=== PATIENT | female | born 1955 | race Caucasian/White ===

== ENCOUNTER 2020-12-17 14:28 | Outpatient (CLI) | payer OTHER, SELFPAY ==
--- NOTE | ~2020-12-17 | XR_ITS ---
XR lumbar spine 2-3V DATE: 12/17/2020 15:03 INDICATION: Chronic low back pain; injury 1 year ago. TECHNIQUE: AP, lateral, coned lateral lumbosacral views COMPARISON: 01/14/2016 lumbar spine FINDINGS: There is normal alignment of the lumbar spine. There is mild to moderate degenerative disc disease throughout the lumbar spine. No fracture or bone destruction or spondylolisthesis. The lum bar pedicles are intact. The sacroiliac joints are normal. IMPRESSION: Mild to moderate degenerative disc disease of lumbar spine Reviewed, dictated and finalized at location A.
--- NOTE | ~2020-12-17 | XR_ITS ---
EXAMINATION: XR ankle RT min 3V DATE: 12/17/2020 15:03 INDICATION: Right ankle pain. TECHNIQUE: 4 views of right ankle were obtained. COMPARISON: None. FINDINGS: Bone alignment is normal. No fracture. There is mild ankle joint osteoarthritis characteriz ed by a tiny marginal osteophyte. There is mild osteoarthritis of talonavicular joint. There is an en thesophyte at plantar aspect of calcaneal tuberosity. IMPRESSION: 1. Mild polyarticular osteoarthritis. Reviewed, dictated and finalized at location A.
--- NOTE | ~2020-12-17 | XR_ITS ---
XR foot RT min 3V DATE: 12/17/2020 15:04 INDICATION: Generalized pain from the tibia and fibula to the foot. No injury. TECHNIQUE: 4 views of right foot COMPARISON: None FINDINGS: Diffuse osteopenia. Moderate plantar calcaneal enthesopathy without erosive change or perio stitis. No fracture, dislocation, periosteal reaction or bone destruction is detected. IMPRESSION: Plantar calcaneal enthesopathy Osteopenia Reviewed, dictated and finalized at location A.
--- NOTE | ~2020-12-17 | XR_ITS ---
EXAMINATION: XR knee RT 3V DATE: 12/17/2020 15:03 INDICATION: Right knee pain. TECHNIQUE: 3 views of right knee were obtained. COMPARISON: Right knee radiographs 02/16/2020 FINDINGS: There is a total right knee arthroplasty without patellar resurfacing in near-anatomic alig nment. No periprosthetic lucency to suggest ischemia or infection. No fracture. There is a small knee joint effusion. IMPRESSION: 1. Total right knee arthroplasty in near-anatomic alignment. 2. Small right knee joint effusion. Reviewed, dictated and finalized at location A.
== END 2020-12-17 14:29 | disposition home or self-care (01) ==
LOC: ANHIMG 14:38
PROVIDERS: PCP Internal Medicine; Visit Provider Internal Medicine
DX: M47.816 Spondylosis without myelopathy or radiculopathy, lumbar region (principal); M85.88 Other specified disorders of bone density and structure, other site; M19.071 Primary osteoarthritis, right ankle and foot; Z96.651 Presence of right artificial knee joint; M25.461 Effusion, right knee
CPT/HCPCS: 72100; 73562; 73610; 73630

== ENCOUNTER 2023-09-11 14:59 | Outpatient (CLI) | payer MEDICARE, SELFPAY ==
--- NOTE | 2023-09-11 15:13 | ECG_ITS ---
Measurements Intervals [place] Rate: 99 P: 60 IN: 135 QRS: -12 QRSD: 93 T: 11 QT: 347 QTc: 445 Interpretive Statements SINUS RHYTHM LOW QRS VOLTAGE IN PRECORDIAL LEADS [QRS DEFLECTION < 1.0 mV IN CHEST LEADS] EVIDENCE OF PREVIOUS ANTERIOR INFARCTION ABNORMAL ECG COMPARED TO ECG 09/18/2018 09:10:47 SMALL PRECORDIAL R-WAVES ARE ABSENT Electronically Signed On 09-11-2023 15:43:43 TUNNEL KILN OPERATOR by Ovidio Saab M.D.
== END 2023-09-11 15:00 | disposition home or self-care (01) ==
LOC: ANHSURGERY 15:12
PROVIDERS: PCP Internal Medicine; Visit Provider Orthopaedic Surgery
DX: Z01.818 Encounter for other preprocedural examination (principal); R93.1 Abnormal findings on diagnostic imaging of heart and coronary circulation; R94.31 Abnormal electrocardiogram [ECG] [EKG]; I10 Essential (primary) hypertension
CPT/HCPCS: 93005

== ENCOUNTER 2023-09-12 15:03 | Inpatient (IN) | payer MEDICARE, SELFPAY ==
--- NOTE | 2023-09-07 12:25 | PC.NURSE ---
Report to the Outpatient Waiting Room, entrance under the green pavilion located off [facility], at time ___1230____ on date _09/12/23 . Planned Procedure Time: __1430 . Time changes happen often and if your time is changed the preop area will call you the afternoon before. - You and your visitor will be asked to self-screen and do not enter if you have any COVID symptoms. - A mask is optional within the hospital at this time. Patients may have clear liquids (water, carbonated beverages, clear teas, apple juice) until 3 hours prior to surgery( 1130 AM) with a maximum of 20 ounces. - No food from midnight until time of surgery - Infants may have breast milk until 4 hours before surgery, formula 6 hours prior to surgery. - Children will be allowed to drink immediately following surgery. If applicable, please bring a bottle or sippy cup to assist with drinking. Juice, water, soda, and popsicles are readily available. For infants on formula, please bring formula the day of surgery. Pacifiers are allowed. Take the following medications with a SIP of water the morning of surgery: _ESCITALOPRAM,LEVOTHYROXINE ,LORAZEPAM, PREGABALIN DO NOT STOP ANY OF YOUR OTHER PRESCRIPTION MEDICATIONS PRIOR TO SURGERY ?EXCEPT THE FOLLOWING Medications to discontinue per physician NONE Please no make-up, nail ethiopian, hairspray, perfume, deodorant, or body powder the day of surgery. No jewelry (including any body piercings) or valuables the day of surgery, leave them at home. Please take a shower or bath the night before, or the morning of, surgery with an antibacterial soap. Wear comfortable, loose fitting clothing. Children are encouraged to wear pajamas. - Jewelry must be removed prior to entering the operating room. Rings and piercings that are not removed may be cut off. - The hospital will not accept responsibility for valuables. - Please leave all valuables, including medications, at home the day of surgery. If you are going home after surgery, a licensed limo driver must drive you home. - NO public transportation without another adult if you receive anesthesia. - We recommend that an adult stay with you for 24 hours following discharge. - We also recommend that you do not drive, make important decision, drink alcoholic beverages, or take any drugs that were not prescribed by your health care provider for at least 24 hours after your discharge time. Follow any additional instructions given to you from your surgeon. If you or anyone in your household have experienced Covid symptoms in the past week, please notify your surgeon or the nurse liaison at the phone number below for possible testing. Telephone instructions given to PATIENT and asked if any additional questions and then verbalized understanding. Patient advised to call surgeon office or pre surgery nurse liaison [phone] if any additional questions.
[2023-09-07 12:33] VITALS: BMI 41.0
[2023-09-12] VITALS (11 sets, daily range): BP systolic 110–150; BP diastolic 55–101; PULSE 92–103; RESP 12–18; TEMP 35.7–36.9; O2SAT 94–100
--- NOTE | ~2023-09-12 | XR_ITS ---
EXAMINATION: [id number]_[id number]_CR DATE: 09/12/2023 14:52 INDICATION: Right knee wound. TECHNIQUE: 2 views of right knee were obtained. COMPARISON: Right knee radiographs 04/12/2023 FINDINGS: There is a total right knee arthroplasty in near-anatomic alignment. There are lucencies ar ound the tibial component. No fracture. There is a surgical drain in the knee joint. Anterior skin st aples are noted. IMPRESSION: 1. Total right knee arthroplasty with lucencies around the tibial component, consistent with osteomye litis. Reviewed, dictated and finalized at location A. ING INSTRUCTOR IMPRESSION: 1. Total right knee arthroplasty with lucencies around the tibial component, co nsistent with osteomyelitis.
--- NOTE | ~2023-09-12 | XR_ITS ---
EXAMINATION: XR chest PICC line DATE: 09/14/2023 14:29 INDICATION: PICC line placement TECHNIQUE: frontal view of the chest was obtained. COMPARISON: Chest radiograph dated 10/05/2018 FINDINGS: Right upper extremity peripherally inserted central venous catheter (PICC) tip at the caudal superio r vena cava. No focal airspace opacities, pulmonary edema, pleural effusion or pneumothorax. The card iomediastinal silhouette is normal. IMPRESSION: 1. Right upper extremity PICC line tip at the caudal superior vena cava. No acute cardiopulmonary dis ease. Reviewed, dictated and finalized at location B. [place] IMPRESSION: 1. Right upper extremity PICC line tip at the caudal superior vena cava. No acu te cardiopulmonary disease.
--- NOTE | 2023-09-12 07:18 | WPDHPUPDATE1 ---
History and Physical Update Update Date/Time: 09/12/23 07:18 History and Physical has been reviewed, including an updated exam of the patient. There are NO changes in the patient's condition. Risks, benefits, and alternatives have been discussed and questions answered. Patient agrees to proceed with procedure.
[2023-09-12] MEDS: LACTATED RINGERS 1,000 ML 30 ML IV CONT ×2 (10:20→14:23)
[2023-09-12] MEDS: CELECOXIB 200 MG CAPSULE PO (10:26)
[2023-09-12] MEDS: ACETAMINOPHEN 500 MG TABLET 1000 MG PO (10:26)
[2023-09-12 10:44] LABS: Hematocrit 34.8 % (37.0-47.0); Hemoglobin 10.1 g/dL (12.0-15.0); Mean Corpuscular Hemoglobin 22.8 pg (26-34); Mean Corpuscular Volume 78.6 fl (80-100); Mean Platelet Volume 9.3 fl (7.4-10.4); Platelet Count Result 408 k/mm3 (150-375); Red Blood Count 4.43 M/mm3 (4.2-5.4); Red Cell Distribution Width 16.7 % (11.5-14.5)
[2023-09-12 11:00] LABS: CRP 3.8 mg/dL (<1.0)
[2023-09-12 11:32] LABS: Erythrocyte Sedimentation Rate 79 mm/hr (0-20)
[2023-09-12] MEDS: ceFAZolin 2 GM/D5W 50 ML 2 GM/50 ML BAG IVPB ×2 (12:00→20:19)
--- NOTE | 2023-09-12 12:59 | SUR.OPER ---
Gram stain report verbally given to Dr. Leon from lab intraop
[2023-09-12] MEDS: HYDROGEN PEROXIDE 3% SOLN(*SP) 473 ML BOTTLE 100 ML IRRIGATION (13:15)
[2023-09-12] MEDS: TRANEXAMIC ACID 1,000 MG/10 ML AMPUL 1000 MG IV PUSH (13:27)
[2023-09-12] MEDS: VANCOMYCIN 1,500 MG/NS 500 ML 1,500 MG/500 ML BAG 250 MG IVPB (13:37)
--- NOTE | 2023-09-12 14:38 | P.OP_ITS ---
Procedure Note - Detailed Date of Procedure 09/12/23 Pre-op Diagnosis right knee wound Post-op Diagnosis Other (osteomyelitis right tibia with septic knee joint, microbiology pending ) Procedure Performed INCISION AND DRAINAGE WITH DEBRIDEMENT OF RIGHT TIBIA AND IND OF THE RIGHT KNEE JOINT WITH POLY COMPONENT REVISION. Surgeon Cristopher Cortez MD Anesthesia General Findings OSTEOMYELITIS RIGHT PROXIMAL TIBIA, MICROBIOLOGY PENDING Description of Procedure THE PATIENT WAS TAKEN TO THE OR IN STABLE CONDITION. THE RIGHT KNEE WAS PREPPED AND DRAPED IN THE STANDARD FASHION. THE RIGHT KNEE WOUND WAS IDENTIFIED IN THE MOST DISTAL REGION OF THE OLD SCAR. AN INCISION WAS MADE OVER THE WOUND AND THE SKIN EDGES WERE DEBRIDED TO GOOD BLEEDING SKIN. THE INCISION CONTINUED DOWN TO THE SUBCUTANEOUS TISSUE UNTIL THE FASCIA WAS IDENTIFIED. THERE WAS A FISTULA AND TUNNELING OF THE WOUND WHICH LED TO THE PROXIMAL MEDIAL TIBIA. FURTHER EXPLORATION SHOWED THERE WAS A DEFECT IN THE PROXIMAL MEDIAL TIBIAL PLATEAU. THERE WAS OBVIOUS DEVITALIZED BONE AND THIS APPEARED TO BE OSTEOMYELITIS. CULTURES WERE TAKEN AT THIS TIME INCLUDING TISSUE FOR CULTURE. IV ANTIBIOTICS WERE STARTED. DEBRIDEMENT OF BONE CONTINUED. THE UNDERSURFACE OF THE TIBIAL IMPLANT WAS EXPOSED. THE COMPONENT WAS WELL FIXED. THE WOUND WAS IRRIGATED THOROUGHLY AT THIS POINT. THERE WAS OBVIOUS CONTAMINATION TO THE RIGHT KNEE JOINT. AT THIS POINT THE SKIN INCISION WAS EXTENDED PROXIMALLY AND AN ARTHROTOMY WAS PREFORMED. THE JOINT WAS INSPECTED. THERE WAS PURULENCE IN THE KNEE JOINT. THE TISSUES WERE WELL PRESERVED AND THERE WAS NO SIGNIFICANT TISSUE NECROSIS. THE POLYETHYLENE COMPONENT WAS REMOVED. THE COMPONENTS WERE INSPECTED AND WERE WELL FIXED. THE KNEE JOINT WAS IRRIGATED AND A EXTENSIVE SYNOVECTOMY WAS PREFORMED AND THE JOINT WAS DEBRIDED THOROUGHLY. ONCE THE JOINT WAS IRRI GATED WITH STERILE BETADINE SOLUTION AND H2O2 SOLUTION, THE POLY ETHYLENE COMPONENT WAS REPLACED USING AN 11 CR POLY COMPONENT. THE KNEE WAS TAKEN THROUGH A RANGE OF MOTION AND THE KNEE JOINT WAS STABLE. MORE STERILE BETADINE WAS USED TO IRRIGATE THE KNEE ONCE AGAIN. A LARGE DRAIN WAS PLACED. THE ARTHROTOMY WAS CLOSED WITH 0 VICRYL, THE SUB CUTANEOUS LAYER WAS CLOSED WITH 2-0 VICRYL AND THE SKIN WAS CLOSED WITH A COMBINATION OF AAMIR AND 3-0 PROLINE SUTURE. A PREVENA DRESSING WAS PLACED. THE PATIENT WAS EXTUBATED AND SENT TO THE RECOVERY ROOM. Estimated Blood Loss 300 Drains Yes Packing No Pathology Yes (MICRO FOR CULTURES AND TISSUE CULTURES) Complications No immediate complications Disposition PACU
[2023-09-12] MEDS: fentaNYL CITRATE INJ (*CRX) 100 MCG/2 ML VIAL 25 MCG IV PUSH ×8 (14:47→15:27)
--- NOTE | 2023-09-12 15:45 | ADMGEN ---
This patient, Gayle De La Cruz, was admitted to 3 Med Surg Room 301-01. Patient/family oriented to hospital policies and general routines including ID bracelet, bed and alarms, visiting hours, pain management, procedures, bathroom and other care routines, personal items, smoking policy, room service/diet, and visiting hours. Information on how to activate the Rapid Response Team has been discussed. Patient/Family are encouraged to report perceived risks to care and to ask questions if they do not understand what they are told or what they should do.
[2023-09-12 16:06] LABS: Estimated CRCL calculation 97 ml/min; Estimated Glomerular Filt Rate > 60
[2023-09-12] MEDS: HYDROcodone/acetaminophen (*CRX) 7.5-325 MG TABLET 1 TAB PO (16:10)
[2023-09-12] MEDS: diazePAM (*CRX) 5 MG TABLET PO (16:11)
[2023-09-12] MEDS: SENNA/DOCUSATE SODIUM TABLET 2 TAB PO (17:13)
[2023-09-12] MEDS: FAMOTIDINE 20 MG TABLET PO (20:18)
[2023-09-12] MEDS: ASPIRIN 325 MG ENTERIC TABLET PO (20:18)
[2023-09-12] MEDS: HYDROcodone/acetaminophen (*CRX) 7.5-325 MG TABLET 2 TAB PO (22:01)
[2023-09-13] VITALS: BP 129/58; PULSE 101; RESP 18; TEMP 36.8; O2SAT 97
[2023-09-13] MEDS: VANCOMYCIN 1,500 MG/NS 500 ML 1,500 MG/500 ML BAG 250 MG IVPB ×2 (00:01→15:17)
[2023-09-13 04:00] VITALS: BP 114/58; PULSE 91; RESP 18; TEMP 36.7; O2SAT 99
[2023-09-13] MEDS: HYDROcodone/acetaminophen (*CRX) 7.5-325 MG TABLET 2 TAB PO ×4 (04:05→21:12)
[2023-09-13] MEDS: ceFAZolin 2 GM/D5W 50 ML 2 GM/50 ML BAG IVPB ×3 (04:05→21:17)
[2023-09-13 06:42] LABS: Basophils Percent Auto 0.2 % (0.2-1.2); Hematocrit 28.1 % (37.0-47.0); Hemoglobin 8.2 g/dL (12.0-15.0); Immature Granulocyte Absolute 0.05 K/mm3 (0.00-0.031); Immature Granulocyte Percent A 0.4 % (0-0.5); Lymphocytes Absolute Auto 1.82 K/mm3 (0.9-3.2); Mean Corpuscular HGB Conc 29.2 g/dl (32-36); Mean Corpuscular Hemoglobin 23.2 pg (26-34); Mean Corpuscular Volume 79.4 fl (80-100); Mean Platelet Volume 9.3 fl (7.4-10.4); Neutrophils Absolute Auto 10.1 K/mm3 (1.3-6.7); Neutrophils Percent Auto 77.4 % (45.5-73.1); Platelet Count Result 377 k/mm3 (150-375); Red Blood Count 3.54 M/mm3 (4.2-5.4); Red Cell Distribution Width 16.4 % (11.5-14.5)
[2023-09-13 07:39] LABS: Platelet Estimate Increased (Adequate)
[2023-09-13 07:40] LABS: Anisocytosis 2+ (NORMAL); Hypochromasia 1+ (NORMAL); Microcytosis 1+ (NORMAL); Schistocytes None Seen (NORMAL)
[2023-09-13 08:00] VITALS: BP 112/62; PULSE 91; RESP 16; TEMP 36.8; O2SAT 96
[2023-09-13] MEDS: ASPIRIN 325 MG ENTERIC TABLET PO ×2 (09:05→21:13)
[2023-09-13] MEDS: FAMOTIDINE 20 MG TABLET PO ×2 (09:05→21:13)
[2023-09-13] MEDS: SENNA/DOCUSATE SODIUM TABLET 2 TAB PO ×2 (09:05→16:41)
[2023-09-13] MEDS: polyethylene glycoL 3350 17 GM POWD.PACK PO (09:05)
--- NOTE | 2023-09-13 09:22 | PM.PNORT ---
Progress Note: A&P Assessment and Plan (1) Open wnd knee/leg/ankle: Qualifiers: Encounter type: initial encounter Laterality: right Qualified Code(s): S81.001A - Unspecified open wound, right knee, initial encounter; S81.801A - Unspecified open wound, right lower leg, initial encounter; S91.001A - Unspecified open wound, right ankle, initial encounter Code(s): S81.009A - Unspecified open wound, unspecified knee, initial encounter; S81.809A - Unspecified open wound, unspecified lower leg, initial encounter; S91.009A - Unspecified open wound, unspecified ankle, initial encounter Status: Acute Assessment and Plan: POD #1: ?I&D with debridement of right tibia and I&D of the right knee joint with poly component revision. Gram stain from surgery reveals many WBCs but no organisms. Dr. Cortez indicated based on surgical intervention and OM noted intraoperatively of the tibia, patient will require tank terminal gauger antibiotics. Blood Cultures ordered for need for PICC placement. Awaiting results at this time. Final wound culture results pending. Pharm ID consulted for future recommendations upon request from Dr. Cortez. Continue drain right knee. Plan to pull when slowed drainage. Continue Prevena with inpatient wound VAC. To be transitioned to outpatient wound VAC cassette upon d/c. Care Coordination to begin involvement for need for Home infusion and wound care upon discharge. PT/OT with WBAT. Walker. Fall Precautions. Pain control. Ice. Elevate as need. DVT prophylaxis with Aspirin. IV antibiotics with Vancomycin and Ancef. Dispo: Home with Home Health IV infusion/wound care. (2) Septic joint: Qualifiers: Laterality: right Septic arthritis location: knee Septic arthritis organism: due to unspecified organism Qualified Code(s): M00.9 - Pyogenic arthritis, unspecified Code(s): M00.9 - Pyogenic arthritis, unspecified Status: Acute Plan Reviewed history, exam, radiographs and current labs with attending MD and covering surgeon, Dr. Cortez, who agrees with current plan as indicated above. No further recommendations from Dr. Cortez at this time. Subjective Subjective Date/Time Seen: 09/13/23 09:22 Post Op day: 1 Interval history: POD #1: I&D with debridement of right tibia and I&D of the right knee joint with poly component revision. Patient up in chair at time of exam. Pain well controlled. Discussed postoperative findings of OM of the right tibia with septic knee joint per Dr. Cortez. Patient verbalized understanding. Discussed poly component exchange. Review of Systems Review of Systems: All systems reviewed & are unremarkable except as noted in HPI and below Exam Const: General: comfortable and no acute distress Resp: Effort & Inspection: normal respiratory effort Cardio: Rate: regular rate Rhythm: regular rhythm GI: GI Palp: Yes Soft to palpation Skin: Wounds: wounds noted (see extremity exam ) Neuro: Speech: normal speech Sensory Exam: normal sensation Extrem: Right lower extremity: knee (Drain in place, 5mL sanguineous output. Prevena dressing in place. ) Details: tenderness (diffuse, mild ), swelling, abnormal ROM Details: pain with active ROM during Details: in extension and in flexion and pain with passive ROM during Details: in extension and in flexion and ecchymosis Other: Incision right knee with Prevena dressing c/d/i. Wound VAC chamber empty. Drain with 5mL sanguinous output. Surrounding tissue with mild swelling. No significant redness/warmth. Patient moves toes, sensation intact. +ankle dorsiflexion/plantarflexion. Negative Arielle's sign. Psych: Mental Status: mental status grossly normal Objective Data Vital Signs Vital Signs: Vital Signs - 24 hr 09/12/23 10:51 09/12/23 14:23 09/12/23 14:35 Temperature 36.8 C 36.6 C Pulse Rate 98 96 98 Respiratory Rate 16 14 14 Blood Pressure 150/75 H 144/101 H 140/90 Pulse Oximetry 97 100
--- NOTE | 2023-09-13 11:25 | P.PNINF_ITS ---
Pharmacy ID Consult - Stewardship Interventions Type of Interventions: Escalation Pharmacy ID Note: Subjective Pharmacy was consulted by Namita Armstrong regarding infectious diseases for Gayle De La Cruz. Gayle De La Cruz is a 68 year old F with concerns regarding Osteomyelitis/PJI. Background The patient is currently receiving Cefazolin and Vancomycin in the post- operative period. The patient's PMH includes recent debridement and drain placement of the prosthesis and during procedure provider identified concern for osteomyelitis. Patient has been on sulfamethoxazole/Trimethoprim recently for management of the wound and it had worsened overtime. Wound tunnelled into the tibia. Patient has blood cultures and right knee cultures pending but gram stain shows wbc's and no organisms. 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 Likely 6-8 weeks of therapy, however, durations can be longer for PJI Knee infections from S. aureus (12 weeks) and given patient history and complication provider is thinking long-term PO suppression therapy thereafter. Will follow culture results. In the current phase therapy with cefazolin and vancomycin to continue beyond this immediate post-operative period. Thank you for the interesting consult. Christian Angulo, PharmD Infectious Disease/Antimicrobial Stewardship Pharmacist 09/13/23; 1125 WBC 13.0 K/mm3 (4.5-10.0) H 09/13/23 05:56 Creatinine 0.50 mg/dL (0.7-1.0) L 09/12/23 09:57 Estim Creat Clear Calc 97 ml/min 09/12/23 09:57
[2023-09-13 12:00] VITALS: BP 114/60; PULSE 92; RESP 18; TEMP 36.1; O2SAT 98
[2023-09-13] MEDS: LEVOTHYROXINE SODIUM 125 MCG TABLET PO (12:08)
[2023-09-13] MEDS: PREGABALIN (*CRX) 75 MG CAPSULE 150 MG PO ×2 (12:09→16:41)
[2023-09-13] MEDS: hydroCHLOROthiazide 25 MG TABLET PO (12:09)
[2023-09-13] MEDS: ESCITALOPRAM OXALATE 10 MG TABLET PO (12:09)
[2023-09-13] MEDS: ATORVASTATIN 20 MG TABLET PO (12:09)
[2023-09-13 16:00] VITALS: BP 118/52; PULSE 84; RESP 16; TEMP 36.3; O2SAT 97
[2023-09-13 20:05] VITALS: BP 103/63; PULSE 92; RESP 20; TEMP 36.3; O2SAT 97
[2023-09-13] MEDS: diazePAM (*CRX) 5 MG TABLET PO ×2 (21:13)
[2023-09-14] VITALS (7 sets, daily range): BP systolic 103–125; BP diastolic 47–84; PULSE 89–95; RESP 18–20; TEMP 36–36.7; O2SAT 94–100
[2023-09-14 00:38] LABS: Estimated CRCL calculation 83 ml/min; Estimated Glomerular Filt Rate > 60
[2023-09-14 00:45] LABS: Vancomycin Trough 14.2 ug/mL (10.0-20.0)
[2023-09-14] MEDS: VANCOMYCIN 1,750 MG/NS 500 ML 1,750 MG/500 ML BAG 250 MG IVPB ×2 (01:35→12:27)
[2023-09-14] MEDS: HYDROcodone/acetaminophen (*CRX) 7.5-325 MG TABLET 2 TAB PO ×3 (03:03→17:33)
[2023-09-14] MEDS: LEVOTHYROXINE SODIUM 125 MCG TABLET PO (05:39)
[2023-09-14] MEDS: ceFAZolin 2 GM/D5W 50 ML 2 GM/50 ML BAG IVPB ×3 (05:39→20:58)
--- NOTE | 2023-09-14 09:53 | PM.PNORT ---
Progress Note: A&P Assessment and Plan (1) Open wnd knee/leg/ankle: Qualifiers: Encounter type: initial encounter Laterality: right Qualified Code(s): S81.001A - Unspecified open wound, right knee, initial encounter; S81.801A - Unspecified open wound, right lower leg, initial encounter; S91.001A - Unspecified open wound, right ankle, initial encounter Code(s): S81.009A - Unspecified open wound, unspecified knee, initial encounter; S81.809A - Unspecified open wound, unspecified lower leg, initial encounter; S91.009A - Unspecified open wound, unspecified ankle, initial encounter Status: Acute Assessment and Plan: POD #2: ?I&D with debridement of right tibia and I&D of the right knee joint with poly component revision. Gram stain from surgery reveals many WBCs but no organisms. Dr. Cortez indicated based on surgical intervention and OM noted intraoperatively of the tibia, patient will require ocean transportation intermediary antibiotics. Blood Cultures ordered for need for PICC placement. Currently negative. Awaiting results at this time. Final wound culture results pending. Pharm ID consulted for future recommendations upon request from Dr. Cortez. Continue drain right knee. Plan to pull when slowed drainage. Continue Prevena with inpatient wound VAC. To be transitioned to outpatient wound VAC cassette upon d/c. Care Coordination to begin involvement for need for Home infusion and wound care upon discharge. PT/OT with WBAT. Walker. Fall Precautions. Pain control. Ice. Elevate as need. DVT prophylaxis with Aspirin. IV antibiotics with Vancomycin and Ancef. Dispo: Home with Home Health IV infusion/wound care. (2) Septic joint: Qualifiers: Septic arthritis location: knee Septic arthritis organism: due to unspecified organism Laterality: right Qualified Code(s): M00.9 - Pyogenic arthritis, unspecified Code(s): M00.9 - Pyogenic arthritis, unspecified Status: Acute Plan Reviewed history, exam, radiographs and current labs with attending MD and covering surgeon, Dr. Cortez, who agrees with current plan as indicated above. No further recommendations from Dr. Cortez at this time. Subjective Subjective Date/Time Seen: 09/14/23 09:53 Post Op day: 2 Interval history: POD #2: I&D with debridement of right tibia and I&D of the right knee joint with poly component revision. Patient laying in bed working with PT/OT. Pain well controlled. No new concerns other than plans moving forward regarding plan of care and antibiotic coverage. Review of Systems Review of Systems: All systems reviewed & are unremarkable except as noted in HPI and below Exam Const: General: comfortable and no acute distress Resp: Effort & Inspection: normal respiratory effort Cardio: Rate: regular rate Rhythm: regular rhythm GI: GI Palp: Yes Soft to palpation Skin: Wounds: wounds noted (see extremity exam ) Neuro: Speech: normal speech Sensory Exam: normal sensation Extrem: Right lower extremity: knee (Drain in place, 5mL sanguineous output. Prevena dressing in place. ) Details: tenderness (diffuse, mild ), swelling, abnormal ROM Details: pain with active ROM during Details: in extension and in flexion and pain with passive ROM during Details: in extension and in flexion and ecchymosis Other: Incision right knee with Prevena dressing c/d/i. Wound VAC chamber empty. Drain with 5mL sanguinous output. Surrounding tissue with mild swelling. No significant redness/warmth. Patient moves toes, sensation intact. +ankle dorsiflexion/plantarflexion. Negative Arielle's sign. Psych: Mental Status: mental status grossly normal Objective Data Vital Signs Vital Signs: Vital Signs - 24 hr 09/13/23 12:00 09/13/23 16:00 09/13/23 20:05 Temperature 36.1 C L 36.3 C L 36.3 C L Pulse Rate 92 84 92 Respiratory Rate 18 16 20 Blood Pressure 114/60 118/52 L 103/63 Pulse Oximetry 98 97 97 Oxygen Delivery 09/13/23
[2023-09-14] MEDS: PREGABALIN (*CRX) 75 MG CAPSULE 150 MG PO ×2 (10:21→17:33)
[2023-09-14] MEDS: PANTOPRAZOLE 40 MG TABLET PO (10:21)
[2023-09-14] MEDS: FAMOTIDINE 20 MG TABLET PO ×2 (10:21→20:57)
[2023-09-14] MEDS: hydroCHLOROthiazide 25 MG TABLET PO (10:21)
[2023-09-14] MEDS: ASPIRIN 325 MG ENTERIC TABLET PO ×2 (10:21→20:57)
[2023-09-14] MEDS: ESCITALOPRAM OXALATE 10 MG TABLET PO (10:22)
[2023-09-14] MEDS: ATORVASTATIN 20 MG TABLET PO (10:22)
[2023-09-14] MEDS: LIDOCAINE HCL 1% PF INJ 5 ML VIAL INFILTRATE (14:00)
[2023-09-14] MEDS: CENTRAL LINE FLUSH 10 ML IV PUSH ×2 (14:54→20:58)
[2023-09-14] MEDS: LORazepam (*CRX) 1 MG TABLET PO (20:57)
[2023-09-15] VITALS (7 sets, daily range): BP systolic 93–118; BP diastolic 38–80; PULSE 84–98; RESP 12–20; TEMP 36.2–37; O2SAT 92–100
[2023-09-15] MEDS: HYDROcodone/acetaminophen (*CRX) 7.5-325 MG TABLET 2 TAB PO ×3 (01:53→21:49)
[2023-09-15] MEDS: VANCOMYCIN 1,750 MG/NS 500 ML 1,750 MG/500 ML BAG 250 MG IVPB (01:54)
[2023-09-15] MEDS: CENTRAL LINE FLUSH 10 ML IV PUSH ×3 (05:57→20:20)
[2023-09-15] MEDS: LEVOTHYROXINE SODIUM 125 MCG TABLET PO (05:57)
[2023-09-15] MEDS: ceFAZolin 2 GM/D5W 50 ML 2 GM/50 ML BAG IVPB ×3 (05:57→20:20)
--- NOTE | 2023-09-15 08:31 | PM.PNORT ---
Progress Note: A&P Assessment and Plan (1) Open wnd knee/leg/ankle: Qualifiers: Encounter type: initial encounter Laterality: right Qualified Code(s): S81.001A - Unspecified open wound, right knee, initial encounter; S81.801A - Unspecified open wound, right lower leg, initial encounter; S91.001A - Unspecified open wound, right ankle, initial encounter Code(s): S81.009A - Unspecified open wound, unspecified knee, initial encounter; S81.809A - Unspecified open wound, unspecified lower leg, initial encounter; S91.009A - Unspecified open wound, unspecified ankle, initial encounter Status: Acute Assessment and Plan: POD #3: ?I&D with debridement of right tibia and I&D of the right knee joint with poly component revision. Gram stain from surgery reveals many WBCs but no organisms. Pharm ID consulted for future recommendations upon request from Dr. Cortez. Continue drain right knee. 70 mL per shift. Follow output. Continue Prevena with inpatient wound VAC. To be transitioned to outpatient wound VAC cassette upon d/c. Care Coordination to begin involvement for need for Home infusion and wound care upon discharge. PT/OT with WBAT. Walker. Fall Precautions. Pain control. Ice. Elevate as need. DVT prophylaxis with Aspirin. IV antibiotics with Vancomycin and Ancef. (2) Septic joint: Qualifiers: Septic arthritis location: knee Septic arthritis organism: due to unspecified organism Laterality: right Qualified Code(s): M00.9 - Pyogenic arthritis, unspecified Code(s): M00.9 - Pyogenic arthritis, unspecified Status: Acute Plan Subjective Subjective Date/Time Seen: 09/15/23 08:31 Post Op day: 3 Principal diagnosis: rt knee infection Interval history: POD #3: I&D with debridement of right tibia and I&D of the right knee joint with poly component revision. Patient in bed. Pain well controlled. No new concerns other than plans moving forward regarding plan of care and antibiotic coverage. Exam Const: General: comfortable and no acute distress Resp: Effort & Inspection: normal respiratory effort Cardio: Rate: regular rate Rhythm: regular rhythm GI: GI Palp: Yes Soft to palpation Skin: Wounds: wounds noted (see extremity exam ) Neuro: Speech: normal speech Sensory Exam: normal sensation Extrem: Right lower extremity: knee (Drain in place, 5mL sanguineous output. Prevena dressing in place. ) Details: tenderness (diffuse, mild ), swelling, abnormal ROM Details: pain with active ROM during Details: in extension and in flexion and pain with passive ROM during Details: in extension and in flexion and ecchymosis Other: Incision right knee with Prevena dressing c/d/i. Wound VAC chamber empty. Drain with 70mL sanguinous output/ 8hr. Surrounding tissue with mild swelling. No significant redness/warmth. Patient moves toes, sensation intact. +ankle dorsiflexion/plantarflexion. Negative Arielle's sign. Psych: Mental Status: mental status grossly normal Objective Data Vital Signs Vital Signs: Vital Signs - 24 hr 09/14/23 10:21 09/14/23 10:15 09/14/23 12:00 Temperature 97.9 F Pulse Rate 95 Respiratory Rate 18 Blood Pressure 121/84 125/68 Pulse Oximetry 100 Oxygen Delivery Room Air 09/14/23 16:00 09/14/23 20:45 09/14/23 20:00 Temperature 98.0 F 97.3 F L Pulse Rate 92 89 Respiratory Rate 18 20 Blood Pressure 112/53 L 106/69 Pulse Oximetry 94 97 Oxygen Delivery Room Air 09/15/23 00:25 09/15/23 04:45 Temperature 97.1 F L 97.6 F Pulse Rate 98 96 Respiratory Rate 18 18 Blood Pressure 110/65 96/56 L Pulse Oximetry 98 92 Oxygen Delivery Intake/Output Intake/Output: Intake & Output 09/12/23 09/13/23 09/14/23 09/15/23 23:59 23:59 23:59 23:59 Intake Total 540 2800 1660 550 Output Total 1540 2875 890 Balance 540 540 -845 -340 Meds/Results Medications: Active Medications Generic Name Dose Route Start Last
[2023-09-15] MEDS: PANTOPRAZOLE 40 MG TABLET PO (09:59)
[2023-09-15] MEDS: hydroCHLOROthiazide 25 MG TABLET PO (09:59)
[2023-09-15] MEDS: ESCITALOPRAM OXALATE 10 MG TABLET PO (09:59)
[2023-09-15] MEDS: ASPIRIN 325 MG ENTERIC TABLET PO ×2 (09:59→20:19)
[2023-09-15] MEDS: ATORVASTATIN 20 MG TABLET PO (09:59)
[2023-09-15] MEDS: PREGABALIN (*CRX) 75 MG CAPSULE 150 MG PO ×2 (09:59→17:40)
[2023-09-15] MEDS: FAMOTIDINE 20 MG TABLET PO ×2 (09:59→20:19)
[2023-09-15] MEDS: SENNA/DOCUSATE SODIUM TABLET 2 TAB PO ×2 (10:13→17:40)
--- NOTE | 2023-09-15 12:30 | PC.NURSE ---
Called director clinical operations to have vanc trough drawn
[2023-09-15 13:22] LABS: Vancomycin Trough 14.1 ug/mL (10.0-20.0)
[2023-09-15] MEDS: LORazepam (*CRX) 1 MG TABLET PO ×2 (13:46→20:20)
[2023-09-15] MEDS: VANCOMYCIN 2,000 MG/NS 500 ML 2,000 MG/500 ML BAG 250 MG IVPB (14:26)
[2023-09-15] MEDS: ACETAMINOPHEN 325 MG TABLET 650 MG PO (17:41)
[2023-09-16] MEDS: VANCOMYCIN 2,000 MG/NS 500 ML 2,000 MG/500 ML BAG 250 MG IVPB ×2 (01:09→13:29)
[2023-09-16 01:10] VITALS: BP 102/75; PULSE 85; RESP 18; TEMP 36.2; O2SAT 93
[2023-09-16 04:29] VITALS: BP 113/50; PULSE 94; RESP 20; TEMP 36.7; O2SAT 92
[2023-09-16] MEDS: LEVOTHYROXINE SODIUM 125 MCG TABLET PO (05:50)
[2023-09-16] MEDS: ceFAZolin 2 GM/D5W 50 ML 2 GM/50 ML BAG IVPB ×3 (05:51→20:26)
[2023-09-16] MEDS: CENTRAL LINE FLUSH 10 ML IV PUSH ×3 (05:51→20:26)
[2023-09-16] MEDS: CENTRAL LINE FLUSH 20 ML IV PUSH (05:52)
[2023-09-16] MEDS: HYDROcodone/acetaminophen (*CRX) 7.5-325 MG TABLET 2 TAB PO ×3 (06:10→20:36)
[2023-09-16 06:28] LABS: Estimated CRCL calculation 97 ml/min; Estimated Glomerular Filt Rate > 60
[2023-09-16 08:00] VITALS: BP 94/44; PULSE 90; RESP 20; TEMP 36.3; O2SAT 100
[2023-09-16] MEDS: ASPIRIN 325 MG ENTERIC TABLET PO ×2 (08:53→20:26)
[2023-09-16] MEDS: FAMOTIDINE 20 MG TABLET PO ×2 (08:53→20:26)
[2023-09-16] MEDS: ESCITALOPRAM OXALATE 10 MG TABLET PO (08:53)
[2023-09-16] MEDS: PREGABALIN (*CRX) 75 MG CAPSULE 150 MG PO ×2 (08:53→18:34)
[2023-09-16] MEDS: SENNA/DOCUSATE SODIUM TABLET 2 TAB PO ×2 (08:54→18:34)
[2023-09-16] MEDS: ATORVASTATIN 20 MG TABLET PO (08:54)
[2023-09-16] MEDS: PANTOPRAZOLE 40 MG TABLET PO (08:54)
--- NOTE | 2023-09-16 09:23 | PM.PNORT ---
Progress Note: A&P Assessment and Plan (1) Open wnd knee/leg/ankle: Qualifiers: Encounter type: initial encounter Laterality: right Qualified Code(s): S81.001A - Unspecified open wound, right knee, initial encounter; S81.801A - Unspecified open wound, right lower leg, initial encounter; S91.001A - Unspecified open wound, right ankle, initial encounter Code(s): S81.009A - Unspecified open wound, unspecified knee, initial encounter; S81.809A - Unspecified open wound, unspecified lower leg, initial encounter; S91.009A - Unspecified open wound, unspecified ankle, initial encounter Status: Acute Assessment and Plan: POD #4: ?I&D with debridement of right tibia and I&D of the right knee joint with poly component revision. Gram stain from surgery reveals many WBCs but no organisms. Pharm ID consulted for future recommendations. Continue drain right knee. 50 mL per shift Overnight. still with too high of the output to remove today. Follow output. Possible DC tomorrow Continue Prevena with inpatient wound VAC.. PT/OT with WBAT. Walker. Fall Precautions. Pain control. Ice. Elevate as need. DVT prophylaxis with Aspirin. IV antibiotics with Vancomycin and Ancef. mild hypotension this morning. Will hold hydrochlorothiazide and watch blood pressure. Labs ordered for a.m. (2) Septic joint: Qualifiers: Septic arthritis location: knee Septic arthritis organism: due to unspecified organism Laterality: right Qualified Code(s): M00.9 - Pyogenic arthritis, unspecified Code(s): M00.9 - Pyogenic arthritis, unspecified Status: Acute Plan Subjective Subjective Date/Time Seen: 09/16/23 09:23 Post Op day: 4 Principal diagnosis: rt knee infection Interval history: POD #4: I&D with debridement of right tibia and I&D of the right knee joint with poly component revision. Patient up to chair. Pain well controlled. No new concerns other than plans moving forward regarding plan of care and antibiotic coverage. Exam Const: General: comfortable and no acute distress Resp: Effort & Inspection: normal respiratory effort Cardio: Rate: regular rate Rhythm: regular rhythm GI: GI Palp: Yes Soft to palpation Skin: Wounds: wounds noted (see extremity exam ) Neuro: Speech: normal speech Sensory Exam: normal sensation Extrem: Right lower extremity: knee (Drain in place, 5mL sanguineous output. Prevena dressing in place. ) Details: tenderness (diffuse, mild ), swelling, abnormal ROM Details: pain with active ROM during Details: in extension and in flexion and pain with passive ROM during Details: in extension and in flexion and ecchymosis Other: Incision right knee with Prevena dressing c/d/i. Wound VAC chamber empty. Drain with 70mL sanguinous output/ 8hr. Surrounding tissue with mild swelling. No significant redness/warmth. Patient moves toes, sensation intact. +ankle dorsiflexion/plantarflexion. Negative Arielle's sign. Psych: Mental Status: mental status grossly normal Objective Data Vital Signs Vital Signs: Vital Signs - 24 hr 09/15/23 10:10 09/15/23 11:40 09/15/23 16:30 Temperature 98.6 F 97.1 F L Pulse Rate 90 84 Respiratory Rate 12 16 Blood Pressure 118/38 L 93/61 L Pulse Oximetry 95 100 Oxygen Delivery Room Air 09/15/23 17:44 09/15/23 20:50 09/15/23 20:00 Temperature 97.5 F L Pulse Rate 87 Respiratory Rate 20 Blood Pressure 104/68 105/80 Pulse Oximetry 98 Oxygen Delivery Room Air 09/16/23 01:10 09/16/23 04:29 09/16/23 08:00 Temperature 97.2 F L 98.1 F 97.3 F L Pulse Rate 85 94 90 Respiratory Rate 18 20 20 Blood Pressure 102/75 113/50 L 94/44 L Pulse Oximetry 93 92 100 Oxygen Delivery Intake/Output Intake/Output: Intake & Output 09/13/23 09/14/23 09/15/23 09/16/23 23:59 23:59 23:59 23:59 Intake Total 2800 1660 1660 450 Output Total 2260 2505 1145 650 Balance 540 -845 515 -200 Meds/Results Medica
[2023-09-16 13:00] VITALS: BP 128/71; PULSE 94; RESP 16; TEMP 36.4; O2SAT 100
[2023-09-16 15:58] VITALS: BP 101/72; PULSE 88; RESP 20; TEMP 36.3; O2SAT 97
[2023-09-16 20:25] VITALS: BP 117/41; PULSE 88; RESP 20; TEMP 36.4; O2SAT 100
[2023-09-16] MEDS: LORazepam (*CRX) 1 MG TABLET PO (20:36)
[2023-09-17] VITALS (11 sets, daily range): BP systolic 98–142; BP diastolic 51–91; PULSE 54–95; RESP 16–20; TEMP 36.1–36.5; O2SAT 92–100
[2023-09-17 02:08] LABS: Vancomycin Trough 14.6 ug/mL (10.0-20.0)
[2023-09-17] MEDS: VANCOMYCIN 2,000 MG/NS 500 ML 2,000 MG/500 ML BAG 250 MG IVPB ×2 (02:38→14:55)
[2023-09-17] MEDS: CENTRAL LINE FLUSH 10 ML IV PUSH ×3 (04:49→20:33)
[2023-09-17] MEDS: CENTRAL LINE FLUSH 20 ML IV PUSH (04:49)
[2023-09-17] MEDS: LEVOTHYROXINE SODIUM 125 MCG TABLET PO (04:50)
[2023-09-17] MEDS: ceFAZolin 2 GM/D5W 50 ML 2 GM/50 ML BAG IVPB ×3 (04:50→20:35)
[2023-09-17] MEDS: HYDROcodone/acetaminophen (*CRX) 7.5-325 MG TABLET 2 TAB PO ×3 (04:52→20:31)
[2023-09-17 05:06] LABS: Basophils Percent Auto 0.3 % (0.2-1.2); Eosinophils Absolute Auto 0.6 K/mm3 (0-0.3); Eosinophils Percent Auto 7.3 % (0-4.4); Hematocrit 23.8 % (37.0-47.0); Immature Granulocyte Absolute 0.05 K/mm3 (0.00-0.031); Immature Granulocyte Percent A 0.6 % (0-0.5); Lymphocytes Absolute Auto 2.56 K/mm3 (0.9-3.2); Lymphocytes Percent Auto 29.8 % (18.3-44.2); Mean Corpuscular Volume 79.3 fl (80-100); Mean Platelet Volume 8.7 fl (7.4-10.4); Monocytes Absolute Auto 0.9 K/mm3 (0.1-0.6); Monocytes Percent Auto 10.2 % (2.6-8.5); Neutrophils Absolute Auto 4.4 K/mm3 (1.3-6.7); Neutrophils Percent Auto 51.8 % (45.5-73.1); Platelet Count Result 336 k/mm3 (150-375); Red Cell Distribution Width 16.7 % (11.5-14.5); White Blood Count 8.6 K/mm3 (4.5-10.0)
[2023-09-17 05:15] LABS: Hemoglobin 6.9 g/dL (12.0-15.0)
[2023-09-17 05:28] LABS: Platelet Estimate Adequate (Adequate)
[2023-09-17 05:29] LABS: Hypochromasia 2+ (NORMAL); Schistocytes None Seen (NORMAL)
[2023-09-17 05:37] LABS: Anion Gap 3 mmol/L (8-16); Blood Urea Nitrogen 9 mg/dL (7-17); Calcium 7.9 mg/dL (8.4-10.2); Carbon Dioxide 31 mmol/L (22-30); Chloride 101 mmol/L (98-107); Estimated CRCL calculation 97 ml/min; Estimated Glomerular Filt Rate > 60; Glucose 110 mg/dL (65-110); Potassium 3.1 mmol/L (3.4-5.0); Sodium 135 mmol/L (137-145)
[2023-09-17] MEDS: polyethylene glycoL 3350 17 GM POWD.PACK PO (08:05)
[2023-09-17] MEDS: SENNA/DOCUSATE SODIUM TABLET 2 TAB PO ×2 (08:05→16:28)
[2023-09-17] MEDS: PREGABALIN (*CRX) 75 MG CAPSULE 150 MG PO ×2 (08:05→16:28)
[2023-09-17] MEDS: ASPIRIN 325 MG ENTERIC TABLET PO ×2 (08:06→20:31)
[2023-09-17] MEDS: FAMOTIDINE 20 MG TABLET PO ×2 (08:06→20:31)
[2023-09-17] MEDS: PANTOPRAZOLE 40 MG TABLET PO (08:06)
[2023-09-17] MEDS: ESCITALOPRAM OXALATE 10 MG TABLET PO (08:06)
[2023-09-17] MEDS: ATORVASTATIN 20 MG TABLET PO (08:06)
--- NOTE | 2023-09-17 08:11 | PCPTNOTE ---
The patient treatment was not able to be completed this morning on 09/17/2023 due to patient's hemoglobin 6.9 and patient going to get a blood transfusion this AM. Will plan to continue treatment per plan of care.
[2023-09-17] MEDS: SODIUM CHLORIDE 0.9% IV 250 ML 30 ML IV CONT (09:00)
--- NOTE | 2023-09-17 09:29 | PM.PNORT ---
Progress Note: A&P Assessment and Plan (1) Open wnd knee/leg/ankle: Qualifiers: Encounter type: initial encounter Laterality: right Qualified Code(s): S81.001A - Unspecified open wound, right knee, initial encounter; S81.801A - Unspecified open wound, right lower leg, initial encounter; S91.001A - Unspecified open wound, right ankle, initial encounter Code(s): S81.009A - Unspecified open wound, unspecified knee, initial encounter; S81.809A - Unspecified open wound, unspecified lower leg, initial encounter; S91.009A - Unspecified open wound, unspecified ankle, initial encounter Status: Acute Assessment and Plan: POD #5: ?I&D with debridement of right tibia and I&D of the right knee joint with poly component revision. Gram stain from surgery reveals many WBCs but no organisms. Pharm ID consulted for future recommendations. Continue drain right knee. 50 mL per shift. Will continue to monitor drain. Follow output. Possible DC today or tomorrow if drainage slows. Continue Prevena with inpatient wound VAC. Plan to transition to cassette at d/c. PT/OT with WBAT. Walker. Fall Precautions. Pain control. Ice. Elevate as need. DVT prophylaxis with Aspirin. IV antibiotics with Vancomycin and Ancef. (2) Septic joint: Qualifiers: Septic arthritis location: knee Septic arthritis organism: due to unspecified organism Laterality: right Qualified Code(s): M00.9 - Pyogenic arthritis, unspecified Code(s): M00.9 - Pyogenic arthritis, unspecified Status: Acute (3) Anemia: Code(s): D64.9 - Anemia, unspecified Status: Acute Assessment and Plan: Hypotension, HCTZ held. Post operative anemia noted on labs today. HgB 6.9. Currently receiving 1 unit PRBCs. May require 2nd unit. Will monitor. Plan Reviewed history, exam, radiographs and current labs with attending MD and covering surgeon, Dr. Cortez, who agrees with current plan as indicated above. Dr. Cortez recommending medicine consult at this time. Subjective Subjective Date/Time Seen: 09/17/23 09:29 Post Op day: 5 Principal diagnosis: Right Knee Infection Interval history: POD #5: I&D with debridement of right tibia and I&D of the right knee joint with poly component revision. Patient up to chair. Pain well controlled. Receiving PRBCs. Review of Systems Review of Systems: All systems reviewed & are unremarkable except as noted in HPI and below Exam Const: General: comfortable and no acute distress Resp: Effort & Inspection: normal respiratory effort Cardio: Rate: regular rate Rhythm: regular rhythm GI: GI Palp: Yes Soft to palpation Skin: Wounds: wounds noted (see extremity exam ) Neuro: Speech: normal speech Sensory Exam: normal sensation Extrem: Right lower extremity: knee (Drain in place, 50 mL sanguineous output. Prevena dressing in place. ) Details: tenderness (diffuse, mild ), swelling, abnormal ROM Details: pain with active ROM during Details: in extension and in flexion and pain with passive ROM during Details: in extension and in flexion and ecchymosis Other: Incision right knee with Prevena dressing c/d/i. Wound VAC chamber empty. Drain with 50 mL sanguinous output/ 8hr. Surrounding tissue with mild swelling. No significant redness/warmth. Patient moves toes, sensation intact. +ankle dorsiflexion/plantarflexion. Negative Arielle's sign. Psych: Mental Status: mental status grossly normal Objective Data Vital Signs Vital Signs: Vital Signs - 24 hr 09/16/23 13:00 09/16/23 15:58 09/16/23 20:25 Temperature 36.4 C 36.3 C L 36.4 C L Pulse Rate 94 88 88 Respiratory Rate 16 20 20 Blood Pressure 128/71 101/72 117/41 L Pulse Oximetry 100 97 100 Oxygen Delivery 09/16/23 20:00 09/17/23 00:45 09/17/23 04:05 Temperature 36.2 C L 36.4 C Pulse Rate 91 93 Respiratory Rate 18 18 Blood Pressure 115/59 L 121/51 L Pulse Oximetry 98 95 Oxygen Delivery Room Air
[2023-09-17 13:33] LABS: CRP 14.4 mg/dL (<1.0)
--- NOTE | 2023-09-17 16:11 | P.PNINF_ITS ---
Pharmacy ID Consult - Stewardship Interventions Type of Interventions: De-escalation, Discharge Recommendation Pharmacy ID Note: Spoke with Taye Armstrong regarding this patient - patient currently on Vancomycin 2g q12h and Cefazolin 2g q8h (day ~5-6) for therapy and cultures (blood and right knee) are showing no growth to date. For discharge patient approved for vancomycin therapy and can consider a concomitant oral agent for broader spectrum coverage (Consider Amoxicillin 1g q8h or Augmentin 875/125 mg q12h) if so desired and to provide similar broad coverage as would be provided by cefazolin. Duration of treatment for this can be somewhere between 6-12 weeks - infected joints with retained hardware are commonly recommended to be on the longer end of treatment, but both osteomyelitis and PJI can have parts of there therapy done with oral antibiotics if after some time (~6-8 weeks) a switch is desired. Will sign off at this time. Please don't hesitate to reconsult or reach out if new information comes to light. Microbiology 09/12/23 19:28 Blood Blood Culture - Preliminary 09/12/23 19:26 Blood Blood Culture - Preliminary 09/12/23 12:01 Knee Right Anaerobic Culture - Preliminary 09/12/23 12:01 Knee Right Aerobic Culture - Final 09/12/23 11:53 Knee Right Gram Stain - Final Laboratory Tests 09/17/23 04:55 WBC 8.6 Previous Note copied below Subjective Pharmacy was consulted by Namita Armstrong regarding infectious diseases for Gayle De La Cruz. Gayle De La Cruz is a 68 year old F with concerns regarding Osteomyelitis/PJI. Background The patient is currently receiving Cefazolin and Vancomycin in the post- operative period. The patient's PMH includes recent debridement and drain placement of the prosthesis and during procedure provider identified concern for osteomyelitis. Patient has been on sulfamethoxazole/Trimethoprim recently for management of the wound and it had worsened overtime. Wound tunnelled into the tibia. Patient has blood cultures and right knee cultures pending but gram stain shows wbc's and no organisms. 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 Likely 6-8 weeks of therapy, however, durations can be longer for PJI Knee infections from S. aureus (12 weeks) and given patient history and complication provider is thinking long-term PO suppression therapy thereafter. Will follow culture results. In the current phase therapy with cefazolin and vancomycin to continue beyond this immediate post-operative period. Thank you for the interesting consult. Christian Angulo, PharmD Infectious Disease/Antimicrobial Stewardship Pharmacist 09/13/23; 1125 WBC 8.6 K/mm3 (4.5-10.0) 09/17/23 04:55 Creatinine 0.50 mg/dL (0.7-1.0) L 09/17/23 04:55 Estim Creat Clear Calc 97 ml/min 09/17/23 04:55
[2023-09-17 16:42] LABS: Basophils Percent Auto 0.4 % (0.2-1.2); Eosinophils Absolute Auto 0.7 K/mm3 (0-0.3); Eosinophils Percent Auto 6.5 % (0-4.4); Hematocrit 29.9 % (37.0-47.0); Hemoglobin 8.8 g/dL (12.0-15.0); Immature Granulocyte Absolute 0.04 K/mm3 (0.00-0.031); Immature Granulocyte Percent A 0.4 % (0-0.5); Lymphocytes Absolute Auto 3.15 K/mm3 (0.9-3.2); Lymphocytes Percent Auto 28.2 % (18.3-44.2); Mean Corpuscular HGB Conc 29.4 g/dl (32-36); Mean Corpuscular Hemoglobin 23.7 pg (26-34); Mean Corpuscular Volume 80.6 fl (80-100); Mean Platelet Volume 8.9 fl (7.4-10.4); Monocytes Absolute Auto 1.1 K/mm3 (0.1-0.6); Monocytes Percent Auto 9.6 % (2.6-8.5); Neutrophils Absolute Auto 6.1 K/mm3 (1.3-6.7); Neutrophils Percent Auto 54.9 % (45.5-73.1); Platelet Count Result 384 k/mm3 (150-375); Red Blood Count 3.71 M/mm3 (4.2-5.4); Red Cell Distribution Width 16.5 % (11.5-14.5); White Blood Count 11.2 K/mm3 (4.5-10.0)
[2023-09-17 17:26] LABS: Hypochromasia 1+ (NORMAL); Schistocytes None Seen (NORMAL)
[2023-09-17 17:27] LABS: Anisocytosis 2+ (NORMAL)
[2023-09-17] MEDS: LORazepam (*CRX) 1 MG TABLET PO (20:31)
--- NOTE | 2023-09-17 21:13 | PM.IMCN ---
Assessment and Plan Assessment and plan (1) Septic joint: Qualifiers: Septic arthritis location: knee Septic arthritis organism: due to unspecified organism Laterality: right Qualified Code(s): M00.9 - Pyogenic arthritis, unspecified Code(s): M00.9 - Pyogenic arthritis, unspecified Status: Acute (2) Hypokalemia: Code(s): E87.6 - Hypokalemia Status: Acute (3) Hypertension: Qualifiers: Hypertension type: essential hypertension Qualified Code(s): I10 - Essential (primary) hypertension Code(s): I10 - Essential (primary) hypertension Status: Acute (4) Acute blood loss anemia: Code(s): D62 - Acute posthemorrhagic anemia Status: Acute Plan This is a 68-year-old female with past medical history GERD, depression with anxiety, arthritis, hyperlipidemia, hypertension, morbid obesity, septic right knee joint/osteo myelitis status post total arthroplasty. Medicine team consulted presumably for medical management for hypotension and anemia. The patient currently reports she is doing well and she has minimal pain only sometimes with tingling/prickling at the operative site. She has been here since September 12 postop I and D with debridement of right tibia I and D of right knee joint with poly component revision as it had developed an abscess. She reports her feet are swollen she usually takes a water pill for hypertension. She denies fever. Potassium 3.1 this morning. Replace. Check again in the morning with magnesium. Patient developed hypotension with anemia so her hydrochlorothiazide was held. She complains of swelling in her feet and this can be restarted when appropriate. As for the hypotension she has received 1 unit PRBC for hemoglobin is now up to 8.8 from 6.9. Continue to monitor. The patient has had chronic anemia for some time and she does not believe this has been addressed. She does not take iron. Iron panel in 2022 most suggestive of iron deficiency. She denies vaginal bleeding or dark stools. She had a colonoscopy many years ago with Dr. Lowe and she reports there were no significant abnormal findings. Start iron tab b.i.d.. She should follow-up with colonoscopy and GI surveillance. There may be a component of acute blood loss anemia due to her surgery as well as inflammatory state. As for her septic joint status post I and D she is on vancomycin and cefazolin. She has a PICC line now for outpatient antibiotics. Would be hesitant to discharge her just yet as her white count increased 11.2 and CRP increasing. Will trend both of those and also check procalcitonin to help guide antibiotic management. Wound cultures growing many wbc's but no organism so that is not helpful. Wound VAC is in place and she is afebrile otherwise. FEN: Saline lock IV. GI prophylaxis: Continue Pepcid. She is on Protonix at home. DVT prophylaxis: Aspirin for DVT prophylaxis Lines: PICC line Code Status: Full code Dispo: Stable HPI Date of Consult Consult date: 09/17/23 Requesting Physician: Cristopher Cortez MD Primary Care Provider: Fabricio Paige, Consult Narrative Reason for consult: Medical management Narrative: This is a 68-year-old female with past medical history GERD, depression with anxiety, arthritis, hyperlipidemia, hypertension, morbid obesity, septic right knee joint/osteo myelitis status post total arthroplasty. Medicine team consulted presumably for medical management for hypotension and anemia. The patient currently reports she is doing well and she has minimal pain only sometimes with tingling/prickling at the operative site. She has been here since September 12 postop I and D with debridement of right tibia I and D of right knee joint with poly component revision as it had developed an abscess. She reports her feet are swollen she usually takes a water pill for hypertension. She denies fever. Review of Systems Review of S
[2023-09-18] MEDS: HYDROcodone/acetaminophen (*CRX) 7.5-325 MG TABLET 2 TAB PO ×2 (03:10→20:33)
[2023-09-18] MEDS: VANCOMYCIN 2,000 MG/NS 500 ML 2,000 MG/500 ML BAG 250 MG IVPB ×2 (03:10→15:15)
[2023-09-18 04:30] VITALS: BP 120/69; PULSE 93; RESP 18; TEMP 36.2; O2SAT 98
[2023-09-18] MEDS: LEVOTHYROXINE SODIUM 125 MCG TABLET PO (04:45)
[2023-09-18] MEDS: CENTRAL LINE FLUSH 10 ML IV PUSH ×3 (04:45→22:00)
[2023-09-18] MEDS: ceFAZolin 2 GM/D5W 50 ML 2 GM/50 ML BAG IVPB ×3 (05:40→20:34)
[2023-09-18 05:56] LABS: Basophils Percent Auto 0.5 % (0.2-1.2); Eosinophils Absolute Auto 0.6 K/mm3 (0-0.3); Eosinophils Percent Auto 7.8 % (0-4.4); Hematocrit 26.1 % (37.0-47.0); Hemoglobin 7.6 g/dL (12.0-15.0); Immature Granulocyte Absolute 0.04 K/mm3 (0.00-0.031); Immature Granulocyte Percent A 0.5 % (0-0.5); Lymphocytes Absolute Auto 2.35 K/mm3 (0.9-3.2); Lymphocytes Percent Auto 29.6 % (18.3-44.2); Mean Corpuscular HGB Conc 29.1 g/dl (32-36); Mean Corpuscular Hemoglobin 23.5 pg (26-34); Mean Corpuscular Volume 80.6 fl (80-100); Mean Platelet Volume 9.1 fl (7.4-10.4); Monocytes Absolute Auto 0.8 K/mm3 (0.1-0.6); Monocytes Percent Auto 9.8 % (2.6-8.5); Neutrophils Absolute Auto 4.1 K/mm3 (1.3-6.7); Neutrophils Percent Auto 51.8 % (45.5-73.1); Platelet Count Result 336 k/mm3 (150-375); Red Blood Count 3.24 M/mm3 (4.2-5.4); Red Cell Distribution Width 16.6 % (11.5-14.5); White Blood Count 7.9 K/mm3 (4.5-10.0)
[2023-09-18 06:18] LABS: Anion Gap 1 mmol/L (8-16); Blood Urea Nitrogen 12 mg/dL (7-17); CRP 8.4 mg/dL (<1.0); Calcium 7.9 mg/dL (8.4-10.2); Carbon Dioxide 31 mmol/L (22-30); Chloride 103 mmol/L (98-107); Estimated CRCL calculation 97 ml/min; Estimated Glomerular Filt Rate > 60; Glucose 100 mg/dL (65-110); Magnesium 1.9 mg/dL (1.6-2.3); Potassium 3.7 mmol/L (3.4-5.0); Sodium 135 mmol/L (137-145)
[2023-09-18 07:00] LABS: Procalcitonin 0.1 ng/mL
[2023-09-18 08:00] VITALS: PULSE 93; RESP 18; O2SAT 98
--- NOTE | 2023-09-18 08:58 | PM.PNORT ---
Progress Note: A&P Assessment and Plan (1) Septic joint: Qualifiers: Septic arthritis location: knee Septic arthritis organism: due to unspecified organism Laterality: right Qualified Code(s): M00.9 - Pyogenic arthritis, unspecified Code(s): M00.9 - Pyogenic arthritis, unspecified Status: Acute Assessment and Plan: POD #6: ?I&D with debridement of right tibia and I&D of the right knee joint with poly component revision. Gram stain from surgery reveals many WBCs but no organisms. Cultures without growth but patient was on antibiotics at some point prior to surgery.IV antibiotics with Vancomycin and Ancef. Plan to transition to Vanc only x12 weeks at d/c with possible additional oral antibiotic as well. WBC and CRP trending downward. Continue drain right knee. [address] Cortez notified of continued drain output and serous nature. Plans for bedside evaluation today by Dr. Cortez to determine appropriateness of pulling drain. Continue Prevena with inpatient wound VAC. Plan to transition to cassette at d/c. PT/OT with WBAT. Walker. Fall Precautions. Pain control. Ice. Elevate as need. DVT prophylaxis with Aspirin. Dispo: Home with Home Health for IV infusion pending clearance by Dr. Coretz and medicine team as well. (2) Open wnd knee/leg/ankle: Qualifiers: Encounter type: initial encounter Laterality: right Qualified Code(s): S81.001A - Unspecified open wound, right knee, initial encounter; S81.801A - Unspecified open wound, right lower leg, initial encounter; S91.001A - Unspecified open wound, right ankle, initial encounter Code(s): S81.009A - Unspecified open wound, unspecified knee, initial encounter; S81.809A - Unspecified open wound, unspecified lower leg, initial encounter; S91.009A - Unspecified open wound, unspecified ankle, initial encounter Status: Acute (3) Anemia: Code(s): D64.9 - Anemia, unspecified Status: Acute Assessment and Plan: Patient received 1 unit of PRBCs yesterday. HgB today is 7.6. Blood pressures stable today. Medicine team consulted, appreciate recommendations. Follow up with GI recommended as an outpatient. (4) Hypokalemia: Code(s): E87.6 - Hypokalemia Status: Acute Assessment and Plan: Potassium improved today. Magnesium stable. Appreciate medicine team recommendations. 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 Patient has been off of prednisone for quite some time now. Will need to schedule follow up with her naval aircrewman at discharge or establish care with [facility] Endocrinology. Plan Reviewed history, exam, radiographs and current labs with attending MD and covering surgeon, Dr. Cortez, who agrees with current plan as indicated above. Dr. Cortez recommending medicine consult at this time. Subjective Subjective Date/Time Seen: 09/18/23 08:58 Post Op day: 6 Principal diagnosis: Right Knee Infection Interval history: POD #6: I&D with debridement of right tibia and I&D of the right knee joint with poly component revision. Patient sleeping. Wakes to voice. No new concerns. Pain well controlled. Review of Systems Review of Systems: All systems reviewed & are unremarkable except as noted in HPI and below Exam Const: General: comfortable and no acute distress Resp: Effort & Inspection: normal respiratory effort Cardio: Rate: regular rate Rhythm: regular rhythm GI: GI Palp: Yes Soft to palpation Skin: Wounds: wounds noted (see extremity exam ) Neuro: Speech: normal speech Sensory Exam: normal sensation Extrem: Right lower extremity: knee (Drain in place, 50 mL sanguineous output. Prevena dressing in place. ) Details: tenderness (diffuse, mild ), swelling, abnormal ROM Details: pain with active ROM d
[2023-09-18] MEDS: ESCITALOPRAM OXALATE 10 MG TABLET PO (09:12)
[2023-09-18] MEDS: PREGABALIN (*CRX) 75 MG CAPSULE 150 MG PO ×2 (09:12→17:50)
[2023-09-18] MEDS: ASPIRIN 325 MG ENTERIC TABLET PO ×2 (09:12→20:28)
[2023-09-18] MEDS: FERROUS SULFATE 325 MG TABLET DR PO ×2 (09:12→17:50)
[2023-09-18] MEDS: PANTOPRAZOLE 40 MG TABLET PO (09:12)
[2023-09-18] MEDS: ATORVASTATIN 20 MG TABLET PO (09:12)
[2023-09-18] MEDS: FAMOTIDINE 20 MG TABLET PO ×2 (09:12→20:28)
[2023-09-18] MEDS: HYDROcodone/acetaminophen (*CRX) 7.5-325 MG TABLET 1 TAB PO ×2 (11:04→13:49)
--- NOTE | 2023-09-18 13:57 | PM.IMPN ---
Progress Note: A&P Assessment and Plan (1) Septic joint: Qualifiers: Septic arthritis location: knee Septic arthritis organism: due to unspecified organism Laterality: right Qualified Code(s): M00.9 - Pyogenic arthritis, unspecified Code(s): M00.9 - Pyogenic arthritis, unspecified Status: Acute Assessment and Plan: Wound cultures growing many wbc's but no organism continue vancomycin and cefazolin PICC line now for outpatient antibiotics WBC now down to 7.9, CRP now 8.4; continue to monitor procalcitonin 0.1 (2) Hypokalemia: Code(s): E87.6 - Hypokalemia Status: Acute Assessment and Plan: potassium replaced and 3.7 this morning continue to monitor (3) Hypertension: Qualifiers: Hypertension type: essential hypertension Qualified Code(s): I10 - Essential (primary) hypertension Code(s): I10 - Essential (primary) hypertension Status: Chronic Assessment and Plan: may resume hydrochlorothiazide (4) Acute blood loss anemia: Code(s): D62 - Acute posthemorrhagic anemia Status: Acute Assessment and Plan: 1 unit PRBC for hemoglobin 7.6 this am; Continue to monitor. patient has had chronic anemia for some time and she does not believe this has been addressed. may be a component of acute blood loss anemia due to her surgery as well as inflammatory state. Iron panel in 2022 most suggestive of iron deficiency. iron PO BID. She should follow-up with colonoscopy and GI surveillance. Plan FEN: Saline lock IV. GI prophylaxis: Continue Pepcid. She is on Protonix at home. DVT prophylaxis: Aspirin for DVT prophylaxis Lines: PICC line Code Status: Full code Dispo: Stable Subjective Date/time seen: 09/18/23 13:57 Interval history: Patient sitting up on the side of her bed this morning, currently reports she is doing well and she has minimal pain. Post op I&D with debridement of right tibia on 09/12. BP has improved, could likely restart her home hydrochlorothiazide. Her H&H remained stable overnight although dropped from 8.8 to 7.6, will continue to monitor. Review of Systems Review of Systems: All systems reviewed & are unremarkable except as noted in HPI and below (Subjective) Exam Const: General: comfortable and no acute distress Other: Obese. A&O x3. Eyes: Pupils: Equal, round and reactive pupils present Neck: Neck: supple Resp: Effort & Inspection: normal respiratory effort Auscultation: clear to auscultation bilaterally Cardio: Rate: regular rate Rhythm: regular rhythm Neuro: Cranial nerves: Yes Equal, round and reactive pupils present Extrem: General: edema (1+ bilateral) Other: Right leg wound VAC in place with serous output. Clean dry intact otherwise. Neurovascular intact. Objective Data Vital Signs Vital Signs: Vital Signs - 24 hr 09/17/23 14:00 09/17/23 20:00 09/17/23 20:20 Temperature 97.6 F 97.6 F Pulse Rate 84 90 Respiratory Rate 17 18 Blood Pressure 98/74 L 129/56 L Pulse Oximetry 98 98 Oxygen Delivery Room Air 09/18/23 04:30 09/18/23 08:00 Temperature 97.1 F L Pulse Rate 93 93 Respiratory Rate 18 18 Blood Pressure 120/69 Pulse Oximetry 98 98 Oxygen Delivery Room Air Intake/Output Intake/Output: Intake & Output 09/15/23 09/16/23 09/17/23 09/18/23 23:59 23:59 23:59 23:59 Intake Total 1660 3766 5590 1890 Output Total 1145 1595 2180 650 Balance 515 2171 3410 1240 Meds/Results Medications: Active Medications Generic Name Dose Route Start Last Admin Trade Name Freq PRN Reason Stop Dose Admin Acetaminophen 650 mg 09/12/23 15:03 09/15/23 17:41 Acetaminophen 325 Mg Tablet PO 650 mg Q6H PRN Administration Pain Rated 1-3 Hydrocodone Bitart/Acetaminophen 1 tab 09/12/23 15:03 09/18/23 13:49 Hydrocodone/Acetaminophen (*Crx) 7.5-325 Mg Tablet PO 1 tab Q6H PRN Administration Pain Ra
[2023-09-18 14:00] VITALS: BP 124/81; PULSE 91; RESP 20; TEMP 36.5; O2SAT 100
[2023-09-18 20:00] VITALS: BP 92/78; PULSE 89; PULSE 91; RESP 20; TEMP 36.3; O2SAT 100
[2023-09-19] MEDS: VANCOMYCIN 2,000 MG/NS 500 ML 2,000 MG/500 ML BAG 250 MG IVPB ×2 (02:02→13:46)
[2023-09-19 04:15] VITALS: BP 112/59; PULSE 86; RESP 18; TEMP 36.1; O2SAT 98
[2023-09-19] MEDS: ceFAZolin 2 GM/D5W 50 ML 2 GM/50 ML BAG IVPB ×3 (05:12→20:29)
[2023-09-19] MEDS: CENTRAL LINE FLUSH 10 ML IV PUSH ×3 (05:13→20:29)
[2023-09-19] MEDS: LEVOTHYROXINE SODIUM 125 MCG TABLET PO (05:13)
[2023-09-19 06:13] LABS: Basophils Percent Auto 0.5 % (0.2-1.2); Eosinophils Absolute Auto 0.7 K/mm3 (0-0.3); Eosinophils Percent Auto 8.6 % (0-4.4); Hematocrit 26.7 % (37.0-47.0); Hemoglobin 7.8 g/dL (12.0-15.0); Immature Granulocyte Absolute 0.04 K/mm3 (0.00-0.031); Immature Granulocyte Percent A 0.5 % (0-0.5); Lymphocytes Absolute Auto 1.87 K/mm3 (0.9-3.2); Mean Corpuscular HGB Conc 29.2 g/dl (32-36); Mean Corpuscular Hemoglobin 23.5 pg (26-34); Mean Corpuscular Volume 80.4 fl (80-100); Monocytes Absolute Auto 0.7 K/mm3 (0.1-0.6); Monocytes Percent Auto 9.4 % (2.6-8.5); Neutrophils Absolute Auto 4.5 K/mm3 (1.3-6.7); Platelet Count Result 331 k/mm3 (150-375); Red Blood Count 3.32 M/mm3 (4.2-5.4); White Blood Count 7.8 K/mm3 (4.5-10.0)
[2023-09-19 06:35] LABS: Anion Gap 1 mmol/L (8-16); Blood Urea Nitrogen 10 mg/dL (7-17); Calcium 8.2 mg/dL (8.4-10.2); Carbon Dioxide 29 mmol/L (22-30); Chloride 106 mmol/L (98-107); Estimated CRCL calculation 126 ml/min; Estimated Glomerular Filt Rate > 60; Glucose 105 mg/dL (65-110); Potassium 3.9 mmol/L (3.4-5.0); Sodium 136 mmol/L (137-145)
[2023-09-19 07:39] LABS: Hypochromasia 1+ (NORMAL); Microcytosis 1+ (NORMAL); Platelet Estimate Adequate (Adequate); Schistocytes None Seen (NORMAL)
[2023-09-19] MEDS: FAMOTIDINE 20 MG TABLET PO ×2 (08:18→20:28)
[2023-09-19] MEDS: hydroCHLOROthiazide 25 MG TABLET PO (08:18)
[2023-09-19] MEDS: ATORVASTATIN 20 MG TABLET PO (08:18)
[2023-09-19] MEDS: PREGABALIN (*CRX) 75 MG CAPSULE 150 MG PO ×2 (08:18→17:42)
[2023-09-19] MEDS: ASPIRIN 325 MG ENTERIC TABLET PO ×2 (08:18→20:28)
[2023-09-19] MEDS: HYDROcodone/acetaminophen (*CRX) 7.5-325 MG TABLET 2 TAB PO ×2 (08:18→14:43)
[2023-09-19] MEDS: PANTOPRAZOLE 40 MG TABLET PO (08:18)
[2023-09-19] MEDS: FERROUS SULFATE 325 MG TABLET DR PO ×2 (08:20→17:42)
[2023-09-19] MEDS: ESCITALOPRAM OXALATE 10 MG TABLET PO (08:20)
[2023-09-19] MEDS: CENTRAL LINE FLUSH 20 ML IV PUSH (10:05)
[2023-09-19 10:49] LABS: CRP 6.9 mg/dL (<1.0); Magnesium 1.9 mg/dL (1.6-2.3)
--- NOTE | 2023-09-19 10:53 | PCNWS ---
Weekly nutritional screen. Patient is tolerating current diet with adequate intake. No weight loss reported. No nutritional needs at this time.
[2023-09-19 11:21] LABS: Procalcitonin 0.1 ng/mL
--- NOTE | 2023-09-19 13:07 | WPDANESEPPF ---
Anes - Initial Pre Proc Eval Procedure: Operation Date: 09/12/23 11:30 Proposed Procedures p Right Knee Wound Debridement with Wound Vac Placement - Cristopher Cortez MD Date/Time: 09/19/23 13:07 Surgeon: Cristopher Cortez MD Pre Op Diagnosis: right knee wound Patient Data Age: 68 Gender: F Height: 1.52 m Weight: 112.5 kg Last Vital Signs Temp 36.1 C L 09/19/23 04:15 Pulse 86 09/19/23 04:15 Resp 18 09/19/23 04:15 BP 112/59 L 09/19/23 04:15 Pulse Ox 98 09/19/23 04:15 O2 Del Method Room Air 09/19/23 08:15 O2 Flow Rate 10 09/12/23 14:35 Allergies Allergy/AdvReac Type Severity Reaction Status Date / Time Quinolones Allergy Severe SWELLING Verified 09/12/23 09:59 Home Medications Medication Instructions Recorded Confirmed Type acetaminophen 500 mg tablet 500 mg PO Q6H PRN Pain 11/08/22 09/12/23 History (Tylenol Extra Strength) hydrochlorothiazide 25 mg tablet 25 mg PO DAILY 06/26/23 09/12/23 History levothyroxine 125 mcg capsule 125 mcg PO DAILY 06/26/23 09/12/23 History lorazepam 1 mg tablet 1 mg PO TID PRN Anxiety 06/26/23 09/12/23 History pantoprazole 40 mg tablet,delayed 40 mg PO QAM 06/26/23 09/12/23 History release pregabalin 150 mg capsule 150 mg PO BID #60 caps 06/26/23 09/12/23 Rx cyclobenzaprine 10 mg tablet See Rx Instructions .Route 08/28/23 09/12/23 Rx .COMPLEX #90 tabs atorvastatin 20 mg tablet 20 mg PO DAILY 09/07/23 09/12/23 History escitalopram oxalate 10 mg tablet 10 mg PO DAILY 09/07/23 09/12/23 History aspirin 325 mg tablet,delayed 325 mg PO Q12HR 28 days #56 tabs 09/18/23 Rx release hydrocodone 5 mg-acetaminophen 325 1 tablet PO Q6-12H PRN pain #20 09/18/23 Rx mg tablet tabs Laboratory Tests 09/19/23 09/19/23 05:56 10:05 WBC 7.8 K/mm3 (4.5-10.0) RBC 3.32 L M/mm3 (4.2-5.4) Hgb 7.8 L g/dL (12.0-15.0) Hct 26.7 L % (37.0-47.0) MCV 80.4 fl (80-100) MCH 23.5 L pg (26-34) MCHC 29.2 L g/dl (32-36) RDW 17.0 H % (11.5-14.5) Plt Count 331 k/mm3 (150-375) MPV 9.0 fl (7.4-10.4) Immature Gran % (Auto) 0.5 % (0-0.5) Neut % (Auto) 57.0 % (45.5-73.1) Lymph % (Auto) 24.0 % (18.3-44.2) [place] % (Auto) 9.4 H % (2.6-8.5) Eos % (Auto) 8.6 H % (0-4.4) Baso % (Auto) 0.5 % (0.2-1.2) Lymph # (Auto) 1.87 K/mm3 (0.9-3.2) [place] # (Auto) 0.7 H K/mm3 (0.1-0.6) Eos # (Auto) 0.7 H K/mm3 (0-0.3) Baso # (Auto) 0.0 K/mm3 (0.0-0.1) Abs Immat Gran (auto) 0.04 H K/mm3 (0.00-0.031) Absolute Neuts (auto) 4.5 K/mm3 (1.3-6.7) Absolute Nucleated RBC 0.0 K/mm3 (0.0-0.012) Nucleated RBC % 0.0 % (0.0-0.2) Platelet Estimate Adequate (Adequate) Hypochromasia 1+ (NORMAL) Microcytosis 1+ (NORMAL) Schistocytes None seen (NORMAL) Sodium 136 L mmol/L (137-145) Potassium 3.9 mmol/L (3.4-5.0) Chloride 106 mmol/L (98-107) Carbon Dioxide 29 mmol/L (22-30) Anion Gap 1 L mmol/L (8-16) BUN 10 mg/dL (7-17) Creatinine 0.40 L mg/dL (0.7-1.0) Estim Creat Clear Calc 126 ml/min Estimated GFR > 60 (59 - ) Glucose 105 mg/dL (65-110) Calcium 8.2 L mg/dL (8.4-10.2) Magnesium 1.9 mg/dL (1.6-2.3) C-Reactive Protein 6.9 H mg/dL (<1.0) Procalcitonin 0.1 ng/mL Patient hx anesthesia problems: none Family hx anesthesia problems: none Results Review: All pre-operative results and documents have been reviewed as part of the pre-operative evaluation. FORMERLY [facility], 1928–1983 Past Medical History Medical History Anemia Arthritis Chronic back pain Due to degenerative disc disease, spondylosis, and sciatica. Degenerative joint disease of cervical and lumbar spine Depression with anxiety Generali
[2023-09-19 14:00] VITALS: BP 120/85; PULSE 98; RESP 20; TEMP 36.4; O2SAT 99
--- NOTE | 2023-09-19 15:49 | PM.PNORT ---
Progress Note: A&P Assessment and Plan (1) Septic joint: Qualifiers: Septic arthritis location: knee Septic arthritis organism: due to unspecified organism Laterality: right Qualified Code(s): M00.9 - Pyogenic arthritis, unspecified Code(s): M00.9 - Pyogenic arthritis, unspecified Status: Acute Assessment and Plan: POD 7 IMPROVING. HER GRAM STAIN WAS NEGATIVE AND SHE HAS NO GROWTH TO KNEE CULTURES TO DATE. RECOMMEND CONTINUE TO TREAT IF SEPTIC JOINT DUE TO HIGH SUSPICION OF OSTEOMYELITIS. WE WILL PULL THE DRAIN TODAY AND CONTINUE IV ANTIBIOTICS FOR A MINIMUM OF 8 WEEKS THEN FOLLOW CRP. (2) Open wnd knee/leg/ankle: Qualifiers: Encounter type: initial encounter Laterality: right Qualified Code(s): S81.001A - Unspecified open wound, right knee, initial encounter; S81.801A - Unspecified open wound, right lower leg, initial encounter; S91.001A - Unspecified open wound, right ankle, initial encounter Code(s): S81.009A - Unspecified open wound, unspecified knee, initial encounter; S81.809A - Unspecified open wound, unspecified lower leg, initial encounter; S91.009A - Unspecified open wound, unspecified ankle, initial encounter Status: Acute Subjective Subjective Date/Time Seen: 09/19/23 15:49 Interval history: POD 7 DOING WELL. PAIN IMPROVED. NO GROWTH TO DATE OF RIGHT KNEE CULTURES. CRP IS IMPROVING. Exam Extrem: Other: VSS AFEBRILE DRESSING INTACT. NO DRAINAGE. CALF SOFT NON TENDER NV INTACT NEG HOMANS SIGN. Objective Data Vital Signs Vital Signs: Vital Signs - 24 hr 09/18/23 20:00 09/18/23 20:00 09/19/23 04:15 Temperature 36.3 C L 36.1 C L Pulse Rate 91 89 86 Respiratory Rate 20 20 18 Blood Pressure 92/78 L 112/59 L Pulse Oximetry 100 100 98 Oxygen Delivery Room Air 09/19/23 08:15 09/19/23 14:00 Temperature 36.4 C Pulse Rate 98 Respiratory Rate 20 Blood Pressure 120/85 Pulse Oximetry 99 Oxygen Delivery Room Air Intake/Output Intake/Output: Intake & Output 09/16/23 09/17/23 09/18/23 09/19/23 23:59 23:59 23:59 23:59 Intake Total 3766 5590 4380 1110 Output Total 1595 2180 1100 1100 Balance 2171 3410 3280 10 Meds/Results Medications: Active Medications Generic Name Dose Route Start Last Admin Trade Name Gerda PRN Reason Stop Dose Admin Acetaminophen 650 mg 09/12/23 15:03 09/15/23 17:41 Acetaminophen 325 Mg Tablet PO 650 mg Q6H PRN Administration Pain Rated 1-3 Hydrocodone Bitart/Acetaminophen 1 tab 09/12/23 15:03 09/18/23 13:49 Hydrocodone/Acetaminophen (*Crx) 7.5-325 Mg Tablet PO 1 tab Q6H PRN Administration Pain Rated 4-6 Hydrocodone Bitart/Acetaminophen 2 tab 09/12/23 15:03 09/19/23 14:43 Hydrocodone/Acetaminophen (*Crx) 7.5-325 Mg Tablet PO 2 tab Q6H PRN Administration Pain Rated 7-10 Aspirin 325 mg 09/12/23 21:00 09/19/23 08:18 Aspirin 325 Mg Enteric Tablet PO 325 mg Q12HR CAROL Administration Atorvastatin Calcium 20 mg 09/13/23 09:30 09/19/23 08:18 Atorvastatin 20 Mg Tablet PO 20 mg DAILY CAROL Administration Escitalopram Oxalate 10 mg 09/13/23 09:30 09/19/23 08:20 Escitalopram Oxalate 10 Mg Tablet PO 10 mg DAILY CAROL Administration Famotidine 20 mg 09/12/23 21:00 09/19/23 08:18 Famotidine 20 Mg Tablet PO 20 mg Q12HR CAROL Administration Ferrous Sulfate 325 mg 09/18/23 09:00 09/19/23 08:20 Ferrous Sulfate [address] PO 325 mg BID CAROL Administration Hydrochlorothiazide 25 mg 09/13/23 09:30 09/19/23 08:18 Hydrochlorothiazide 25 Mg Tablet PO 25 mg DAILY CAROL Administration Cefazolin Sodium 2 gm in 50 mls @ 100 mls/hr 09/13/23 21:00 09/19/23 13:44 Ancef 2 Gm/D5w 50 Ml IVPB 100 mls/hr Q8HR CAROL Administration Vancomycin HCl 2,000 mg in 500 mls @ 250 mls/hr 09/15/23 14:00 09/19/23 13:46 Vancomycin 2,000 Mg/Ns 500 Ml IVPB 250 mls/hr Q12H CAROL Administration Levothyroxi
--- NOTE | 2023-09-19 16:02 | PM.IMPN ---
Progress Note: A&P Assessment and Plan (1) Septic joint: Qualifiers: Septic arthritis location: knee Septic arthritis organism: due to unspecified organism Laterality: right Qualified Code(s): M00.9 - Pyogenic arthritis, unspecified Code(s): M00.9 - Pyogenic arthritis, unspecified Status: Acute Assessment and Plan: Wound cultures growing many wbc's but no organism continue vancomycin and cefazolin PICC line now for outpatient antibiotics WBC now down to 7.9, CRP now 8.4; continue to monitor procalcitonin 0.1 3/6 wound cultures and blood cultures negative WBC 7.8, CRP 6.9 procalcitonin 0.1 (2) Hypokalemia: Code(s): E87.6 - Hypokalemia Status: Acute Assessment and Plan: potassium replaced and 3.7 this morning continue to monitor 3/6 potassium 3.9 today (3) Hypertension: Qualifiers: Hypertension type: essential hypertension Qualified Code(s): I10 - Essential (primary) hypertension Code(s): I10 - Essential (primary) hypertension Status: Chronic Assessment and Plan: may resume hydrochlorothiazide 3/6 a.m. BP 112/59--- 120/85 at 2:00 p.m. (4) Acute blood loss anemia: Code(s): D62 - Acute posthemorrhagic anemia Status: Acute Assessment and Plan: 1 unit PRBC for hemoglobin 7.6 this am; Continue to monitor. patient has had chronic anemia for some time and she does not believe this has been addressed. may be a component of acute blood loss anemia due to her surgery as well as inflammatory state. Iron panel in 2022 most suggestive of iron deficiency. iron PO BID. She should follow-up with colonoscopy and GI surveillance. 3/6 hemoglobin 7.8 monitor and transfuse as needed Time Spent With Patient Time with patient: 15 - 25 minutes Subjective Date/time seen: 09/19/23 1015 Interval history: patient examined up to chair interval assessment. she expresses that she is doing well and pain is controlled at this time. a.m. blood pressure 112/59. POD# 7 I&D with debridement of the right tibia/ knee joint. hemoglobin today 7.8. patient expressed that she has long standing history of anemia, her PCP monitors this, she expressed that she is aware of anemia symptoms. patient has right arm PICC in place and aware she will go home with IV antibiotics. wound VAC in place Review of Systems Review of Systems: All systems reviewed & are unremarkable except as noted in HPI and below Exam Narrative: GENERAL: Well-appearing, well-nourished, and in no acute distress.? up to chair.? pleasant and conversational. ? on room air,? HEAD: Normocephalic, atraumatic. EYES: PERRLA and EOMI. ENT: Nares clear, no rhinorrhea or epistaxis. Mucous membranes moist. NECK: Supple. FROM CHEST:? clear and diminished bilaterally, nonlabored HEART: Regular rate and rhythm. Normal peripheral pulses. 1+ bilateral extremity edema ABDOMEN: Soft, nontender, nondistended, normal active bowel sounds. EXTREMITIES: Normal range of motion.? 1+ edema to bilateral lower extremities, wound VAC in place to right leg SKIN: Warm, dry, no rash. NEURO: No focal deficits. Alert and oriented x3 PSYCH:? pleasant,? cooperative, Objective Data Vital Signs Vital Signs: Vital Signs - 24 hr 09/18/23 20:00 09/18/23 20:00 09/19/23 04:15 Temperature 97.3 F L 97 F L Pulse Rate 91 89 86 Respiratory Rate 20 20 18 Blood Pressure 92/78 L 112/59 L Pulse Oximetry 100 100 98 Oxygen Delivery Room Air 09/19/23 08:15 09/19/23 14:00 Temperature 97.6 F Pulse Rate 98 Respiratory Rate 20 Blood Pressure 120/85 Pulse Oximetry 99 Oxygen Delivery Room Air Intake/Output Intake/Output: Intake & Output 09/16/23 09/17/23 09/18/23 09/19/23 23:59 23:59 23:59 23:59 Intake Total 3766 5590 4380 1110 Output Total 1595 2180 1100 1100 Balance 2171 3410 3280 10 Meds/Results Medications: Active Medica
[2023-09-19 19:43] VITALS: PULSE 98; RESP 20; O2SAT 99
[2023-09-19 20:20] VITALS: BP 142/82; PULSE 89; RESP 20; TEMP 36.3; O2SAT 96
[2023-09-20 02:41] LABS: Vancomycin Trough 16.3 ug/mL (10.0-20.0)
[2023-09-20] MEDS: VANCOMYCIN 2,000 MG/NS 500 ML 2,000 MG/500 ML BAG 250 MG IVPB ×2 (03:09→14:35)
[2023-09-20] MEDS: HYDROcodone/acetaminophen (*CRX) 7.5-325 MG TABLET 2 TAB PO ×4 (03:53→22:54)
[2023-09-20 04:35] VITALS: BP 141/72; PULSE 93; RESP 18; TEMP 37.4; O2SAT 98
[2023-09-20] MEDS: LEVOTHYROXINE SODIUM 125 MCG TABLET PO (05:18)
[2023-09-20] MEDS: CENTRAL LINE FLUSH 10 ML IV PUSH ×3 (05:18→21:45)
[2023-09-20] MEDS: ceFAZolin 2 GM/D5W 50 ML 2 GM/50 ML BAG IVPB (05:18)
[2023-09-20 05:38] LABS: Basophils Percent Auto 0.4 % (0.2-1.2); Eosinophils Absolute Auto 0.6 K/mm3 (0-0.3); Eosinophils Percent Auto 6.4 % (0-4.4); Hematocrit 25.9 % (37.0-47.0); Hemoglobin 7.8 g/dL (12.0-15.0); Immature Granulocyte Absolute 0.05 K/mm3 (0.00-0.031); Immature Granulocyte Percent A 0.5 % (0-0.5); Lymphocytes Absolute Auto 2.08 K/mm3 (0.9-3.2); Mean Corpuscular HGB Conc 30.1 g/dl (32-36); Mean Corpuscular Hemoglobin 23.9 pg (26-34); Mean Corpuscular Volume 79.2 fl (80-100); Mean Platelet Volume 9.2 fl (7.4-10.4); Monocytes Percent Auto 9.7 % (2.6-8.5); Neutrophils Absolute Auto 6.1 K/mm3 (1.3-6.7); Platelet Count Result 348 k/mm3 (150-375); Red Blood Count 3.27 M/mm3 (4.2-5.4); Red Cell Distribution Width 17.2 % (11.5-14.5); White Blood Count 9.9 K/mm3 (4.5-10.0)
[2023-09-20 05:49] LABS: Anion Gap 1 mmol/L (8-16); Blood Urea Nitrogen 9 mg/dL (7-17); Carbon Dioxide 31 mmol/L (22-30); Chloride 103 mmol/L (98-107); Estimated CRCL calculation 104 ml/min; Estimated Glomerular Filt Rate > 60; Glucose 105 mg/dL (65-110); Potassium 3.5 mmol/L (3.4-5.0); Sodium 135 mmol/L (137-145)
--- NOTE | 2023-09-20 08:05 | P.PNIM_ITS ---
Progress Note: A&P Assessment and Plan (1) Septic joint: Qualifiers: Septic arthritis location: knee Septic arthritis organism: due to unspecified organism Laterality: right Qualified Code(s): M00.9 - Pyogenic arthritis, unspecified Code(s): M00.9 - Pyogenic arthritis, unspecified Status: Acute Assessment and Plan: * Wound cultures growing many wbc's but no organism * continue vancomycin and cefazolin * PICC line now for outpatient antibiotics * WBC now down to 7.9, CRP now 8.4; continue to monitor * procalcitonin 0.1 * 3/6 * wound cultures and blood cultures negative * WBC 7.8, CRP 6.9 * procalcitonin 0.1 * 3/7 * POD #8: I&D with debridement of right tibia and I&D of the right knee joint with poly component revision * cultures reveals many WBCs but no organisms. * continue antibiotics * Plan to transition to Vanc only x8-12 weeks at d/c with oral Augmentin x12 weeks as well. * WBC 9.9, CRP 6.2, procalcitonin 0.1 (2) Hypokalemia: Code(s): E87.6 - Hypokalemia Status: Acute Assessment and Plan: * potassium replaced and 3.7 this morning * continue to monitor * 3 * potassium 3.9 today * 09/19 * potassium 3.5 * continue to monitor (3) Hypertension: Qualifiers: Hypertension type: essential hypertension Qualified Code(s): I10 - Essential (primary) hypertension Code(s): I10 - Essential (primary) hypertension Status: Chronic Assessment and Plan: * may resume hydrochlorothiazide * 3 * a.m. BP 112/59--- 120/85 at 2:00 p.m. * 37 * AM BP 141/72 * home blood pressure medications have been resumed (4) Acute blood loss anemia: Code(s): D62 - Acute posthemorrhagic anemia Status: Acute Assessment and Plan: * 1 unit PRBC for hemoglobin * 7.6 this am; Continue to monitor. * patient has had chronic anemia for some time and she does not believe this has been addressed. may be a component of acute blood loss anemia due to her surgery as well as inflammatory state. * Iron panel in 2022 most suggestive of iron deficiency. * iron PO BID. * She should follow-up with colonoscopy and GI surveillance. * 3 * hemoglobin 7.8 * monitor and transfuse as needed * 09/19 * hemoglobin 7.8- stable * Chronic anemia. continue iron supplements Time Spent With Patient Time with patient: 15 - 25 minutes Subjective Date/time seen: 09/20/23 08:05 Interval history: Pod# 8 I&D with debridement of right tibia and I&D of the right knee joint with poly component revision. patient examined today while sitting at bedside, no acute distress noted at time of assessment. she expressed that she is doing well today, and pain is well controlled. of note Hemovac was removed by surgery yesterday, drain site without concern. labs today note WBC 9.9, hemoglobin 7.9, sodium 135, potassium 3.5. she has ongoing edema to bilateral lower extremities, expressed that this is an ongoing issue for her. nursing attempted to place Prevena today. ortho no patient is weight-bearing as tolerated with walker, will discharge home with home health for IV infusions pending clearance by Dr. Cortez. Review of Systems Review of Systems: All systems reviewed & are unremarkable except as noted in HPI and below Exam Narrative: GENERAL: Well-appearing, well-nourished, and in no acute distress.? up to chair.? pleasant and conversational. ? on room air,? HEAD: Normocepha
--- NOTE | 2023-09-20 08:05 | PM.IMPN ---
Progress Note: A&P Assessment and Plan (1) Septic joint: Qualifiers: Septic arthritis location: knee Septic arthritis organism: due to unspecified organism Laterality: right Qualified Code(s): M00.9 - Pyogenic arthritis, unspecified Code(s): M00.9 - Pyogenic arthritis, unspecified Status: Acute Assessment and Plan: Wound cultures growing many wbc's but no organism continue vancomycin and cefazolin PICC line now for outpatient antibiotics WBC now down to 7.9, CRP now 8.4; continue to monitor procalcitonin 0.1 3/6 wound cultures and blood cultures negative WBC 7.8, CRP 6.9 procalcitonin 0.1 3/ POD #8: I&D with debridement of right tibia and I&D of the right knee joint with poly component revision cultures reveals many WBCs but no organisms. continue antibiotics Plan to transition to Vanc only x8-12 weeks at d/c with oral Augmentin x12 weeks as well. WBC 9.9, CRP 6.2, procalcitonin 0.1 (2) Hypokalemia: Code(s): E87.6 - Hypokalemia Status: Acute Assessment and Plan: potassium replaced and 3.7 this morning continue to monitor 3/ potassium 3.9 today 09/19 potassium 3.5 continue to monitor (3) Hypertension: Qualifiers: Hypertension type: essential hypertension Qualified Code(s): I10 - Essential (primary) hypertension Code(s): I10 - Essential (primary) hypertension Status: Chronic Assessment and Plan: may resume hydrochlorothiazide 3/6 a.m. BP 112/59--- 120/85 at 2:00 p.m. 37 AM BP 141/72 home blood pressure medications have been resumed (4) Acute blood loss anemia: Code(s): D62 - Acute posthemorrhagic anemia Status: Acute Assessment and Plan: 1 unit PRBC for hemoglobin 7.6 this am; Continue to monitor. patient has had chronic anemia for some time and she does not believe this has been addressed. may be a component of acute blood loss anemia due to her surgery as well as inflammatory state. Iron panel in 2022 most suggestive of iron deficiency. iron PO BID. She should follow-up with colonoscopy and GI surveillance. 09/18 hemoglobin 7.8 monitor and transfuse as needed 3/7 hemoglobin 7.8- stable Chronic anemia. continue iron supplements Time Spent With Patient Time with patient: 15 - 25 minutes Subjective Date/time seen: 09/20/23 08:05 Interval history: Pod# 8 I&D with debridement of right tibia and I&D of the right knee joint with poly component revision. patient examined today while sitting at bedside, no acute distress noted at time of assessment. she expressed that she is doing well today, and pain is well controlled. of note Hemovac was removed by surgery yesterday, drain site without concern. labs today note WBC 9.9, hemoglobin 7.9, sodium 135, potassium 3.5. she has ongoing edema to bilateral lower extremities, expressed that this is an ongoing issue for her. nursing attempted to place Prevena today. ortho no patient is weight-bearing as tolerated with walker, will discharge home with home health for IV infusions pending clearance by Dr. Cortez. Review of Systems Review of Systems: All systems reviewed & are unremarkable except as noted in HPI and below Exam Narrative: GENERAL: Well-appearing, well-nourished, and in no acute distress.? up to chair.? pleasant and conversational. ? on room air,? HEAD: Normocephalic, atraumatic. EYES: PERRLA and EOMI. ENT: Nares clear, no rhinorrhea or epistaxis. Mucous membranes moist. NECK: Supple. FROM CHEST:? clear and diminished bilaterally, nonlabored HEART: Regular rate and rhythm. Normal peripheral pulses. 1+ bilateral extremity edema ABDOMEN: Soft, nontender, nondistended, normal active bowel sounds. EXTREMITIES: Normal range of motion.? 1+ edema to bilateral lower extremities, wound VAC in place to right leg SKIN: Warm, dry, no rash. NEURO: No focal deficits. Al
[2023-09-20] MEDS: FAMOTIDINE 20 MG TABLET PO ×2 (08:29→21:13)
[2023-09-20] MEDS: PREGABALIN (*CRX) 75 MG CAPSULE 150 MG PO ×2 (08:29→17:06)
[2023-09-20] MEDS: ATORVASTATIN 20 MG TABLET PO (08:29)
[2023-09-20] MEDS: ESCITALOPRAM OXALATE 10 MG TABLET PO (08:29)
[2023-09-20] MEDS: ASPIRIN 325 MG ENTERIC TABLET PO ×2 (08:29→21:13)
[2023-09-20] MEDS: FERROUS SULFATE 325 MG TABLET DR PO ×2 (08:29→17:06)
[2023-09-20] MEDS: PANTOPRAZOLE 40 MG TABLET PO (08:29)
[2023-09-20] MEDS: hydroCHLOROthiazide 25 MG TABLET PO (08:29)
[2023-09-20 08:40] LABS: CRP 6.2 mg/dL (<1.0); Magnesium 1.8 mg/dL (1.6-2.3)
[2023-09-20 09:06] LABS: Procalcitonin 0.1 ng/mL
--- NOTE | 2023-09-20 09:32 | PM.PNORT ---
Progress Note: A&P Assessment and Plan (1) Septic joint: Qualifiers: Laterality: right Septic arthritis location: knee Septic arthritis organism: due to unspecified organism Qualified Code(s): M00.9 - Pyogenic arthritis, unspecified Code(s): M00.9 - Pyogenic arthritis, unspecified Status: Acute Assessment and Plan: POD #8: ?I&D with debridement of right tibia and I&D of the right knee joint with poly component revision. Gram stain from surgery reveals many WBCs but no organisms. Cultures without growth but patient was on antibiotics at some point prior to surgery. IV antibiotics with Vancomycin and Ancef. Plan to transition to Vanc only x8-12 weeks at d/c with oral Augmentin x12 weeks as well. Will Start Augmentin NOW while inpatient. WBC and CRP trending downward. Continue to monitor. Drain pulled by Dr. Cortez yesterday. Drain site without concerns today. Continue Prevena with inpatient wound VAC. Attempted to transition to Prevena cassette- malfunctioning and reading a leak. Working on traditional VAC. Prevena rep contacted/notified. May need new dressing vs. d/c Prevena at discharge and transition to Mepilex Silver dressing. PT/OT with WBAT. Walker. Fall Precautions. Pain control. Ice. Elevate as need. DVT prophylaxis with Aspirin. Dispo: Home with Home Health for IV infusion pending clearance by Dr. Cortez and medicine team as well. (2) Open wnd knee/leg/ankle: Qualifiers: Encounter type: initial encounter Laterality: right Qualified Code(s): S81.001A - Unspecified open wound, right knee, initial encounter; S81.801A - Unspecified open wound, right lower leg, initial encounter; S91.001A - Unspecified open wound, right ankle, initial encounter Code(s): S81.009A - Unspecified open wound, unspecified knee, initial encounter; S81.809A - Unspecified open wound, unspecified lower leg, initial encounter; S91.009A - Unspecified open wound, unspecified ankle, initial encounter Status: Acute (3) Anemia: Code(s): D64.9 - Anemia, unspecified Status: Acute Assessment and Plan: Patient received 1 unit of PRBCs on POD #5. HgB today is stable at 7.8. today. Chronic anemia. Started on iron supplements by medicine team. Follow up with GI recommended as an outpatient. (4) Hypokalemia: Code(s): E87.6 - Hypokalemia Status: Acute (5) Pituitary insufficiency: Code(s): E23.0 - Hypopituitarism Status: Acute Assessment and Plan: Patient has been lost to follow up with her developer automatic due to insurance constraints. Patient has been off of prednisone for quite some time now. Will need to schedule follow up with her developer automatic at discharge or establish care with [facility] Endocrinology. Plan Reviewed history, exam, radiographs and current labs with attending MD and covering surgeon, Dr. Cortez, who agrees with current plan as indicated above. Dr. Cortez recommending medicine consult at this time. Subjective Subjective Date/Time Seen: 09/20/23 09:32 Post Op day: 8 Principal diagnosis: Right Knee Infection Interval history: POD #8: I&D with debridement of right tibia and I&D of the right knee joint with poly component revision. Patient awake. Sitting at bedside. No new concerns. Review of Systems Review of Systems: All systems reviewed & are unremarkable except as noted in HPI and below Exam Const: General: comfortable and no acute distress Resp: Effort & Inspection: normal respiratory effort Cardio: Rate: regular rate Rhythm: regular rhythm GI: GI Palp: Yes Soft to palpation Skin: Wounds: wounds noted (see extremity exam ) Neuro: Speech: normal speech Sensory Exam: normal sensation Extrem: Right lower extremity: knee (Prevena dressing in place. ) Details: tenderness (diffuse, mild ), swelling (mild to moderate- diffuse ), abnormal ROM Details: pain with active ROM during (Mild ) Details: in extension and
[2023-09-20] MEDS: AMOXICILLIN/CLAVULANATE K 875-125 MG TAB 1 TABLET PO ×2 (12:08→21:14)
[2023-09-20 14:00] VITALS: BP 145/83; PULSE 83; RESP 18; TEMP 36.7; O2SAT 98
[2023-09-20 19:50] VITALS: BP 138/78; PULSE 95; RESP 16; TEMP 36.2; O2SAT 98
[2023-09-20 20:00] VITALS: O2SAT 98
[2023-09-20] MEDS: LORazepam (*CRX) 1 MG TABLET PO (22:54)
[2023-09-21] MEDS: VANCOMYCIN 2,000 MG/NS 500 ML 2,000 MG/500 ML BAG 250 MG IVPB ×2 (02:09→13:00)
[2023-09-21 04:30] VITALS: BP 113/53; PULSE 93; RESP 20; TEMP 36.7; O2SAT 96
[2023-09-21] MEDS: LEVOTHYROXINE SODIUM 125 MCG TABLET PO (06:01)
[2023-09-21] MEDS: HYDROcodone/acetaminophen (*CRX) 7.5-325 MG TABLET 2 TAB PO ×2 (06:02→12:34)
[2023-09-21 06:25] LABS: Basophils Percent Auto 0.5 % (0.2-1.2); Eosinophils Absolute Auto 0.7 K/mm3 (0-0.3); Eosinophils Percent Auto 9.1 % (0-4.4); Hematocrit 26.9 % (37.0-47.0); Hemoglobin 7.7 g/dL (12.0-15.0); Immature Granulocyte Absolute 0.05 K/mm3 (0.00-0.031); Immature Granulocyte Percent A 0.6 % (0-0.5); Lymphocytes Absolute Auto 2.04 K/mm3 (0.9-3.2); Lymphocytes Percent Auto 25.4 % (18.3-44.2); Mean Corpuscular HGB Conc 28.6 g/dl (32-36); Mean Corpuscular Volume 80.3 fl (80-100); Mean Platelet Volume 8.6 fl (7.4-10.4); Monocytes Absolute Auto 0.9 K/mm3 (0.1-0.6); Monocytes Percent Auto 10.6 % (2.6-8.5); Neutrophils Absolute Auto 4.3 K/mm3 (1.3-6.7); Neutrophils Percent Auto 53.8 % (45.5-73.1); Platelet Count Result 330 k/mm3 (150-375); Red Blood Count 3.35 M/mm3 (4.2-5.4); Red Cell Distribution Width 17.3 % (11.5-14.5)
[2023-09-21] MEDS: CENTRAL LINE FLUSH 10 ML IV PUSH ×2 (06:48→13:00)
[2023-09-21 07:06] LABS: Anion Gap 1 mmol/L (8-16); Blood Urea Nitrogen 9 mg/dL (7-17); CRP 5.2 mg/dL (<1.0); Calcium 8.2 mg/dL (8.4-10.2); Carbon Dioxide 33 mmol/L (22-30); Chloride 102 mmol/L (98-107); Estimated CRCL calculation 104 ml/min; Estimated Glomerular Filt Rate > 60; Glucose 109 mg/dL (65-110); Potassium 3.4 mmol/L (3.4-5.0); Sodium 136 mmol/L (137-145)
[2023-09-21 07:10] LABS: Procalcitonin 0.1 ng/mL
[2023-09-21 07:12] LABS: Hypochromasia 2+ (NORMAL); Platelet Estimate Adequate (Adequate); Schistocytes None Seen (NORMAL)
[2023-09-21 07:13] LABS: Anisocytosis 1+ (NORMAL)
[2023-09-21] MEDS: FAMOTIDINE 20 MG TABLET PO (08:13)
[2023-09-21] MEDS: FERROUS SULFATE 325 MG TABLET DR PO (08:13)
[2023-09-21] MEDS: AMOXICILLIN/CLAVULANATE K 875-125 MG TAB 1 TABLET PO (08:13)
[2023-09-21] MEDS: SENNA/DOCUSATE SODIUM TABLET 2 TAB PO (08:13)
[2023-09-21] MEDS: polyethylene glycoL 3350 17 GM POWD.PACK PO (08:13)
[2023-09-21] MEDS: PANTOPRAZOLE 40 MG TABLET PO (08:13)
[2023-09-21] MEDS: ESCITALOPRAM OXALATE 10 MG TABLET PO (08:13)
[2023-09-21] MEDS: PREGABALIN (*CRX) 75 MG CAPSULE 150 MG PO (08:13)
[2023-09-21] MEDS: hydroCHLOROthiazide 25 MG TABLET PO (08:13)
[2023-09-21] MEDS: ASPIRIN 325 MG ENTERIC TABLET PO (08:14)
[2023-09-21] MEDS: ATORVASTATIN 20 MG TABLET PO (08:14)
--- NOTE | 2023-09-21 09:25 | PM.PNORT ---
Progress Note: A&P Assessment and Plan (1) Septic joint: Qualifiers: Septic arthritis location: knee Septic arthritis organism: due to unspecified organism Laterality: right Qualified Code(s): M00.9 - Pyogenic arthritis, unspecified Code(s): M00.9 - Pyogenic arthritis, unspecified Status: Acute Assessment and Plan: POD #9: ?I&D with debridement of right tibia and I&D of the right knee joint with poly component revision. Gram stain from surgery reveals many WBCs but no organisms. Cultures without growth but patient was on antibiotics at some point prior to surgery. IV antibiotics with Vancomycin IV x8-12 weeks and oral Augmentin x12 weeks as well per Dr. Stoner. Augmentin started yesterday. WBC and CRP trending downward. CRP now 5.2. Continue to monitor. Prevena dressing is now at POD #9. Portable canister is also not functioning appropriately. Removed. Incision well approximated with both sutures/zbigniew. No drainage. Mepilex silver dressing applied. Patient sent home with one additional dressing to be changed by HH RN in 7 days. Patient will have sutures/zbigniew removed by Dr. Cortez in the outpatient orthopedic clinic on 3. PT/OT with WBAT. Walker. Fall Precautions. Pain control. Ice. Elevate as need. DVT prophylaxis with Aspirin. Resume home BP medications. Dispo: Home with Home Health for IV infusion today. Dr. Cortez agrees with d/c at this time. (2) Open wnd knee/leg/ankle: Qualifiers: Encounter type: initial encounter Laterality: right Qualified Code(s): S81.001A - Unspecified open wound, right knee, initial encounter; S81.801A - Unspecified open wound, right lower leg, initial encounter; S91.001A - Unspecified open wound, right ankle, initial encounter Code(s): S81.009A - Unspecified open wound, unspecified knee, initial encounter; S81.809A - Unspecified open wound, unspecified lower leg, initial encounter; S91.009A - Unspecified open wound, unspecified ankle, initial encounter Status: Acute (3) Anemia: Code(s): D64.9 - Anemia, unspecified Status: Acute Assessment and Plan: Patient received 1 unit of PRBCs on POD #5. HgB today is now stable at 7.7. Chronic anemia. Started on iron supplements by medicine team. Follow up with GI recommended as an outpatient. Will recheck CBC in 1 week as well as CRP. (4) Hypokalemia: Code(s): E87.6 - Hypokalemia Status: Acute Assessment and Plan: Resolved. (5) Pituitary insufficiency: Code(s): E23.0 - Hypopituitarism Status: Acute Assessment and Plan: Patient has been lost to follow up with her nursing home admissions director due to insurance constraints. Patient has been off of prednisone for quite some time now. Will need to schedule follow up with her nursing home admissions director at discharge or establish care with [facility] [place]. Plan Reviewed history, exam, radiographs and current labs with attending MD and covering surgeon, Dr. Cortez, who agrees with current plan as indicated above. Dr. Cortez in agreement with d/c today.l Subjective Subjective Date/Time Seen: 09/21/23 09:25 Post Op day: 9 Principal diagnosis: Right Knee Infection Interval history: POD #9: I&D with debridement of right tibia and I&D of the right knee joint with poly component revision. Patient awake. Sitting at bedside. No new concerns. Hopeful for d/c home today. Review of Systems Review of Systems: All systems reviewed & are unremarkable except as noted in HPI and below Exam Const: General: comfortable and no acute distress Resp: Effort & Inspection: normal respiratory effort Cardio: Rate: regular rate Rhythm: regular rhythm GI: GI Palp: Yes Soft to palpation Skin: Wounds: wounds noted (see extremity exam ) Neuro: Speech: normal speech Sensory Exam: normal sensation Extrem: Right lower extremity: knee (Prevena dressing removed. ) Details: tenderness (diffuse, mild ),
--- NOTE | 2023-09-21 09:35 | PM.DS ---
DS: Admitting Diagnosis Discharge Date 09/21/2023 Admitting Diagnosis Right TKA Infection DS: Discharge Diagnosis Discharge Diagnosis (1) Septic joint: Qualifiers: Septic arthritis location: knee Septic arthritis organism: due to unspecified organism Laterality: right Qualified Code(s): M00.9 - Pyogenic arthritis, unspecified Code(s): M00.9 - Pyogenic arthritis, unspecified Status: Acute Assessment and Plan: POD #9: ?I&D with debridement of right tibia and I&D of the right knee joint with poly component revision. Gram stain from surgery reveals many WBCs but no organisms. Cultures without growth but patient was on antibiotics at some point prior to surgery. IV antibiotics with Vancomycin IV x8-12 weeks and oral Augmentin x12 weeks as well per Dr. Stoner. Augmentin started yesterday. WBC and CRP trending downward. CRP now 5.2. Continue to monitor. Prevena dressing is now at POD #9. Portable canister is also not functioning appropriately. Removed. Incision well approximated with both sutures/zbigniew. No drainage. Mepilex silver dressing applied. Patient sent home with one additional dressing to be changed by HH RN in 7 days. Patient will have sutures/zbigniew removed by Dr. Cortez in the outpatient orthopedic clinic on 10/03. PT/OT with WBAT. Walker. Fall Precautions. Pain control. Ice. Elevate as need. DVT prophylaxis with Aspirin. Resume home BP medications. Dispo: Home with Home Health for IV infusion today. Dr. Cortez agrees with d/c at this time. (2) Open wnd knee/leg/ankle: Qualifiers: Encounter type: initial encounter Laterality: right Qualified Code(s): S81.001A - Unspecified open wound, right knee, initial encounter; S81.801A - Unspecified open wound, right lower leg, initial encounter; S91.001A - Unspecified open wound, right ankle, initial encounter Code(s): S81.009A - Unspecified open wound, unspecified knee, initial encounter; S81.809A - Unspecified open wound, unspecified lower leg, initial encounter; S91.009A - Unspecified open wound, unspecified ankle, initial encounter Status: Acute (3) Anemia: Code(s): D64.9 - Anemia, unspecified Status: Acute Assessment and Plan: Patient received 1 unit of PRBCs on POD #5. HgB today is now stable at 7.7. Chronic anemia. Started on iron supplements by medicine team. Follow up with GI recommended as an outpatient. Will recheck CBC in 1 week as well as CRP. (4) Hypokalemia: Code(s): E87.6 - Hypokalemia Status: Acute Assessment and Plan: Resolved. (5) Pituitary insufficiency: Code(s): E23.0 - Hypopituitarism Status: Acute Assessment and Plan: Patient has been lost to follow up with her bell spinner [employer]aphones due to insurance constraints. Patient has been off of prednisone for quite some time now. Will need to schedule follow up with her bell spinner sousaphones at discharge or establish care with [facility] Endocrinology. Plan Reviewed history, exam, radiographs and current labs with attending MD and covering surgeon, Dr. Cortez, who agrees with current plan as indicated above. Dr. Cortez in agreement with d/c today.l DS: Summary Hospital Course Reason for hospitalization: I&D with debridement of right tibia and I&D of the right knee joint with poly component revision. Postoperative medical management, IV antibiotics Hospital Course: 68-year-old female admitted status post surgical intervention by Dr. Cortez for a postoperative I&D with debridement of a right tibia and I&D of right knee joint with poly component revision. Patient had been suffering from a right anterior knee since March wound however she was several years postoperative from a right TKA. Despite aggressive home and outpatient wound care, patient continued to suffer from drainage. She was then taken to the OR by Dr. Cortez and noted to have what appeared to be osteomyelitis in the distal tibia
--- NOTE | 2023-09-21 09:54 | PCWOUND ---
WOCN NOTE AC/DC REWINDER for ortho at bedside and removed wound vac dressing from the leg. WOCN removed wound vac from the room and reported for pickup.
[2023-09-21 14:00] VITALS: BP 115/73; PULSE 99; RESP 22; TEMP 36.6; O2SAT 94
== END 2023-09-21 15:25 | disposition home health service (06) | DRG 478 ==
LOC: ANH3MEDSUR 15:43
PROVIDERS: General Practice; Nurse Practitioner; Nurse Practitioner Family; Orthopaedic Surgery; Admitting Provider Orthopaedic Surgery; PCP Internal Medicine; Visit Provider Orthopaedic Surgery
PROC: 0QBG0ZX Excision of Right Tibia, Open Approach, Diagnostic (ICD-10-PCS; principal; 2023-09-12 11:30)
DX: M86.8X6 Other osteomyelitis, lower leg (principal); D62 Acute posthemorrhagic anemia; M00.9 Pyogenic arthritis, unspecified; E23.0 Hypopituitarism; Z68.41 Body mass index [BMI] 40.0-44.9, adult; T84.53XA Infection and inflammatory reaction due to internal right knee prosthesis, initial encounter; S81.801A Unspecified open wound, right lower leg, initial encounter; Z96.653 Presence of artificial knee joint, bilateral; E87.6 Hypokalemia; E78.5 Hyperlipidemia, unspecified; E03.9 Hypothyroidism, unspecified; E66.01 Morbid (severe) obesity due to excess calories; F41.8 Other specified anxiety disorders; G89.29 Other chronic pain; I10 Essential (primary) hypertension; K21.9 Gastro-esophageal reflux disease without esophagitis; M54.9 Dorsalgia, unspecified; Z98.49 Cataract extraction status, unspecified eye; Z28.21 Immunization not carried out because of patient refusal; Z90.710 Acquired absence of both cervix and uterus; Z87.891 Personal history of nicotine dependence
CPT/HCPCS: 36415; 36430; 36569; 73560; 80048; 80202; 82565; 83735; 84145; 85025; 85027; 85652; 86140; 86850; 86900; 86901; 86923; 87040; 87070; 87075; 87205; 93005; 97110; 97116; 97161; 97530; A9270; C1776; J0690; J1100; J2405; J2704; J3010; J3370; J7050; J7120; P9016

== ENCOUNTER 2023-10-22 10:28 | Outpatient (RCR) | payer MEDICARE, SELFPAY ==
[2023-09-24 11:01] LABS: Basophils Percent Auto 0.4 % (0.2-1.2); Eosinophils Absolute Auto 0.2 K/mm3 (0-0.3); Hematocrit 31.1 % (37.0-47.0); Immature Granulocyte Absolute 0.05 K/mm3 (0.00-0.031); Immature Granulocyte Percent A 0.6 % (0-0.5); Lymphocytes Absolute Auto 1.57 K/mm3 (0.9-3.2); Lymphocytes Percent Auto 18.4 % (18.3-44.2); Mean Corpuscular HGB Conc 28.9 g/dl (32-36); Mean Corpuscular Volume 79.5 fl (80-100); Mean Platelet Volume 9.2 fl (7.4-10.4); Monocytes Absolute Auto 0.8 K/mm3 (0.1-0.6); Monocytes Percent Auto 8.8 % (2.6-8.5); Neutrophils Percent Auto 69.8 % (45.5-73.1); Platelet Count Result 425 k/mm3 (150-375); Red Blood Count 3.91 M/mm3 (4.2-5.4); Red Cell Distribution Width 17.5 % (11.5-14.5); White Blood Count 8.5 K/mm3 (4.5-10.0)
[2023-09-24 11:18] LABS: Anion Gap 7 mmol/L (8-16); Blood Urea Nitrogen 6 mg/dL (7-17); CRP 7.7 mg/dL (<1.0); Calcium 8.6 mg/dL (8.4-10.2); Carbon Dioxide 29 mmol/L (22-30); Chloride 103 mmol/L (98-107); Estimated Glomerular Filt Rate > 60; Glucose 114 mg/dL (65-110); Potassium 3.2 mmol/L (3.4-5.0); Sodium 139 mmol/L (137-145)
[2023-09-24 11:50] LABS: Anisocytosis 1+ (NORMAL); Hypochromasia 1+ (NORMAL); Platelet Estimate Adequate (Adequate); Schistocytes None Seen (NORMAL)
[2023-09-24 11:51] LABS: Microcytosis 1+ (NORMAL)
[2023-09-24 12:46] LABS: Vancomycin Trough 12.6 ug/mL (10.0-20.0)
[2023-10-01 10:09] LABS: Basophils Absolute Auto 0.1 K/mm3 (0.0-0.1); Basophils Percent Auto 0.5 % (0.2-1.2); Eosinophils Absolute Auto 0.3 K/mm3 (0-0.3); Eosinophils Percent Auto 2.5 % (0-4.4); Hematocrit 32.1 % (37.0-47.0); Hemoglobin 9.3 g/dL (12.0-15.0); Immature Granulocyte Absolute 0.04 K/mm3 (0.00-0.031); Immature Granulocyte Percent A 0.4 % (0-0.5); Lymphocytes Absolute Auto 2.12 K/mm3 (0.9-3.2); Lymphocytes Percent Auto 19.2 % (18.3-44.2); Mean Corpuscular Hemoglobin 22.7 pg (26-34); Mean Corpuscular Volume 78.5 fl (80-100); Mean Platelet Volume 9.1 fl (7.4-10.4); Monocytes Absolute Auto 0.9 K/mm3 (0.1-0.6); Monocytes Percent Auto 8.4 % (2.6-8.5); Neutrophils Absolute Auto 7.6 K/mm3 (1.3-6.7); Platelet Count Result 536 k/mm3 (150-375); Red Blood Count 4.09 M/mm3 (4.2-5.4); Red Cell Distribution Width 16.9 % (11.5-14.5); White Blood Count 11.1 K/mm3 (4.5-10.0)
[2023-10-01 10:29] LABS: Anion Gap 6 mmol/L (8-16); Blood Urea Nitrogen 14 mg/dL (7-17); Carbon Dioxide 31 mmol/L (22-30); Chloride 99 mmol/L (98-107); Estimated Glomerular Filt Rate > 60; Glucose 118 mg/dL (65-110); Potassium 3.4 mmol/L (3.4-5.0); Sodium 136 mmol/L (137-145)
[2023-10-01 10:41] LABS: CRP 15.8 mg/dL (<1.0)
[2023-10-01 11:00] LABS: Anisocytosis 1+; Hypochromasia 2+; Platelet Estimate Increased (Adequate)
[2023-10-01 11:01] LABS: Poikilocytosis 1+; Schistocytes None Seen; Vancomycin Trough 14.4 ug/mL (10.0-20.0)
[2023-10-08 11:28] LABS: Basophils Percent Auto 0.4 % (0.2-1.2); Eosinophils Absolute Auto 0.6 K/mm3 (0-0.3); Eosinophils Percent Auto 6.4 % (0-4.4); Hematocrit 32.2 % (37.0-47.0); Immature Granulocyte Absolute 0.04 K/mm3 (0.00-0.031); Immature Granulocyte Percent A 0.4 % (0-0.5); Lymphocytes Absolute Auto 2.16 K/mm3 (0.9-3.2); Lymphocytes Percent Auto 23.5 % (18.3-44.2); Mean Corpuscular Hemoglobin 22.3 pg (26-34); Mean Corpuscular Volume 79.9 fl (80-100); Mean Platelet Volume 9.3 fl (7.4-10.4); Monocytes Absolute Auto 0.7 K/mm3 (0.1-0.6); Monocytes Percent Auto 7.1 % (2.6-8.5); Neutrophils Absolute Auto 5.7 K/mm3 (1.3-6.7); Neutrophils Percent Auto 62.2 % (45.5-73.1); Platelet Count Result 457 k/mm3 (150-375); Red Blood Count 4.03 M/mm3 (4.2-5.4); Red Cell Distribution Width 17.1 % (11.5-14.5); White Blood Count 9.2 K/mm3 (4.5-10.0)
[2023-10-08 11:42] LABS: Anion Gap 6 mmol/L (8-16); Blood Urea Nitrogen 18 mg/dL (7-17); CRP 2.7 mg/dL (<1.0); Calcium 8.9 mg/dL (8.4-10.2); Carbon Dioxide 32 mmol/L (22-30); Chloride 100 mmol/L (98-107); Estimated Glomerular Filt Rate > 60; Glucose 98 mg/dL (65-110); Potassium 3.7 mmol/L (3.4-5.0); Sodium 138 mmol/L (137-145)
[2023-10-08 11:54] LABS: Hypochromasia 2+; Platelet Estimate Increased (Adequate); Schistocytes None Seen; Vancomycin Trough 18.9 ug/mL (10.0-20.0)
[2023-10-15 12:18] LABS: Basophils Percent Auto 0.4 % (0.2-1.2); Eosinophils Absolute Auto 0.4 K/mm3 (0-0.3); Eosinophils Percent Auto 4.2 % (0-4.4); Hematocrit 33.3 % (37.0-47.0); Hemoglobin 9.6 g/dL (12.0-15.0); Immature Granulocyte Absolute 0.03 K/mm3 (0.00-0.031); Immature Granulocyte Percent A 0.3 % (0-0.5); Lymphocytes Absolute Auto 1.44 K/mm3 (0.9-3.2); Mean Corpuscular HGB Conc 28.8 g/dl (32-36); Mean Corpuscular Hemoglobin 22.6 pg (26-34); Mean Corpuscular Volume 78.4 fl (80-100); Mean Platelet Volume 9.7 fl (7.4-10.4); Monocytes Absolute Auto 0.5 K/mm3 (0.1-0.6); Monocytes Percent Auto 5.3 % (2.6-8.5); Neutrophils Absolute Auto 6.6 K/mm3 (1.3-6.7); Neutrophils Percent Auto 73.8 % (45.5-73.1); Platelet Count Result 364 k/mm3 (150-375); Red Blood Count 4.25 M/mm3 (4.2-5.4); Red Cell Distribution Width 17.7 % (11.5-14.5)
[2023-10-15 12:31] LABS: Anion Gap 4 mmol/L (4-12); Blood Urea Nitrogen 13 mg/dL (7-17); CRP 4.8 mg/dL (<1.0); Calcium 8.9 mg/dL (8.4-10.2); Carbon Dioxide 31 mmol/L (22-30); Chloride 102 mmol/L (98-107); Estimated Glomerular Filt Rate > 60; Glucose 100 mg/dL (65-110); Potassium 3.6 mmol/L (3.4-5.0); Sodium 137 mmol/L (137-145)
[2023-10-22 11:42] LABS: Basophils Percent Auto 0.3 % (0.2-1.2); Eosinophils Absolute Auto 0.3 K/mm3 (0-0.3); Eosinophils Percent Auto 3.6 % (0-4.4); Hematocrit 33.9 % (37.0-47.0); Hemoglobin 9.8 g/dL (12.0-15.0); Immature Granulocyte Absolute 0.04 K/mm3 (0.00-0.031); Immature Granulocyte Percent A 0.4 % (0-0.5); Lymphocytes Absolute Auto 1.99 K/mm3 (0.9-3.2); Lymphocytes Percent Auto 21.2 % (18.3-44.2); Mean Corpuscular HGB Conc 28.9 g/dl (32-36); Mean Corpuscular Hemoglobin 22.7 pg (26-34); Mean Corpuscular Volume 78.5 fl (80-100); Mean Platelet Volume 9.4 fl (7.4-10.4); Monocytes Absolute Auto 0.6 K/mm3 (0.1-0.6); Monocytes Percent Auto 6.3 % (2.6-8.5); Neutrophils Absolute Auto 6.4 K/mm3 (1.3-6.7); Neutrophils Percent Auto 68.2 % (45.5-73.1); Platelet Count Result 381 k/mm3 (150-375); Red Blood Count 4.32 M/mm3 (4.2-5.4); Red Cell Distribution Width 18.2 % (11.5-14.5); White Blood Count 9.4 K/mm3 (4.5-10.0)
[2023-10-22 11:46] LABS: Anion Gap 6 mmol/L (4-12); Blood Urea Nitrogen 15 mg/dL (7-17); CRP 3.1 mg/dL (<1.0); Calcium 9.3 mg/dL (8.4-10.2); Carbon Dioxide 30 mmol/L (22-30); Chloride 102 mmol/L (98-107); Estimated Glomerular Filt Rate > 60; Glucose 105 mg/dL (65-110); Potassium 3.9 mmol/L (3.4-5.0); Sodium 138 mmol/L (137-145)
[2023-10-22 11:49] LABS: Vancomycin Trough 21.4 ug/mL (10.0-20.0)
[2023-10-22 12:43] LABS: Platelet Estimate Adequate (Adequate); Poikilocytosis 1+
[2023-10-22 12:44] LABS: Macrocytosis 1+ (NORMAL); Ovalocytes 1+; Schistocytes None Seen
== END 2023-12-23 23:59 | disposition home or self-care (01) ==
LOC: HOME HLTH 10:28
PROVIDERS: PCP Internal Medicine; Visit Provider Orthopaedic Surgery
DX: M86.9 Osteomyelitis, unspecified (principal)
CPT/HCPCS: 36415; 80048; 80202; 85025; 86140

== ENCOUNTER 2023-11-15 14:36 | Outpatient (CLI) | payer MEDICARE, SELFPAY ==
[2023-11-15 15:21] LABS: CRP 3.8 mg/dL (<1.0)
== END 2023-11-15 14:37 | disposition home or self-care (01) ==
LOC: ANHLAB 14:40
PROVIDERS: PCP Internal Medicine; Visit Provider Orthopaedic Surgery
DX: M00.9 Pyogenic arthritis, unspecified (principal)
CPT/HCPCS: 36415; 86140

== ENCOUNTER 2024-06-10 06:06 | Day surgery (SDC) | payer MEDICARE, SELFPAY ==
[2024-05-23 11:17] VITALS: BMI 46.9
--- NOTE | ~2024-06-10 | XR_ITS ---
XR fluoroscopy no charge Indication: Bilateral intra-articular sacroiliac joint steroid injection TECHNIQUE: Fluoroscopy used during Bilateral intra-articular sacroiliac joint steroid injection perf ormed by [Caden Chaidez MD] on 06/10/2024. 29 seconds of fluoroscopy with 75 fluoroscopic imag es captured. FINDINGS: Correlate with procedure note. IMPRESSION: Fluoroscopy used during Bilateral intra-articular sacroiliac joint steroid injection. Reviewed, dictated and finalized at location B. MAN
--- NOTE | 2024-06-10 05:18 | WPDHPUPDATE1 ---
History and Physical Update Update Date/Time: 06/10/24 05:18 History and Physical has been reviewed, including an updated exam of the patient. There are NO changes in the patient's condition. Risks, benefits, and alternatives have been discussed and questions answered. Patient agrees to proceed with procedure.
--- NOTE | 2024-06-10 05:19 | P.OP_ITS ---
Procedure Note - Detailed Date of Procedure 06/10/24 Pre-op Diagnosis Sacroiliitis, Lumbosacral Spondylosis Post-op Diagnosis Same Procedure Performed Bilateral Sacroiliac Joint Steroid Injection under Fluoroscopic Guidance and with Contrast Control. Surgeon Caden Chaidez MD Compotype Operator None Anesthesia Local Description of Procedure INFORMED CONSENT: Risks, benefits and alternatives to the procedure were discussed in detail with the patient who expressed explicit understanding and consent to proceed. Patient was informed verbally and in written form regarding the risks associated with the procedure including the low risk of serious infection, bleeding/bruising, allergic reaction, nerve or organ injury, paralysis, procedural site pain or discomfort, worsening pain and/or mobility, failure to treat and/or disfigurement. The patient expressed explicit understanding and consent to proceed. All materials required for the procedure were available prior to procedure start. Site and side were marked prior to procedure and confirmed in the presence of the patient. PROCEDURE IN DETAIL: The patient was brought to the procedural suite and placed in the prone position. Patient was made comfortable with use of pillows under the head/chest, hips and ankles. Skin overlying the injection site on the affected side(s) was prepared broadly with ChloraPrep applicator and draped in a sterile manner. Aseptic technique was used throughout. The right SI joint was identified in the AP view and contralateral oblique angulation with caudal tilt was utilized to optimize visualization of the inferior and medial joint line representing the posterior portion of the joint. Local anesthesia was established by infiltration with approximately 5 mL of 2% lidocaine via a 1-1/2 inch 27-gauge needle. A 22-gauge 3.5 inch Quincke spinal needle was advanced un til the needle entered the inferior third of the joint space approximately 1cm cephalad from its most inferior point. In the AP view, 0.5 mL of Omnipaque 300 contrast medium was injected after negative aspiration for CSF, blood or other bodily fluid, showing appropriate intra-articular spread of contrast without evidence of intravascular, perineural or intrathecal placement. A 1.5 mL solution containing 3 mg of betamethasone in 0.5% PF bupivacaine was injected after repeat negative aspiration. Appropriate spread of the injectate was confirmed with washout of previous injected contrast. No parasthesias were elicited. Needle was removed completely intact without difficulty. The same exact procedure was repeated for all remaining levels on the contralateral side, left SI joint, modified as necessary to accommodate for the new target location with identical findings/results and no evidence of complication. Images were saved and documented in the patient chart. Patient's skin was cleansed and sterile bandage applied. The patient tolerated the procedure well. The patient was transported to the recovery area in stable condition where they were observed for an appropriate amount of time prior to discharge, without evidence of complication. The patient was instructed to avoid excessive activity for the next 48 hours, including climbing and frequent use of stairs. Showers only for 48 hours. They were instructed not to drive or operate heavy machinery for 24 hours. They are to monitor for severe headaches, fevers, chills, night sweats, erythema/swelling at the site or any other signs of infection, bleeding/bruising, bowel or bladder changes as well as new pain, weakness or numbness in the upper or lower extremity. Should they notice these changes, they are instructed to call our office immediately or report directly to the nearest Emergency Department if no answer or if after posted office hours. COMPLICATIONS: None COMMENTS: None CONTRAST WASTED: 29mL Omnipaque 300. Complications No immediate complications Condition Stable Disposition Same day [facility] Billing Surgery - Charge Forward: Surgery Billing
[2024-06-10 07:00] VITALS: BP 106/67; PULSE 107; RESP 18; TEMP 36.7; O2SAT 99
[2024-06-10 07:42] VITALS: BP 147/57; PULSE 110; RESP 22; O2SAT 97
[2024-06-10] MEDS: BETAMETHASONE SODIUM PHOSPHATE PF INJ 6 MG/ML VIAL INFILTRATE (07:47)
[2024-06-10 07:48] VITALS: BP 170/66; PULSE 103; RESP 14; O2SAT 97
[2024-06-10] MEDS: BUPivacaine HCL 0.5% 10 ML AMP INFILTRATE (07:48)
[2024-06-10] MEDS: LIDOCAINE HCL 1% PF INJ 5 ML VIAL XX (07:51)
[2024-06-10 07:53] VITALS: BP 143/90; PULSE 81; RESP 18; O2SAT 97
== END 2024-06-10 08:12 | disposition home or self-care (01) ==
PROVIDERS: PCP Internal Medicine; Visit Provider Anesthesiology Pain Medicine
PROC: (CPT G0260; principal; 2024-06-10 07:30)
DX: M46.1 Sacroiliitis, not elsewhere classified (principal); M47.817 Spondylosis without myelopathy or radiculopathy, lumbosacral region
CPT/HCPCS: G0260 ×2; 27096; 99199

== ENCOUNTER 2024-06-23 15:56 | Outpatient (NON) | payer MEDICARE, SELFPAY | END 2024-06-23 15:57 | disposition home or self-care (01) | LOC: ANHCARD 15:58 → ANHLAB 15:59 | PROVIDERS: PCP Internal Medicine; Visit Provider Nurse Practitioner Family | DX: T81.49XA Infection following a procedure, other surgical site, initial encounter (principal); Y83.8 Other surgical procedures as the cause of abnormal reaction of the patient, or of later complication, without mention of misadventure at the time of the procedure | CPT/HCPCS: 87070; 87075; 87205 ==

== ENCOUNTER 2024-06-27 14:22 | Outpatient (CLI) | payer MEDICARE, SELFPAY ==
[2024-06-27 15:45] LABS: Basophils Percent Auto 0.4 % (0.2-1.2); Eosinophils Absolute Auto 0.2 K/mm3 (0-0.3); Eosinophils Percent Auto 2.6 % (0-4.4); Hematocrit 34.5 % (37.0-47.0); Hemoglobin 10.2 g/dL (12.0-15.0); Immature Granulocyte Absolute 0.03 K/mm3 (0.00-0.031); Immature Granulocyte Percent A 0.3 % (0-0.5); Lymphocytes Absolute Auto 2.07 K/mm3 (0.9-3.2); Lymphocytes Percent Auto 22.7 % (18.3-44.2); Mean Corpuscular HGB Conc 29.6 g/dl (32-36); Mean Corpuscular Hemoglobin 22.7 pg (26-34); Mean Corpuscular Volume 76.8 fl (80-100); Mean Platelet Volume 9.6 fl (7.4-10.4); Monocytes Absolute Auto 0.5 K/mm3 (0.1-0.6); Monocytes Percent Auto 5.8 % (2.6-8.5); Neutrophils Absolute Auto 6.2 K/mm3 (1.3-6.7); Neutrophils Percent Auto 68.2 % (45.5-73.1); Platelet Count Result 412 k/mm3 (150-375); Red Blood Count 4.49 M/mm3 (4.2-5.4); White Blood Count 9.1 K/mm3 (4.5-10.0)
[2024-06-27 15:59] LABS: Alanine Aminotransferase 14 U/L (6-35); Alkaline Phosphatase 155 U/L (38-126); Anion Gap 5 mmol/L (4-12); Aspartate Amino Transferase 24 U/L (14-36); Bilirubin,Total 0.6 mg/dL (0.2-1.3); Blood Urea Nitrogen 15 mg/dL (7-17); CRP 4.4 mg/dL (<1.0); Calcium 9.2 mg/dL (8.4-10.2); Carbon Dioxide 30 mmol/L (22-30); Chloride 101 mmol/L (98-107); Estimated Glomerular Filt Rate > 60; Glucose 97 mg/dL (65-110); Potassium 3.7 mmol/L (3.4-5.0); Sodium 136 mmol/L (137-145); Uric Acid 4.4 mg/dL (2.5-7.5)
[2024-06-27 16:17] LABS: Erythrocyte Sedimentation Rate 64 mm/hr (0-20)
[2024-06-27 16:25] LABS: Anisocytosis 2+; Hypochromasia 1+; Platelet Estimate Increased (Adequate); Schistocytes None Seen
[2024-06-27 16:43] LABS: Rheumatoid Factor < 12.0 IU/ML (<12)
[2024-06-30 14:33] LABS: Anti Cyclic Citrullinated Pept <16 UNITS
--- OUTSIDE RECORDS SUMMARY | 2024-06-30 20:34 | XMS_ITS | Continuity of Care Document ---
Author Organization [facility] Address [address] [place] [address] [place] [address] Phone Care Team Providers Care Qc Scientist Name Role Phone Unavailable Unavailable Unavailable Advance Directives Directive Yes / No Effective Date File Name No Information Encounters Encounter Description Practice Location Reason(s) For Visit Diagnoses Date Provider Providers Copied on Encounter [facility], [address] [place], [place], [id number], [place] tel:[phone] [facility] No Information 6200 0 No Information Family History Family Member Type Diagnosis Age At Onset No Information Payers Payer name Insurance type Covered republican ID Authoriza tion(s) No Information Social History Type Description Quantity Date Captured Comments Sex Female Smoking Status No Information Chief Complaint And Reason For Visit No Information Reason For Referral Reason For Referral No Information History Of Present Illness Encounter Date Complaint History Of Prese nt Illness No Information Functional Status Date Functional Assessmen t No Information Instructions Date Instruction Additional Infor mation No Information Assessments Type Assessment Date No Information Patient Care Teams Name Effective Dates (start - stop) Status Members No Information
--- OUTSIDE RECORDS SUMMARY | 2024-06-30 20:34 | XMS_ITS | CONTINUITY OF CARE DOCUMENT ---
Author Name joyce cook Address Unknown Organization [facility] Address [address] [facility] [address] [place] [address] Phone [phone] Care Team Providers Care Consumer Attorney Name Role Phone Daniel Thomas MD Unavailable RADHA MARIE MD Unavailable [phone] RADHA MARIE MD Unavailable [phone] PROBLEMS Condition Status Date Provider Notes Syncope and collapse active Lizy lisaer CHEST PAIN-01/21 NUC NEG active ? Daniel Thomas MD OBESITY NEG SLEEP STUDY active Daniel Thomas MD EDEMA-01/21 ECHO EF 60 active ? Daniel Castro HYPERCHOLESTEROLEMIA-LABS PER DR. MARIE active ? Daniel Thomas MD ENCOUNTERS Date Type Provider Location Encounter Diagnosis - In-person encounter Office Visit Daniel Thomas MD [facility] CHEST PAIN-01/21 NUC NEGHYPERCHOLESTERO LEMIA-LABS PER DR. MARIEEDEMA-01/21 ECHO EF 60OBESITY NEG SLEEP STUDY - In-person encounter Office Visit Daniel Thomas MD [facility] CHEST PAIN-01/21 NUC NEGHYPERCHOLESTERO LEMIA-LABS PER DR. GALVAN-01/21 ECHO EF 60 VITAL SIGNS Date Observation Value Provider blood pressure, diastolic 75 mm[Hg] Moreno Burch RN blood pressure, systolic 120 mm[Hg] Nate Burch RN pulse rate 73 /min Nate Burhc RN oxygen saturation, oximetry 97 % Nate Burch RN respiratory rate E&M 16 /min Nate bustamante RN weight E&M 252 [lb_av] Nate Burch RN blood pressure, diastolic 80 mm[Hg] Moreno Burch RN blood pressure, systolic 148 mm[Hg] Nate Burch RN pulse rate 81 /min Nate Burch RN oxygen saturation, oximetry 98 % Nate Burch RN respiratory rate E&M 16 /min Nate bustamante RN weight E&M 253 [lb_av] Nate Burch RN HISTORY OF MEDICATION USE Medication Status Instructions Dates Provider Indications Com ments FUROSEMIDE 40 MG ORAL TABLET active daily Nate Burch RN PRAVASTATIN SODIUM 80 MG ORAL TABLET active daily Nate Burch RN POTASSIUM CHLORIDE SNEHAL ER 20 MEQ ORAL TABLET EXTENDED RELEASE active ONE TAB. DAILY Nate Burch RN DIAZEPAM 10 MG ORAL TABLET active 4 times daily Nate Burch RN NORCO 10-325 MG ORAL TABLET active 4 times daily Nate Burch RN METHOCARBAMOL 500 MG ORAL TABLET active 3 tabs daily Nate Burch RN SERTRALINE HCL 50 MG ORAL TABLET active one tab daily Nate Burch RN LEVOXYL 125 MCG ORAL TABLET active one tab. daily Nate Burch RN SOCIAL HISTORY Date Observation Value Provider social history E&M Marital Statu s: L syd with family/friends E thnicity: Nate Burch RN social history reviewed E&M reviewed Nate Burch RN physical exercise, f requency, days per week no [employer] caffeine use, averag e drinks per day yes [employer] alcohol use, average drinks per day none [employer] number of years as a smoker less than 10 years [employer] smoking status Non-smoker [employer] drug use none Daniel Thomas MD caffeine use, averag e drinks per day yes Nate Burch RN alcohol use, average drinks per day no Nate Burch RN smoking status Non-Smoker Nate Burch RN social history reviewed E&M reviewed Nate Burch RN MENTAL STATUS Date Observation Value Provider assessment of judgme nt and insight E&M Alert and oriented to time, place and person. Mood and affect are normal. Nate Burch RN assessment of judgme nt and insight E&M Alert and oriented to time, place and person. Mood and affect are normal. Nate Burch RN INSURANCE PROVIDERS Payer name Policy type / Coverage type [employer]azia [employer] [facility] [phone] [id number] TREATMENT PLAN Date Name Performer test results, : H er updated medication list for this problem includes: Pravastatin Sodium 80 Mg Tabs (Pravastatin sodium) ..... Daily BP today: 120/75 Prior BP: 148/80 (01/18/2009) Daniel Thomas MD test results, Daniel Thomas MD test results, : B P today: 120/75 Prior BP: 148/80 (01/18/2009) N uclear Stress Findings: 1. Adenosine mediated myocardial perfusion study 2 . Normal left ventricular systolic function with a calculated ejection fraction of 58%. 3 . No obvious significant scintigraphic evidence of myocardial ischemia or scar. [facility] (01/26/2009) E chocardiogram: Normal left ventricular systolic function. Normal left ventricular size. Mild concentric left ventricular hypertrophy. Normal E/E` 9.0. Left ventricular ejection fraction is e stimated at 60%. [facility] (01/26/2009) Daniel Thomas MD chest pain: O rders: C omplete Echo (CPT-54443) S tress Test - Adenosine (34634) Daniel Thomas MD chest pain: H er updated medication list for this problem includes: Pravastatin Sodium 80 Mg Tabs (Pravastatin sodium) ..... Daily Orders: C omplete Echo (CPT-95862) S tress Test - Adenosine (47590) Daniel Thomas MD chest pain: B P today: 148/80 Prior BP: / () Orders: E KG (CPT-13551) C omplete Echo (CPT-52565) S tress Test - Adenosine (54764) Daniel Thomas MD Date Name Stress Test - Adenos ine Complete Echo HISTORY OF PROCEDURES Procedure Date Procedure Name Provider Procedure Notes S tatus Regadenoson, 4 units Daniel Thomas MD completed Cardiolite, 2 units Daniel Thomas MD completed SPECT Images Daniel Thomas MD complet ed Stress EKG Michael Joe MD completed Holter, 24 or 48 Peng Russo MD co mpleted EKG Daniel Thomas MD completed
--- OUTSIDE RECORDS SUMMARY | 2024-06-30 20:34 | XMS_ITS | Data Portability ---
Author Organization [place] [employer], Main Office Address [address] [place] [address] Assessment No assessment recorded. Plan of Treatment Reminders Order Date Submit Date Provider Last Modified By Organization Details Last Modified Time Details Appointments Any 10 2023 03:00P M Fabricio Paige MD Not available Not available Not available Lab vitamin B12, serum 2022 023 [facility] - Outpatient Lab, [address] [place], [address], 05/07/2023 18:07:33 magnesiu m, serum or plasma 2022 023 [facility] Outpatient Lab, [address] [place], [address], 05/07/2023 18:07:33 CBC w/ auto diff 2022 023 [facility] Outpatient Lab, [address] [place], [address], 05/07/2023 18:07:32 CMP, serum or plasma 2022 023 [email or web address] [facility] Outpatient Lab, [address] [place], [address], 05/07/2023 18:07:32 lipid panel, serum [id number] [place] [address] Outpatient Lab, [address] [place], [address], 05/07/2023 18:07:32 TSH, serum or plasma 2022 023 [email or web address] [facility] Out[facility] Lab, [address] [place], [address], 05/07/2023 18:07:32 T4, free, serum 2022 023 [email or web address] [facility] Outpatient Lab, [address] [place], [address], 05/07/2023 18:07:33 lipid panel, serum 2023 024 [facility] Outpatient Lab, [address] [place], [address], 06/30/2024 18:02:42 CMP, serum or plasma 2023 024 [facility], [address] [place], [address], 06/30/2024 18:02:48 Referral None recorded . Procedures None recorded . Surgeries None recorded . Imaging None recorded . Medication Orders None recorded . Patient TargetsNo targets recorded. Patient Instructions Encounter Date Encounter Id Patient Instructions Last Modified By Organization Details Last Modified Time 04/05/2023 [id number] risk assessment* [email or web address] Not availabl e 04/05/2023 11:13:27 Personalized [facility] Plan and Screening Recommendations Advance Directives - Do you have one? Advance Directives - Do we have your advance directive on file in your health record? Primary Prevention/Interven tion (prevents or decreases the chance of common diseases from occurring) Smoking Risk: Non Smoker Alcohol Misuse Screening: Negative Weight: Appropriate Overwei ght continue your current weight loss efforts try to lose 5% of your body weight try to lose 10% of your body weight Physical activity: Nutrition: Good Average Fall Risk (screened today): Low Vaccines Pneumococcal: Influenza: Chronic Disease Risks Stroke: Low Risk Intermediate Risk I have no recommendations Act claudia diagnosis, Continue current treatment plan Heart Attack: Low risk Intermediate Risk I have no recommendations Act claudia diagnosis, Continue current treatment plan Clogging of the Arteries: Low risk Intermediate Risk I have no recommendations Act claudia diagnosis, Continue current treatment plan Diabetes: Low Risk Intermediate Risk I have no recommendations Ref er to attached handout ? P re-diabetes: After Your Visit? Drastically limit sugar and products made with any type of flour (bread, pasta, cereal, cookies, crackers, etc.) Secondary Prevention/Interven tion (detects treatable diseases before they may cause symptoms, disability, or ) Breast Cancer Screening with mammogram: Your next mammogram: Ordered Recommended today Recommended today, but you have declined Cervical/Uterine/Ov marti Cancer Screening: Osteoporosis Screening: Your next DEXA in: Ordered Recomme nded today Recommended today, but you have declined Date Screening Last Performed: Colon Cancer Screening: Colonoscopy In: Ordered Recomme nded Date Screening Last Performed: Eye Disease Screening: Dementia Risk: Low I have no recommendations Depression Screening: Negative [email or web address] Not available 04/05/2023 11:02:18 Adult health examination risk assessment stable. Follow-up for hypertension-GERD -hyperlipidemia -anxiety disorder -obesity class three. All clinically stable. Will check blood work consisting of CBC, CMP, lipid, thyroid, hemoglobin A1c, microalbumin, magnesium and B12 level. Refusing mammogram and bone density scan. Continue on current Rx follow-up in six months. Portions of the record may have been created with voice recognition software. Occasional wrong-word or ? s ound-a-like? substitutions may have occurred due to the inherent limitations of voice recognition software. Read the chart carefully and recognize, using context, where substitutions have occurred. Next Appt: 6 Months Approximate Date: 10/02/2023 [email or web address] Not available 04/05/2023 11:13:12 10/29/2023 [id number] Hypertension, hyperlipidemia, hypothyroidism and GERD all clinically stable. No blood is needed at this time. Will continue on current medications follow-up in four months. Continue with the oral antibiotics. Instructed to let us know if she runs any fever or other signs or symptoms of any recurrent infection. Next Appointment: 4 Months Approximate Date: 02/26/2024 Portions of the record may have been created with voice recognition software. Occasional wrong-word or ? s ound-a-like? substitutions may have occurred due to the inherent limitations of voice recognition software. Read the chart carefully and recognize, using context, where substitutions have occurred. [email or web address] Not available 10/29/2023 15:50:27 02/25/2024 [id number] Follow-up essent ial hypertension, hyperlipidemia, GERD, hypothyroidism, depression and obesity class three with a history of pain and discomfort in the left hip area. Will obtain radiographic studies of the hip. Will also need a bone density scan as well as mammogram. Need to check on what her last colonoscopy done. Will check with Dr. Lowe and William's office to see if they have records on when last one was performed. Continue on current Rx follow-up in 4 months. Additional Orders - Directives - Recommendations 1. Mammogram 2. Bone density scan 3. X-ray of the left hip 4. Check with Dr. Lowe's office see if they have evidence of any previous colonoscopy on patient and send us copies of the results. Next Appointment: 4 Months Approximate Date: 06/24/2024 Portions of the record may have been created with voice recognition software. Occasional wrong-word or ? s ound-a-like? substitutions may have occurred due to the inherent limitations of voice recognition software. Read the chart carefully and recognize, using context, where substitutions have occurred. [email or web address] Not available 02/25/2024 15:57:12 06/30/2024 [id number] dementia rating scale-2* Not available 06/30/2024 16:34:06 alcohol misuse* Not available 06/30/2024 16:34:06 depression screening* [email or web address] Not available 06/30/2024 16:34:06 Timed Up and Go test (TUG)* [email or web address] Not available 06/30/2024 16:34:06 multi-dimensiona health assessment questionnaire* [email or web address] Not available 06/30/2024 16:34:06 Personalized a lt Plan and Screening Recommendations Advance Directives - Do you have one? Advance Directives - Do we have your advance directive on file in your health record? Primary Prevention/Interven tion (prevents or decreases the chance of common diseases from occurring) Smoking Risk: Non Smoker Alcohol Misuse Screening: Negative Weight: Appropriate Overwei ght continue your current weight loss efforts try to lose 5% of your body weight try to lose 10% of your body weight Physical activity: Nutrition: Good Average Fall Risk (screened today): Low Vaccines Pneumococcal: Ordered Recommended today Recommended today, but you have declined Influenza: Ordered Recommended today Recommended today, but you have declined Chronic Disease Risks Stroke: Low Risk Intermediate Risk I have no recommendations Act claudia diagnosis, Continue current treatment plan Heart Attack: Low risk Intermediate Risk I have no recommendations Act claudia diagnosis, Continue current treatment plan Clogging of the Arteries: Low risk Intermediate Risk I have no recommendations Act claudia diagnosis, Continue current treatment plan Diabetes: Low Risk Intermediate Risk Secondary Prevention/Interven tion (detects treatable diseases before they may cause symptoms, disability, or ) Breast Cancer Screening with mammogram: Cervical/Uterine/Ov marti Cancer Screening: Osteoporosis Screening: Date Screening Last Performed: Colon Cancer Screening: Colonoscopy Fecal Occult Blood Cologuard (DNA stool test) In: Ordered Recomme nded Recommended today, but you have declined Date Screening Last Performed: Eye Disease Screening: Ordered Recommended today Dementia Risk: Low I have no recommendations Depression Screening: Negative Medicare wellness evaluation risk assessment stable. Follow-up for hypertension, hyperlipidemia, GERD, hypothyroidism as well as prosthetic joint infection along with obesity class three. Will continue on current Rx. Will check blood work including a CMP and lipid panel with the next blood draw from her orthopedist. Clinically stable otherwise. Is due for Cologuard as well. 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 May need to be considered for the possibility of surgical excision removal of the previous knee implant and allowing time to heal and then reinsert a new one. Is clinically stable otherwise. Will follow-up in four months Additional Orders - Directives - Recommendations 1. Cologuard 2. Increase the escitalopram to 210 mg tablets daily or 20 mg daily 3. Needs a CMP and lipid panel done with the next blood draw from Orthopedics.Javono josefa Orders - Follow Up: 4 Months Approximate Date: 10/28/2024 Portions of the record may have been created with voice recognition software. Occasional wrong-word or ? s ound-a-like? substitutions may have occurred due to the inherent limitations of voice recognition software. Read the chart carefully and recognize, using context, where substitutions have occurred. Created: Fabricio Paige M.D. 06.30.2024 03:33 PM [email or web address] Not available 06/30/2024 16:33:48 Reason for Referral None Reported. Results Created Date Observation Date Name Description Value Unit Range Abnormal Flag Note LastModifiedBy Organization Detail LastModifiedTime 11/29/2021 COLOG UARD cologuard result cancel led - order d not applic able Not Available [facility] (Cologuard Orders Only) [address], [place], [address], 11/29/2021 07:23:25 12/31/2020 nonin vasiv e color ectal cance r DNA + occul t blood scree sue, stool cologuard result reportable sample could not BE proces sed negati ve An empty colle ction kit was recei danny in the labor atory . The patie nt will be conta cted to initi ate a new sampl e colle ction . TEST DESCR IPTIO N: [place] site algor ithmi c jeremy sis of stool DNA-b iokrista gunn with hemog lobin immun oassa y. Quant itati ve value s of indiv idual bioma rkers are not repor table and are not assoc iated with indiv idual bioma rker resul t refer ence range s. Colog uard is inten ded for color ectal cance r scree sue of adult s of eithe r sex, 45 years or older , who are at [facility] for color ectal cance r (CRC) . Colog uard has been appro danny for use by the [place]. FDA. The perfo rmanc e of Colog uard was estab lishe d in a cross secti onal study of [facility] adult s aged 50-84 . Colog uard perfo rmanc e in patie nts ages 45 to 49 years was estim ated by baljinder-g kamari jeremy sis of near- age group s. Colon oscop ies perfo rmed for a posit claudia resul t may find as the most clini michele signi ficjeremy t lesio n: color ectal cance r [4.0% ], advan francisco adeno ma (incl uding sessi le bebeto negin polyp s great er than or equal to 1cm diame ter) [20%] or non- advan francisco adeno ma [31%] ; or no color ectal neopl jo [45%] . These estim ates are deriv ed from a prosp ectiv e cross -sect ional scree sue study of 0 indiv idual s at [place] ge risk for color ectal cance r who were scree celia with both Colog uard and colon oscop y. (Colleen Barillas et al, N Engl J Med 2014; 370(1 4):12 86-12 97.) Colog uard may produ ce a false negat claudia or false posit claudia resul t (no color ectal cance r or preca ncero us polyp prese nt at colon oscop y follo w up). A negat claudia Colog uard test resul t does not guara ntee the absen ce of CRC or advan francisco adeno ma (pre- cance r). The curre nt Colog uard scree sue inter vinay is every 3 years . (Amer ican Cance r Socie ty and U.S. Multi -Soci ety Task Force ). Colog uard perfo rmanc e data in a 0 patie nt pivot al study using colon oscop y as the refer ence metho d can be acces sed at the follo wing locat ion: www.e xactl abs.c om/re shimon . Addit ional descr iptio n of the Colog uard test proce ss, warni ngs and preca ution s can be found at www.c ologu mallory.c om. Not Available [facility] (Cologuard Orders Only) [address], [place], [address], 12/31/2020 22:17:00 11/17/19 22 11/17/2021 TSH TSH 2.14 mIU/L 0.40-4 .50 normal Not Available [facility] [address], [place], [address], 11/17/2021 15:28:57 11/17/19 22 11/17/2021 T4, FREE T4, free 1.5 NG/dL 0.8-1. 8 normal Not Available [facility] [address], [address], 11/17/2021 15:28:57 11/17/19 22 11/17/2021 CBC (INCL UDES DIFF/ PLT) white blood cell count 10.7 thous and/u L 3.8-10 .8 normal Not Available [address], [address], 11/17/2021 15:28:56 11/17/19 22 11/17/2021 CBC (INCL UDES DIFF/ PLT) red blood cell count 4.76 aurora on/uL 3.80-5 .10 normal Not Available [facility] [address], [address], 11/17/2021 15:28:56 11/17/19 22 11/17/2021 CBC (INCL UDES DIFF/ PLT) hemoglobin 10.5 g/dL 11.7-1 5.5 low Not Available [facility] [address], [address], 11/17/2021 15:28:56 11/17/19 22 11/17/2021 CBC (INCL UDES DIFF/ PLT) hematocrit 34.4 % 35.0-4 5.0 low Not Available [facility] [address], [address], 11/17/2021 15:28:56 11/17/19 22 11/17/2021 CBC (INCL UDES DIFF/ PLT) MCV 72.3 fL 80.0-1 00.0 low Not Available [facility] [address], [address], 11/17/2021 15:28:56 11/17/19 22 11/17/2021 CBC (INCL UDES DIFF/ PLT) MCH 22.1 pg 27.0-3 3.0 low Not Available [facility] [address], [address], 11/17/2021 15:28:56 11/17/19 22 11/17/2021 CBC (INCL UDES DIFF/ PLT) MCHC 30.5 g/dL 32.0-3 6.0 low Not Available [facility] [address], [address], 11/17/2021 15:28:56 11/17/19 22 11/17/2021 CBC (INCL UDES DIFF/ PLT) RDW 16.0 % 11.0-1 5.0 high Not Available [facility] [address], [address], 11/17/2021 15:28:56 11/17/19 22 11/17/2021 CBC (INCL UDES DIFF/ PLT) platelet count 474 thous and/u L 140-40 0 high Not Available [facility] [address], [address], 11/17/2021 15:28:56 11/17/19 22 11/17/2021 CBC (INCL UDES DIFF/ PLT) MPV 10.0 fL 7.5-12 .5 normal Not Available [facility] [address], [address], 11/17/2021 15:28:56 11/17/19 22 11/17/2021 CBC (INCL UDES DIFF/ PLT) absolute neutrophils 8207 cells /uL 1500-7 800 high Not Available [facility] [address], [address], 11/17/2021 15:28:56 11/17/19 22 11/17/2021 CBC (INCL UDES DIFF/ PLT) absolute lymphocytes 1905 cells /uL 850-39 00 normal Not Available [facility] [address], [address], 11/17/2021 15:28:56 11/17/19 22 11/17/2021 CBC (INCL UDES DIFF/ PLT) absolute monocytes 503 cells /uL 200-95 0 normal Not Available [facility] [address], [address], 11/17/2021 15:28:56 11/17/19 22 11/17/2021 CBC (INCL UDES DIFF/ PLT) absolute eosinophils 54 cells /uL 15-500 normal Not Available [facility] [address], [address], 11/17/2021 15:28:56 11/17/19 22 11/17/2021 CBC (INCL UDES DIFF/ PLT) absolute basophils 32 cells /uL 0-200 normal Not Available [facility] [address], [address], 11/17/2021 15:28:56 11/17/19 22 11/17/2021 CBC (INCL UDES DIFF/ PLT) neutrophils 76.7 % normal Not Available [facility] [address], [address], 11/17/2021 15:28:56 11/17/19 22 11/17/2021 CBC (INCL UDES DIFF/ PLT) lymphocytes 17.8 % normal Not Available [facility] [address], [address], 11/17/2021 15:28:56 11/17/19 22 11/17/2021 CBC (INCL UDES DIFF/ PLT) monocytes 4.7 % normal Not Available [facility] [address], [address], 11/17/2021 15:28:56 11/17/19 22 11/17/2021 CBC (INCL UDES DIFF/ PLT) eosinophils 0.5 % normal Not Available [facility] [address], [address], 11/17/2021 15:28:56 11/17/19 22 11/17/2021 CBC (INCL UDES DIFF/ PLT) basophils 0.3 % normal Not Available [address], [address], 11/17/2021 15:28:56 11/17/19 22 11/17/2021 COMPR EHENS CLAUDIA METAB OLIC PANEL glucose 83 mg/dL 65-99 normal Fasti ng refer ence inter vinay Not Available [address], [address], 11/17/2021 15:28:56 11/17/19 22 11/17/2021 COMPR EHENS CLAUDIA METAB OLIC PANEL urea nitrogen (BUN) 12 mg/dL 7-25 normal Not Available [address], [address], 11/17/2021 15:28:56 11/17/19 22 11/17/2021 COMPR EHENS CLAUDIA METAB OLIC PANEL creatinine 0.59 mg/dL 0.50-0 .99 normal For patie nts >49 years of age, the refer ence limit for Creat inine is appro ximat nuris 13% highe r for peopl e ident ified as Afric an-Am alejandro n. Not Available [address], [address], 11/17/2021 15:28:56 11/17/19 22 11/17/2021 COMPR EHENS CLAUDIA METAB OLIC PANEL eGFR non-afr. jamaican 96 mL/mi n/1.7 3m2 > or = 60 normal Not Available [address], [address], 11/17/2021 15:28:56 11/17/19 22 11/17/2021 COMPR EHENS CLAUDIA METAB OLIC PANEL eGFR 111 mL/mi n/1.7 3m2 > or = 60 normal Not Available [address] [place], [address], 11/17/2021 15:28:56 11/17/19 22 11/17/2021 COMPR EHENS CLAUDIA METAB OLIC PANEL BUN/creatini ne ratio not applic able (calc ) 6-22 Not Available [address], [address], 11/17/2021 15:28:56 11/17/19 22 11/17/2021 COMPR EHENS CLAUDIA METAB OLIC PANEL sodium 139 mmol/ L 135-14 6 normal Not Available [address], [address], 11/17/2021 15:28:56 11/17/19 22 11/17/2021 COMPR EHENS CLAUDIA METAB OLIC PANEL potassium 4.1 mmol/ L 3.5-5. 3 normal Not Available [address], [address], 11/17/2021 15:28:56 11/17/19 22 11/17/2021 COMPR EHENS CLAUDIA METAB OLIC PANEL chloride 99 mmol/ L 98-110 normal Not Available [address], [address], 11/17/2021 15:28:56 11/17/19 22 11/17/2021 COMPR EHENS CLAUDIA METAB OLIC PANEL carbon dioxide 27 mmol/ L 20-32 normal Not Available [address], [address], 11/17/2021 15:28:56 11/17/19 22 11/17/2021 COMPR EHENS CLAUDIA METAB OLIC PANEL calcium 9.3 mg/dL 8.6-10 .4 normal Not Available [address], [address], 11/17/2021 15:28:56 11/17/19 22 11/17/2021 COMPR EHENS CLAUDIA METAB OLIC PANEL protein, total 7.0 g/dL 6.1-8. 1 normal Not Available [address], [address], 11/17/2021 15:28:56 11/17/19 22 11/17/2021 COMPR EHENS CLAUDIA METAB OLIC PANEL albumin 3.7 g/dL 3.6-5. 1 normal Not Available [address], [address], 11/17/2021 15:28:56 11/17/19 22 11/17/2021 COMPR EHENS CLAUDIA METAB OLIC PANEL globulin 3.3 g/dL_ (calc ) 1.9-3. 7 normal Not Available [address], [address], 11/17/2021 15:28:56 11/17/19 22 11/17/2021 COMPR EHENS CLAUDIA METAB OLIC PANEL albumin/glob ulin ratio 1.1 (calc ) 1.0-2. 5 normal Not Available [address], [address], 11/17/2021 15:28:56 11/17/19 22 11/17/2021 COMPR EHENS CLAUDIA METAB OLIC PANEL bilirubin, total 0.4 mg/dL 0.2-1. 2 normal Not Available [address], [address], 11/17/2021 15:28:56 11/17/19 22 11/17/2021 COMPR EHENS CLAUDIA METAB OLIC PANEL alkaline phosphatase 122 U/L 37-153 normal Not Available [facility] [address], [address], 11/17/2021 15:28:56 11/17/19 22 11/17/2021 COMPR EHENS CLAUDIA METAB OLIC PANEL AST 12 U/L 10-35 normal Not Available [address], [place], [address], 11/17/2021 15:28:56 11/17/19 22 11/17/2021 COMPR EHENS CLAUDIA METAB OLIC PANEL ALT 7 U/L 6-29 normal Not Available [facility] [address], [address], 11/17/2021 15:28:56 11/17/19 22 11/17/2021 SPECI MEN INTEG RITY COMPR OMISE D specimen integrity compromised Whole blood , unspu n or parti ally spun gel barri er tube was recei danny more than 6 hours since colle ction . A false eleva tion of K, Phos and LD as well as a false decre ase in gluco se may occur due to prolo nged conta ct with red cells . Not Available [address], [address], 11/17/2021 15:28:55 11/17/19 22 11/17/2021 LIPID PANEL , STAND MALLORY cholesterol, total 214 mg/dL <200 high Not Available [facility] [address], [address], 11/17/2021 15:28:55 11/17/19 22 11/17/2021 LIPID PANEL , STAND MALLORY HDL cholesterol 55 mg/dL > or = 50 normal Not Available [facility] [address], [address], 11/17/2021 15:28:55 11/17/19 22 11/17/2021 LIPID PANEL , STAND MALLORY triglyceride s 102 mg/dL <150 normal Not Available [facility] [address], [address], 11/17/2021 15:28:55 11/17/19 22 11/17/2021 LIPID PANEL , STAND MALLORY LDL-choleste rol 139 mg/dL _(obdulia c) high Refer ence range : <100 Don able range <100 mg/dL for prima ry preve ntion ; <70 mg/dL for patie nts with CHD or diabe tic patie nts with > or = 2 CHD risk facto rs. LDL-C is now calcu lated using the Kath n-Hop kins calcu janett n, which is a valid ated novel metho d provi ding shelley r accur acy than the Fried erika equat ion in the estim ation of LDL-C . Kath stevens SS et al. DANIEL. 2013; 310(1 9): 206- 206 (http ://ed ucati on.Qu estcoJuvo. com/f aq/FA Q164) Not Available [facility] [address] [place], [address], 11/17/2021 15:28:55 11/17/19 22 11/17/2021 LIPID PANEL , STAND MALLORY chol/HDLC ratio 3.9 (calc ) <5.0 normal Not Available [facility] [place] [address] [place], [address], 11/17/2021 15:28:55 11/17/19 22 11/17/2021 LIPID PANEL , STAND MALLORY non HDL cholesterol 159 mg/dL _(obdulia c) <130 high For patie nts with diabe aimee plus 1 major ASCVD risk facto r, treat ing to a non-H DL-C goal of <100 mg/dL (LDL- C of <70 mg/dL ) is consi guru cummings c optio n. Not Available [facility] [address] [place], [address], 11/17/2021 15:28:55 08/23/19 24 08/23/2023 COMPR EHENS CLAUDIA METAB OLIC PANEL sodium 136 mmol/ L 137-14 5 low Not Available [facility] (Lab) [address] [place], [address], 08/23/2023 17:01:00 08/23/19 24 08/23/2023 COMPR EHENS CLAUDIA METAB OLIC PANEL potassium 4.6 mmol/ L 3.5-5. 1 Not Available [facility] (Lab) [address] [facility] [place], [address], 08/23/2023 17:01:00 08/23/19 24 08/23/2023 COMPR EHENS CLAUDIA METAB OLIC PANEL chloride 102 mmol/ L 98-107 Not Available [facility] (Lab) [address] [place], [address], 08/23/2023 17:01:00 08/23/19 24 08/23/2023 COMPR EHENS CLAUDIA METAB OLIC PANEL carbon dioxide 29 mmol/ L 22-30 Not Available [facility] (Lab) [address] [place], [address], 08/23/2023 17:01:00 08/23/19 24 08/23/2023 COMPR EHENS CLAUDIA METAB OLIC PANEL anion gap 9.6 mmol/ L 14-22 low Not Available [facility] (Lab) [address] [place], [address], 08/23/2023 17:01:00 08/23/19 24 08/23/2023 COMPR EHENS CLAUDIA METAB OLIC PANEL glucose 89 mg/dL 70-99 Not Available [facility] (Lab) [address] [place], [address], 08/23/2023 17:01:00 08/23/19 24 08/23/2023 COMPR EHENS CLAUDIA METAB OLIC PANEL BUN 22 mg/dL 8-19 high Not Available [facility] (Lab) [address] [place], [address], 08/23/2023 17:01:00 08/23/19 24 08/23/2023 COMPR EHENS CLAUDIA METAB OLIC PANEL creatinine 0.51 mg/dL 0.66-1 .25 low Not Available [facility] (Lab) [address] [place], [address], 08/23/2023 17:01:00 08/23/19 24 08/23/2023 COMPR EHENS CLAUDIA METAB OLIC PANEL GFR >60 Refer ence Range : [place] ge GFR Healt hy Adult : >60 mL/mi n/1.7 3 m2 Chron ic Kidne y Disea se: 15-60 mL/mi n/1.7 3 m2 Kidne y Failu re: <15/m L/min /1.73 m2 www.n iddk. nih.g ov The MDRD study equat ion has not been valid ated in child fortino <18 years of age; pregn ant women ; the elder ly >85 years of age; or in some racia l or ethni c subgr oups, such as Hispa nics. Outsi de the valid ated henry eters , estim ated GFR is less accur ate, requi ring clini obdulia judgm ent on a case- by-ca se basis . Clini obdulia inter preta tion for other races and ages must be made by the clini yaima. The MDRD study equat ion has not been valid ated for the evalu ation of serum creat inine relat ed to nutri bernabe l statu s or medic ation usage . For perso ns <18 years of age, a pedia tric GFR calcu lator is avail able on the [facility] websi te: [email or web address] :[email or web address] rg/pr ofess ional s/kdo qi/gf r_cal culat or Not Available [facility] (Lab) [address] [place], [address], 08/23/2023 17:01:00 08/23/19 24 08/23/2023 COMPR EHENS CLAUDIA METAB OLIC PANEL alkaline phosphatase 131 U/L 38-126 high Not Available [facility] (Lab) [address] [place], [address], 08/23/2023 17:01:00 08/23/19 24 08/23/2023 COMPR EHENS CLAUDIA METAB OLIC PANEL alanine aminotransfe rase 13 U/L 0-35 Not Available [facility] (Lab) [address] [place], [address], 08/23/2023 17:01:00 08/23/19 24 08/23/2023 COMPR EHENS CLAUDIA METAB OLIC PANEL aspartate aminotransfe rase 22 U/L 15-37 Not Available [facility] (Lab) [address] [place], [address], 08/23/2023 17:01:00 08/23/19 24 08/23/2023 COMPR EHENS CLAUDIA METAB OLIC PANEL bilirubin, total 0.40 mg/dL 0.20-1 .30 Not Available [facility] (Lab) [address] [place], [address], 08/23/2023 17:01:00 08/23/19 24 08/23/2023 COMPR EHENS CLAUDIA METAB OLIC PANEL calcium 9.0 mg/dL 8.4-10 .2 Not Available [facility] (Lab) [address] [place], [address], 08/23/2023 17:01:00 08/23/19 24 08/23/2023 COMPR EHENS CLAUDIA METAB OLIC PANEL total protein 6.9 g/dL 6.3-8. 2 Not Available [facility] (Lab) [address] [place], [address], 08/23/2023 17:01:00 08/23/19 24 08/23/2023 COMPR EHENS CLAUDIA METAB OLIC PANEL albumin 3.6 g/dL 3.0-4. 4 Not Available [facility] (Lab) [address] [place], [address], 08/23/2023 17:01:00 08/23/19 24 08/23/2023 COMPR EHENS CLAUDIA METAB OLIC PANEL globulin 3.3 g/dL 2.6-4. 2 Not Available [facility] (Lab) [address] [place], [address], 08/23/2023 17:01:00 08/23/19 24 08/23/2023 COMPR EHENS CLAUDIA METAB OLIC PANEL A/G ratio 1.1 ratio 1.0-2. 0 Not Available [facility] (Lab) [address] [place], [address], 08/23/2023 17:01:00 08/23/19 24 08/23/2023 LIPID PANEL cholesterol 144 mg/dL 140-19 9 NIH STACY NSUS RECOM MENDA TION FOR GWEN STERO L: ADULT CHILD LOW RISK: <200 <170 BORDE RLINE : <200- 239 ----- HIGH RISK: >240 >200 Not Available [facility] (Lab) [address] [place], [address], 08/23/2023 17:01:07 08/23/19 24 08/23/2023 LIPID PANEL triglyceride s 73 mg/dL 0-150 NIH STACY NSUS REPOR T RECOM MENDA TION FOR TRIGL YCERI HENRIK: ADULT CHILD LOW RISK: <150 ----- BODER LINE: 150-1 99 ----- HIGH RISK: >200 ----- Not Available [facility] (Lab) [address] [place], [address], 08/23/2023 17:01:07 08/23/19 24 08/23/2023 LIPID PANEL HDL cholesterol 74 mg/dL 40- Not Available [facility] (Lab) [address] [place], [address], 08/23/2023 17:01:07 08/23/19 24 08/23/2023 LIPID PANEL LDL cholesterol, calculated 55 mg/dL 0-130 NIH STACY NSUS REPOR T RECOM MENDA TIONS FOR LDL: ADULT CHILD LOW RISK <130 <110 (OPTI MAL LDL) <100 ----- BORDE RLINE : 130-1 59 ----- HIGH RISK: >160 >130 A TRIGL YCERI DE RESUL T >400 INVAL IDATE S THE CALCU LATIO N FOR LDL FRACT IONAT ION - THE LDL RESUL T WILL NOT BE REPOR NEGIN. Not Available [facility] (Lab) [address] [place], [address], 08/23/2023 17:01:07 08/23/19 24 08/23/2023 MAGNE SIUM magnesium 2.0 mg/dL 1.6-2. 3 Not Available [facility] (Lab) [address] [place], [address], 08/23/2023 17:01:09 08/23/19 24 08/23/2023 T4 FREE free T4 1.28 NG/dL 0.78-2 .19 Not Available [facility] (Lab) [address] [place], [address], 08/23/2023 17:15:51 08/23/19 24 08/23/2023 CBC/C OMPLE TE BLD COUNT W/DIF F white blood cells 8.7 x10'3 /uL 4.2-10 .8 Not Available [facility] (Lab) [address] [place], [address], 08/23/2023 22:07:30 08/23/19 24 08/23/2023 CBC/C OMPLE TE BLD COUNT W/DIF F red blood cells 4.43 x10'6 /uL 3.80-5 .20 Not Available [facility] (Lab) [address] [place], [address], 08/23/2023 22:07:30 08/23/19 24 08/23/2023 CBC/C OMPLE TE BLD COUNT W/DIF F hemoglobin 10.4 g/dL 12.0-1 5.6 low Not Available [facility] (Lab) [address] [place], [address], 08/23/2023 22:07:30 08/23/19 24 08/23/2023 CBC/C OMPLE TE BLD COUNT W/DIF F hematocrit 35.3 % 35.7-4 5.7 low Not Available [facility] (Lab) [address] [place], [address], 08/23/2023 22:07:30 08/23/19 24 08/23/2023 CBC/C OMPLE TE BLD COUNT W/DIF F mean red cell volume 79.7 fL 82.0-9 9.0 low Not Available [facility] (Lab) [address] [place], [address], 08/23/2023 22:07:30 08/23/19 24 08/23/2023 CBC/C OMPLE TE BLD COUNT W/DIF F mean red cell hemoglobin 23.5 pg 27.0-3 3.0 low Not Available [facility] (Lab) [address] [place], [address], 08/23/2023 22:07:30 08/23/19 24 08/23/2023 CBC/C OMPLE TE BLD COUNT W/DIF F mean RBC HGB concentratio n 29.5 g/dL 31.0-3 6.0 low Not Available [facility] (Lab) [address] [place], [address], 08/23/2023 22:07:30 08/23/19 24 08/23/2023 CBC/C OMPLE TE BLD COUNT W/DIF F red cell distribution width 16.1 % 11.8-1 5.5 high Not Available [facility] (Lab) [address] [place], [address], 08/23/2023 22:07:30 08/23/19 24 08/23/2023 CBC/C OMPLE TE BLD COUNT W/DIF F platelets 396 x10'3 /uL 150-40 0 Not Available [facility] (Lab) [address] [place], [address], 08/23/2023 22:07:30 02/08/20 24 08/23/2023 CBC/C OMPLE TE BLD COUNT W/DIF F mean platelet volume 10.0 fL 9.0-12 .4 Not Available [facility] (Lab) [address] [place], [address], 08/23/2023 22:07:30 08/23/19 24 08/23/2023 CBC/C OMPLE TE BLD COUNT W/DIF F neutrophils 60.7 % 39.0-7 2.0 Not Available [facility] (Lab) [address] [facility] [place], [address], 08/23/2023 22:07:30 08/23/19 24 08/23/2023 CBC/C OMPLE TE BLD COUNT W/DIF F lymphocytes 29.7 % 16.0-4 7.0 Not Available [facility] (Lab) [address] [place], [address], 08/23/2023 22:07:30 08/23/19 24 08/23/2023 CBC/C OMPLE TE BLD COUNT W/DIF F monocytes 6.4 % 5.0-12 .0 Not Available [facility] (Lab) [address] [place], [address], 08/23/2023 22:07:30 08/23/19 24 08/23/2023 CBC/C OMPLE TE BLD COUNT W/DIF F eosinophils 2.7 % 1.0-7. 0 Not Available [facility] (Lab) [address] [place], [address], 08/23/2023 22:07:30 08/23/19 24 08/23/2023 CBC/C OMPLE TE BLD COUNT W/DIF F basophils 0.3 % 0.0-2. 0 Not Available [facility] (Lab) [address] [place], [address], 08/23/2023 22:07:30 08/23/19 24 08/23/2023 CBC/C OMPLE TE BLD COUNT W/DIF F immature granulocytes 0.2 % 0.00-0 .50 Not Available [facility] (Lab) [address] [place], [address], 08/23/2023 22:07:30 08/23/19 24 08/23/2023 CBC/C OMPLE TE BLD COUNT W/DIF F neutrophils, absolute count 5.26 x10'3 /uL 1.5-8. 0 Not Available [facility] (Lab) [address] [place], [address], 08/23/2023 22:07:30 08/23/19 24 08/23/2023 CBC/C OMPLE TE BLD COUNT W/DIF F lymphocytes, absolute count 2.57 x10'3 /uL 1.07-3 .43 Not Available [facility] (Lab) [address] [place], [address], 08/23/2023 22:07:30 08/23/19 24 08/23/2023 CBC/C OMPLE TE BLD COUNT W/DIF F monocytes, absolute count 0.55 x10'3 /uL 0.29-0 .99 Not Available [facility] (Lab) [address] [place], [address], 08/23/2023 22:07:30 08/23/19 24 08/23/2023 CBC/C OMPLE TE BLD COUNT W/DIF F eosinophils, absolute count 0.23 x10'3 /uL 0.02-0 .53 Not Available [facility] (Lab) [address] [place], [address], 08/23/2023 22:07:30 08/23/19 24 08/23/2023 CBC/C OMPLE TE BLD COUNT W/DIF F basophils, absolute count 0.03 x10'3 /uL 0.01-0 .08 Not Available [facility] (Lab) [address] [place], [address], 08/23/2023 22:07:30 08/23/19 24 08/23/2023 CBC/C OMPLE TE BLD COUNT W/DIF F immature granulocytes ,absolute 0.02 x10'3 /uL 0.00-0 .05 Not Available [facility] (Lab) [address] [place], [address], 08/23/2023 22:07:30 08/23/19 24 08/23/2023 CBC/C OMPLE TE BLD COUNT W/DIF F nucleated red blood cells 0.0 % -0 Not Available [facility] (Lab) [address] [place], [address], 08/23/2023 22:07:30 08/23/19 24 08/23/2023 CBC/C OMPLE TE BLD COUNT W/DIF F NRBC# 0.00 x10'3 /uL Not Available [facility] (Lab) [address] [place], [address], 08/23/2023 22:07:30 08/23/19 24 08/23/2023 CBC/C OMPLE TE BLD COUNT W/DIF F anisocytosis OCCASI ONAL Not Available [facility] (Lab) [address] [place], [address], 08/23/2023 22:07:30 08/23/19 24 08/23/2023 CBC/C OMPLE TE BLD COUNT W/DIF F hypochromia OCCASI ONAL Not Available [facility] (Lab) [address] [place], [address], 08/23/2023 22:07:30 08/23/19 24 08/23/2023 TSH thyroid-stim ulating hormone 1.540 uIU/m L 0.465- 4.680 Not Available [facility] (Lab) [address] [place], [address], 08/23/2023 17:32:01 08/23/19 24 08/23/2023 VITAM IN B12 (CHILANGO CHRIS ) vb12 373 pg/mL 239-93 1 Not Available [facility] (Lab) [address], [place], [address], 08/23/2023 17:57:02 09/12/19 24 09/12/2023 XR, knee No observ ation record ed. [address], [place], [address], 09/12/2023 16:28:04 09/14/19 24 09/14/2023 XR, chest , 1 view No observ ation record ed. [address], [place], [address], 09/14/2023 16:39:04 02/25/20 24 02/25/2024 XR, hip + pelvi s, unila teral [facility] [address] [facility] [place], [place] [phone] Patien t Name: ARIANA DE LA CRUZ Access ion #: [id number] Sex: F : 1954 9 Dictat ed By: Efraín Montesinos Attend ing Physic shayne: JOSY PAIGE CE Orderi Physic shayne: JOSY PAIGE CE Exam Date: 2023 15:48 PM Exam Name: XR HIP/PE LVIS LT 2-3V Admitt ing Diagno sis(es ): CLINIC AL INDICA TION: Pain in left hip TECHNI QUE: 2 radiog raphic views of the left hip and pelvis were obtain ed. Compar kavita: None FINDIN GS/IMP RESSIO N: There is no eviden ce of acute fractu re or disloc ation. Modera te left hip osteoa rthrit is The alignm ent is anatom ical. There is no radiop aque foreig n body. Electr onical ly Signed by: Efraín Montesinos at 2023 17:04: 06 PM Page 1 [facility] (Imaging) [address] [place], [address], 02/26/2024 07:27:41 04/01/20 24 04/01/2024 DEXA, axial skele ton [facility] [address] [facility] [place] [address] Patien t Name: ARIANA DE LA CRUZ Access ion #: [id number] Sex: F : 1954 4 Dictat ed By: Lyly Leija Attend ing Physic shayne: JOSY PAIGE CE Orderi Physic shayne: JOSY PAIGE Exam Date: 2023 14:41 PM Exam Name: XR DEXA-H IPS PELVIS SPINE Admitt ing Diagno sis(es ): INDICA TION: senile osteop orosis . Postme nopaus al osteop orosis . TECHNI QUE: DEXA SCAN BONE DENSIT Y REPORT : AP SPINE (L1-L4 ) : T Score: -1.5 Bilate ral HIP TOTAL : T Score: -1.2 IMPRES TATI: Osteop enia of lumbar spine and bilate ral hips ------ ------ ------ ------ ------ ------ ------ ------ ----- *FRAX versio n 3.08. Fractu re probab ility calcul ated for an untrea negin patien t. Fractu re probab ility may be lower if the patien t has receiv ed treatm ent. T-scor e: compar kavita by adriano walton (GABINO) to a young adult popula tionrussel for sex and ethnic ity (used for postme nopaus al women and men >50 years) and classi fied by WHO criter ia. -1.0: normal <-1.0 to >-2.5: osteop enia -2.5: osteop orosis -2.5 plus fragil ity fractu re: severe osteop orosis Z-scor e: compar ed by SD to an age, sex, and ethnic ity popula tion (used for Page 1 [facility] [address] [place] [address] Patien t Name: ARIANA DE LA CRUZ Access ion #: [id number] Sex: F : 1954 4 Dictat ed By: Lyly Leija Attend ing Physic shayne: FRANK JOINER Physic shayne: JOSY PAIGE Exam Date: 2023 14:41 PM Exam Name: XR DEXA-H IPS PELVIS SPINE Admitt ing Diagno sis(es ): premen opausa l women, men <50 years, and childr en instea d of T-scor e WHO criter ia 4) <-2.0: below expect ed range/ low bone densit y for age, and a cause should be sought Electr onical ly Signed by: Lyly Leija at 2023 16:13: 55 PM Page [email or web address] [place] [address] (Imaging) [address] [place] [address], [address], 04/01/2024 17:42:15 04/02/20 24 04/01/2024 scree sue brecalvin t valerie, bilat [facility] [address] [address] Patien t Name: DE LA CRUZ ARIANA Access ion #: [id number] Sex: F : 1954 4 Locati on: RAD Attend ing Physic shayne: JOSY PAIGE Orderi ng Physic shayne: JOSY PAIGE Exam Date: 024 2:07 PM Exam Name: MG SCREnrique BREAST VALERIE BILAT Admitt ing Diagno sis(es ): MAMMOG JORGE REPORT - FINAL EXAM: MG SCRN BREAST VALERIE BILAT HISTOR Y: screen ing mammog amara 69-yea r-old female with no curren t breast compla ints. The jono farah has a histor y of right breast benign biopsy in 1995. COMPAR KAVITA: Mammog jorge dated 2006. TECHNI QUE: Bilate ral CC and MLO views of the breast s were perfor med. Digita l Mammog jorge images were obtain ed. CAD (compu ter assist ed detect ion) was utiliz ed. 3D Digita l breast tomosy nthesi s was perfor med and used in the interp retati on of images . FINDIN GS: There are scatte red areas of fibrog landul ar densit y. Page 1 of 2 [facility] Jono farah Name: ARIANA DE LA CRUZ Access ion #: [id number] Sex: F : 1954 4 Exam Date: 024 2:07 PM Exam Name: MG CHON BREAST VAELRIE BILAT Admitt ing Diagno sis(es ): No new masses , develo ping asymme tries, suspic ious calcif icatio ns, or rakan ectura l distor tion are seen. IMPRES TATI: BIRADS 1: Assess ment comple te. Negati ve. Recomm end annual screen ing mammog jorge. Accord ing to the [employer], yearly mammog palak are recomm ended starti ng at age 40 and contin uing as long as the woman is in good health . Clinic al Breast Exam should be part of the period ic health exam-a bout every 3 years for women in their 20s and 30s and every year for women 40 and over. Breast self-e xam is an option for women in their 20s. Any breast change noted on the breast self-e xam she would be report ed prompt ly to the [facility] health care provid er. A negati ve mammog jorge report should not discou rage follow -up or biopsy of a clinic ally signif icant findin g and/or abnorm ality. Dense breast tissue may obscur e small neopla sms. This jono farah has been entere d into a mammog jorge remind er system with a target date for her next mammog amara. Create d and electr onical ly signed by: Venu finney MD Signed Date: 11:16 AM (CT) Dictat ed by: Venu finney MD DD: 11:16 AM (CT) DT: 11:16 AM (CT) Page [address] (Imaging) [address] [place], [address], 04/02/2024 12:23:05 06/10/20 24 06/10/2024 epidu ral stero id injec tion, cauda l (PROC ) No observ ation record ed. [address] [facility] [address], [place], [address], 06/10/2024 14:13:01 Result Notes None recorded. Problems Name Problem SNOMED Code Status Onset Date Resolution Date Notes Provider Name and Address Organization Details Recorded Time Benign essential hypertensi on 5095412 Active Not Available [employer] 3 12:49:47 Bilateral hip joint pain 1527912811357 9100 Active 2021 Not Available [employer] 3 12:49:47 Deep venous thrombosis 349154152 Active 2019 Not Available [employer] 3 12:49:48 Lumbar radiculopa thy 254428097 Active Not Available [employer] 3 12:49:48 Non-alcoho lic fatty liver 791714294 Active Not Available [employer] 3 12:49:48 Anxiety disorder 531537205 Active 2021 Not Available [employer] 3 12:49:48 Gastroesop hageal reflux disease 442766572 Active Not Available [employer] 3 12:49:48 Osteoarthr itis of knee 899024191 Active 2016 Not Available [employer] 3 12:49:48 Headache 00606602 Active Not Available [employer] 3 12:49:48 Pure hyperchole sterolemia 514236304 Active Not Available [facility] 3 12:49:48 Vitamin D deficiency 41901939 Active Not Available [facility] 3 12:49:48 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 Not Available [facility] 3 12:49:49 Hypothyroi dism 60596530 Active Not Available [facility] 3 12:49:49 Sleep apnea 56372684 Active Not Available [facility] 3 12:49:49 Hypopituit arism 25297004 Active 2017 Not Available [facility] 3 12:49:49 Obese class III 306908017 Active 2022 Fabricio Paige MD [address], [place], [address] , [employer] 3 11:08:33 Depressive disorder 48107651 Active 2022 Fabricio Paige MD [address], [place], [address] , [employer] 3 16:19:17 Pain of left hip joint 2629940663890 00 Active 2023 Deana prado [employer] 4 16:05:56 Senile osteoporos is 02911822 Active 2023 Deana prado [employer] 4 16:10:43 Prosthetic joint infection 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 Procedures Surgical History Date Name Laterality Status Provider Name and Address Organization Details Recorded Time 4 Medicare Wellness CPT Code, Initial completed Rama Croft RN [facility] [employer] 06/30/2024 16:11:23 Imaging Results Imaging Date Name Status LastModified by Organiz ation Details LastModified Time 09/12/2023 XR, knee completed [address], [address], 09/12/2023 16:28:04 09/14/2023 XR, chest, 1 view completed [address], [address], 09/14/2023 16:39:04 02/25/2024 XR, hip + pelvis, unilateral completed [address] (Imaging) [address] [place], [address], 02/26/2024 07:27:41 04/01/2024 DEXA, axial skeleton completed [address] (Imaging) [address] [place], [address], 04/01/2024 17:42:15 04/01/2024 screening breast valerie, bilat completed [address] (Imaging) [address] [place], [address], 04/02/2024 12:23:05 06/10/2024 epidural steroid injection, caudal (PROC) completed [address], [address], 06/10/2024 14:13:01 Procedure Notes None recorded. Medical Equipment None Reported. Allergies Allergen ID Allergen Name Allergen Category Reaction Reaction Severity Criticality Documentation Date Start Date Code Code System Note Provider Name and Address Organization Details Recorded Time 40594 Levaquin medicatio n other Not available Not available 09/13/2022 40956 2 RxNorm laryn geal edema Not Available [facility] 3 12:56:19 03349 Xarelto medicatio n Not available Not available Not available 09/13/2022 69770 99 RxNorm Not Available [facility] 3 12:56:20 Medications Name Sig Start Date Stop Date Status Note LastModified by Organization Details LastModified Time celecoxib 200 mg capsule TAKE 1 CAPSULE BY MOUTH EVERY MORNING WITH FOOD AND WATER active Not Available Not Available No t Available hydrocortis one 5 mg tablet 2 tablets q am, 1 tablet q pm 01/14 completed Not Available Not Available Not Available cyclobenzap rine 10 mg tablet TAKE 1 TABLET BY MOUTH THREE TIMES A DAY active Not Available Not Available No t Available amoxicillin 500 mg capsule Take 1 capsule 3 times a day by oral route for 10 days. 10/05 completed Not Available Not Available Not Available atorvastati n 20 mg tablet TAKE 1 TABLET BY MOUTH EVERY DAY 2023 active Not Available Not Available Not Avai lable Neurontin 300 mg capsule Take 1 capsule 3 times a day by oral route. 11/29 completed Not Available Not Available Not Available trazodone 50 mg tablet Take 1 tablet every day by oral route at bedtime. 2021 active Not Available Not Available Not Avai lable ibuprofen 800 mg tablet Take 1 tablet twice a day by oral route. 02/24 completed Not Available Not Available Not Available benzonatate 200 mg capsule Take 1 capsule 3 times a day by oral route. 10/23 completed Not Available Not Available Not Available hydrocodone 5 mg-acetamin ophen 325 mg tablet TAKE 1 TABLET BY MOUTH EVERY 6 TO 12 HOURS NEEDED FOR PAIN active Not Available Not Available No t Available Synthroid 150 mcg tablet once daily active Not Available Not Available No t Available sertraline 100 mg tablet TAKE 1 TABLET BY MOUTH DAILY 10/05 completed Not Available Not Available Not Available Zithromax Z-Osbaldo 250 mg tablet Take 2 TABLET EVERY DAY by oral route for 1 day then one daily 08/19 completed Not Available Not Available Not Available Zestoretic 20 mg-12.5 mg tablet once daily 11/29 completed Not Available Not Available Not Available promethazin e 6.25 mg-codeine 10 mg/5 mL syrup Take 5 ML EVERY 6 HOURS by oral route PRN for cough 02/24 completed Not Available Not Available Not Available sulfamethox azole 800 mg-trimetho prim 160 mg tablet TAKE 1 TABLET BY MOUTH EVERY 12 HOURS X10 DAYS 10/28 completed Not Available Not Available Not Available hydrocodone 10 mg-acetamin ophen 325 mg tablet TAKE 1 TABLET EVERY 6 HOURS NEEDED 10/05 completed Not Available Not Available Not Available simvastatin 40 mg tablet Take 1 tablet every day by oral route. 11/21 completed Not Available Not Available Not Available methocarbam ol 750 mg tablet Take 1 tablet 3 times a day by oral route. 11/29 completed Not Available Not Available Not Available aspirin 325 mg tablet,jorge l yed release TAKE 1 TABLET BY MOUTH EVERY 12 HOURS FOR 28 DAYS active Not Available Not Available No t Available trazodone 100 mg tablet Take 1 tablet every day by oral route at bedtime. 04/05 completed Not Available Not Available Not Available baclofen 10 mg tablet Take 1 tablet 3 times a day by oral route. 06/26 completed Not Available Not Available Not Available cephalexin 500 mg capsule TAKE 1 CAPSULE BY MOUTH EVERY 6 HOURS 10/28 completed Not Available Not Available Not Available pantoprazol e 40 mg tablet,jorge l yed release TAKE 1 TABLET BY MOUTH EVERY DAY 2023 active Not Available Not Available Not Avai lable ferrous sulfate 325 mg (65 mg iron) tablet TAKE 1 TABLET BY MOUTH TWICE A DAY active Not Available Not Available No t Available levothyroxi ne 125 mcg tablet TAKE 1 TABLET BY MOUTH EVERY DAY 2023 active Not Available Not Available Not Avai lable clotrimazol e-betametha sone 1 %-0.05 % topical cream APPLY TO AFFECTED AREA(S) OF SKIN TOPICALLY TWO TIMES A DAY 04/05 completed Not Available Not Available Not Available hydrochloro thiazide 25 mg tablet TAKE 1 TABLET BY MOUTH EVERY DAY 2023 active Not Available Not Available Not Avai lable vancomycin 10 gram intravenous solution active Not Available Not Available Not Available lorazepam 1 mg tablet TAKE 1 TABLET BY MOUTH THREE TIMES A DAY NEEDED active Not Available Not Available No t Available Valium 10 mg tablet Take 1 tablet 3 times a day by oral route. 10/05 completed Not Available Not Available Not Available methylpredn isolone 4 mg tablets in a dose pack Take by oral route as per package insert 10/23 completed Not Available Not Available Not Available Vitamin D2 1,250 mcg (50,000 unit) capsule Take 1 capsule every week by oral route. active Not Available Not Available No t Available amoxicillin 875 mg-potassiu m clavulanate 125 mg tablet TAKE 1 TABLET BY MOUTH TWICE A DAY (EVERY 12 HOURS) active Not Available Not Available No t Available buspirone 15 mg tablet Take 1 tablet 3 times a day by oral route for 7 days. 04/05 completed Not Available Not Available Not Available escitalopra m 10 mg tablet TAKE 1 TABLET BY MOUTH EVERY DAY 2023 active Not Available Not Available Not Avai lable Synthroid 137 mcg tablet Take 1 tablet every day by oral route. 11/29 completed Not Available Not Available Not Available Klor-Con M20 mEq tablet,exte nded release Take 1 tablet 3 times a day by oral route. 11/29 completed Not Available Not Available Not Available pregabalin 50 mg capsule TAKE 1 CAPSULE BY MOUTH ONCE DAILY FOR 1 WEEK, THEN 1 CAPSULE TWICE A DAY 04/05 completed Not Available Not Available Not Available pregabalin 100 mg capsule TAKE 1 CAPSULE BY MOUTH TWICE A DAY 10/28 completed Not Available Not Available Not Available pregabalin 150 mg capsule TAKE 1 CAPSULE BY MOUTH TWICE A DAY active Not Available Not Available No t Available Lyrica 200 mg capsule Take 1 capsule 3 times a day by oral route. 04/05 completed Not Available Not Available Not Available Robaxin-750 2012 active Not Available Not Available Not Avai lable levothyroxi ne 137 mcg capsule Take 1 capsule every day by oral route. 2013 active Not Available Not Available Not Avai lable Xarelto 20 mg tablet TAKE ONE TABLET DAILY 11/29 completed Not Available Not Available Not Available Vitals Date Recorded Body mass index (BMI) Body height Oxygen saturation Oxygen saturation in Arterial blood by Pulse oximetry Heart rate Body temperature Body weight Systolic blood pressure Diastolic blood pressure Provider Name and Address Organization Details Last Updated DateTime 2 41.8 kg/m2 152.4 cm 94 % 94 % 105 /min 96.8 [degF] 30665.7 7 g 148 mm[Hg] 80 mm[Hg] Not Available [employer] 3 12:48:03 Date Recorded Body height Body mass index (BMI) Body weight Heart rate Body temperature Oxygen saturation Oxygen saturation in Arterial blood by Pulse oximetry Systolic blood pressure Diastolic blood pressure Provider Name and Address Organization Details Last Updated DateTime 3 152.4 cm 40.2 kg/m2 50451.0 3 g 108 /min 97 [degF] 98 % 98 % 142 mm[Hg] 80 mm[Hg] Deana Yang [place] [facility] [employer] 3 10:55:28 Date Recorded Body height Body mass index (BMI) Body weight Body temperature Oxygen saturation Oxygen saturation in Arterial blood by Pulse oximetry Systolic blood pressure Diastolic blood pressure Provider Name and Address Organization Details Last Updated DateTime 4 154.94 cm 42.9 kg/m2 295404. 47 g 97 [degF] 94 % 94 % 144 mm[Hg] 80 mm[Hg] Deana Yang [employer] [facility] [employer] 4 15:32:56 Date Recorded Heart rate Provider Name an d Address Organization Details Last Updated DateTime 10/29/2023 100 /min Fabricio Paige MD [address] [place] [address], [phone], [place] [facility] [employer] [facility] 10/29/2023 15:45:39 Date Recorded Body height Body mass index (BMI) Body weight Heart rate Body temperature Oxygen saturation Oxygen saturation in Arterial blood by Pulse oximetry Systolic blood pressure Diastolic blood pressure Provider Name and Address Organization Details Last Updated DateTime 4 154.94 cm 45 kg/m2 309953. 98 g 109 /min 97.6 [degF] 98 % 98 % 136 mm[Hg] 88 mm[Hg] CHILANGO Garrido [place] [facility] [employer] [facility] 4 15:42:50 Date Recorded Body height Body mass index (BMI) Body weight Heart rate Body temperature Oxygen saturation Oxygen saturation in Arterial blood by Pulse oximetry Systolic blood pressure Diastolic blood pressure Provider Name and Address Organization Details Last Updated DateTime 4 154.94 cm 47 kg/m2 296867. 5 g 107 /min 97 [degF] 96 % 96 % 148 mm[Hg] 98 mm[Hg] CHILANGO Garrido [place] [facility] [employer] [facility] 4 16:04:22 Social History Question Answer Notes LastModified by Organizat ion Details LastModified Time Tobacco Smoking Status Never Smoker Not Available [employer] 09/13/2022 12:46:42 Do You Have An Advance Directive? No MIGRATION.[id number] Information not available 09/13/2022 What Is Your Level Of Alcohol Consumption? None MIGRATION.97236 [id number] Information not available 09/13/2022 Do You Wear A Helmet When Biking? No MIGRATION.88709 49927 Information not available 09/13/2022 Are You Blind Or Do You Have Difficulty Seeing? No MIGRATION.93659 62646 Information not available 09/13/2022 What Is Your Level Of Caffeine Consumption? Occasional MIGRATION.57834 40575 Information not available 09/13/2022 In The 14 Days Before Symptom Onset, Have You Had Close Contact With A Laboratory-confir med COVID-19 While That Case Was Ill? No MIGRATION.05772 24381 Information not available 09/13/2022 In The 14 Days Before Symptom Onset, Have You Had Close Contact With A Person Who Is Under Investigation For COVID-19 While That Person Was Ill? No MIGRATION.60888 22515 Information not available 09/13/2022 Are You Deaf Or Do You Have Serious Difficulty Hearing? No MIGRATION.78964 81966 Information not available 09/13/2022 What Type Of Diet Are You Following? REGULAR MIGRATION.57204 63942 Information not available 09/13/2022 Have There Been Any Changes To Your Family Or Social Situation? No MIGRATION.09685 85423 Information not available 09/13/2022 What Is The Fluoride Status Of Your Home? Fluoridated MIGRATION.86412 63505 Information not available 09/13/2022 Are There Any Guns Present In Your Home? No MIGRATION.44898 42983 Information not available 09/13/2022 Do You Use Insect Repellent Routinely? No MIGRATION.59026 53822 Information not available 09/13/2022 Where Do You Live? SingleLevelHouse [email or web address] Information not available 06/30/2024 Guns Present In The Home? No [email or web address] Information not available 06/30/2024 Are You Able To Care For Yourself? Yes [email or web address] Information not available 06/30/2024 Are You Blind Or Do Yo Have Difficulty Seeing? No [email or web address] Information not available 06/30/2024 Are You Deaf Or Do You Have Serious Difficulty Hearing? No [email or web address] Information not available 06/30/2024 Live Alone Of With Others? With Others [email or web address] Information not available 06/30/2024 Do You Have A Medical Power Of Pr Intern? No MIGRATION.73090 88559 Information not available 09/13/2022 What Was The Date Of Your Most Recent Tobacco Screening? 06/30/2024 [email or web address] Information not available 06/30/2024 Do You Have Any Pets? No MIGRATION.77831 38172 Information not available 09/13/2022 What Is Your Relationship Status? MIGRATION.29816 70173 Information not available 09/13/2022 Do You Use Your Seat Belt Or Car Seat Routinely? Yes MIGRATION.11383 56976 Information not available 09/13/2022 Do You Have Smoke And Carbon Monoxide Detectors In Your Home? Yes MIGRATION.71678 20067 Information not available 09/13/2022 Are You Passively Exposed To Smoke? Yes MIGRATION.21683 97590 Information not available 09/13/2022 Are There Any Smokers In Your House? No MIGRATION.87553 86387 Information not available 09/13/2022 Do You Feel Stressed (tense, Restless, Nervous, Or Anxious, Or Unable To Sleep At Night)? [id number] MIGRATION.32203 33739 Information not available 09/13/2022 Do You Use Sunscreen Routinely? No MIGRATION.46446 81474 Information not available 09/13/2022 Have You Recently Traveled Abroad? No MIGRATION.47666 50202 Information not available 09/13/2022 Sex: Female Functional Status Question Answer Note LastModified by Organizat ion Details LastModified Time Do you have difficulty walking or climbing stairs? No MIGRATION.8281045 026 Information not available 09/13/2022 Do you have transportation difficulties? No MIGRATION.3277132 026 Information not available 09/13/2022 Are you able to walk? YESASSIST MIGRATION.7262927 026 Information not available 09/13/2022 Do you have difficulty doing errands alone? No MIGRATION.7610381 026 Information not available 09/13/2022 Are you able to care for yourself? Yes MIGRATION.6515172 026 Information not available 09/13/2022 Do you have difficulty dressing or bathing? No MIGRATION.7697727 026 Information not available 09/13/2022 What is your exercise level? None MIGRATION.8501453 026 Information not available 09/13/2022 Mental Status Question Answer Note LastModified by Organizat ion Details LastModified Time Do you have difficulty concentrating, remembering or making decisions? No MIGRATION.[id number] 6 Information not available 09/13/2022 Family History Nothing Reported Notes:Mother 72 from CH F / DM / coronary artery disease / COPD. Father is living at 75 with COPD. Has three brothers all living and in good health. Has two sisters all living and in one has ASHD and HTN. Medical History Condition Response NERVE DISEASE N BLINDNESS N RHEUMATIC FEVER N KIDNEY STONES N BLADDER PROBLEMS N MRSA N OTHER # 1 N POLIO N LUNG DISEASE/DISORDER N COPD N RADIATION / CHEMOTHERAPY N Other # 2 N BLOOD DISEASES N EAR OR HEARING PROBLEMS N MUMPS N BOWEL PROBLEMS N DEPRESSION (INCLUDING POST ) N STROKE/TIA N ULCERS N BENIGN PROSTATIC HYPERPLASIA N MEASLES N MYOCARDIAL INFARCTION N OBESITY N GERD/NAUSEA N ANEURYSM N URINARY/BLADDER/KIDNEY PROBLEMS N CORONARY ARTERY DISEASE (CAD) N ADDICTION CONCERNS N ENDOMETRIOSIS N Impotence N USE OF BLOOD THINNERS N SKIN PROBLEMS N GASTROINTESTINAL DISORDER N PERIPHERAL VASCULAR DISEASE N MUSCLE,JOINT OR BONE PROBLEMS N GASTROINTESTINAL BLEEDING N BLOOD CLOTS N ASTHMA N CATARACTS N ERECTILE DYSFUNCTION N VARICOSITIES N GI PROBLEMS N Low Testosterone N INFERTILITY N AIDS/HIV N CHEMOTHERAPY / RADIATION N LIVER DISEASE N MALE HYPOGONADISM N HYPERTENSION Y Deficiency N TOURETTE'S N ANXIETY DISORDER N BLOOD TRANSFUSION N ANEMIA/BLOOD DISORDER N CHRONIC EAR INFECTIONS N BRONCHITIS N TUBERCULOSIS N GLAUCOMA N FOOT PROBLEM N DIVERTICULITIS N SLEEP APNEA Y CHICKENPOX N INFECTIOUS DISEASE N HEART ARRHYTHMIA N PROSTATE N INSOMNIA N HIGH CHOLESTEROL / HYPERLIPIDEMIA Y HYPERTHYROIDISM N EYE PROBLEMS N EDEMA N CHRONIC PAIN SYNDROME N HYPOTHYROIDISM Y CAROTID BLOCKAGE N CONSTIPATION N BACK / NECK PROBLEMS N HAVE YOU BEEN HOSPITALIZED OR SEEN IN [facility] IN THE PAST YEAR ? N ATHEROSCLEROSIS N BREAST PROBLEMS N DIALYSIS N ECZEMA N OSTEOPOROSIS N ARTHRITIS N NO SIGNIFICANT PAST MEDICAL HISTORY N APPENDICITIS N DIABETES, TYPE N BAD TEETH N ENT N HEARTBURN / REFLUX Y AUTISM SPECTRUM DISORDER (ASD) N HEPATITIS / LIVER DISEASE N GOUT N SLEEP DISORDER N ALZHEIMER'S DISEASE N Brain Problems N HERPES N DEMENTIA N HEADACHES/MIGRAINES N SEIZURES/EPILEPSY N VASCULAR DISEASE N PACEMAKER N Blood Disorder N DIZZINESS N HEART DISEASE/HEART PROBLEMS N KIDNEY DISEASE N MULTIPLE SCLEROSIS N CARDIAC ARRHYTHMIA N CANCER: SPECIFY N ATRIAL FIBRILLATION N Gall Stones N PULMONARY EMBOLISM N AUTOIMMUNE DISEASE N Gynecological HistoryNo gynecological history recorded. Obstetrics History GPAL:G 0 P 0 0 0 0 Past Encounters Encounter ID Performer Location Encounter Start Date Encounter Closed Date Diagnosis/Indication Diagnosis SNOMED-CT Code Diagnosis ICD10 Code [id number] [facility] [address] [address] 11/29/2020 00:00:00 11/29/2020 17:22:19 [id number] [facility] [address] [place] [address] 03/10/2021 00:00:00 03/10/2021 14:49:22 [id number] [facility] [address] [address] 10/31/2021 00:00:00 10/31/2021 16:12:43 [id number] [facility] [address] [address] 11/21/2021 00:00:00 11/21/2021 17:15:50 [id number] Fabricio Paige MD [facility] [place] [facility] [address] [place] [address] 04/05/2023 10:47:12 04/05/2023 11:18:31 Adult health examination 437158592 Z00.00 Depression screening 171 290789 Z13.31 Benign ess ential hypertension 5673459 I10 Gastroesop hageal reflux disease 741297781 K21.9 Pure hypercholesterolemia 261635690 E78.00 Anxiety disorder 0830911 06 F41.9 Obese class III 08251330 5 E66.01 [id number] Fabricio Paige MD [facility] Internal Med [facility] [address] [address] 10/29/2023 15:19:02 10/29/2023 15:55:13 Hypothyroidism 75422258 E03.9 Gastroesop hageal reflux disease 103263906 K21.9 Benign ess ential hypertension 4737854 I10 Pure hypercholesterolemia 336442903 E78.00 [id number] Fabricio Paige MD [facility] 24 2043 [facility] 24 [place] [address] 02/25/2024 15:28:41 02/25/2024 17:08:53 Benign essential hypertension 3010112 I10 Gastroesop hageal reflux disease 923090938 K21.9 Pure hypercholesterolemia 698441333 E78.00 Hypothyroidism 94996275 E03.9 Depressive disorder 3548 9007 F32.A Obese class III 68884157 5 E66.01 [id number] Fabricio Paige MD [facility] Internal Med [facility] 2043 [facility], [facility] 24 [place] [address] 06/30/2024 15:58:29 06/30/2024 16:40:13 Adult health examination 170276819 Z00.00 Screening for disorder 067452182 Z13.9 Benign ess ential hypertension 7681072 I10 Gastroesop hageal reflux disease 258537440 K21.9 Pure hypercholesterolemia 971072133 E78.00 Hypothyroidism 50495914 E03.9 Prosthetic joint infection 076865113 T84.51XA Obese class III 75705076 5 E66.01 Health Concerns Section Related Observation LastModified by Organization Detai ls LastModified Time None Recorded Concern Status LastModified by Organization Details LastModified Time None Recorded Advance Directives Directive N: Payers Encounter Date Sequence Insurance Name Policy Number Policy Eric Covered Member ID Eric Member ID Guarantor Name 04/05/2023 1 [facility] (MEDICARE REPLACEMENT/A DVANTAGE - HMO) [id number] Gayle De La Cruz [id number] Gayle De La Cruz 10/29/2023 1 [facility] (MEDICARE REPLACEMENT/A DVANTAGE - HMO) [id number] Gayle De La Cruz [id number] Gayle De La Cruz 02/25/2024 1 [facility] (MEDICARE REPLACEMENT/A DVANTAGE - HMO) [id number] Gayle De La Cruz [id number] Gayle De La Cruz 06/30/2024 1 [facility] (MEDICARE REPLACEMENT/A DVANTAGE - HMO) [id number] Gayle De La Cruz [id number] Gayle De La Cruz Notes Date Note Type Note Provider Name and Address Organization Details Recorded Time 04/05/20 23 text/htm l Patient Name: Rebekah Romero Of Service: March ( 04.05.2023 ): 1955 Age: 68 There has been approximately a 8 lb weight loss since 11/21/2021. This represents approximately a 3.7% change in weight. Weight change attributable to lifestyle changes. Vital Signs:Blood Pressure: Sitting Rt. Arm 142/80Pulse: Sitting 108 /min and RegularRespirations: 12Height 60 in or 1.5 mWeight 206 lb or 93.4 kgBMI 40.2Temperature: 97 F or 36.1 CPulse Oximetry: 98 % at rest on no oxygen Chief Complaint: Addressed in HPI Problems or conditions discussed in the HPI were the only ones reviewed during the encounter.Only social and family history addressed in the HPI were reviewed during this encounter. Attendant(s): NoneConstitutional and Systemic Symptoms: none Medication Reconciliation: from medication list. History of Present Illness #1. Essential Hypertension: Stage: Stage I Interval Neurological Complaints no headaches. No shortness of breath, orthopnea or cardiovascular symptoms. No other symptoms related to end organ damage. Pressure has been under fair control. Currently normal. No other end organ symptoms or findings. Therapy reviewed regarding management of hypertension and includes salt restriction and Hydrochlorothiazide. #2. Type II Hypercholesterolaemia: Currently taking medication and tolerating well. No interval complaints of any muscle pain or arthralgia. No significant liver changes with medications. Last lipid panel: no testing done recently. Therapy reviewed regarding treatment of cholesterol management and include diet. #3. Hx of esophageal reflux currently stable. Hx of Complications: none The severity, duration and intensity of symptoms have improved. Frequency: most meals Treatment consists medications taken on intermittent basis. Current therapy includes Protonix. There has been no nausea, eructation, vomiting, hematemesis, dysphagia, velopharyngeal insufficiency and odynophagia. No change in he frequency or intensity of symptoms. Has had no melena. Has had no hematemesis. Discuss the possibility of trying to reduce the frequency of the use of any PPI inhibitors or H2 antagonist to see if symptoms can be controlled with last intensive therapy #4. Anxiety Disorder: History of anxiety disorder. There has been no panic attacks. No interval complaints of any vegetative or other signs of depression. Taking no medication. Discussed possibility of decreasing and weaning off medication. Feels that current regimen is working fine and wishes not to change the current treatment regimen. Medication not causing any sedation or cognitive dysfunction and there is no contraindication to continue current therapy. #5. Hx of obesity. Currently Class 3 Obesity [place] > 40. Has tried numerous dietary support and supplements with no benefit. Instructed on the health consequences of the obese status particularly cancer - diabetes and heart disease. Discussed new modalities of weight loss including GLP-1 medications that are used to treat diabetes. Potential candidate for bariatric surgery: Yes. Wishes to be evaluated by Dietary: No and was offered to be evaluated and instructed by loftsman/woman on weight loss diet.Medication List Reviewed and Reconciled 04/05/2023Synthroid 0.125 MG (TABLET - ORAL) One Daily For ThyroidAtorvastatin Calcium 20 MG (TABLET - ORAL) One DailyLyrica 100 MG CAPSULE One Twice A DayHydrochlorothiazide 25 MG (TABLET - ORAL) One DailyProtonix 40 MG (FOR SUSPENSION, DELAYED RELEASE - ORAL) One Daily For RefluxLorazepam .5 MG TABLET One TidFlexeril 10 MG One Three Times A DayADRs List Reviewed 04/05/2023Levaquin Laryngeal EdemaSurgical HistoryRight and Left Cataract, Right TKA, RUBIN BSO, , , Rt. Arm, TonsillectomyPreventative Testing Confirmed by Our Nftkora6611/14/2022 ALBUMIN 4.0 G/DL11/21/2012 UPPER PGMQATWKQ27/22/2013 MAMMOGRAM DEXA SCANSocial HistoryDoes not smoke or drink. Does housework.Family HistoryMother 72 from CHF / DM / coronary artery disease / COPD. Father is living at 75 with COPD. Has three brothers all living and in good health. Has two sisters all living and in one has ASHD and HTN. Fabricio Paige MD [address] [place] [address], [facility] [address], [place], [address], [facility] [employer] 04/05/2023 11:13:31 10/29/19 24 text/htm l Patient Name: Rebekah Mayorgatico Of Service: Sunday ( 10.29.2023 ): 1955 Age: 68 There has been approximately a 21 lb weight gain since 04/05/2023. This represents approximately a 10.2% change in weight. Weight change attributable to lifestyle changes. Vital Signs:Blood Pressure: Sitting Rt. Arm 114/80Pulse: Sitting 100 /min and RegularRespiratory Rate: 12Height 61 in or 1.5 mWeight 227 lb or 103.0 kgBMI 42.9Temperature: 97 F or 36.1 CPulse Oximetry: 94 % at rest on no oxygen Chief Complaint: Addressed in HPI Problems or conditions discussed in the HPI were the only ones reviewed during the encounter.Only social and family history addressed in the HPI were reviewed during this encounter. Attendant(s): NoneConstitutional and Systemic Symptoms:none Medication Reconciliation: from medication list. History of Present Illness #1. Essential Hypertension: Stage: Stage I Interval Neurological Complaints no headaches, dizziness, weakness, visual changes, ataxia, aphasia and apraxia. No shortness of breath, orthopnea or cardiovascular symptoms. No other symptoms related to end organ damage. Pressure has been under excellent control. Currently normal. No other end organ symptoms or findings. Therapy reviewed regarding management of hypertension and includes salt restriction and Hydrochlorothiazide. #2. Type II Hypercholesterolaemia: Currently taking medication and tolerating well. No interval complaints of any muscle pain or arthralgia. No significant liver changes with medications. Last lipid panel: fair control. Therapy reviewed regarding treatment of cholesterol management and include diet and Atorvastatin Calcium. #3. Hx of hypothyroidism currently stable. Heat intolerance: no Fatigue: no Weight gain: no Difficulty concentrating: no Muscle Symptoms: none Skin Texture: normal Skin Color: normal Currently taking synthroid. #4. Hx of esophageal reflux currently stable. Hx of Complications: none The severity, duration and intensity of symptoms have improved. Frequency: most meals Treatment consists medications taken on a regular basis. Current therapy includes Protonix. There has been no nausea, eructation, vomiting, hematemesis, dysphagia, velopharyngeal insufficiency and odynophagia. No change in he frequency or intensity of symptoms. Has had no melena. Has had no . Discussed use of H2 antagonists and the possibility of trying to reduce the frequency of the use of any PPI inhibitors and try H2 antagonists to see if symptoms can be controlled with lease intensive therapy since a number of complications are associated with chronic prolonged use of PPI inhibitors. Active Medication ListSynthroid 0.125 MG (TABLET - ORAL) One Daily For ThyroidAtorvastatin Calcium 20 MG (TABLET - ORAL) One DailyLyrica 100 MG CAPSULE One Twice A DayHydrochlorothiazide 25 MG (TABLET - ORAL) One DailyProtonix 40 MG (FOR SUSPENSION, DELAYED RELEASE - ORAL) One Daily For RefluxFerrous Sulfate 325 MG TABLET One Twice A DayLorazepam .5 MG TABLET One TidFlexeril 10 MG One Three Times A DayEscitalopram 10 MG TABLET One Daily Adverse Drug Reactions ReviewedLevaquin Laryngeal Edema Surgical [id number] Right and Left [id number] Right [id number] [facility] [id number] N-[id number] W-Dyzfcrq9436-71 Rt. [id number] Tonsillectomy Preventative Kulbjho2608/23/2023 ALBUMIN 3.6 G/DL11/21/2012 UPPER CNKOGAVUB94/22/2013 MAMMOGRAM DEXA SCAN Social HistoryDoes not smoke or drink. Does housework. Family HistoryMother 72 from CHF / DM / coronary artery disease / COPD. Father is living at 75 with COPD. Has three brothers all living and in good health. Has two sisters all living and in one has ASHD and HTN. Fabricio Paige MD [address] [place] [address], [place] [address], [place], [address], [facility] 10/29/2023 15:51:25 02/25/20 24 text/htm l Patient Name: Rebekah Romero Of Service: Sunday ( 02.25.2024 ): 1955 Age: 69 There has been approximately a 11 lb weight gain since 10/29/2023. This represents approximately a 4.8% change in weight. Weight change attributable to lifestyle changes. Vital Signs:Blood Pressure: Sitting Rt. Arm 136/88Pulse: Sitting 109 /min and RegularRespiratory Rate: 14Height 61 in or 1.5 mWeight 238 lb or 108.0 kgBMI 45.0Temperature: 97.6 F or 36.4 CPulse Oximetry: 98 % at rest on no oxygen Chief Complaint: Addressed in HPI Problems or conditions discussed in the HPI were the only ones reviewed during the encounter.Only social and family history addressed in the HPI were reviewed during this encounter. Attendant(s): NoneConstitutional and Systemic Symptoms:none Medication Reconciliation: from medication list. History of Present Illness #1. Essential Hypertension: Stage: Stage I Interval Neurological Complaints no headaches, dizziness, weakness, visual changes, ataxia, aphasia and apraxia. No shortness of breath, orthopnea or cardiovascular symptoms. No other symptoms related to end organ damage. Pressure has been under excellent control. Currently normal. No other end organ symptoms or findings. Therapy reviewed regarding management of hypertension and includes salt restriction and Hydrochlorothiazide. #2. Type II Hypercholesterolaemia: Currently taking medication and tolerating well. No interval complaints of any muscle pain or arthralgia. No significant liver changes with medications. Last lipid panel: excellent control. Therapy reviewed regarding treatment of cholesterol management and include diet and Medication. #3. Hx of esophageal reflux currently stable. Hx of Complications: none The severity, duration and intensity of symptoms have improved. Frequency: most meals Treatment consists medications taken on a regular basis. Current therapy includes Protonix. There has been no nausea, eructation, vomiting, hematemesis, dysphagia, velopharyngeal insufficiency and odynophagia. No change in he frequency or intensity of symptoms. Has had no melena. Has had no . Discussed use of H2 antagonists and the possibility of trying to reduce the frequency of the use of any PPI inhibitors and try H2 antagonists to see if symptoms can be controlled with lease intensive therapy since a number of complications are associated with chronic prolonged use of PPI inhibitors. #4. Hx of hypothyroidism currently stable. Heat intolerance: no Fatigue: no Weight gain: no Difficulty concentrating: no Muscle Symptoms: none Skin Texture: normal Skin Color: normal Currently taking synthroid. #5. Hx of depression currently stable. Pharmacological treatment : Escitalopram . Suicidal thoughts or ideas: None Loss of appetite: No Sleep Disturbance: No Hallucinations: No Is currently seeing no one. Discussed possibility of decreasing and weaning off medication. Feels that current regimen is working fine and wishes not to change the current treatment regimen. No contraindication to continue current therapy. #6. Hx of obesity. Currently Class 3 Obesity [place] > 40. Has tried numerous dietary support and supplements with no benefit. Instructed on the health consequences of the obese status particularly cancer - diabetes and heart disease. Discussed other modalities of weight loss GLP-1 medications that are used to treat diabetes and other appetite depressants. Potential candidate for bariatric surgery: No. Wishes to be evaluated by Dietary: No and was offered to be evaluated and instructed by loftsman/woman on weight loss diet. Active Medication ListSynthroid 0.125 MG (TABLET - ORAL) One Daily For ThyroidAtorvastatin Calcium 20 MG (TABLET - ORAL) One DailyLyrica 100 MG CAPSULE One Twice A DayHydrochlorothiazide 25 MG (TABLET - ORAL) One DailyProtonix 40 MG (FOR SUSPENSION, DELAYED RELEASE - ORAL) One Daily For RefluxFerrous Sulfate 325 MG TABLET One Twice A DayLorazepam .5 MG TABLET One TidAmoxicillin 500 MG CAPSULE One TidFlexeril 10 MG One Three Times A DayEscitalopram 10 MG TABLET One Daily Adverse Drug Reactions ReviewedLevaquin Laryngeal Edema Surgical Tagoylu5982-92 Right and Left Qrbzffkj9092-08 Right KPU1495-78 [facility] [id number] B-Aaaneuk3905-56 J-Tztbyzm1041-76 Rt. Wjt5204-92 Tonsillectomy Preventative Testing( ) 08/23/2023 Albumin 3.6 G/DL( ) 11/21/2012 Upper Endoscopy(X) 11/04/2012 Mammogram 11/04/2014(X) 03/07/2010 DEXA Scan 03/07/2012 Social HistoryDoes not smoke or drink. Does housework. Family HistoryMother 72 from CHF / DM / coronary artery disease / COPD. Father is living at 75 with COPD. Has three brothers all living and in good health. Has two sisters all living and in one has ASHD and HTN. TEST RESULT RANGE UNITSCBC/COMPLETE BLD COUNT W/DIFF Date: 08/23/2023WHITE BLOOD CELLS 8.7 4.2-10.8 X10'3/ULHEMOGLOBIN 10.4 12.0-15.6 G/DLHEMATOCRIT 35.3 35.7-45.7 %PLATELETS 396 150-400 X10'3/ULCOMPREHENSIVE METABOLIC PANEL Date: 08/23/2023SODIUM 136 137-145 MMOL/LPOTASSIUM 4.6 3.5-5.1 MMOL/LGLUCOSE 89 70-99 MG/DLBUN 22 8-19 MG/DLCREATININE 0.51 0.66-1.25 MG/DLGFR >60ALKALINE PHOSPHATASE 131 38-126 U/LALANINE AMINOTRANSFERASE 13 0-35 U/LASPARTATE AMINOTRANSFERASE 22 15-37 U/LBILIRUBIN, TOTAL 0.40 0.20-1.30 MG/DLCALCIUM 9.0 8.4-10.2 MG/DLLIPID PANEL Date: 4CHOLESTEROL 144 140-199 MG/DLTRIGLYCERIDES 73 0-150 MG/DLHDL CHOLESTEROL 74 40- MG/DLLDL CHOLESTEROL, CALCULATED 55 0-130 MG/DLMAGNESIUM Date: 08/23/2023MAGNESIUM 2.0 1.6-2.3 MG/DLT4 FREE Date: 08/23/2023FREE T4 1.28 0.78-2.19 NG/DLTSH Date: 08/23/2023THYROID-STIMULATING HORMONE 1.540 0.465-4.680 UIU/MLVITAMIN B12 (COBALAMIN) Date: 08/23/2023VB12 373 239-931 PG/ML Fabricio Paige MD [address] [facility] [address], [place], [address], [facility] [employer] 02/25/2024 15:57:35 06/30/20 24 text/htm l Patient Name: Rebekah Romero Of Service: Sunday ( 06.30.2024 ): 1955 Age: 69 There has been approximately a 11 lb weight gain since 02/25/2024. This represents approximately a 4.6% change in weight. Weight change attributable to lifestyle changes. Vital Signs:Blood Pressure: Sitting Rt. Arm 148/98Pulse: Sitting 107 /min and RegularRespiratory Rate: 16Height 64 in or 1.6 mWeight 249 lb or 112.9 kgBMI 42.7 Chief Complaint: Addressed in HPI Problems or conditions discussed in the HPI were the only ones reviewed during the encounter.Only social and family history addressed in the HPI were reviewed during this encounter. A significant, separate E/M service was performed to evaluate the current and new problems. Attendant(s): NoneConstitutional and Systemic Symptoms:none Medication Reconciliation: from medication list. History of Present Illness Reviewed the findings of the preventative health visit. Addressed all areas with the patient, patient's family or caregivers. Preventative examinations and testing immunizations - vaccinations, colonic neoplasm screening and mammograms all reviewed and ordered where patient was amenable to the recommendations. Cognitive function was normal. Depression addressed and where necessary medications were adjusted or instituted. End of life and living will briefly discussed with patient and where these can be filled out and legally executed. Other blood and imaging studies were ordered if considered necessary. Other recommendations may be found in the encounter note. #1. Essential Hypertension: Stage: Stage I Interval Neurological Complaints no headaches, dizziness, weakness, visual changes, ataxia, aphasia and apraxia. No shortness of breath, orthopnea or cardiovascular symptoms. No other symptoms related to end organ damage. Pressure has been under excellent control. Currently normal. No other end organ symptoms or findings. Therapy reviewed regarding management of hypertension and includes salt restriction and Hydrochlorothiazide. #2. Type II Hypercholesterolaemia: Currently taking medication and tolerating well. No interval complaints of any muscle pain or arthralgia. No significant liver changes with medications. Last lipid panel: fair control. Therapy reviewed regarding treatment of cholesterol management and include diet and Atorvastatin Calcium. #3. Hx of esophageal reflux currently stable. Hx of Complications: none The severity, duration and intensity of symptoms have improved. Frequency: every meal Treatment consists medications taken on a regular basis. Current therapy includes Protonix. There has been no nausea, eructation, vomiting, hematemesis, dysphagia and velopharyngeal insufficiency. No change in he frequency or intensity of symptoms. Has had no melena. Has had no . Discussed use of H2 antagonists and the possibility of trying to reduce the frequency of the use of any PPI inhibitors and try H2 antagonists to see if symptoms can be controlled with lease intensive therapy since a number of complications are associated with chronic prolonged use of PPI inhibitors. #4. Hx of hypothyroidism currently stable. Heat intolerance: no Fatigue: no Weight gain: no Difficulty concentrating: no Muscle Symptoms: none Skin Texture: normal Skin Color: normal Currently taking synthroid. #5. 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 He is on chronic antibiotic replacement at this time. It still has a small amount of drainage from the right knee area. Is being followed by pain management as well as Orthopedics for this. No interval complaints of any shaking chills or any other signs or symptoms suggestive of more systemic involvement.: #6. Hx of obesity. Currently Class 3 Obesity [place] > 40. Has tried numerous dietary support and supplements with no benefit. Instructed on the health consequences of the obese status particularly cancer - diabetes and heart disease. Discussed other modalities of weight loss no . Potential candidate for bariatric surgery: Yes. Wishes to be evaluated by Dietary: No and was offered to be evaluated and instructed by loftsman/woman on weight loss diet. Active Medication ListSynthroid 0.125 MG (TABLET - ORAL) One Daily For ThyroidAtorvastatin Calcium 20 MG (TABLET - ORAL) One DailyCelebrex 200 MG CAPSULE One DailyLyrica 100 MG CAPSULE One Twice A DayHydrochlorothiazide 25 MG (TABLET - ORAL) One DailyProtonix 40 MG (FOR SUSPENSION, DELAYED RELEASE - ORAL) One Daily For RefluxFerrous Sulfate 325 MG TABLET One Twice A DayLorazepam .5 MG TABLET One TidAmoxicillin 500 MG CAPSULE One TidFlexeril 10 MG One Three Times A DayEscitalopram 10 MG TABLET One Daily Adverse Drug Reactions ReviewedLevaquin Laryngeal Edema Surgical Wshamfz7593-78 Right and Left Ghbffbda5421-79 Right DNS0535-99 [facility] ZSN3821-27 N-Ohfqcqt8710-92 U-Joofhbw4087-23 Rt. Bsi1954-76 Tonsillectomy Preventative Testing( ) 04/01/2024 Mammogram 04/01/2026( ) 04/01/2024 DEXA Scan 04/01/2026( ) 08/23/2023 Albumin 3.6 G/DL(X) 11/21/2012 Upper Endoscopy 11/21/2014 Social HistoryDoes not smoke or drink. Does housework. Family HistoryMother 72 from CHF / DM / coronary artery disease / COPD. Father is living at 75 with COPD. Has three brothers all living and in good health. Has two sisters all living and in one has ASHD and HTN. Fabricio Paige MD [address] [facility], [facility] [address], [place], [address], [facility] [employer] 06/30/2024 16:34:12 OBGyn Episode No OBEpisode recorded.
--- OUTSIDE RECORDS SUMMARY | 2024-06-30 20:34 | XMS_ITS | Continuity of Care Document ---
Author Organization [place] - [facility] [email or web address] [facility], [facility] Internal Med [facility] [address] Address [address] [facility] [address] [place] [address] Assessment No assessment recorded. Plan of Treatment Reminders Order Date Submit Date Provider Last Modified By Organization Details Last Modified Time Details Appointments Any 10 2023 03:00P Kevin Paige MD Not available Not available Not available Lab lipid panel, serum 2023 [facility], [address] [place], [address], 06/30/2024 18:02:42 CMP, serum or plasma 2023 024 [facility], [address] [place], [address], 06/30/2024 18:02:48 Referral None recorded . Procedures None recorded . Surgeries None recorded . Imaging None recorded . Medication Orders None recorded . Patient TargetsNo targets recorded. Patient Instructions Encounter Date Encounter Id Patient Instructions Last Modified By Organization Details Last Modified Time 06/30/2024 [id number] dementia rating scale-2* [email or web address] Not available 06/30/2024 16:34:06 alcohol misuse* Not available 06/30/2024 16:34:06 depression screening* [email or web address] Not available 06/30/2024 16:34:06 Timed Up and Go test (TUG)* [email or web address] Not available 06/30/2024 16:34:06 multi-dimensiona l health assessment questionnaire* [email or web address] Not available 06/30/2024 16:34:06 Personalized [facility] Plan and Screening Recommendations Advance Directives - [...] Intermediate Risk I have no recommendations Act satya diagnosis, Continue current treatment plan Heart Attack: Low risk Intermediate Risk I have no recommendations Act satya diagnosis, Continue current treatment plan Clogging of the Arteries: Low risk Intermediate Risk I have no recommendations Act satya diagnosis, Continue current treatment plan Diabetes: Low [...] done with the next blood draw from Orthopedics.Additio nal Orders - Follow Up: 4 Months Approximate Date: 10/28/2024 Portions of the record may have been created with voice recognition software. Occasional wrong-word or ? s ound-a-like? substitutions may have occurred due to the inherent limitations of voice recognition software. Read the chart carefully and recognize, using context, where substitutions have occurred. Created: Fabricio Paige M.D. 06.30.2024 03:33 PM [email or web address] Not available 06/30/2024 16:33:48 Reason for Referral None Reported. Results Created Date Observation Date Name Description Value Unit Range Abnormal Flag Note LastModifiedBy Organization Detail LastModifiedTime 06/10/20 24 06/10/2024 epidu ral stero id injec tion, cauda l (PROC ) No observ ation record ed. [facility] [address] [facility] [address], [place], [address], 06/10/2024 14:13:01 Result Notes None recorded. Problems Name Problem SNOMED Code Status Onset Date Resolution Date Notes Provider Name and Address Organization Details Recorded Time Benign essential hypertensi on 6160117 Active Not Available [facility] 3 12:49:47 Bilateral hip joint pain 9238151714902 9100 Active 2021 Not Available [facility] 3 12:49:47 Deep venous thrombosis 761642452 Active 2019 Not Available [facility] 3 12:49:48 Lumbar radiculopa thy 945276814 Active Not Available [facility] 3 12:49:48 Non-alcoho lic fatty liver 018248361 Active Not Available [facility] 3 12:49:48 Anxiety disorder 410571222 Active 2021 Not Available [facility] 3 12:49:48 Gastroesop hageal reflux disease 092665693 Active Not Available [facility] 3 12:49:48 Osteoarthr itis of knee 125219633 Active 2016 Not Available [facility] 3 12:49:48 Headache 47198361 Active Not Available [facility] 3 12:49:48 Pure hyperchole sterolemia 432611875 Active Not Available [facility] 3 12:49:48 Vitamin D deficiency 67829159 Active Not Available [facility] 3 12:49:48 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 Not Available [facility] 3 12:49:49 Hypothyroi dism 92384143 Active Not Available [facility] 3 12:49:49 Sleep apnea 05279334 Active Not Available [facility] 3 12:49:49 Hypopituit arism 79096566 Active 2017 Not Available [facility] 3 12:49:49 Obese class III 042412395 Active 2022 Fabricio Paige MD [address], [place], [address] , [facility] 3 11:08:33 Depressive disorder 25663825 Active 2022 Fabricio Paige MD [address], [place], [address] , [facility] 3 16:19:17 Pain of left hip joint 5728353014489 00 Active 2023 Deana prado [facility] 4 16:05:56 Senile osteoporos is 17265208 Active 2023 Deana prado, [facility] 4 16:10:43 Prosthetic joint infection 275397510 Active 2023 Fabricio Paige MD [address], [place], [address] , [facility] 4 16:33:32 Problem Notes None recorded. Procedures Surgical History Date Name Laterality Status Provider Name and Address Organization Details Recorded Time 4 Medicare Wellness CPT Code, Initial completed Rama Croft RN [facility] [employer] 06/30/2024 16:11:23 Imaging Results None recorded. Procedure Notes None recorded. Medical Equipment None Reported. Allergies Allergen ID Allergen Name Allergen Category Reaction Reaction Severity Criticality Documentation Date Start Date Code Code System Note Provider Name and Address Organization Details Recorded Time 77156 Levaquin medicatio n other Not available Not available 09/13/2022 14227 2 RxNorm laryn geal edema Not Available [facility] 3 12:56:19 81703 Xarelto medicatio n Not available Not available Not available 09/13/2022 76182 99 RxNorm Not Available [facility] 3 12:56:20 Medications Name Sig Start Date [...] Available Not Available Vitals Date Recorded Body height Body mass index (BMI) Body weight Heart rate Body temperature Oxygen saturation Oxygen saturation in Arterial blood by Pulse oximetry Systolic blood pressure Diastolic blood pressure Provider Name and Address Organization Details Last Updated DateTime 4 154.94 cm 47 kg/m2 198051. 5 g 107 /min 97 [degF] 96 % 96 % 148 mm[Hg] 98 mm[Hg] CHILANGO Garrido [place] [facility] 4 16:04:22 Social History Question Answer Notes LastModified by Organizat ion Details LastModified Time Tobacco Smoking Status Never Smoker Not Available [facility] 09/13/2022 12:46:42 Do You Have An Advance Directive? No MIGRATION.80068 82695 Information not available 09/13/2022 What Is Your Level Of Alcohol Consumption? None MIGRATION.25871 73493 Information not available 09/13/2022 Do You Wear A Helmet When Biking? No MIGRATION.44142 67510 Information not available 09/13/2022 Are You Blind Or Do You Have Difficulty Seeing? No MIGRATION.97386 69436 Information not available 09/13/2022 What Is Your Level Of Caffeine Consumption? Occasional MIGRATION.47108 51236 Information not available 09/13/2022 In The 14 Days Before Symptom Onset, Have You Had Close Contact With A Laboratory-confir med COVID-19 While That Case Was Ill? No MIGRATION.40569 12826 Information not available 09/13/2022 In The 14 Days Before Symptom Onset, Have You Had Close Contact With A Person Who Is Under Investigation For COVID-19 While That Person Was Ill? No MIGRATION.22040 59102 Information not available 09/13/2022 Are You Deaf Or Do You Have Serious Difficulty Hearing? No MIGRATION.14875 05166 Information not available 09/13/2022 What Type Of Diet Are You Following? REGULAR MIGRATION.02017 78037 Information not available 09/13/2022 Have There Been Any Changes To Your Family Or Social Situation? No MIGRATION.97806 40401 Information not available 09/13/2022 What Is The Fluoride Status Of Your Home? Fluoridated MIGRATION.12174 61248 Information not available 09/13/2022 Are There Any Guns Present In Your Home? No MIGRATION.72182 81336 Information not available 09/13/2022 Do You Use Insect Repellent Routinely? No MIGRATION.82077 87049 Information not available 09/13/2022 Where Do You Live? SingleLevelHouse [email or web address] Information not available 06/30/2024 Guns Present In The Home? No [email or web address] Information not available 06/30/2024 Are You Able To Care For Yourself? Yes [email or web address] Information not available 06/30/2024 Are You Blind Or Do Yo Have Difficulty Seeing? No [email or web address] Information not available 06/30/2024 Are You Deaf Or Do You Have Serious Difficulty Hearing? No [email or web address] Information not available 06/30/2024 Live Alone Of With Others? With Others [email or web address] Information not available 06/30/2024 Do You Have A Medical Power Of Digital Photographic Printer? No MIGRATION.40714 17243 Information not available 09/13/2022 What Was The Date Of Your Most Recent Tobacco Screening? 06/30/2024 [email or web address] Information not available 06/30/2024 Do You Have Any Pets? No MIGRATION.33588 58168 Information not available 09/13/2022 What Is Your Relationship Status? MIGRATION.45744 56123 Information not available 09/13/2022 Do You Use Your Seat Belt Or Car Seat Routinely? Yes MIGRATION.57260 74753 Information not available 09/13/2022 Do You Have Smoke And Carbon Monoxide Detectors In Your Home? Yes MIGRATION.09391 23891 Information not available 09/13/2022 Are You Passively Exposed To Smoke? Yes MIGRATION.09221 66746 Information not available 09/13/2022 Are There Any Smokers In Your House? No MIGRATION.34226 91895 Information not available 09/13/2022 Do You Feel Stressed (tense, Restless, Nervous, Or Anxious, Or Unable To Sleep At Night)? [id number] MIGRATION.48558 48503 Information not available 09/13/2022 Do You Use Sunscreen Routinely? No MIGRATION.85794 67471 Information not available 09/13/2022 Have You Recently Traveled Abroad? No MIGRATION.17797 37102 Information not available 09/13/2022 Sex: Female Functional Status Question Answer Note LastModified by Organizat ion Details LastModified Time Do you have difficulty walking or climbing stairs? No MIGRATION.8682191 026 Information not available 09/13/2022 Do you have transportation difficulties? No MIGRATION.4726161 026 Information not available 09/13/2022 Are you able to walk? YESASSIST MIGRATION.5569442 026 Information not available 09/13/2022 Do you have difficulty doing errands alone? No MIGRATION.4781067 026 Information not available 09/13/2022 Are you able to care for yourself? Yes MIGRATION.2395034 026 Information not available 09/13/2022 Do you have difficulty dressing or bathing? No MIGRATION.0784151 026 Information not available 09/13/2022 What is your exercise level? None MIGRATION.3062167 026 Information not available 09/13/2022 Mental Status Question Answer Note LastModified by Organizat ion Details LastModified Time Do you have difficulty concentrating, remembering or making decisions? No MIGRATION.722072246 6 Information not available 09/13/2022 Family History [...] 1 N POLIO N LUNG DISEASE/DISORDER N RADIATION / CHEMOTHERAPY N COPD N Other # 2 N BLOOD DISEASES [...] HAVE YOU BEEN HOSPITALIZED OR SEEN IN [facility] ER IN THE PAST YEAR ? N ATHEROSCLEROSIS [...] Diagnosis/Indication Diagnosis SNOMED-CT Code Diagnosis ICD10 Code [id number] Fabricio Paige MD [facility] Internal Med [address] [facility] [address] [place] [address] 06/30/2024 15:58:29 06/30/2024 16:40:13 Adult health examination 034270957 Z00.00 Screening for disorder 441737476 Z13.9 Benign ess ential hypertension 6993125 I10 Gastroesop hageal reflux disease 244001818 K21.9 Pure hypercholesterolemia 610123882 E78.00 Hypothyroidism 34917050 E03.9 Prosthetic joint infection 883456425 T84.51XA Obese class III 00362795 5 E66.01 Health Concerns Section Related Observation LastModified by Organization Detai ls LastModified Time None Recorded Concern Status LastModified by Organization Details LastModified Time None Recorded Payers Encounter Date Sequence Insurance Name Policy Number Policy Eric Covered Member ID Eric Member ID Guarantor Name 06/30/2024 1 [facility] (MEDICARE REPLACEMENT/A DVANTAGE - HMO) [id number] Gayle De La Cruz [id number] Gayle De La Cruz Notes Date Note Type Note Provider Name and Address Organization Details Recorded Time text/html Patient Name: Rebekah WebblizDate Of Service: Sunday ( 06.30.2024 ): 1955 [...] Hx of obesity. Currently Class 3 Obesity [place] > 40. Has tried numerous dietary support and supplements with no benefit. Instructed on the health consequences of the obese status particularly cancer - diabetes and heart disease. Discussed other modalities of weight loss no . Potential candidate for bariatric surgery: Yes. Wishes to be evaluated by Dietary: No and was offered to be evaluated and instructed by qualitative field coordinator on weight loss diet. Active Medication ListSynthroid [...] Adverse Drug Reactions ReviewedLevaquin Laryngeal Edema Surgical Mniudyz4308-76 Right and Left Langprko9540-39 Right KRS1955-[address] [facility] KIX6928-36 T-Dxyycjc7480-90 Q-Ephthjh8168-06 Rt. Jrf4215-17 Tonsillectomy Preventative Testing( ) 04/01/2024 Mammogram 04/01/2026( [...] has ASHD and HTN. Fabricio Paige MD [address] [place] [address], [place], [address], [place] [facility] 06/30/2024 16:34:12 OBGyn Episode No OBEpisode recorded.
== END 2024-06-27 14:23 | disposition home or self-care (01) ==
PROVIDERS: PCP Internal Medicine; Visit Provider Nurse Practitioner Family
DX: E87.6 Hypokalemia (principal); M06.9 Rheumatoid arthritis, unspecified; G89.18 Other acute postprocedural pain; M25.561 Pain in right knee; T81.49XA Infection following a procedure, other surgical site, initial encounter; Y83.8 Other surgical procedures as the cause of abnormal reaction of the patient, or of later complication, without mention of misadventure at the time of the procedure
CPT/HCPCS: 36415; 80053; 84550; 85025; 85652; 86038; 86039; 86140; 86200; 86430

== ENCOUNTER 2024-07-10 15:36 | Outpatient (CLI) | payer MEDICARE, SELFPAY ==
--- NOTE | ~2024-07-10 | CT_ITS ---
EXAMINATION: CT knee RT wo con DATE: 07/10/2024 17:03 INDICATION: Other acute post procedural pain. Right knee pain. TECHNIQUE: Computed tomography (CT) of the right knee was performed without intravenous contrast. Aut omated exposure control and iterative reconstruction technique were employed. The dose-length product was 643.52 mGy-cm. COMPARISON: Right knee radiographs 06/23/2024, 02/16/20 FINDINGS: There is a total right knee arthroplasty without patellar resurfacing in near-anatomic alig nment. No fracture. There is extensive lucency adjacent to the tibial component with breech of the an terior medial aspect of the cortex of the metaphysis. There is a 5.2 x 1.2 x 2.2 cm thick-walled flui d collection adjacent to the tibia in this area with extension of the skin. There is lucency adjacent to the lateral posterior aspect of the femoral component. There are osteophytes of the patella. Ther e is a moderate-sized knee joint effusion. IMPRESSION: 1. Total right knee arthroplasty with lucencies adjacent to the femoral and tibial components and sin us tract from the tibial component to the skin, consistent with infection. 2. Moderate-sized knee joint effusion. Reviewed, dictated and finalized at location A. ING UP MACHINE OPERATOR IMPRESSION: 1. Total right knee arthroplasty with lucencies adjacent to the femoral and tib ial components and sinus tract from the tibial component to the skin, consisten t with infection. 2. Moderate-sized knee joint effusion.
== END 2024-07-10 15:37 | disposition home or self-care (01) ==
PROVIDERS: PCP Internal Medicine; Visit Provider Nurse Practitioner Family
DX: T84.53XA Infection and inflammatory reaction due to internal right knee prosthesis, initial encounter (principal); G89.18 Other acute postprocedural pain; M19.90 Unspecified osteoarthritis, unspecified site; M25.861 Other specified joint disorders, right knee
CPT/HCPCS: 73700

== ENCOUNTER 2024-11-20 14:15 | Outpatient (CLI) | payer MEDICARE, SELFPAY ==
--- NOTE | ~2024-11-20 | MR_ITS ---
MRI of the lumbar spine Clinical History: Radiculopathy Technique: Axial T2-weighted images, and sagittal T1-weighted, T2-weighted, and T2 fat-sat images wer e acquired. Findings: There is no fracture or subluxation of the lumbar spine. Vertebral bodies maintain normal h eight and alignment. No bone marrow signal abnormality seen. At L1-L2, there is minimal disc bulge. No spinal canal stenosis. There is minimal left neural foramin al narrowing. Right neural foramen relatively preserved. At L2-L3, there is minimal disc bulge with mild facet arthropathy. No central canal stenosis. There i s preservation of bilateral neural foramina. L3-L4, there is moderate facet hypertrophy without disc bulge or herniation. No spinal canal stenosis . There is mild bilateral neural foraminal narrowing. At L4-L5, there is minimal disc bulge with moderate facet arthropathy. No central canal stenosis. The re is mild to moderate bilateral neural foraminal narrowing. At L5-S1, there is moderate facet arthropathy without disc bulge or herniation. No spinal canal steno sis. There is thecal sac compression largely related to prominent epidural fat at this level. There i s mild to moderate bilateral neural foraminal narrowing. Paravertebral soft tissues are unremarkable. Impression: Thecal sac compression at L5-S1 related to prominent epidural fat at this level. Mild to moderate neural foraminal narrowing at L4-L5 and L5-S1. Reviewed, dictated and finalized at [facility]. Impression: Thecal sac compression at L5-S1 related to prominent epidural fat at this level . Mild to moderate neural foraminal narrowing at L4-L5 and L5-S1.
== END 2024-11-20 14:16 | disposition home or self-care (01) ==
LOC: MICIMG 14:15
PROVIDERS: PCP Internal Medicine; Visit Provider Anesthesiology Pain Medicine
DX: M48.07 Spinal stenosis, lumbosacral region (principal); M54.16 Radiculopathy, lumbar region
CPT/HCPCS: 72148

== ENCOUNTER 2025-06-17 07:32 | Outpatient (CLI) | payer MEDICARE, SELFPAY ==
--- NOTE | ~2025-06-17 | US_ITS ---
EXAMINATION: US venous doppler [facility], 06/17/2025 7:43 [employer] HISTORY: Y COMPARISON: None Technique: Ann-scale and color Doppler images were attempted of the lower saphenofemoral junction, common femoral vein,superficial femoral vein, proximal deep femoral vein, proximal deep femoral vein, popliteal vein and posterior tibial veins. Findings: Deep Venous System:Normal flow, augmentation and compressibility. No echogenic thrombus identified. Superficial Venous SystemNo superficial thrombophlebitis. Soft tissues: Soft tissues are unremarkable. Impression: Negative for DVT. Reviewed, dictated and finalized at location P. [employer] SUPER[employer]OR Impression: Negative for DVT.
--- OUTSIDE RECORDS SUMMARY | 2025-06-17 07:35 | XMS_ITS | Encounter Summary ---
Author Organization [facility] Address [address] [place] [address] Phone Care Team Providers Care It Software Engineer Name Role Phone Fabricio Paige MD Primary Care Provider Encounter Details Date Type Department Care Team (Late st Contact Info) Description 06/02/2025 Results Follow-Up [facility] Medicine Orthopaedic Surgery [address] [facility] [address] [place] [address] Nancy Valadez, SHAYLA [address] [facility] [address] [place], [place] [id number] CRP (acute phase) Social History Tobacco Use Types Packs/Day Years Used Date Smoking Tobacco: Former Cigarettes 0.5 3 1 973 - 1976 Smokeless Tobacco: Never Alcohol Use Standard Drinks/Week Comments Never 0 (1 standard drink = 0.6 oz pur e alcohol) OASIS D0700: Social Isolation Answer Da te Recorded Frequency of experiencing loneliness or isolatio n Never 05/21/2025 OASIS A1250: Transportation Answer Date Recorded Lack of Transportation (Medical) No 05/21/2025 Lack of Transportation (Non-Medical) No 05/21/2025 Patient Unable or Declines to Respond No 05/21/2025 OASIS B1300: Health Literacy Answer Cash e Recorded Frequency of needing help to read materials from doctor or pharmacy Never 05/21/2025 AUDIT-C Answer Date Recorded Q1: How often do you have a drink containing alcohol? Never 03/31/2025 Q2: How many drinks containi ng alcohol do you have on a typical day when you are drinking? Patient does not drink Q3: How often do you have si x or more drinks on one occasion? Never 03/31/2025 Personal Safety Answer Date Recorded Have you ever been in or are you currently in a harmful physical or emotional relationship or is someone making you feel afraid or unsafe? 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 Gender Identity Female 05/07/2025 3:15 PM CDT Sexual Orientation Not on file documented as of this encounter Functional Status documented as of this encounter Plan of Treatment Scheduled Procedures Name Priority Associated Diagnoses Date/Ti me IRRIGATION AND DEBRIDEMENT - KNEE Drainage from wound Acquired absence of right knee REVISION ARTHROPLASTY TOTAL KNEE Drainage from wound Acquired absence of right knee documented as of this encounter Visit Diagnoses Not on filedocumented in this encounter Care Teams It Software Engineer Relationship Specialty Start Date End Date Fabricio Paige MD PCP - General 02/06/17 documented as of this encounter
--- OUTSIDE RECORDS SUMMARY | 2025-06-17 07:36 | XMS_ITS | Clinical Summary ---
Author Organization [facility] Address [address] [place] [address] Care Team Providers Care Medical Authorization Specialist Name Role Phone Fabricio Paige MD Primary Care Provider Allergies Active Allergy Reactions Criticality Noted Date Comments Quinolones Anaphylaxis,Swelling High 03/20/2014 Throat and lip swelling Medications hydroCHLOROthia zide (HYDRODIURIL) 25 mg tabletIndicatio ns:hypertension Take 1 tablet (25 mg total) by mouth every morning 02/07/[address] (PROTONIX) 40 mg EC tabletIndicatio ns:stomach Take 1 tablet by mouth every morning 03/20/20 14 Active pregabalin (LYRICA) 50 mg capsuleIndicati ons:Fibromyalgi a,Postherpetic Neuralgia Take 3 capsules (150 mg total) by mouth 2 (two) times a day patient is taking 1 tablet by mouth 2 times daily 1 09/22/19 20 Active levothyroxine (SYNTHROID) 125 mcg tabletIndicatio ns:hypothyroidi sm Take 1 tablet (125 mcg total) by mouth daily 90 tablet 3 12/25/19 21 Active atorvastatin (LIPITOR) 20 mg tabletIndicatio ns:hyperlipidem ia Take 1 tablet by mouth every morning Active escitalopram (LEXAPRO) 20 mg tabletIndicatio ns:Anxiety with Depression Take 1 tablet (20 mg total) by mouth every morning 07/29/19 25 Active cyclobenzaprine (FLEXERIL) 10 mg tabletIndicatio ns:Fibromyalgia ,Muscle Spasm Take 1 tablet by mouth 3 (three) times a day 07/20/19 25 Active LORazepam (ATIVAN) 1 mg tabletIndicatio ns:anxiety Take 1 tablet by mouth 3 (three) times a day 07/29/19 25 Active acetaminophen 500 mg capsuleIndicati ons:Pain Take 2 capsules (1,000 mg total) by mouth every 8 (eight) hours 90 tablet 04/10/20 25 Active senna-docusate (PERICOLACE) 8.6-50 mgIndications:c onstipation Take 2 tablets by mouth 2 (two) times a day 60 tablet 04/10/20 25 Active ALPRAZolam (XANAX) 0.5 mg tablet TAKE 1 TABLET BY MOUTH DAILY X1 DAY ABOUT 30 MINS PRIOR TO MRI - DO NOT TAKE WITH LORAZEPAM Active cefTRIAXone (ROCEPHIN) 10 gram injection 04/16/20 25 Active DAPTOmycin (CUBICIN) 500 mg injection 04/16/20 25 Active meloxicam (MOBIC) 7.5 mg tablet TAKE 1 TABLET BY MOUTH EVERY DAY 28 tablet 05/25/20 25 Active oxyCODONE (ROXICODONE) 5 mg immediate release tabletIndicatio ns:Pain Take 1 tablet (5 mg total) by mouth every 4 (four) hours as needed for pain 30 tablet 06/02/20 25 025 Active traMADoL (ULTRAM) 50 mg tabletIndicatio ns:Pain Take 1 tablet (50 mg total) by mouth every 6 (six) hours as needed for pain 42 tablet 06/15/20 25 Active meloxicam (MOBIC) 7.5 mg tabletIndicatio ns:Pain Take 1 tablet (7.5 mg total) by mouth daily for 20 days 20 tablet 04/11/20 25 025 Discontinued apixaban (ELIQUIS) 2.5 mg tabletIndicatio ns:VTE Prophylaxis Take 1 tablet (2.5 mg total) by mouth 2 (two) times a day 41 tablet 04/10/20 25 025 Discontinued(Oli real Reported) traMADoL (ULTRAM) 50 mg tabletIndicatio ns:Pain Take 1 tablet (50 mg total) by mouth every 6 (six) hours as needed for pain for up to 42 doses 42 tablet 05/05/20 25 025 Discontinued(Re order) oxyCODONE (ROXICODONE) 5 mg immediate release tabletIndicatio ns:Pain Take 1 tablet (5 mg total) by mouth every 4 (four) hours as needed for pain 30 tablet 05/05/20 25 025 Discontinued(Re order) traMADoL (ULTRAM) 50 mg tabletIndicatio ns:Pain Take 1 tablet (50 mg total) by mouth every 6 (six) hours as needed for pain 42 tablet 06/02/20 25 025 Discontinued(Re order) Active Problems Problem Noted Date Diagnosed Date Infection of prosthetic right knee joint 025 Assessment & Plan (04/06/2025 4:24 PM CDT): Gayle De La Cruz is a 70-year-old female with history of bilateral TKA in 2019 has been dealing with wound drainage from the right TKA since 2022. She underwent hardware revision in 2023 with negative cultures (per chart history, although records not available) and was treated with antibiotics in an outside facility. Most recently she underwent right TKA explant and placement of antibiotic spacer on 12/30/24 with OR cultures positive for Staphylococcus caprae for which she completed 6 weeks of IV cefazolin that finished on 02/10. Soon after stopping antibiotics she had recrudescence of purulent drainage from this right knee surgical wound. She had 2 ultrasound-guided aspiration of the right knee that showed less than 400 WBC and less than 60% neutrophils without crystals present; both times cultures were negative while off antibiotics. Her ESR and CRP have remained persistently elevated to 45 and 33 respectively. She was taken to the OR on 03/31 for right knee I and D an articulating spacer exchange. Cultures remain NGTD. Surgical team is planning reimplantation in the future. We have requested 16s and 18s sequencing which have been set. She has been treated inpatient on vancomycin and cefepime- transitioning to daptomycin and ceftriaxone today. Recommending treating culture negative right knee PJI with 6 weeks (03/31/25- 05/12/25) of antibiotics. Transitioning to daptomycin and ceftriaxone today to complete the duration. At this time, Dr. Butterfield is planning reimplantation in the future. Given she failed most recent 2-stage, recommend reaching out to Dr. Butterfield prior to discontinuing antibiotics in case we need to extend duration. 16s and 18s have been sent and are pending at the time of this note. Recommendations: Discontinue IV vancomycin and and cefepime (done) Start daptomycin 8mg/kg ABW (550mg) IV q24hr and ceftriaxone 2gm IV q24hr (ordered) Check baseline CK, then twice weekly CK's. Weekly CBC w/ diff and CMP's. ID is formally signing off but will continue to monitor patient peripherally while inpatient. Please see sign off note from 04/06/25 for complete recommendations. Discussed plan with Ortho Surgery GAUGE CONTROLLER Team Assessment & Plan (04/01/2025 5:12 PM CDT): This is a 70-year-old woman with history of bilateral TKA in 2018 has been dealing with wound drainage from the right TKA since 2022. She underwent hardware revision in 2023 with negative cultures (per chart history, although records not available) and was treated with antibiotics in an outside facility. Most recently she underwent right TKA explant and placement of antibiotic spacer on 12/30 with OR cultures positive for Staphylococcus caprae for which she completed 6 weeks of IV cefazolin that finished on 02/10. Soon after stopping antibiotics she had recrudescence of purulent drainage from this right knee surgical wound. She had 2 ultrasound- guided aspiration of the right knee that showed less than 400 WBC and less than 60% neutrophils without crystals present; both times cultures were negative while off antibiotics. Her ESR and CRP have remained persistently elevated to 45 and 33 respectively. She was taken to the OR on 03/31 for right knee I and D an articulating spacer exchange. Cultures are pending. Assessment and recommendations: History and presentation concerning for recurrent right knee prosthetic joint infection in spite of culture directed treatment after prior surgery on 12/30. Start vancomycin 15 mg/kg every 24 hours for now. Please check vancomycin trough levels before fourth dose. Start cefepime 2 g every 12 hours. Given recent negative cultures from R knee aspirate while off antibiotics, we are working with microbiology to send samples for 16s and 18s PCR sequencing in attempts to identify the potentially culprit microorganism(s). Follow OR bacterial, fungal and AFB cultures until finalized. Recommend routine adult screening for bloodborne pathogens HIV and Hepatitis B & C. Please order HIV-1/2 Ab/p24 Ag, HBs Ag, Anti-HBs Ab, Anti-HBc Ab total, Anti-HCV Ab. Patient's insurance is contracted by [facility] and will be referred to ID clinic. Knee pain 03/31/2025 Failure of total knee arthroplasty, sequela 11/2024 Drainage from wound 02/17/2025 Acquired absence of right knee 02/17/2025 Infection of prosthetic right knee joint 025 Assessment & Plan (05/11/2025 1:39 PM CDT): - Continue Dapto and ceftriaxone for full 6 weeks - will consult with Dr Butterfield towards end of treatment to discuss discontinuation vs continued suppression until reimplantation Assessment & Plan (01/02/2025 2:19 PM CDT): This is a 69 y.o. year old female with history of R TKA in 2018, post-op complicated by wound dehiscence and started having chronic sinus drainage since 2022 which she underwent DAIR 09/08/23 on chronic PO suppression with Augmentin since then without improvement. She was seen by our ID clinic, last 09/2024. At that time, she was clinically doing well with no systemic s/sx of infection, however with open draining wound c/f SA and has been continued on Augmentin 875/125 mg PO BID (last dose end of Nov, 2024). She was referred to Ortho Surgery and admitted. Went to the OR on 12/30 for right knee hardware explant, I&D, and articulating spacer placement. OR tissue and aspiration cultures positive for Staph Caprae. She was started post operatively on vancomycin and cefepime. Ortho Surgery is planning 2 stage procedure in the future. Recommendations: - Continue vancomycin 1.75gm IV q24hr. Check vanc trough before the 3rd dose with goal of 10-20 (ordered for 01/02 at 1900) - Continue cefepime 2gm IV q12hr. If there are no additional cultures tomorrow (Sat), discontinue cefepime - Monitor right arm IV infiltration site - Monitor CBC w/ diff and CMP's - ID will continue to follow. Anticipate recommending IV antibiotics at discharge. Final recommendations pending culture susceptibilities. Discussed plan with Ortho Surgery GAUGE CONTROLLER Team Infection and inflammatory r eaction due to internal right knee prosthesis, subsequent encounter 12/30/2024 Infection and inflammatory r eaction due to internal joint prosthesis 12/05/2024 Assessment & Plan (02/06/2025 1:56 PM CDT): -She has mild redness from her scratch in her RLE, so will complete her 6 weeks with IV abx, EOT 02/10. -No need for further ID saida. -She can get PICC line removed when she completes her abx. 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 The wound cultures 06/23/24 NGTD. 07/10/[address] scan revealed extensive lucency adjacent to the tibial component with breech of the anterior medial aspect of the cortex of the metaphysis. There is a 5.2 x 1.2 x 2.2 cm thick-walled fluid collection adjacent to the tibia in this area with extension of the skin. There is a moderate-sized knee joint effusion. At last Ortho clinic visit 07/25/24 per chart review, wound appeared overall improved but surgeon noted purulent drainage from sinus tract extending to medial tibia. Clinically doing well at this time with no systemic s/sx of infection, however with open draining wound c/f SA. Patient is clinically doing well at this time. - continue Augmentin 875/125 mg PO BID for now. - Referred to Ortho Recon for surgical evaluation and appointment scheduled 10/27/24. Will require antibiotic holiday prior to any surgical intervention. - I discussed with the patient my impression, the imaging findings, and treatment plan in detail with a focus on the etiology, natural history, and management of symptoms. - I discussed with the patient the rationale for treatment, culture results, risk of recurrent infection, signs/symptoms of recurrent infection, and to contact ID clinic with any questions or concerns. Assessment & Plan (09/05/2024 3:02 PM PAINTER MIRROR): Most recently presented to Ortho clinic June 2024 with new questionable abscess in distal aspect of R TKA incision overlying proximal tibia. The wound cultures 06/23/24 NGTD. 07/10/[address] scan revealed extensive lucency adjacent to the tibial component with breech of the anterior medial aspect of the cortex of the metaphysis. There is a 5.2 x 1.2 x 2.2 cm thick-walled fluid collection adjacent to the tibia in this area with extension of the skin. There is a moderate-sized knee joint effusion. At last Ortho clinic visit 07/25/24 per chart review, wound appeared overall improved but surgeon noted purulent drainage from sinus tract extending to medial tibia. Clinically doing well at this time with no systemic s/sx of infection, however with open draining wound c/f SA. - continue Augmentin 875/125 mg PO BID for now. - will refer to Ortho Recon for surgical evaluation. Will require antibiotic holiday prior to any surgical intervention. - will obtain CMP, CBC w Diff, ESR, CRP today - I discussed with the patient my impression, the imaging findings, and treatment plan in detail with a focus on the etiology, natural history, and management of symptoms. - I discussed with the patient the rationale for treatment, culture results, risk of recurrent infection, signs/symptoms of recurrent infection, and to contact ID clinic with any questions or concerns. Interval History: Patient presents to ID clinic for initial visit. She denies fevers, chills, night sweats. No diffuse rash, abdominal pain, N/V/D. She has been taking Augmentin 875/125 mg PO BID since August 2023 with no missed doses. She states the distal portion of her incision opened up again a few days ago, draining moderate serous output requiring dressing changes throughout the day. 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 [address] [place] [address] 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, subsequent encounter; Orthopedic aftercare; Right knee pain, unspecified chronicity; Aftercare following right knee joint replacement surgery 06/02/2025 1:59 PM PAINTER MIRROR - 06/02/2025 11:59 PM PAINTER MIRROR Hospital Encounter [facility] Radiology [address] [place] [address] Nasir Rodriguez MD Despins, Kara Lorraine, RN Suman, Jayesh Toussaint, RT 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, subsequent encounter; Orthopedic aftercare; Right knee pain, unspecified chronicity; Aftercare following right knee joint replacement surgery Discharge Disposition: Discharge to home or self care 06/02/2025 Results Follow-Up [facility] Orthopaedic Surgery [address] [facility] Office [address] [place] [address] Nancy Valadez NP CRP (acute phase) 06/01/2025 Telephone [facility] Radiology [address] [place] [address] Concha Dsouza B.A. 05/21/2025 12:00 PM PAINTER MIRROR Home Care Visit [place] [address] [place] [address] Tracy Mills, BRIDGET SN OASIS DISCHARGE 05/15/2025 Documentation [facility] Medicine Infectious Diseases [address] [address] Luis Reeves Jr., RN 05/13/2025 11:45 AM CDT Home Care Visit [address] [place] [address] Eliza Baez RN SN HOME VISIT 05/13/2025 Home Infusion [facility] Home Infusion Therapy [address] [place] [address] Sravani Ford, [facility] 05/11/2025 11:35 AM CDT - 05/11/2025 11:59 PM CDT Hospital Encounter [address] [address] Discharge Disposition: Discharge to home or self care 05/11/2025 11:00 AM CDT Home Care Visit [address] [place] [address] Tracy Mills, BRIDGET SN HOME VISIT 05/11/2025 Telephone [facility] Home Infusion Therapy [address] [place] [address] Sravani Ford, [facility] 05/11/2025 Home Infusion [facility] Home Infusion Therapy [address] [place] [address] Abraham Jack, Asael Infection of prosthetic right knee joint (Primary Dx) 05/08/2025 Documentation [facility] Medicine Infectious Diseases [address] [address] Luis Reeves Jr., RN 05/07/2025 10:20 AM CDT - 05/07/2025 11:59 PM CDT Hospital Encounter [address] [address] Discharge Disposition: Discharge to home or self care 05/07/2025 10:00 AM CDT Home Care Visit [address] [place] [address] Tracy Mills, BRIDGET SN HOME VISIT 05/07/2025 Home Infusion [facility] Home Infusion Therapy [address] [place] [address] BetheaColette 05/04/2025 11:45 AM CDT Office Visit [facility] Medicine Orthopaedic Surgery [address] [facility] Medical Office Building [address] [place] [phone] Nancy Valadez NP 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, subsequent encounter (Primary Dx); Orthopedic aftercare; Right knee pain, unspecified chronicity; Aftercare following right knee joint replacement surgery 05/04/2025 11:06 AM CDT - 05/04/2025 11:59 PM CDT Hospital Encounter [facility] [address] [facility] [address] [place] [phone] 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, subsequent encounter; Orthopedic aftercare Discharge Disposition: Discharge to home or self care 05/04/2025 8:45 AM CDT - 05/04/2025 11:59 PM CDT Hospital Encounter [address] [address] Discharge Disposition: Discharge to home or self care 05/04/2025 8:30 AM CDT Home Care Visit [place] [address] [address] [place] [address] Tracy Mills RN SN HOME VISIT 04/30/2025 2:02 PM CDT - 04/30/2025 11:59 PM CDT Hospital Encounter [address] [address] Nikolas Zavala MD Discharge Disposition: Discharge to home or self care 04/30/2025 1:30 PM CDT Home Care Visit [place] [address] [address] [place] [address] Tracy Mills, BRIDGET SN HOME VISIT 04/29/2025 2:40 PM CDT Office Visit [facility] Medicine Infectious Diseases [address] [place] [address] [address] [place] [phone] Karen Sheffield, SHAYLA Infection of prosthetic right knee joint (Primary Dx) 04/27/2025 3:43 PM CDT - 04/27/2025 11:59 PM CDT Hospital Encounter [address] [address] Discharge Disposition: Discharge to home or self care 04/27/2025 3:00 PM CDT Home Care Visit [address] [place] [address] Concepción Pierre, BRIDGET SN HOME VISIT 04/27/2025 Home Infusion [facility] Home Infusion Therapy [address] [place] [address] Sravani Ford, [facility] 04/24/2025 Documentation [facility] Infectious Diseases [address] [place] [address] [address] [place] [address] Luis Reeves Jr. RN 04/23/2025 11:30 AM CDT - 04/23/2025 11:59 PM CDT Hospital Encounter [address] [address] Discharge Disposition: Discharge to home or self care 04/23/2025 11:00 AM CDT Home Care Visit [place] [address] [address] [place] [address] Tracy Mills, BRIDGET SN HOME VISIT 04/21/2025 Home Infusion [facility] Home Infusion Therapy [address] [place] [address] Noah Worrell, [facility] 04/20/2025 1:45 PM CDT Office Visit [facility] Medicine Orthopaedic Surgery [address] [place] [address] Medical Office Building [address] [place] [address] Nancy Valadez, SHAYLA 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, subsequent encounter (Primary Dx); History of total knee arthroplasty, right 04/20/2025 1:15 PM CDT - 04/20/2025 11:59 PM CDT Hospital Encounter [facility] [address] [place] [address] [address] [place] [address] 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, subsequent encounter; History of total knee arthroplasty, right Discharge Disposition: Discharge to home or self care 04/20/2025 11:30 AM CDT - 04/20/2025 11:59 PM CDT Hospital Encounter [address] [address] Discharge Disposition: Discharge to home or self care 04/20/2025 11:00 AM CDT Home Care Visit [address] [place] [address] Tracy Mills, BRIDGET SN HOME VISIT 04/17/2025 12:47 PM CDT - 04/17/2025 11:59 PM CDT Hospital Encounter [address] [address] Discharge Disposition: Discharge to home or self care 04/17/2025 12:30 PM CDT Home Care Visit [address] [place] [address] Tracy Mills, BRIDGET SN HOME VISIT 04/14/2025 Home Care Visit [address] [place] [address] Tracy Mills, RN CARE CONFERENCE 04/14/2025 Documentation [facility] Infectious Diseases [address] [place] [address] [address] [place] [address] Luis Reeves Jr., BRIDGET 04/13/2025 2:15 PM CDT - 04/13/2025 11:59 PM CDT Hospital Encounter [address] [address] Discharge Disposition: Discharge to home or self care 04/13/2025 1:00 PM CDT Home Care Visit [address] [place] [address] Johana Meraz SN HOME VISIT 04/13/2025 Telephone [facility] Medicine Orthopaedic Surgery [address] [place] [address] [address] [place] [address] [place] [address] Jed Sparrow RN 04/13/2025 Telephone [facility] [address] [place] [address] Connie Sung, [facility] 04/12/2025 Home Care Visit [address] [place] [address] Susy Paula RN SN TRIAGE ENCOUNTER 04/11/2025 11:00 AM CDT Home Care Visit [address] [place] [address] Concepción Pierre RN SN OASIS START OF CARE 04/11/2025 Plan of Care Documentation [address] [place] [address] 04/10/2025 Plan of Care Documentation [facility] Home Infusion Therapy [address] [place] [address] 04/10/2025 Home Infusion [facility] Home Infusion Therapy [address] [place] [address] Tatum Garrido, [facility] Infection of prosthetic right knee joint (Primary Dx) 04/09/2025 7:10 AM CDT Ancillary Procedure [facility] IP [address] [facility] [address] [place] [address] 04/03/2025 Home Infusion [facility] Home Infusion Therapy [address] [place] [address] Christ Sweeney, [facility] 04/03/2025 [facility]ation [facility] [address] [place] [address] Ev Roldan B.A. [facility] IP to OP 03/31/2025 1:37 PM CDT - 03/31/2025 5:37 PM CDT Surgery [facility] Operating Room [address] [place] [address] Wilder Butterfield MD IRRIGATION AND DEBRIDEMENT - KNEE 03/31/2025 1:05 PM CDT Anesthesia Event [facility] Operating Room [address] [place] [address] Mary Prescott MD Wilkey, Andrew Mark, MD 03/31/2025 11:23 AM CDT - 04/10/2025 6:48 PM CDT Hospital Encounter [facility] [address] [place] [address] Wilder Butterfield MD 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, subsequent encounter (Primary Dx); Illness, unspecified; Post-operative pain Discharge Disposition: Discharge to home, home health skilled care 03/20/2025 Telephone [facility] Orthopaedic Surgery [address] [facility] Medical Office Building [address] [place] [address] Wilder Butterfield MD 03/19/2025 Home Infusion [facility] Home Infusion Therapy [address] [place] [address] Christ Sweeney, [facility] [facility] 03/18/2025 10:23 AM CDT - 03/18/2025 11:59 PM CDT Hospital Encounter [facility] Radiology [address] [place] [phone] Vadim Gurrola MD [place], MD Jose Riggins, Larisa Zuniga, BRIDGET History of total knee arthroplasty, right; Orthopedic aftercare; Aftercare following right knee joint replacement surgery; Infection of total right knee replacement, initial encounter Discharge Disposition: Discharge to home or self care 03/18/2025 10:05 AM CDT Lab [facility] [address] [place] [address] History of total knee arthroplasty, right; Orthopedic aftercare; Aftercare following right knee joint replacement surgery; Infection of total right knee replacement, initial encounter from Last 3 Months Surgical History Surgery Date Site/Laterality Comments MT TOTAL ABDOMINAL HYSTERECT W/WO RMVL TUBE OVARY Hysterectomy - (Added by TW Conv) MT OOPHORECTOMY PARTIAL/TOTA L UNI/BI Oophorectomy - (Added by TW Conv) MT DELIVERY ONLY Section - (Added by TW Conv) TOTAL KNEE ARTHROPLASTY Bilateral Medical History Medical History Date Comments Personal history of other di seases of the circulatory system History of rheumatic fever - (Added by TW Conv) Drainage from wound 02/17/2025 Family History Medical History Relation Name Comments Colon cancer Mother Family history of colon cancer - (Added by TW Conv) Heart disease Mother Family history of cardiac disorder - (Added by TW Conv) Hypertension Mother Family history of hypertension - (Added by TW Conv) Colon cancer Mother's Brother Family hist ory of colon cancer - (Added by TW Conv) Colon cancer Mother's Sister Family histo ry of colon cancer - (Added by TW Conv) Colon cancer Other Family history of colon cancer - (Added by TW Conv) Heart disease Other Family history of cardiac disorder - (Added by TW Conv) Hypertension Other Family history of hypertension - (Added by TW Conv) Relation Name Status Comments Mother Mother's Brother Mother's Sister Other Social History Tobacco Use Types Packs/Day Years Used Date Smoking Tobacco: Former Cigarettes 0.5 3 1 973 - 1975 Smokeless Tobacco: Never Tobacco Cessation:Counseling Given: Not Answered Alcohol Use Standard Drinks/Week Comments Never 0 [...] on file Legal Sex Female 4:28 AM PAINTER MIRROR Gender Identity Female 05/07/2025 3:15 PM CDT Sexual Orientation Not on file Last Filed Vital Signs Vital Sign Reading Time Taken Comments Blood Pressure 133/63 06/02/2025 2:27 PM PAINTER MIRROR Pulse 97 06/02/2025 2:27 PM PAINTER MIRROR Temperature 36.4 C (97.6 F) 06/02/2025 2:27 PM PAINTER MIRROR Respiratory Rate 20 06/02/2025 2:27 PM PAINTER MIRROR Oxygen Saturation 97% 06/02/2025 2:27 PM PAINTER MIRROR Inhaled Oxygen Concentration - - Weight 113.1 kg (249 lb 6 oz) 04/11/2025 12:24 P M CDT Height 149.9 cm (4' 11.02) 04/29/2025 2:49 PM C DT Body Mass Index 50.37 04/11/2025 12:24 PM CDT Plan of Treatment Scheduled Procedures Name Priority Associated Diagnoses Date/Ti me IRRIGATION AND DEBRIDEMENT - KNEE Drainage from wound Acquired absence of right knee REVISION ARTHROPLASTY TOTAL KNEE Drainage from wound Acquired absence of right knee Health Maintenance Due Date Last Done Comments Breast Cancer Screening-Mammogram 1956 Colon Cancer Screening-Colonoscopy 1955 Depression Screening 1955 Hepatitis C Screening 1955 Osteoporosis Screening-Bone Density Scan 1955 DTaP/Tdap/Td Vaccine (1 - Tdap) 02/04/1967 Hepatitis B Screening 02/04/1974 Pneumococcal vaccine 65+ (1 of 2 - PCV) 02/04/1975 Zoster Vaccine (1 of 2) 02/04/2006 Well Visit 65+ 02/04/2021 Influenza Vaccine (#1) 2025 Fall Risk Assessment 04/10/2026 04/10/2025 Medical Devices Implanted Type Area Bread Baker Device Identifier Shelf Expiration Date Model / Serial / Lot [employer] Simplex P Full Dose Radiopaque Preblend Cement Bone Tobramycin 6197-9-001 - [id number] Implanted:Qty: 3 on 12/30/2024 by Wilder Butterfield MD at [facility] Right: Knee [employer] [id number] 01/12/2026 6197-9-00 1 / / [id number] [facility] Remedy 175mm Stem Extension Knee Component Femoral [id number] - [id number] Implanted:Qty: 1 on 12/30/2024 by Wilder Butterfield MD at [facility] Right: Knee [employer] 01/12/2029 [id number] / / [id number] [employer] Remedy 100mm Stem Extension Knee Component Femoral Cnh820 - [id number] Implanted:Qty: 1 on 12/30/2024 by Wilder Butterfield MD at [facility] Right: Knee [employer] 02/12/2029 [id number] / / [id number] [employer] Remedy Stem Knee Medium Component Femoral Rskfmd - [id number] Implanted:Qty: 1 on 12/30/2024 by Wilder Butterfield MD at [facility] Right: Knee [employer] 02/12/2029 RSKFMD / / [id number] [employer] Remedy Stem Knee Medium Component Tibial Rsktmd - [id number] Implanted:Qty: 1 on 12/30/2024 by Wilder Butterfield MD at [facility] Right: Knee [employer] 01/12/2029 RSKTMD / / [id number] [employer] Remedy 100mm Stem Extension Knee Component Femoral Ect692 - [id number] Implanted:Qty: 1 on 03/31/2025 by Wilder Butterfield MD at [facility] Right: Knee [employer] [facility] 02/12/2029 [id number] / / [id number] [employer] Remedy 175mm Stem Extension Knee Component Femoral [id number] - [id number] Implanted:Qty: 1 on 03/31/2025 by Wilder Butterfield MD at [facility] Right: Knee [employer] 05/15/2029 [id number] / / [id number] [employer] Stimulan Rapid Cure Kit Paste Motor Pool Driver 10cc 20cc Bone Void 620-010 - [id number] Implanted:Qty: 1 on 03/31/2025 by Wilder Butterfield MD at [facility] Right: Knee [employer] [id number] 09/12/2027 620-010 / / [id number] [employer] Simplex P Full Dose Radiopaque Preblend Cement Bone Tobramycin 6197-9-010 - [id number] - [id number] Implanted:Qty: 3 on 03/31/2025 by Wilder Butterfield MD at [facility] Right: Knee [employer] 06/14/2026 6197-9-01 0 / [id number] / [employer] Remedy Stem Knee Small Component Tibial Rsktsm - [id number] Implanted:Qty: 1 on 03/31/2025 by Wilder Butterfield MD at [facility] Right: Knee [employer] 04/14/2028 RSKTSM / / [id number] [employer] Remedy Stem Knee Medium Component Femoral Rskfmd - [id number] Implanted:Qty: 1 on 03/31/2025 by Wilder Butterfield MD at [facility] Right: Knee [employer] RSKFMD / / [id number] Procedures Procedure Name Priority Date/Time Associated Diagnosis Comments CRP (ACUTE PHASE) Routine 06/02/2025 3:1 3 PM PAINTER MIRROR 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, subsequent encounter Orthopedic aftercare Right knee pain, unspecified chronicity Aftercare following right knee joint replacement surgery ERYTHROCYTE SEDIMENTATION RATE Routine 06/02/2025 3:13 PM PAINTER MIRROR 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, subsequent encounter Orthopedic aftercare Right knee pain, unspecified chronicity Aftercare following right knee joint replacement surgery CELL DIFFERENTIAL, BODY FLUID Routine 06/02/2025 3:11 PM PAINTER MIRROR 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, subsequent encounter Orthopedic aftercare Right knee pain, unspecified chronicity Aftercare following right knee joint replacement surgery CELL COUNT W/REFLEX DIFFERENTIAL, BODY FLUID Routine 06/02/2025 3:11 PM PAINTER MIRROR 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, subsequent encounter Orthopedic aftercare Right knee pain, unspecified chronicity Aftercare following right knee joint replacement surgery CRYSTAL ANALYSIS, BODY FLUID Routine 06/02/2025 3:11 PM PAINTER MIRROR 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, subsequent encounter Orthopedic aftercare Right knee pain, unspecified chronicity Aftercare following right knee joint replacement surgery AEROBIC AND ANAEROBIC CULTURE AND GRAM STAIN Routine 06/02/2025 3:11 PM PAINTER MIRROR 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, subsequent encounter Orthopedic aftercare Right knee pain, unspecified chronicity Aftercare following right knee joint replacement surgery MYCOBACTERIOLOGY AFB CULTURE AND ACID-FAST STAIN Routine 06/02/2025 3:11 PM PAINTER MIRROR 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, subsequent encounter Orthopedic aftercare Right knee pain, unspecified chronicity Aftercare following right knee joint replacement surgery US GUIDED ARTHROCENTESIS MAJOR JOINT Schedule Routine, Read Routine (OP Routine) 06/02/2025 3:10 PM PAINTER MIRROR 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, subsequent encounter Orthopedic aftercare Right knee pain, unspecified chronicity Aftercare following right knee joint replacement surgery EGFR Routine 05/11/2025 11:35 AM CDT DIFFERENTIAL AUTO Routine 05/11/2025 11:35 AM CDT CREATINE KINASE (CK), TOTAL Routine 05/11/2025 11:35 AM CDT CBC WITH AUTO DIFFERENTIAL Routine 05/11/2025 11:35 AM CDT COMPREHENSIVE METABOLIC PANEL Routine 05/11/2025 11:35 AM CDT CREATINE KINASE (CK), TOTAL Routine 05/07/2025 10:20 AM CDT XR KNEE RIGHT 1 OR 2 VIEWS Schedule Routine, Read Routine (OP Routine) 05/04/2025 12:02 PM CDT 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, subsequent encounter Orthopedic aftercare EGFR Routine 05/04/2025 8:45 AM CDT ERYTHROCYTE SEDIMENTATION RATE Routine 05/04/2025 8:45 AM CDT DIFFERENTIAL AUTO Routine 05/04/2025 8:4 5 AM CDT CRP (ACUTE PHASE) Routine 05/04/2025 8:4 5 AM CDT CREATINE KINASE (CK), TOTAL Routine 05/04/2025 8:45 AM CDT CBC WITH AUTO DIFFERENTIAL Routine 05/04/2025 8:45 AM CDT COMPREHENSIVE METABOLIC PANEL Routine 05/04/2025 8:45 AM CDT CREATINE KINASE (CK), TOTAL Routine 04/30/2025 2:02 PM CDT EGFR Routine 04/27/2025 3:43 PM CDT DIFFERENTIAL AUTO Routine 04/27/2025 3:4 3 PM CDT CREATINE KINASE (CK), TOTAL Routine 04/27/2025 3:43 PM CDT CBC WITH AUTO DIFFERENTIAL Routine 04/27/2025 3:43 PM CDT COMPREHENSIVE METABOLIC PANEL Routine 04/27/2025 3:43 PM CDT CREATINE KINASE (CK), TOTAL Routine 04/23/2025 11:30 AM CDT XR KNEE RIGHT 1 OR 2 VIEWS Schedule Routine, Read Routine (OP Routine) 04/20/2025 1:58 PM CDT 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, subsequent encounter History of total knee arthroplasty, right EGFR Routine 04/20/2025 11:30 AM CDT DIFFERENTIAL AUTO Routine 04/20/2025 11:30 AM CDT CREATINE KINASE (CK), TOTAL Routine 04/20/2025 11:30 AM CDT CBC WITH AUTO DIFFERENTIAL Routine 04/20/2025 11:30 AM CDT COMPREHENSIVE METABOLIC PANEL Routine 04/20/2025 11:30 AM CDT CREATINE KINASE (CK), TOTAL Routine 04/17/2025 12:47 PM CDT EGFR Routine 04/13/2025 2:15 PM CDT DIFFERENTIAL AUTO Routine 04/13/2025 2:1 5 PM CDT CRP (ACUTE PHASE) Routine 04/13/2025 2:1 5 PM CDT ERYTHROCYTE SEDIMENTATION RATE Routine 04/13/2025 2:15 PM CDT CREATINE KINASE (CK), TOTAL Routine 04/13/2025 2:15 PM CDT CBC WITH AUTO DIFFERENTIAL Routine 04/13/2025 2:15 PM CDT GLUCOSE, RANDOM (OUTREACH) Routine 04/13/2025 2:15 PM CDT COMPREHENSIVE METABOLIC PANEL WITHOUT GLUCOSE (OUTREACH) Routine 04/13/2025 2:15 PM CDT HEMOGLOBIN AND HEMATOCRIT STAT 04/10/2025 2:15 PM CDT TRANSFUSE RED BLOOD CELLS Timed 04/10/2025 10:07 AM CDT TRANSFUSE RED BLOOD CELLS Timed 04/10/2025 6:18 AM CDT TYPE AND SCREEN STAT 04/10/2025 3:11 AM CDT PREPARE RBC STAT 04/10/2025 2:52 AM CDT EGFR Routine 04/10/2025 12:24 AM CDT CBC WITHOUT DIFFERENTIAL Routine 04/10/2025 12:24 AM CDT BASIC METABOLIC PANEL Routine 04/10/2025 12:24 AM CDT CREATINE KINASE (CK), TOTAL Timed 04/09/2025 1:23 PM CDT US VEIN DUPLEX LOWER EXTREMITY RIGHT LIMITED ED Urgent/IP Urgent 04/09/2025 8:46 AM CDT EGFR Routine 04/09/2025 12:37 AM CDT CBC WITHOUT DIFFERENTIAL Routine 04/09/2025 12:37 AM CDT BASIC METABOLIC PANEL Routine 04/09/2025 12:37 AM CDT INFECTION PREVENTION CLARA AURIS PCR, SURVEILLANCE Routine 04/09/2025 12:37 AM CDT XR KNEE RIGHT 1 OR 2 VIEWS IP Routine 04/08/2025 1:32 PM CDT EGFR Routine 04/07/2025 10:39 PM CDT CBC WITHOUT DIFFERENTIAL Routine 04/07/2025 10:39 PM CDT BASIC METABOLIC PANEL Routine 04/07/2025 10:39 PM CDT EGFR Routine 04/06/2025 11:31 PM CDT CBC WITHOUT DIFFERENTIAL Routine 04/06/2025 11:31 PM CDT BASIC METABOLIC PANEL Routine 04/06/2025 11:31 PM CDT CREATINE KINASE (CK), TOTAL Timed 04/06/2025 6:10 PM CDT HEPATIC FUNCTION PANEL Routine 5:03 AM CDT CBC WITH AUTO DIFFERENTIAL Routine 04/06/2025 5:03 AM CDT DIFFERENTIAL AUTO Routine 04/06/2025 5:0 3 AM CDT EGFR Routine 04/06/2025 5:03 AM CDT BASIC METABOLIC PANEL Routine 04/06/2025 5:03 AM CDT CBC WITHOUT DIFFERENTIAL Routine 04/06/2025 5:03 AM CDT INFECTION PREVENTION CLARA AURIS PCR, SURVEILLANCE Routine 04/06/2025 5:03 AM CDT EGFR Routine 04/05/2025 5:46 AM CDT BASIC METABOLIC PANEL Routine 04/05/2025 5:46 AM CDT CBC WITHOUT DIFFERENTIAL Routine 04/05/2025 5:46 AM CDT VANCOMYCIN LEVEL TROUGH Timed 04/04/2025 5:28 PM CDT EGFR Routine 04/04/2025 4:19 AM CDT BASIC METABOLIC PANEL Routine 04/04/2025 4:19 AM CDT CBC WITHOUT DIFFERENTIAL Routine 04/04/2025 4:19 AM CDT EGFR Routine 04/03/2025 4:48 AM CDT BASIC METABOLIC PANEL Routine 04/03/2025 4:48 AM CDT CBC WITHOUT DIFFERENTIAL Routine 04/03/2025 4:48 AM CDT TRANSFUSE RED BLOOD CELLS Timed 04/03/2025 12:32 AM CDT PREPARE RBC STAT 04/02/2025 11:19 PM CDT EGFR Routine 04/02/2025 10:00 PM CDT BASIC METABOLIC PANEL Routine 04/02/2025 10:00 PM CDT CBC WITHOUT DIFFERENTIAL Routine 04/02/2025 10:00 PM CDT EGFR Routine 04/02/2025 7:06 AM CDT BASIC METABOLIC PANEL Routine 04/02/2025 7:06 AM CDT CBC WITHOUT DIFFERENTIAL Routine 04/02/2025 7:06 AM CDT EGFR Timed 03/31/2025 10:24 PM CDT CBC WITHOUT DIFFERENTIAL STAT 03/31/2025 10:24 PM CDT BASIC METABOLIC PANEL Timed 03/31/2025 10:24 PM CDT XR KNEE RIGHT 1 OR 2 VIEWS ED Urgent/IP Urgent 03/31/2025 5:16 PM CDT EGFR STAT 03/31/2025 4:24 PM CDT POTASSIUM, WHOLE BLOOD STAT 4:24 PM CDT CREATININE STAT 03/31/2025 4:24 PM CDT HEPATIC FUNCTION PANEL STAT 4:24 PM CDT CBC WITHOUT DIFFERENTIAL STAT 03/31/2025 4:24 PM CDT PROTIME-INR STAT 03/31/2025 4:24 PM CDT MICROORGANISM DETECTION BY PCR/SEQUENCING Routine 03/31/2025 2:58 PM CDT TISSUE AEROBIC AND ANAEROBIC CULTURE AND GRAM STAIN Routine 03/31/2025 2:58 PM CDT MYCOBACTERIOLOGY AFB CULTURE Routine 03/31/2025 2:58 PM CDT MYCOLOGY (FUNGAL) CULTURE Routine 03/31/2025 2:58 PM CDT TISSUE AEROBIC AND ANAEROBIC CULTURE AND GRAM STAIN Routine 03/31/2025 2:58 PM CDT MYCOBACTERIOLOGY AFB CULTURE Routine 03/31/2025 2:58 PM CDT MYCOLOGY (FUNGAL) CULTURE Routine 03/31/2025 2:58 PM CDT TISSUE AEROBIC AND ANAEROBIC CULTURE AND GRAM STAIN Routine 03/31/2025 2:58 PM CDT MYCOBACTERIOLOGY AFB CULTURE Routine 03/31/2025 2:58 PM CDT MYCOLOGY (FUNGAL) CULTURE Routine 03/31/2025 2:58 PM CDT TISSUE AEROBIC AND ANAEROBIC CULTURE AND GRAM STAIN Routine 03/31/2025 2:58 PM CDT MYCOBACTERIOLOGY AFB CULTURE Routine 03/31/2025 2:58 PM CDT MYCOLOGY (FUNGAL) CULTURE Routine 03/31/2025 2:58 PM CDT TISSUE AEROBIC AND ANAEROBIC CULTURE AND GRAM STAIN Routine 03/31/2025 2:58 PM CDT MYCOBACTERIOLOGY AFB CULTURE Routine 03/31/2025 2:58 PM CDT MYCOLOGY (FUNGAL) CULTURE Routine 03/31/2025 2:58 PM CDT TRANSFUSE RED BLOOD CELLS Timed 03/31/2025 2:17 PM CDT ANESTHESIA INTUBATION Routine 03/31/2025 2:01 PM CDT PLACEMENT SPACER/ANTIBIOTIC BEAD - KNEE 03/31/2025 1:05 PM CDT Drainage from wound Acquired absence of right knee ESR raised Acquired absence of knee joint following removal of joint prosthesis with presence of antibiotic-impreg nated cement spacer Case Notes 03/27/2025 mIssing DPC sent. TB 03/18/25 Message to Kimberlee for mismatched dates, and missing post op destination. [facility] REMOVAL SPACER/ANTIBIOTIC BEAD - KNEE 03/31/2025 1:05 PM CDT Drainage from wound Acquired absence of right knee ESR raised Acquired absence of knee joint following removal of joint prosthesis with presence of antibiotic-impreg nated cement spacer Case Notes 03/27/2025 mIssing DPC sent. TB 03/18/25 Message to Kimberlee for mismatched dates, and missing post op destination. [facility] IRRIGATION AND DEBRIDEMENT - KNEE 03/31/2025 1:05 PM CDT Drainage from wound Acquired absence of right knee ESR raised Acquired absence of knee joint following removal of joint prosthesis with presence of antibiotic-impreg nated cement spacer Case Notes 03/27/2025 mIssing DPC sent. TB 03/18/25 Message to Kimberlee for mismatched dates, and missing post op destination. [facility] POC BLOOD GAS AND CHEMISTRIES, ARTERIAL Routine 03/31/2025 12:51 PM CDT TYPE AND SCREEN Timed 03/31/2025 12:43 PM CDT PREPARE RBC Timed 03/31/2025 12:30 PM CDT US GUIDED ARTHROCENTESIS MAJOR JOINT Schedule Routine, Read Routine (OP Routine) 03/18/2025 11:23 AM CDT History of total knee arthroplasty, right Orthopedic aftercare Aftercare following right knee joint replacement surgery Infection of total right knee replacement, initial encounter CELL DIFFERENTIAL, BODY FLUID Routine 03/18/2025 11:22 AM CDT History of total knee arthroplasty, right Orthopedic aftercare Aftercare following right knee joint replacement surgery Infection of total right knee replacement, initial encounter CELL COUNT W/REFLEX DIFFERENTIAL, BODY FLUID Routine 03/18/2025 11:22 AM CDT History of total knee arthroplasty, right Orthopedic aftercare Aftercare following right knee joint replacement surgery Infection of total right knee replacement, initial encounter CRYSTAL ANALYSIS, BODY FLUID Routine 03/18/2025 11:22 AM CDT History of total knee arthroplasty, right Orthopedic aftercare Aftercare following right knee joint replacement surgery Infection of total right knee replacement, initial encounter MYCOLOGY (FUNGAL) CULTURE Routine 03/18/2025 11:22 AM CDT AEROBIC AND ANAEROBIC CULTURE AND GRAM STAIN Routine 03/18/2025 11:22 AM CDT History of total knee arthroplasty, right Orthopedic aftercare Aftercare following right knee joint replacement surgery Infection of total right knee replacement, initial encounter CRP (ACUTE PHASE) Routine 03/18/2025 10:13 AM CDT History of total knee arthroplasty, right Orthopedic aftercare Aftercare following right knee joint replacement surgery Infection of total right knee replacement, initial encounter ERYTHROCYTE SEDIMENTATION RATE Routine 03/18/2025 10:13 AM CDT History of total knee arthroplasty, right Orthopedic aftercare Aftercare following right knee joint replacement surgery Infection of total right knee replacement, initial encounter from Last 3 Months Results * (ABNORMAL) Erythrocyte sedimentation rate (06/02/2025 3:13 PM PAINTER MIRROR) Erythrocyte sedimentation rate 37(H) 1 - 30 mm/hr Blood 06/02/2025 3:13 PM PAINTER MIRROR 06/02/2025 3:20 PM PAINTER MIRROR Nancy Valadez GAUGE CONTROLLER LAB BLOOD ORDERABLES Razia l Result [facility] [address] [facility]. [place] [address] * (ABNORMAL) CRP (acute phase) (06/02/2025 3:13 PM PAINTER MIRROR) CRP 26.7(H) <=10.0 mg/L Blood 06/02/2025 3:13 PM PAINTER MIRROR 06/02/2025 3:20 PM PAINTER MIRROR us Nancy Valadez GAUGE CONTROLLER LAB BLOOD ORDERABLES Razia l Result Performing Organization Address [facility] Co de Phone Number [facility] [id number] [employer]. [facility] [place] [address] * Crystal Analysis, Body Fluid (06/02/2025 3:11 PM PAINTER MIRROR) Specimen type, fld Synovial Comment:Testing performed by : [facility], [address] [place] [address]., [id number] Crystals Not Present Not Present [facility] Comment:Testing performed by : [facility], [address] [place] [address]., [id number] Fluid 06/02/2025 3:11 PM PAINTER MIRROR 06/02/2025 5:45 PM PAINTER MIRROR Nancy Valadez GAUGE CONTROLLER LAB BODY FLUIDS AND STOOL S ORDERABLES Final Result Performing Organization Address [facility] Co de Phone Number [facility] [address] [facility] [place] [address] * Cell Differential, Body Fluid (06/02/2025 3:11 PM PAINTER MIRROR) Total cells diffed 100 % Comment: Interpretive Data Unless otherwise specified, the reference range and other method performance specifications have not been established for CSF/Body Fluid tests. The test results should be integrated into the clinical context for interpretation. Current interpretive data was last revised on 2019. Neutrophils, fld 13 % [facility] Lymphs, fld 30 % [facility] Monocyte, fld 13 % [facility] Macrophages, fld 44 % [facility] Specimen type, fld Synovial [facility] Body site, fld Knee [facility] Fluid 06/02/2025 3:11 PM PAINTER MIRROR 06/02/2025 3:18 PM PAINTER MIRROR Nancy Valadez GAUGE CONTROLLER LAB BODY FLUIDS AND STOOL S ORDERABLES Final Result Performing Organization Address [facility] Co de Phone Number [facility] [phone] [facility] [place] [address] * Cell count w/rflx diff, body fluid (06/02/2025 3:11 PM PAINTER MIRROR) Specimen type, fld Synovial Body site, fld Knee [facility] Color, fld Red [facility] Clarity, fld Cloudy [facility] Nucleated cells, fld 264 /cumm [facility] Comment: Interpretive Data Unless otherwise specified, the reference range and other method performance specifications have not been established for CSF/Body Fluid tests. The test results should be integrated into the clinical context for interpretation. Current interpretive data was last revised on 2019. RBC, fld 14,000 /cumm [facility] Fluid 06/02/2025 3:11 PM PAINTER MIRROR 06/02/2025 3:18 PM PAINTER MIRROR Nancy Valadez GAUGE CONTROLLER LAB BODY FLUIDS AND STOOL S ORDERABLES Final Result Performing Organization Address [facility] de Phone Number [facility] [phone] [facility] [address] [place] [address] * Aerobic and anaerobic culture and gram stain Synovial fluid Knee, right (06/02/2025 3:11 PM PAINTER MIRROR) Direct Specimen Exam Stain: No polymorphonuclear leukocytes seen. No organisms seen. Comment:Testing performed by : [facility], [address] [place] [address]., [id number] Report Final Report: No growth [facility] Comment:Testing performed by : [facility], [address] [place] [address]., [id number] Synovial fluid (Knee, right) 06/02/2025 3:11 PM PAINTER MIRROR 06/02/2025 4:50 PM PAINTER MIRROR Nancy Valadez GAUGE CONTROLLER LAB MICROBIOLOGY - GENERA L ORDERABLES Final Result [facility] [address] [facility]. Department of Laboratories [place], [place] [id number] * US Guided Aspiration or Injection of Major Joint (06/02/2025 3:10 PM PAINTER MIRROR) Anatomical Region Laterality Modality Entire body N/A X-Ray Angiograph y 06/02/2025 3:21 PM PAINTER MIRROR Impressions 06/02/2025 3:41 PM PAINTER MIRROR Right knee joint aspiration under ultrasound guidance. 13 mL serosanguinous synovial fluid aspirated and sent for cell count, Gram stain, and culture and Synovasure testing. Dictated by: Yuridia Bazzi M.D. The radiology attending physician has personally reviewed this study, and had reviewed and/or edited this written report and agrees with it. Electronically signed by: Nasir Rodriguez M.D. Narrative 06/02/2025 3:41 PM PAINTER MIRROR EXAMINATION: Right knee joint aspiration under ultrasound guidance HISTORY: History of right knee arthroplasty complicated by infection, now with antibiotic spacer presenting for fluid aspiration ATTENDING PRESENCE: Dr. Nasir Rodriguez M.D., the attending radiologist, was present from the beginning to the end of the procedure. Barbara Meléndez PA-C was present and participated in the procedure. SEDATION: The patient did not require conscious sedation for the procedure. TECHNIQUE: The risks, benefits and alternatives were discussed and informed consent was obtained. Prior to beginning the procedure, [place] Protocol was performed to confirm the patient's identity and the planned procedure. Sterile barriers used during the procedure included cap, mask, hand hygiene, sterile gloves, and sterile drape. Chloraprep was used for cutaneous antisepsis. The patient was placed supine on the procedure table. The right knee joint was localized with ultrasound guidance. Local anesthesia was achieved with subcutaneous injection of 1% lidocaine 5 mL. An 18-gauge needle was then introduced into the joint under imaging guidance. 13 mL of serosanguineous synovial fluid was aspirated. The needle was removed. The skin was cleansed with hydrogen peroxide, and a bandage was placed. Complication: None ESTIMATED BLOOD LOSS: None CONDITION: Stable condition. DISCHARGED TO: Home FINDINGS: Initial ultrasound images demonstrated a small medial right knee joint effusion. Imaging confirms appropriate position of the needle tip within the fluid. 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 Nsair Rodriguez M.D., the attending radiologist, was present from the beginning to the end of the procedure. Barbara Meléndez PA-C was present and participated in the procedure. SEDATION: The patient did not require conscious sedation for the procedure. TECHNIQUE: The risks, benefits and alternatives were discussed and informed consent was obtained. Prior to beginning the procedure, [place] Protocol was performed to confirm the patient's identity and the planned procedure. Sterile barriers used during the procedure included cap, mask, hand hygiene, sterile gloves, and sterile drape. Chloraprep was used for cutaneous antisepsis. The patient was placed supine on the procedure table. The right knee joint was localized with ultrasound guidance. Local anesthesia was achieved with subcutaneous injection of 1% lidocaine 5 mL. An 18-gauge needle was then introduced into the joint under imaging guidance. 13 mL of serosanguineous synovial fluid was aspirated. The needle was removed. The skin was cleansed with hydrogen peroxide, and a bandage was placed. Complication: None ESTIMATED BLOOD LOSS: None CONDITION: Stable condition. DISCHARGED TO: Home FINDINGS: Initial ultrasound images demonstrated a small medial right knee joint effusion. Imaging confirms appropriate position of the needle tip within the fluid. IMPRESSION: Right knee joint aspiration under ultrasound guidance. 13 mL serosanguinous synovial fluid aspirated and sent for cell count, Gram stain, and culture and Synovasure testing. Dictated by: Yuridia Bazzi M.D. The radiology attending physician has personally reviewed this study, and had reviewed and/or edited this written report and agrees with it. Electronically signed by: Nasir Rodriguez M.D. us Nancy Valadez NP IMG US PROCEDURES Final R esult * eGFR (05/11/2025 11:35 AM CDT) eGFR 73 >=60 mL/min/1. 73 m2 Comment: Interpretive Data Reference Interval Normal >/= 90 mL/min/1.73m2 Mildly decreased* 60 - 89 mL/min/1.73m2 Mildly to moderately decreased 45 - 59 mL/min/1.73m2 Moderately to severely decreased 30 - 44 mL/min/1.73m2 Severely decreased 15 - 29 mL/min/1.73m2 Kidney Failure < 15 mL/min/1.73m2 *Relative to young adult level Estimated glomerular filtration rate is determined by the 2020 CKD-EPI equation recommended by the National Kidney Foundation (A Unifying Approach to GFR Estimation: Recommendations of the NKF-ASK Task Force on Reassessing the Inclusion of Race in Diagnosing Kidney Disease, JASN 202). The CKD-EPI equation should not be used for patients with unstable renal function and has not been validated in children and those over 70. Current interpretive data was last reviewed 2021. Blood 05/11/2025 11:3 5 AM CDT 05/11/2025 3:25 PM CDT us Nikolas Reno MD LAB BLOOD ORDERAB LES Final Result [facility] [place] [address] * Differential, auto (05/11/2025 11:35 AM CDT) Neutrophil abs 5.19 1.50 - 6.50 K/cumm Imm gran abs 0.02 0.00 - 0.10 K/cumm [facility] Lymphocyte abs 1.75 0.80 - 3.30 K/cumm [facility] Monocyte abs 0.53 0.20 - 0.80 K/cumm [facility] Eosinophil abs 0.35 0.00 - 0.50 K/cumm [facility] Basophil abs 0.05 0.00 - 0.10 K/cumm [facility] Neutrophil pct 65.8 % [facility] Comment: Interpretive Data Percent cell count reference ranges are not reported, since discordance with absolute values may lead to misinterpretation of CBC data. Current Interpretive Data was last revised on 2017. Imm gran pct 0.3 % [facility] Comment: Interpretive Data Percent cell count reference ranges are not reported, since discordance with absolute values may lead to misinterpretation of CBC data. Current Interpretive Data was last revised on 2017. Lymphocyte pct 22.2 % [facility] Comment: Interpretive Data Percent cell count reference ranges are not reported, since discordance with absolute values may lead to misinterpretation of CBC data. Current Interpretive Data was last revised on 2017. Monocyte pct 6.7 % [facility] Comment: Interpretive Data Percent cell count reference ranges are not reported, since discordance with absolute values may lead to misinterpretation of CBC data. Current Interpretive Data was last revised on 2017. Eosinophil pct 4.4 % [facility] Comment: Interpretive Data Percent cell count reference ranges are not reported, since discordance with absolute values may lead to misinterpretation of CBC data. Current Interpretive Data was last revised on 2017. Basophil pct 0.6 % [facility] Comment: Interpretive Data Percent cell count reference ranges are not reported, since discordance with absolute values may lead to misinterpretation of CBC data. Current Interpretive Data was last revised on 2017. Blood 05/11/2025 11:3 5 AM CDT 05/11/2025 3:08 PM CDT us Nikolas Reno MD LAB BLOOD ORDERAB LES Final Result [facility] Department [place] [address] * (ABNORMAL) CBC with auto differential (05/11/2025 11:35 AM CDT) WBC 7.89 3.80 - 9.90 K/cumm Hgb 10.4(L) 11.9 - 15.5 g/dL [facility] Hct 33.6(L) 35.6 - 45.5 % [facility] Plt 332 150 - 400 K/cumm [facility] MPV 10.4 9.1 - 12.3 fL [facility] RBC 4.29 3.90 - 5.20 M/cumm [facility] MCV 78.3(L) 81.3 - 96.4 fL [facility] MCH 24.2(L) 27.1 - 33.3 pg [facility] MCHC 31.0(L) 32.3 - 35.7 g/dL [facility] RDW CV 17.8(H) 11.1 - 14.9 % [facility] RDW SD 50.7(H) 35.7 - 48.1 fL [facility] NRBC abs 0.00 0.00 - 0.01 K/cumm [facility] Blood 05/11/2025 11:3 5 AM CDT 05/11/2025 3:08 PM CDT Nikolas Reno MD LAB BLOOD ORDERAB LES Final Result Performing Organization Address City/[facility]/ZIP Co de Phone Number [facility] [place] [address] * Creatine kinase (CK), total (05/11/2025 11:35 AM CDT) [facility] CK 115 30 - 200 Units/L Blood 05/11/2025 11:3 5 AM CDT 05/11/2025 3:08 PM CDT Nikolas Reno MD LAB BLOOD ORDERAB LES Final Result [facility] [place] [address] * (ABNORMAL) Comprehensive metabolic panel (05/11/2025 11:35 AM CDT) [facility] Sodium 140 135 - 145 mmol/L Potassium, pl 3.1(L) 3.3 - 4.9 mmol/L [facility] Chloride 98 97 - 110 mmol/L [facility] CO2 29 22 - 32 mmol/L [facility] Anion gap 13 2 - 15 mmol/L [facility] BUN 16 6 - 25 mg/dL [facility] Creatinine 0.86 0.60 - 1.10 mg/dL [facility] Glucose 112 70 - 199 mg/dL [facility] Comment: Interpretive Data Fasting glucose >/= 126 mg/dl is diagnostic for diabetes. Fasting is defined as no caloric intake for at least 8 hours. Fasting glucose between 100 mg/dl to 125 mg/dl is diagnostic of prediabetes. In a patient with classic symptoms of hyperglycemia or hyperglycemic crisis, a random glucose >/= 200 mg/dl is diagnostic for diabetes. In the absence of unequivocal hyperglycemia, results should be confirmed by repeat testing. The classification and Diagnosis of Diabetes Diabetes Care 2021; 46: S19-S40. Current interpretive data was last revised 2022. Calcium 9.2 8.5 - 10.3 mg/dL [facility] Bilirubin, total 0.3 0.1 - 1.2 mg/dL [facility] Protein, pl 7.4 6.5 - 8.5 g/dL [facility] Albumin 4.2 3.5 - 5.0 g/dL [facility] Alk phos 170(H) 40 - 130 Units/L [facility] ALT 19 7 - 45 Units/L [facility] AST 25 10 - 45 Units/L [facility] Blood 05/11/2025 11:3 5 AM CDT 05/11/2025 3:08 PM CDT us Nikolas Reno MD LAB BLOOD ORDERAB LES Final Result Performing Organization Address [facility]/ZIP Co de Phone Number [facility] [place] [address] * Creatine kinase (CK), total (05/07/2025 10:20 AM CDT) CK 132 30 - 200 Units/L Blood 05/07/2025 10:2 0 AM CDT 05/07/2025 1:28 PM CDT us Notinfile Unknown LAB BLOOD ORDERABLES Final Res ult Performing Organization Address City/[facility]/ZIP Co de Phone Number [facility] Department [place] [address] * XR Knee Right 1 or 2 Views (05/04/2025 12:02 PM CDT) Anatomical Region Laterality Modality Lower Extremities, Knee Right Computed Radiography 05/04/2025 12:3 9 PM CDT Impressions 05/04/2025 12:39 PM CDT Unchanged right knee arthroplasty explantation with antibiotic cement spacer. Electronically signed by: Mervin Aaron M.D. Narrative 05/04/2025 12:39 PM CDT EXAMINATION: XR KNEE RIGHT 1 OR 2 VIEWS HISTORY: Right knee arthroplasty FINDINGS: 2 views of the right knee were performed. 01/02/2025. Right knee arthroplasty explantation and antibiotic cement spacer is redemonstrated. There is no significant effusion. There is no new periprosthetic lucency. There is no periprosthetic fracture. Procedure Note Mervin Aaron MD PhD - 05/04/2025 EXAMINATION: XR KNEE RIGHT 1 OR 2 VIEWS HISTORY: Right knee arthroplasty FINDINGS: 2 views of the right knee were performed. 01/02/2025. Right knee arthroplasty explantation and antibiotic cement spacer is redemonstrated. There is no significant effusion. There is no new periprosthetic lucency. There is no periprosthetic fracture. IMPRESSION: Unchanged right knee arthroplasty explantation with antibiotic cement spacer. Electronically signed by: Mervin Aaron M.D. Nancy Valadez NP IMG XR PROCEDURES Final R esult * eGFR (05/04/2025 8:45 AM CDT) eGFR 70 >=60 mL/min/1. 73 m2 Comment: Interpretive Data Reference Interval Normal >/= 90 mL/min/1.73m2 Mildly decreased* 60 - 89 mL/min/1.73m2 Mildly to moderately decreased 45 - 59 mL/min/1.73m2 Moderately to severely decreased 30 - 44 mL/min/1.73m2 Severely decreased 15 - 29 mL/min/1.73m2 Kidney Failure < 15 mL/min/1.73m2 *Relative to young adult level Estimated glomerular filtration rate is determined by the 2020 CKD-EPI equation recommended by the National Kidney Foundation (A Unifying Approach to GFR Estimation: Recommendations of the NKF-ASK Task Force on Reassessing the Inclusion of Race in Diagnosing Kidney Disease, JASN 202). The CKD-EPI equation should not be used for patients with unstable renal function and has not been validated in children and those over 70. Current interpretive data was last reviewed 2021. Blood 05/04/2025 8:45 AM CDT 05/04/2025 12:21 PM CDT us Nikolas Reno MD LAB BLOOD ORDERAB LES Final Result [facility] Department [place] [address] * Differential, auto (05/04/2025 8:45 AM CDT) Neutrophil abs 5.83 1.50 - 6.50 K/cumm Imm gran abs 0.03 0.00 - 0.10 K/cumm [facility] Lymphocyte abs 2.27 0.80 - 3.30 K/cumm [facility] Monocyte abs 0.60 0.20 - 0.80 K/cumm [facility] Eosinophil abs 0.34 0.00 - 0.50 K/cumm [facility] Basophil abs 0.05 0.00 - 0.10 K/cumm [facility] Neutrophil pct 64.0 % [facility] Comment: Interpretive Data Percent cell count reference ranges are not reported, since discordance with absolute values may lead to misinterpretation of CBC data. Current Interpretive Data was last revised on 2017. Imm gran pct 0.3 % [facility] Comment: Interpretive Data Percent cell count reference ranges are not reported, since discordance with absolute values may lead to misinterpretation of CBC data. Current Interpretive Data was last revised on 2017. Lymphocyte pct 24.9 % [facility] Comment: Interpretive Data Percent cell count reference ranges are not reported, since discordance with absolute values may lead to misinterpretation of CBC data. Current Interpretive Data was last revised on 2017. Monocyte pct 6.6 % [facility] Comment: Interpretive Data Percent cell count reference ranges are not reported, since discordance with absolute values may lead to misinterpretation of CBC data. Current Interpretive Data was last revised on 2017. Eosinophil pct 3.7 % [facility] Comment: Interpretive Data Percent cell count reference ranges are not reported, since discordance with absolute values may lead to misinterpretation of CBC data. Current Interpretive Data was last revised on 2017. Basophil pct 0.5 % [facility] Comment: Interpretive Data Percent cell count reference ranges are not reported, since discordance with absolute values may lead to misinterpretation of CBC data. Current Interpretive Data was last revised on 2017. Blood 05/04/2025 8:45 AM CDT 05/04/2025 12:15 PM CDT us Nikolas Reno MD LAB BLOOD ORDERAB LES Final Result [facility] Department [place] [address] * (ABNORMAL) CBC with auto differential (05/04/2025 8:45 AM CDT) WBC 9.12 3.80 - 9.90 K/cumm Hgb 10.4(L) 11.9 - 15.5 g/dL [facility] Hct 34.6(L) 35.6 - 45.5 % [facility] Plt 358 150 - 400 K/cumm [facility] MPV 10.2 9.1 - 12.3 fL [facility] RBC 4.34 3.90 - 5.20 M/cumm [facility] MCV 79.7(L) 81.3 - 96.4 fL [facility] MCH 24.0(L) 27.1 - 33.3 pg [facility] MCHC 30.1(L) 32.3 - 35.7 g/dL [facility] RDW CV 18.0(H) 11.1 - 14.9 % [facility] RDW SD 52.2(H) 35.7 - 48.1 fL [facility] NRBC abs 0.00 0.00 - 0.01 K/cumm [facility] Blood 05/04/2025 8:45 AM CDT 05/04/2025 12:15 PM CDT Nikolas Reno MD LAB BLOOD ORDERAB LES Final Result Performing Organization Address City/[facility]/ZIP Co de Phone Number [facility] [place] [address] * (ABNORMAL) Erythrocyte sedimentation rate (05/04/2025 8:45 AM CDT) Erythrocyte sedimentation rate 35(H) 1 - 30 mm/hr Blood 05/04/2025 8:45 AM CDT 05/04/2025 12:15 PM CDT Nikolas Reno MD LAB BLOOD ORDERAB LES Final Result Performing Organization Address City/[facility] Co de Phone Number [facility] [place] [address] * (ABNORMAL) CRP (acute phase) (05/04/2025 8:45 AM CDT) CRP 33.1(H) <=10.0 mg/L Blood 05/04/2025 8:45 AM CDT 05/04/2025 12:14 PM CDT Nikolas Reno MD LAB BLOOD ORDERAB LES Final Result [facility] [place] [address] * Creatine kinase (CK), total (05/04/2025 8:45 AM CDT) CK 161 30 - 200 Units/L Blood 05/04/2025 8:45 AM CDT 05/04/2025 12:14 PM CDT us Nikolas Reno MD LAB BLOOD ORDERAB LES Final Result [facility] Department [place] [address] * (ABNORMAL) Comprehensive metabolic panel (05/04/2025 8:45 AM CDT) Sodium 140 135 - 145 mmol/L Potassium, pl 3.0(L) 3.3 - 4.9 mmol/L [facility] Chloride 99 97 - 110 mmol/L [facility] CO2 29 22 - 32 mmol/L [facility] Anion gap 12 2 - 15 mmol/L [facility] BUN 14 6 - 25 mg/dL [facility] Creatinine 0.89 0.60 - 1.10 mg/dL [facility] Glucose 119 70 - 199 mg/dL [facility] Comment: Interpretive Data Fasting glucose >/= 126 mg/dl is diagnostic for diabetes. Fasting is defined as no caloric intake for at least 8 hours. Fasting glucose between 100 mg/dl to 125 mg/dl is diagnostic of prediabetes. In a patient with classic symptoms of hyperglycemia or hyperglycemic crisis, a random glucose >/= 200 mg/dl is diagnostic for diabetes. In the absence of unequivocal hyperglycemia, results should be confirmed by repeat testing. The classification and Diagnosis of Diabetes Diabetes Care 2021; 46: S19-S40. Current interpretive data was last revised 2022. Calcium 9.7 8.5 - 10.3 mg/dL [facility] Bilirubin, total 0.3 0.1 - 1.2 mg/dL [facility] Protein, pl 7.2 6.5 - 8.5 g/dL [facility] Albumin 3.8 3.5 - 5.0 g/dL [facility] Alk phos 187(H) 40 - 130 Units/L [facility] ALT 35 7 - 45 Units/L [facility] AST 30 10 - 45 Units/L [facility] Blood 05/04/2025 8:45 AM CDT 05/04/2025 12:14 PM CDT Nikolas Reno MD LAB BLOOD ORDERAB LES Final Result [facility] [place] [address] * Creatine kinase (CK), total (04/30/2025 2:02 PM CDT) CK 150 30 - 200 Units/L Blood 04/30/2025 2:02 PM CDT 04/30/2025 7:25 PM CDT Nikolas Reno MD LAB BLOOD ORDERAB LES Final Result Performing Organization Address City/[facility] Co de Phone Number [facility] [place] [address] * eGFR (04/27/2025 3:43 PM CDT) Pathologist [facility] eGFR 83 >=60 mL/min/1. 73 m2 Comment: Interpretive Data Reference Interval Normal >/= 90 mL/min/1.73m2 Mildly decreased* 60 - 89 mL/min/1.73m2 Mildly to moderately decreased 45 - 59 mL/min/1.73m2 Moderately to severely decreased 30 - 44 mL/min/1.73m2 Severely decreased 15 - 29 mL/min/1.73m2 Kidney Failure < 15 mL/min/1.73m2 *Relative to young adult level Estimated glomerular filtration rate is determined by the 2020 CKD-EPI equation recommended by the National Kidney Foundation (A Unifying Approach to GFR Estimation: Recommendations of the NKF-ASK Task Force on Reassessing the Inclusion of Race in Diagnosing Kidney Disease, JASN 2020). The CKD-EPI equation should not be used for patients with unstable renal function and has not been validated in children and those over 70. Current interpretive data was last reviewed 2021. Blood 04/27/2025 3:43 PM CDT 04/27/2025 8:44 PM CDT Nikolas Reno MD LAB BLOOD ORDERAB LES Final Result [facility] Department [place] [address] * Differential, auto (04/27/2025 3:43 PM CDT) Neutrophil abs 4.29 1.50 - 6.50 K/cumm Imm gran abs 0.05 0.00 - 0.10 K/cumm [facility] Lymphocyte abs 2.33 0.80 - 3.30 K/cumm [facility] Monocyte abs 0.72 0.20 - 0.80 K/cumm [facility] Eosinophil abs 0.47 0.00 - 0.50 K/cumm [facility] Basophil abs 0.04 0.00 - 0.10 K/cumm [facility] Neutrophil pct 54.4 % [facility] Comment: Interpretive Data Percent cell count reference ranges are not reported, since discordance with absolute values may lead to misinterpretation of CBC data. Current Interpretive Data was last revised on 2017. Imm gran pct 0.6 % [facility] Comment: Interpretive Data Percent cell count reference ranges are not reported, since discordance with absolute values may lead to misinterpretation of CBC data. Current Interpretive Data was last revised on 2017. Lymphocyte pct 29.5 % [facility] Comment: Interpretive Data Percent cell count reference ranges are not reported, since discordance with absolute values may lead to misinterpretation of CBC data. Current Interpretive Data was last revised on 2017. Monocyte pct 9.1 % [facility] Comment: Interpretive Data Percent cell count reference ranges are not reported, since discordance with absolute values may lead to misinterpretation of CBC data. Current Interpretive Data was last revised on 2017. Eosinophil pct 5.9 % [facility] Comment: Interpretive Data Percent cell count reference ranges are not reported, since discordance with absolute values may lead to misinterpretation of CBC data. Current Interpretive Data was last revised on 2017. Basophil pct 0.5 % [facility] Comment: Interpretive Data Percent cell count reference ranges are not reported, since discordance with absolute values may lead to misinterpretation of CBC data. Current Interpretive Data was last revised on 2017. Blood 04/27/2025 3:43 PM CDT 04/27/2025 8:27 PM CDT Nikolas Reno MD LAB BLOOD ORDERAB LES Final Result [facility] Department [place] [address] * (ABNORMAL) CBC with auto differential (04/27/2025 3:43 PM CDT) WBC 7.90 3.80 - 9.90 K/cumm Hgb 9.7(L) 11.9 - 15.5 g/dL [facility] Hct 31.9(L) 35.6 - 45.5 % [facility] Plt 315 150 - 400 K/cumm [facility] MPV 10.7 9.1 - 12.3 fL [facility] RBC 3.96 3.90 - 5.20 M/cumm [facility] MCV 80.6(L) 81.3 - 96.4 fL [facility] MCH 24.5(L) 27.1 - 33.3 pg [facility] MCHC 30.4(L) 32.3 - 35.7 g/dL [facility] RDW CV 17.9(H) 11.1 - 14.9 % [facility] RDW SD 52.8(H) 35.7 - 48.1 fL [facility] NRBC abs 0.00 0.00 - 0.01 K/cumm [facility] Blood 04/27/2025 3:43 PM CDT 04/27/2025 8:27 PM CDT Nikolas Reno MD LAB BLOOD ORDERAB LES Final Result [facility] [place] [address] * Creatine kinase (CK), total (04/27/2025 3:43 PM CDT) [facility] CK 190 30 - 200 Units/L Blood 04/27/2025 3:43 PM CDT 04/27/2025 8:26 PM CDT Nikolas Reno MD LAB BLOOD ORDERAB LES Final Result Performing Organization Address [facility] Co de Phone Number [facility] [place] [address] * (ABNORMAL) Comprehensive metabolic panel (04/27/2025 3:43 PM CDT) [facility] Sodium 139 135 - 145 mmol/L Potassium, pl 3.4 3.3 - 4.9 mmol/L [facility] Chloride 96(L) 97 - 110 mmol/L [facility] CO2 32 22 - 32 mmol/L [facility] Anion gap 11 2 - 15 mmol/L [facility] BUN 14 6 - 25 mg/dL [facility] Creatinine 0.77 0.60 - 1.10 mg/dL [facility] Glucose 80 70 - 199 mg/dL [facility] Comment: Interpretive Data Fasting glucose >/= 126 mg/dl is diagnostic for diabetes. Fasting is defined as no caloric intake for at least 8 hours. Fasting glucose between 100 mg/dl to 125 mg/dl is diagnostic of prediabetes. In a patient with classic symptoms of hyperglycemia or hyperglycemic crisis, a random glucose >/= 200 mg/dl is diagnostic for diabetes. In the absence of unequivocal hyperglycemia, results should be confirmed by repeat testing. The classification and Diagnosis of Diabetes Diabetes Care 2021; 46: S19-S40. Current interpretive data was last revised 2022. Calcium 9.3 8.5 - 10.3 mg/dL [facility] Bilirubin, total 0.2 0.1 - 1.2 mg/dL [facility] Protein, pl 6.8 6.5 - 8.5 g/dL [facility] Albumin 3.5 3.5 - 5.0 g/dL [facility] Alk phos 156(H) 40 - 130 Units/L [facility] ALT 24 7 - 45 Units/L [facility] AST 37 10 - 45 Units/L [facility] Blood 04/27/2025 3:43 PM CDT 04/27/2025 8:26 PM CDT Nikolas Reno MD LAB BLOOD ORDERAB LES Final Result [facility] [place] [address] * (ABNORMAL) Creatine kinase (CK), total (04/23/2025 11:30 AM CDT) CK 377(H) 30 - 200 Units/L Blood 04/23/2025 11:3 0 AM CDT 04/23/2025 3:02 PM CDT Nikolas Reno MD LAB BLOOD ORDERAB LES Final Result Performing Organization Address [facility] Co de Phone Number [facility] [place] [address] * XR Knee Right 1 or 2 Views (04/20/2025 1:58 PM CDT) Anatomical Region Laterality Modality Lower Extremities, Knee Right Computed Radiography 04/20/2025 2:48 PM CDT Impressions 04/20/2025 2:48 PM CDT Unchanged right total knee arthroplasty explant with spacer placement in expected position. Electronically signed by: Nasir Rodriguez M.D. Narrative 04/20/2025 2:48 PM CDT XR KNEE RIGHT 1 OR 2 VIEWS HISTORY: Knee arthroplasty. FINDINGS: 2 views of the right knee are obtained and compared with 04/08/2025. There is redemonstrated right total knee arthroplasty explant with temporary cement spacer placement and intramedullary dowels. Components are in expected position. There is no periprosthetic fracture. Moderate joint effusion. Procedure Note Nasir Rodriguez MD - 04/20/2025 XR KNEE RIGHT 1 OR 2 VIEWS HISTORY: Knee arthroplasty. FINDINGS: 2 views of the right knee are obtained and compared with 04/08/2025. There is redemonstrated right total knee arthroplasty explant with temporary cement spacer placement and intramedullary dowels. Components are in expected position. There is no periprosthetic fracture. Moderate joint effusion. IMPRESSION: Unchanged right total knee arthroplasty explant with spacer placement in expected position. Electronically signed by: Nasir Rodriguez M.D. Nancy Valadez GAUGE CONTROLLER IMG XR PROCEDURES Final R esult * eGFR (04/20/2025 11:30 AM CDT) eGFR 80 >=60 mL/min/1. 73 m2 Comment: Interpretive Data Reference Interval Normal >/= 90 mL/min/1.73m2 Mildly decreased* 60 - 89 mL/min/1.73m2 Mildly to moderately decreased 45 - 59 mL/min/1.73m2 Moderately to severely decreased 30 - 44 mL/min/1.73m2 Severely decreased 15 - 29 mL/min/1.73m2 Kidney Failure < 15 mL/min/1.73m2 *Relative to young adult level Estimated glomerular filtration rate is determined by the 2020 CKD-EPI equation recommended by the National Kidney Foundation (A Unifying Approach to GFR Estimation: Recommendations of the NKF-ASK Task Force on Reassessing the Inclusion of Race in Diagnosing Kidney Disease, JASN 202). The CKD-EPI equation should not be used for patients with unstable renal function and has not been validated in children and those over 70. Current interpretive data was last reviewed 2021. Blood 04/20/2025 11:3 0 AM CDT 04/20/2025 6:33 PM CDT Nikolas Reno MD LAB BLOOD ORDERAB LES Final Result [facility] Department [place] [address] * Differential, auto (04/20/2025 11:30 AM CDT) Neutrophil abs 5.17 1.50 - 6.50 K/cumm Imm gran abs 0.01 0.00 - 0.10 K/cumm [facility] Lymphocyte abs 1.64 0.80 - 3.30 K/cumm [facility] Monocyte abs 0.42 0.20 - 0.80 K/cumm [facility] Eosinophil abs 0.42 0.00 - 0.50 K/cumm [facility] Basophil abs 0.05 0.00 - 0.10 K/cumm [facility] Neutrophil pct 67.2 % [facility] Comment: Interpretive Data Percent cell count reference ranges are not reported, since discordance with absolute values may lead to misinterpretation of CBC data. Current Interpretive Data was last revised on 2017. Imm gran pct 0.1 % [facility] Comment: Interpretive Data Percent cell count reference ranges are not reported, since discordance with absolute values may lead to misinterpretation of CBC data. Current Interpretive Data was last revised on 2017. Lymphocyte pct 21.3 % [facility] Comment: Interpretive Data Percent cell count reference ranges are not reported, since discordance with absolute values may lead to misinterpretation of CBC data. Current Interpretive Data was last revised on 2017. Monocyte pct 5.4 % [facility] Comment: Interpretive Data Percent cell count reference ranges are not reported, since discordance with absolute values may lead to misinterpretation of CBC data. Current Interpretive Data was last revised on 2017. Eosinophil pct 5.4 % [facility] Comment: Interpretive Data Percent cell count reference ranges are not reported, since discordance with absolute values may lead to misinterpretation of CBC data. Current Interpretive Data was last revised on 2017. Basophil pct 0.6 % [facility] Comment: Interpretive Data Percent cell count reference ranges are not reported, since discordance with absolute values may lead to misinterpretation of CBC data. Current Interpretive Data was last revised on 2017. Blood 04/20/2025 11:3 0 AM CDT 04/20/2025 6:00 PM CDT Nikolas Reno MD LAB BLOOD ORDERAB LES Final Result Performing Organization Address [facility] Co de Phone Number [facility] [place] [address] * (ABNORMAL) CBC with auto differential (04/20/2025 11:30 AM CDT) WBC 7.71 3.80 - 9.90 K/cumm Hgb 10.1(L) 11.9 - 15.5 g/dL [facility] Hct 35.0(L) 35.6 - 45.5 % [facility] Plt 291 150 - 400 K/cumm [facility] MPV 10.1 9.1 - 12.3 fL [facility] RBC 4.16 3.90 - 5.20 M/cumm [facility] MCV 84.1 81.3 - 96.4 fL [facility] MCH 24.3(L) 27.1 - 33.3 pg [facility] MCHC 28.9(L) 32.3 - 35.7 g/dL [facility] RDW CV 18.6(H) 11.1 - 14.9 % [facility] RDW SD 57.3(H) 35.7 - 48.1 fL [facility] NRBC abs 0.00 0.00 - 0.01 K/cumm [facility] Blood 04/20/2025 11:3 0 AM CDT 04/20/2025 6:00 PM CDT Nikolas Reno MD LAB BLOOD ORDERAB LES Final Result Performing Organization Address [facility]/ZIP Co de Phone Number [facility] [place] [address] * (ABNORMAL) Creatine kinase (CK), total (04/20/2025 11:30 AM CDT) CK 219(H) 30 - 200 Units/L Blood 04/20/2025 11:3 0 AM CDT 04/20/2025 6:00 PM CDT Nikolas Reno MD LAB BLOOD ORDERAB LES Final Result [facility] Department [place] [address] * (ABNORMAL) Comprehensive metabolic panel (04/20/2025 11:30 AM CDT) Pathologist [facility] Sodium 141 135 - 145 mmol/L Potassium, pl See Comment 3.3 - 4.9 mmol/L [facility] Comment: Reviewed Credited: Specimen too old Chloride 92(L) 97 - 110 mmol/L [facility] CO2 See Comment 22 - 32 mmol/L [facility] Comment:Credited: Specimen t oo old Anion gap See Comment 2 - 15 mmol/L [facility] Comment:Unable to calculate exact result. BUN 15 6 - 25 mg/dL [facility] Creatinine 0.80 0.60 - 1.10 mg/dL [facility] Glucose See Comment 70 - 199 mg/dL [facility] Comment: Credited: Specimen too old Interpretive Data Fasting glucose >/= 126 mg/dl is diagnostic for diabetes. Fasting is defined as no caloric intake for at least 8 hours. Fasting glucose between 100 mg/dl to 125 mg/dl is diagnostic of prediabetes. In a patient with classic symptoms of hyperglycemia or hyperglycemic crisis, a random glucose >/= 200 mg/dl is diagnostic for diabetes. In the absence of unequivocal hyperglycemia, results should be confirmed by repeat testing. The classification and Diagnosis of Diabetes Diabetes Care 2021; 46: S19-S40. Current interpretive data was last revised 2022. Calcium 9.5 8.5 - 10.3 mg/dL [facility] Bilirubin, total See Comment 0.1 - 1.2 mg/dL [facility] Comment:Credited: Specimen t oo old Protein, pl 7.4 6.5 - 8.5 g/dL [facility] Albumin 3.7 3.5 - 5.0 g/dL [facility] Alk phos 159(H) 40 - 130 Units/L [facility] ALT 20 7 - 45 Units/L [facility] AST 26 10 - 45 Units/L [facility] Blood 04/20/2025 11:3 0 AM CDT 04/20/2025 6:00 PM CDT Nikolas Reno MD LAB BLOOD ORDERAB LES Edited Result - Final [facility] [place] [address] * Creatine kinase (CK), total (04/17/2025 12:47 PM CDT) Pathologist [facility] CK 127 30 - 200 Units/L Blood 04/17/2025 12:4 7 PM CDT 04/17/2025 4:02 PM CDT Nikolas Reno MD LAB BLOOD ORDERAB LES Final Result [facility] Department [place] [address] * Glucose, random (Outreach) (04/13/2025 2:15 PM CDT) Glucose 89 70 - 199 mg/dL Comment: Interpretive Data Fasting glucose >/= 126 mg/dl is diagnostic for diabetes. Fasting is defined as no caloric intake for at least 8 hours. Fasting glucose between 100 mg/dl to 125 mg/dl is diagnostic of prediabetes. In a patient with classic symptoms of hyperglycemia or hyperglycemic crisis, a random glucose >/= 200 mg/dl is diagnostic for diabetes. In the absence of unequivocal hyperglycemia, results should be confirmed by repeat testing. The classification and Diagnosis of Diabetes Diabetes Care 202; 46: S19-S40. Current interpretive data was last revised 2022. Blood 04/13/2025 2:15 PM CDT 04/13/2025 6:47 PM CDT Nikolas Reno MD LAB BLOOD ORDERAB LES Final Result Performing Organization Address City/[facility] Co de Phone Number [facility] [place] [address] * eGFR (04/13/2025 2:15 PM CDT) eGFR 89 >=60 mL/min/1. 73 m2 Comment: Interpretive Data Reference Interval Normal >/= 90 mL/min/1.73m2 Mildly decreased* 60 - 89 mL/min/1.73m2 Mildly to moderately decreased 45 - 59 mL/min/1.73m2 Moderately to severely decreased 30 - 44 mL/min/1.73m2 Severely decreased 15 - 29 mL/min/1.73m2 Kidney Failure < 15 mL/min/1.73m2 *Relative to young adult level Estimated glomerular filtration rate is determined by the 2020 CKD-EPI equation recommended by the National Kidney Foundation (A Unifying Approach to GFR Estimation: Recommendations of the NKF-ASK Task Force on Reassessing the Inclusion of Race in Diagnosing Kidney Disease, JASN 2020). The CKD-EPI equation should not be used for patients with unstable renal function and has not been validated in children and those over 70. Current interpretive data was last reviewed 2021. Blood 04/13/2025 2:15 PM CDT 04/13/2025 6:47 PM CDT Nikolas Reno MD LAB BLOOD ORDERAB LES Final Result Performing Organization Address City/[facility]/ZIP Co de Phone Number [facility] [place] [address] * (ABNORMAL) Differential, auto (04/13/2025 2:15 PM CDT) Neutrophil abs 6.43 1.50 - 6.50 K/cumm Imm gran abs 0.06 0.00 - 0.10 K/cumm [facility] Lymphocyte abs 2.85 0.80 - 3.30 K/cumm [facility] Monocyte abs 0.99(H) 0.20 - 0.80 K/cumm [facility] Eosinophil abs 0.26 0.00 - 0.50 K/cumm [facility] Basophil abs 0.05 0.00 - 0.10 K/cumm [facility] Neutrophil pct 60.4 % [facility] Comment: Interpretive Data Percent cell count reference ranges are not reported, since discordance with absolute values may lead to misinterpretation of CBC data. Current Interpretive Data was last revised on 2017. Imm gran pct 0.6 % [facility] Comment: Interpretive Data Percent cell count reference ranges are not reported, since discordance with absolute values may lead to misinterpretation of CBC data. Current Interpretive Data was last revised on 2017. Lymphocyte pct 26.8 % [facility] Comment: Interpretive Data Percent cell count reference ranges are not reported, since discordance with absolute values may lead to misinterpretation of CBC data. Current Interpretive Data was last revised on 2017. Monocyte pct 9.3 % [facility] Comment: Interpretive Data Percent cell count reference ranges are not reported, since discordance with absolute values may lead to misinterpretation of CBC data. Current Interpretive Data was last revised on 2017. Eosinophil pct 2.4 % [facility] Comment: Interpretive Data Percent cell count reference ranges are not reported, since discordance with absolute values may lead to misinterpretation of CBC data. Current Interpretive Data was last revised on 2017. Basophil pct 0.5 % [facility] Comment: Interpretive Data Percent cell count reference ranges are not reported, since discordance with absolute values may lead to misinterpretation of CBC data. Current Interpretive Data was last revised on 2017. Blood 04/13/2025 2:15 PM CDT 04/13/2025 6:48 PM CDT us Nikolas Reno MD LAB BLOOD ORDERAB LES Final Result [facility] Department [place] [address] * (ABNORMAL) Comprehensive metabolic panel, without glucose (Outreach) (04/13/2025 2:15 PM CDT) [facility] Sodium 137 135 - 145 mmol/L Potassium, pl 4.2 3.3 - 4.9 mmol/L [facility] Chloride 97 97 - 110 mmol/L [facility] CO2 29 22 - 32 mmol/L [facility] Anion gap 11 2 - 15 mmol/L [facility] BUN 18 6 - 25 mg/dL [facility] Creatinine 0.73 0.60 - 1.10 mg/dL [facility] Calcium 9.4 8.5 - 10.3 mg/dL [facility] Protein, pl 7.4 6.5 - 8.5 g/dL [facility] Albumin 3.8 3.5 - 5.0 g/dL [facility] Bilirubin, total 0.2 0.1 - 1.2 mg/dL [facility] Alk phos 155(H) 40 - 130 Units/L [facility] AST 24 10 - 45 Units/L [facility] ALT 20 7 - 45 Units/L [facility] Blood 04/13/2025 2:15 PM CDT 04/13/2025 6:47 PM CDT Nikolas Reno MD LAB BLOOD ORDERAB LES Final Result Performing Organization Address [facility]/ZIP Co de Phone Number [facility] [place] [address] * (ABNORMAL) CBC with auto differential (04/13/2025 2:15 PM CDT) [facility] WBC 10.64(H) 3.80 - 9.90 K/cumm Hgb 10.6(L) 11.9 - 15.5 g/dL [facility] Hct 34.9(L) 35.6 - 45.5 % [facility] Plt 386 150 - 400 K/cumm [facility] MPV 9.2 9.1 - 12.3 fL [facility] RBC 4.28 3.90 - 5.20 M/cumm [facility] MCV 81.5 81.3 - 96.4 fL [facility] MCH 24.8(L) 27.1 - 33.3 pg [facility] MCHC 30.4(L) 32.3 - 35.7 g/dL [facility] RDW CV 19.7(H) 11.1 - 14.9 % [facility] RDW SD 58.6(H) 35.7 - 48.1 fL [facility] NRBC abs 0.00 0.00 - 0.01 K/cumm [facility] Blood 04/13/2025 2:15 PM CDT 04/13/2025 6:48 PM CDT Nikolas Reno MD LAB BLOOD ORDERAB LES Final Result Performing Organization Address City/[facility]/ZIP Co de Phone Number [facility] [place] [address] * Erythrocyte sedimentation rate (04/13/2025 2:15 PM CDT) Pathologist [facility] Erythrocyte sedimentation rate 27 1 - 30 mm/hr Blood 04/13/2025 2:15 PM CDT 04/13/2025 6:48 PM CDT Nikolas Reno MD LAB BLOOD ORDERAB LES Final Result [facility] [address] * (ABNORMAL) CRP (acute phase) (04/13/2025 2:15 PM CDT) Pathologist [facility] CRP 37.4(H) <=10.0 mg/L Blood 04/13/2025 2:15 PM CDT 04/13/2025 6:47 PM CDT Nikolas Reno MD LAB BLOOD ORDERAB LES Final Result Performing Organization Address [facility] Co de Phone Number [facility] [place] [address] * Creatine kinase (CK), total (04/13/2025 2:15 PM CDT) CK 85 30 - 200 Units/L Blood 04/13/2025 2:15 PM CDT 04/13/2025 6:47 PM CDT Nikolas Reno MD LAB BLOOD ORDERAB LES Final Result Performing Organization Address [facility] Co de Phone Number [facility] [place] [address] * (ABNORMAL) Hemoglobin and hematocrit (04/10/2025 2:15 PM CDT) Hgb 10.0(L) 11.9 - 15.5 g/dL Comment:Hemoglobin delta due to apparent blood transfusion. Hct 31.8(L) 35.6 - 45.5 % [facility] Blood 04/10/2025 2:15 PM CDT 04/10/2025 2:41 PM CDT Narrative [facility] - 04/10/2025 2:52 PM CDT 1 hour after the red blood cell transfusion is complete. us Sigrid Olivarez NP LAB BLOOD ORDERABLES Final Re sult Performing Organization Address [facility] Co de Phone Number [facility] [place] [address] * Transfuse RBC (04/10/2025 2:09 PM CDT) Blood Wilder Butterfield MD BLOOD TRANSFUSION ORDERABLES Fin al Result Performing Organization Address City/[facility]/ZIP [place] [address] * Transfuse RBC (04/10/2025 10:18 AM CDT) Blood Wilder Butterfield MD BLOOD TRANSFUSION ORDERABLES Fin al Result Performing Organization Address City/[facility] [place] [address] * Type and screen (04/10/2025 3:11 AM CDT) ABO Rh B Positive Danyell, indirect Negative [facility] Blood 04/10/2025 3:11 AM CDT 04/10/2025 3:33 AM CDT Narrative [facility] - 04/10/2025 4:20 AM CDT Has the patient had Daratumumab or Isatuximab in the past 6 months?->Unknown Wilder Butterfield MD LAB BLOOD BANK TEST ORDERABLES F inal Result Performing Organization Address City/[facility] [place] [address] * Prepare RBC: 2 Units (04/10/2025 2:52 AM CDT) Product code [id number] Unit Number [id number] [facility] Product Blood Type BNEG [facility] Dispense Status PRESUMED TRANSFUSED [facility] Product code [id number] [facility] Unit Number [id number] [facility] Product Blood Type BPOS [facility] Dispense Status PRESUMED TRANSFUSED [facility] Blood 04/10/2025 2:52 AM CDT 04/10/2025 2:52 AM CDT Narrative [facility] - 04/11/2025 12:56 AM CDT Are special requirements needed? (All products are leukoreduced and CMV- safe)- >No Date required:-[id number] [facility] # of [id number] Reasons:-Hgb <7 g/dL} Wilder Butterfield MD BLOOD BANK PRODUCT ORDERABLES Fi nal Result Performing Organization Address City/[facility] Co de Phone Number [facility] Department [place] [address] * eGFR (04/10/2025 12:24 AM CDT) eGFR 76 >=60 mL/min/1. 73 m2 Comment: Interpretive Data Reference Interval Normal >/= 90 mL/min/1.73m2 Mildly decreased* 60 - 89 mL/min/1.73m2 Mildly to moderately decreased 45 - 59 mL/min/1.73m2 Moderately to severely decreased 30 - 44 mL/min/1.73m2 Severely decreased 15 - 29 mL/min/1.73m2 Kidney Failure < 15 mL/min/1.73m2 *Relative to young adult level Estimated glomerular filtration rate is determined by the 2020 CKD-EPI equation recommended by the National Kidney Foundation (A Unifying Approach to GFR Estimation: Recommendations of the NKF-ASK Task Force on Reassessing the Inclusion of Race in Diagnosing Kidney Disease, JASN 2020). The CKD-EPI equation should not be used for patients with unstable renal function and has not been validated in children and those over 70. Current interpretive data was last reviewed 2021. Blood 04/10/2025 12:2 4 AM CDT 04/10/2025 1:39 AM CDT Wilder Butterfield MD LAB BLOOD ORDERABLES Final Resul t Performing Organization Address City/[facility]/ZIP Co de Phone Number [facility] Department [place] [address] * (ABNORMAL) CBC without differential (04/10/2025 12:24 AM CDT) WBC 11.07(H) 3.80 - 9.90 K/cumm Hgb 6.6(L) 11.9 - 15.5 g/dL [facility] Hct 21.3(L) 35.6 - 45.5 % [facility] Plt 389 150 - 400 K/cumm [facility] MPV 9.5 9.1 - 12.3 fL [facility] RBC 2.68(L) 3.90 - 5.20 M/cumm [facility] MCV 79.5(L) 81.3 - 96.4 fL [facility] MCH 24.6(L) 27.1 - 33.3 pg [facility] MCHC 31.0(L) 32.3 - 35.7 g/dL [facility] RDW CV 19.8(H) 11.1 - 14.9 % [facility] RDW SD 57.5(H) 35.7 - 48.1 fL [facility] NRBC abs 0.00 0.00 - 0.01 K/cumm [facility] Blood 04/10/2025 12:2 4 AM CDT 04/10/2025 1:40 AM CDT us Wilder Butterfield MD LAB BLOOD ORDERABLES Final Resul t [facility] [place] [address] * (ABNORMAL) Basic metabolic panel (04/10/2025 12:24 AM CDT) Sodium 138 135 - 145 mmol/L Potassium, pl 4.5 3.3 - 4.9 mmol/L [facility] Chloride 103 97 - 110 mmol/L [facility] CO2 28 22 - 32 mmol/L [facility] Anion gap 7 2 - 15 mmol/L [facility] BUN 26(H) 6 - 25 mg/dL [facility] Creatinine 0.83 0.60 - 1.10 mg/dL [facility] Glucose 100 70 - 199 mg/dL [facility] Comment: Interpretive Data Fasting glucose >/= 126 mg/dl is diagnostic for diabetes. Fasting is defined as no caloric intake for at least 8 hours. Fasting glucose between 100 mg/dl to 125 mg/dl is diagnostic of prediabetes. In a patient with classic symptoms of hyperglycemia or hyperglycemic crisis, a random glucose >/= 200 mg/dl is diagnostic for diabetes. In the absence of unequivocal hyperglycemia, results should be confirmed by repeat testing. The classification and Diagnosis of Diabetes Diabetes Care 2021; 46: S19-S40. Current interpretive data was last revised 2022. Calcium 8.5 8.5 - 10.3 mg/dL [facility] Blood 04/10/2025 12:2 4 AM CDT 04/10/2025 1:39 AM CDT us Wilder Butterfield MD LAB BLOOD ORDERABLES Final Resul t Performing Organization Address City/[facility]/ZIP Co de Phone Number [facility] [place] [address] * Creatine kinase (CK), total (04/09/2025 1:23 PM CDT) CK 120 30 - 200 Units/L Blood 04/09/2025 1:23 PM CDT 04/09/2025 1:35 PM CDT us Andreia Hamilton NP LAB BLOOD ORDERABLES Final Result Performing Organization Address [facility] Co de Phone Number [facility] [place] [address] * US Vein Duplex Lower Extremity Right Limited, Unilateral (04/09/2025 8:46 AM CDT) Anatomical Region Laterality Modality Vascular Right Ultrasound 04/09/2025 7:45 AM CDT Narrative 04/09/2025 11:52 PM CDT [facility] - Department of Vascular Surgery, Vascular Laboratory [address] [place] [id number] Lower Extremity Venous Ultrasound Report Patient Name: GAYLE DE LA CRUZ J : 1955 (70y 2m) Study Date: 04/09/2025 7:45:34 AM Sex: F Tech: DW Location: [id number] Ref Provider: WILDER BUTTERFIELD Quality: Adequate Order Provider: WILDER BUTTERFIELD PROCEDURES: Vascular Report: Venous Duplex imaging was performed bilaterally in the lower extremities. The common femoral, femoral, popliteal, posterior tibial, peroneal veins were evaluated for patency, spontaneity and phasicity with Doppler, compression and augmentation maneuvers. Great saphenous vein proximal at the junction was evaluated with compression maneuvers. INDICATIONS: Pain in leg, right; Swelling, Lower extremity, Right. FINDINGS: Performing Humidifier Attendant: Gayle Rubalcava RVT. Bilateral: Venous Doppler signals in the bilateral lower extremity are within normal limits for spontaneity and phasicity and respond normally to augmentation maneuvers. No evidence of deep vein thrombus by duplex, proximal to the calf. CONCLUSIONS: 1. There is no evidence of acute deep vein thrombosis in the lower extremities bilaterally. Noninvasive venous studies cannot rule out isolated calf vein obstruction. HISTORY: 03-31-2025: R. knee irrigation, explant articulating spacer & placement new spacer. History Bilateral TKA 2018. History wound drainage from R. TKA since 2022. Pt. states she had a blood clot [facility]. Obesity (243 lb.). Ring Surveillance: Silke ortiz precautions. PREVIOUS STUDIES: No previous studies for comparison. DISCLAIMER: The study images and the final report will be retained in the patient chart by the Vascular Laboratory for the legally required time period. This chart constitutes the legal record of any testing performed. ATTESTATION: I have reviewed and interpreted the pertinent images and measurements of this study. I attest to the conclusions in the final report that is provided above. Electronically Signed By: Jackson Gonzáles MD FACS 04/09/2025 10:38:18 PM CDT Procedure Note Jackson Gonzáles MD - 04/09/2025 [facility] - Department of Vascular Surgery,Vascular Laboratory [address] [place] [address] Lower Extremity Venous Ultrasound Report Patient Name: GAYLE DE LA CRUZ J : 1955 (70y 2m) Study Date: 04/09/2025 7:45:34 AM Sex: F Tech: Location: [id number] Ref Provider: WILDER BUTTERFIELD Quality: Adequate Order Provider: WILDER BUTTERFIELD PROCEDURES: Vascular Report: Venous Duplex imaging was performed bilaterally in the lower extremities.The common femoral, femoral, popliteal, posterior tibial, peroneal veins wereevaluated for patency, spontaneity and phasicity with Doppler, compression and augmentationmaneuvers. Great saphenous vein proximal at the junction was evaluated with compressionmaneuvers. INDICATIONS: Pain in leg, right; Swelling, Lower extremity, Right. FINDINGS: Performing Humidifier Attendant: Gayle Rubalcava RVT. Bilateral: Venous Doppler signals in the bilateral lower extremity are within normallimits for spontaneity and phasicity and respond normally to augmentation maneuvers.No evidence of deep vein thrombus by duplex, proximal to the calf. CONCLUSIONS: 1. There is no evidence of acute deep vein thrombosis in the lowerextremities bilaterally. Noninvasive venous studies cannot rule out isolated calf veinobstruction. HISTORY: 03-31-2025: R. knee irrigation, explant articulating spacer & placement newspacer. History Bilateral TKA 2019. History wound drainage from R. TKA since 2022.Pt. states she had a blood clot [facility]. Obesity (243 lb.). Ring Surveillance: C. auris precautions. PREVIOUS STUDIES: No previous studies for comparison. DISCLAIMER: The study images and the final report will be retained in the patientchart by the Vascular Laboratory for the legally required time period. This chartconstitutes the legal record of any testing performed. ATTESTATION: I have reviewed and interpreted the pertinent images and measurements ofthis study. I attest to the conclusions in the final report that is provided above. Electronically Signed By: Jackson Gonzáles MD [facility] 04/09/2025 10:38:18 PM CDT Wilder Butterfield MD [facility] PROCEDURES Final Result * Infection Prevention Clara auris PCR, surveillance Axilla/Groin (04/09/2025 12:37 AM CDT) Pathologist [facility] Clara auris DNA Not Detected Not Detected [facility] Comment: Interpretive Data Testing performed by [facility] Disease [facility] using the Scout paul 6800 Clara auris assay. This assay detects DNA from Clara auris using Real-Time PCR. This assay is laboratory developed and is not cleared by the [place] Food and Drug Administration. The performance characteristics have been verified by the [facility] Disease [facility]. Axilla/Groin 04/09/2025 12:3 7 AM CDT 04/09/2025 1:31 AM CDT Narrative [facility] - 04/09/2025 1:39 PM CDT Order placed by OPA due to ring surveillance. us Instant Order Generic Provider LAB MICROBIOLOGY - GENERAL ORDERABLES Final Result Performing Organization Address City/[facility] Co de Phone Number [facility] [place] [address] [facility] * eGFR (04/09/2025 12:37 AM CDT) eGFR 90 >=60 mL/min/1. 73 m2 Comment: Interpretive Data Reference Interval Normal >/= 90 mL/min/1.73m2 Mildly decreased* 60 - 89 mL/min/1.73m2 Mildly to moderately decreased 45 - 59 mL/min/1.73m2 Moderately to severely decreased 30 - 44 mL/min/1.73m2 Severely decreased 15 - 29 mL/min/1.73m2 Kidney Failure < 15 mL/min/1.73m2 *Relative to young adult level Estimated glomerular filtration rate is determined by the 2020 CKD-EPI equation recommended by the National Kidney Foundation (A Unifying Approach to GFR Estimation: Recommendations of the NKF-ASK Task Force on Reassessing the Inclusion of Race in Diagnosing Kidney Disease, JASN 2020). The CKD-EPI equation should not be used for patients with unstable renal function and has not been validated in children and those over 70. Current interpretive data was last reviewed 2021. Blood 04/09/2025 12:3 7 AM CDT 04/09/2025 1:03 AM CDT Wilder Butterfield MD LAB BLOOD ORDERABLES Final Resul t Performing Organization Address City/[facility]/ZIP Co de Phone Number [facility] [place] [address] * (ABNORMAL) CBC without differential (04/09/2025 12:37 AM CDT) Pathologist [facility] WBC 8.88 3.80 - 9.90 K/cumm Hgb 7.2(L) 11.9 - 15.5 g/dL [facility] Hct 22.7(L) 35.6 - 45.5 % [facility] Plt 347 150 - 400 K/cumm [facility] MPV 9.1 9.1 - 12.3 fL [facility] RBC 2.89(L) 3.90 - 5.20 M/cumm [facility] MCV 78.5(L) 81.3 - 96.4 fL [facility] MCH 24.9(L) 27.1 - 33.3 pg [facility] MCHC 31.7(L) 32.3 - 35.7 g/dL [facility] RDW CV 19.9(H) 11.1 - 14.9 % [facility] RDW SD 56.7(H) 35.7 - 48.1 fL [facility] NRBC abs 0.00 0.00 - 0.01 K/cumm [facility] Blood 04/09/2025 12:3 7 AM CDT 04/09/2025 1:03 AM CDT us Wilder Butterfield MD LAB BLOOD ORDERABLES Final Resul t [facility] Department [place] [address] * (ABNORMAL) Basic metabolic panel (04/09/2025 12:37 AM CDT) Sodium 137 135 - 145 mmol/L Potassium, pl 4.2 3.3 - 4.9 mmol/L [facility] Chloride 103 97 - 110 mmol/L [facility] CO2 27 22 - 32 mmol/L [facility] Anion gap 7 2 - 15 mmol/L [facility] BUN 27(H) 6 - 25 mg/dL [facility] Creatinine 0.72 0.60 - 1.10 mg/dL [facility] Glucose 103 70 - 199 mg/dL [facility] Comment: Interpretive Data Fasting glucose >/= 126 mg/dl is diagnostic for diabetes. Fasting is defined as no caloric intake for at least 8 hours. Fasting glucose between 100 mg/dl to 125 mg/dl is diagnostic of prediabetes. In a patient with classic symptoms of hyperglycemia or hyperglycemic crisis, a random glucose >/= 200 mg/dl is diagnostic for diabetes. In the absence of unequivocal hyperglycemia, results should be confirmed by repeat testing. The classification and Diagnosis of Diabetes Diabetes Care 2021; 46: S19-S40. Current interpretive data was last revised 2022. Calcium 8.5 8.5 - 10.3 mg/dL [facility] Blood 04/09/2025 12:3 7 AM CDT 04/09/2025 1:03 AM CDT us Wilder Butterfield MD LAB BLOOD ORDERABLES Final Resul t [facility] Department [place] [address] * XR Knee Right 1 or 2 Views (04/08/2025 1:32 PM CDT) Anatomical Region Laterality Modality Lower Extremities, Knee Right Digital Radiography 04/08/2025 4:01 PM CDT Impressions 04/08/2025 4:35 PM CDT 1. Right knee arthroplasty explantation with antibiotic cement spacer and intramedullary dowels. Dictated by: Lloyd Veliz M.D. The radiology attending physician has personally reviewed this study, and had reviewed and/or edited this written report and agrees with it. Electronically signed by: Nasir Rodriguez M.D. Narrative 04/08/2025 4:35 PM CDT EXAMINATION: XR KNEE RIGHT 1 OR 2 VIEWS HISTORY: Postoperative right knee pain. COMPARISON: 03/31/2025 FINDINGS: Right knee arthroplasty explantation with antibiotic cement spacer and intramedullary dowels. Partially resorbed antibiotic beads. Small joint effusion. Resolution of soft tissue gas. Residual diffuse soft tissue swelling. Removal of surgical drain. Wound vacuum in place. No acute fracture. Procedure Note Nasir Rodriguez MD - 04/08/2025 EXAMINATION: XR KNEE RIGHT 1 OR 2 VIEWS HISTORY: Postoperative right knee pain. COMPARISON: 03/31/2025 FINDINGS: Right knee arthroplasty explantation with antibiotic cement spacer and intramedullary dowels. Partially resorbed antibiotic beads. Small joint effusion. Resolution of soft tissue gas. Residual diffuse soft tissue swelling. Removal of surgical drain. Wound vacuum in place. No acute fracture. IMPRESSION: 1. Right knee arthroplasty explantation with antibiotic cement spacer and intramedullary dowels. Dictated by: Lloyd Veliz M.D. The radiology attending physician has personally reviewed this study, and had reviewed and/or edited this written report and agrees with it. Electronically signed by: Nasir Rodriguez M.D. us Christianne Escudero [employer] IMG XR PROCEDURES Final R esult * eGFR (04/07/2025 10:39 PM CDT) eGFR 90 >=60 mL/min/1. 73 m2 Comment: Interpretive Data Reference Interval Normal >/= 90 mL/min/1.73m2 Mildly decreased* 60 - 89 mL/min/1.73m2 Mildly to moderately decreased 45 - 59 mL/min/1.73m2 Moderately to severely decreased 30 - 44 mL/min/1.73m2 Severely decreased 15 - 29 mL/min/1.73m2 Kidney Failure < 15 mL/min/1.73m2 *Relative to young adult level Estimated glomerular filtration rate is determined by the 2020 CKD-EPI equation recommended by the National Kidney Foundation (A Unifying Approach to GFR Estimation: Recommendations of the NKF-ASK Task Force on Reassessing the Inclusion of Race in Diagnosing Kidney Disease, JASN 202). The CKD-EPI equation should not be used for patients with unstable renal function and has not been validated in children and those over 70. Current interpretive data was last reviewed 2021. Blood 04/07/2025 10:3 9 PM CDT 04/07/2025 11:26 PM CDT us Wilder Butterfield MD LAB BLOOD ORDERABLES Final Resul t [facility] Department of Laboratories [place], [place] [id number] * (ABNORMAL) CBC without differential (04/07/2025 10:39 PM CDT) Pathologist [facility] WBC 10.02(H) 3.80 - 9.90 K/cumm Hgb 7.3(L) 11.9 - 15.5 g/dL [facility] Hct 23.7(L) 35.6 - 45.5 % [facility] Plt 350 150 - 400 K/cumm [facility] MPV 9.5 9.1 - 12.3 fL [facility] RBC 2.98(L) 3.90 - 5.20 M/cumm [facility] MCV 79.5(L) 81.3 - 96.4 fL [facility] MCH 24.5(L) 27.1 - 33.3 pg [facility] MCHC 30.8(L) 32.3 - 35.7 g/dL [facility] RDW CV 20.0(H) 11.1 - 14.9 % [facility] RDW SD 58.4(H) 35.7 - 48.1 fL [facility] NRBC abs 0.00 0.00 - 0.01 K/cumm [facility] Blood 04/07/2025 10:3 9 PM CDT 04/07/2025 11:27 PM CDT us Wilder Butterfield MD LAB BLOOD ORDERABLES Final Resul t [facility] Department [place] [address] * (ABNORMAL) Basic metabolic panel (04/07/2025 10:39 PM CDT) Pathologist [facility] Sodium 136 135 - 145 mmol/L Potassium, pl 3.9 3.3 - 4.9 mmol/L [facility] Chloride 102 97 - 110 mmol/L [facility] CO2 26 22 - 32 mmol/L [facility] Anion gap 8 2 - 15 mmol/L [facility] BUN 27(H) 6 - 25 mg/dL [facility] Creatinine 0.72 0.60 - 1.10 mg/dL [facility] Glucose 130 70 - 199 mg/dL [facility] Comment: Interpretive Data Fasting glucose >/= 126 mg/dl is diagnostic for diabetes. Fasting is defined as no caloric intake for at least 8 hours. Fasting glucose between 100 mg/dl to 125 mg/dl is diagnostic of prediabetes. In a patient with classic symptoms of hyperglycemia or hyperglycemic crisis, a random glucose >/= 200 mg/dl is diagnostic for diabetes. In the absence of unequivocal hyperglycemia, results should be confirmed by repeat testing. The classification and Diagnosis of Diabetes Diabetes Care 202; 46: S19-S40. Current interpretive data was last revised 2022. Calcium 8.3(L) 8.5 - 10.3 mg/dL [facility] Blood 04/07/2025 10:3 9 PM CDT 04/07/2025 11:26 PM CDT us Wilder Butterfield MD LAB BLOOD ORDERABLES Final Resul t [facility] Department [place] [address] * eGFR (04/06/2025 11:31 PM CDT) eGFR 77 >=60 mL/min/1. 73 m2 Comment: Interpretive Data Reference Interval Normal >/= 90 mL/min/1.73m2 Mildly decreased* 60 - 89 mL/min/1.73m2 Mildly to moderately decreased 45 - 59 mL/min/1.73m2 Moderately to severely decreased 30 - 44 mL/min/1.73m2 Severely decreased 15 - 29 mL/min/1.73m2 Kidney Failure < 15 mL/min/1.73m2 *Relative to young adult level Estimated glomerular filtration rate is determined by the 2020 CKD-EPI equation recommended by the National Kidney Foundation (A Unifying Approach to GFR Estimation: Recommendations of the NKF-ASK Task Force on Reassessing the Inclusion of Race in Diagnosing Kidney Disease, JASN 2020). The CKD-EPI equation should not be used for patients with unstable renal function and has not been validated in children and those over 70. Current interpretive data was last reviewed 2021. Blood 04/06/2025 11:3 1 PM CDT 04/06/2025 11:45 PM CDT us Wilder Butterfield MD LAB BLOOD ORDERABLES Final Resul t Performing Organization Address [facility] de Phone Number [facility] [place] [address] * (ABNORMAL) CBC without differential (04/06/2025 11:31 PM CDT) WBC 11.10(H) 3.80 - 9.90 K/cumm Hgb 7.2(L) 11.9 - 15.5 g/dL [facility] Hct 23.2(L) 35.6 - 45.5 % [facility] Plt 346 150 - 400 K/cumm [facility] MPV 9.5 9.1 - 12.3 fL [facility] RBC 2.98(L) 3.90 - 5.20 M/cumm [facility] MCV 77.9(L) 81.3 - 96.4 fL [facility] MCH 24.2(L) 27.1 - 33.3 pg [facility] MCHC 31.0(L) 32.3 - 35.7 g/dL [facility] RDW CV 19.8(H) 11.1 - 14.9 % [facility] RDW SD 55.8(H) 35.7 - 48.1 fL [facility] NRBC abs 0.00 0.00 - 0.01 K/cumm [facility] Blood 04/06/2025 11:3 1 PM CDT 04/06/2025 11:45 PM CDT us Wilder Butterfield MD LAB BLOOD ORDERABLES Final Resul t Performing Organization Address [facility] Co de Phone Number [facility] Department [place] [address] * (ABNORMAL) Basic metabolic panel (04/06/2025 11:31 PM CDT) Sodium 138 135 - 145 mmol/L Potassium, pl 4.1 3.3 - 4.9 mmol/L [facility] Chloride 102 97 - 110 mmol/L [facility] CO2 29 22 - 32 mmol/L [facility] Anion gap 7 2 - 15 mmol/L [facility] BUN 29(H) 6 - 25 mg/dL [facility] Creatinine 0.82 0.60 - 1.10 mg/dL [facility] Glucose 106 70 - 199 mg/dL [facility] Comment: Interpretive Data Fasting glucose >/= 126 mg/dl is diagnostic for diabetes. Fasting is defined as no caloric intake for at least 8 hours. Fasting glucose between 100 mg/dl to 125 mg/dl is diagnostic of prediabetes. In a patient with classic symptoms of hyperglycemia or hyperglycemic crisis, a random glucose >/= 200 mg/dl is diagnostic for diabetes. In the absence of unequivocal hyperglycemia, results should be confirmed by repeat testing. The classification and Diagnosis of Diabetes Diabetes Care 2021; 46: S19-S40. Current interpretive data was last revised 2022. Calcium 8.7 8.5 - 10.3 mg/dL [facility] Blood 04/06/2025 11:3 1 PM CDT 04/06/2025 11:45 PM CDT us Wilder Butterfield MD LAB BLOOD ORDERABLES Final Resul t [facility] [place] [address] * (ABNORMAL) Creatine kinase (CK), total (04/06/2025 6:10 PM CDT) CK 261(H) 30 - 200 Units/L Blood 04/06/2025 6:10 PM CDT 04/06/2025 6:26 PM CDT us Andreia Hamilton NP LAB BLOOD ORDERABLES Final Result [facility] [place] [address] * Infection Prevention Clara auris PCR, surveillance Axilla/Groin (04/06/2025 5:03 AM CDT) Clara auris DNA Not Detected Not Detected [facility] Comment: Interpretive Data Testing performed by [facility] Infectious Disease [facility] using the Scout paul 6800 Clara auris assay. This assay detects DNA from Clara auris using Real-Time PCR. This assay is laboratory developed and is not cleared by the [facility] Food and Drug Administration. The performance characteristics have been verified by the [facility]ious Disease [facility]. Axilla/Groin 04/06/2025 5:03 AM CDT 04/06/2025 5:25 AM CDT Woody NGUYEN [facility] - 04/06/2025 2:02 PM CDT Order placed by OPA due to ring surveillance. us Instant Order Generic Provider LAB MICROBIOLOGY - GENERAL ORDERABLES Final Result [facility] Department [place] [address] [facility] * eGFR (04/06/2025 5:03 AM CDT) eGFR >90 >=60 mL/min/1. 73 m2 Comment: Interpretive Data Reference Interval Normal >/= 90 mL/min/1.73m2 Mildly decreased* 60 - 89 mL/min/1.73m2 Mildly to moderately decreased 45 - 59 mL/min/1.73m2 Moderately to severely decreased 30 - 44 mL/min/1.73m2 Severely decreased 15 - 29 mL/min/1.73m2 Kidney Failure < 15 mL/min/1.73m2 *Relative to young adult level Estimated glomerular filtration rate is determined by the 2020 CKD-EPI equation recommended by the National Kidney Foundation (A Unifying Approach to GFR Estimation: Recommendations of the NKF-ASK Task Force on Reassessing the Inclusion of Race in Diagnosing Kidney Disease, JASN 202). The CKD-EPI equation should not be used for patients with unstable renal function and has not been validated in children and those over 70. Current interpretive data was last reviewed 2021. Blood 04/06/2025 5:03 AM CDT 04/06/2025 5:28 AM CDT Wilder Butterfield MD LAB BLOOD ORDERABLES Final Resul t [facility] Department [place] [address] * (ABNORMAL) Differential, auto (04/06/2025 5:03 AM CDT) Neutrophil abs 6.92(H) 1.50 - 6.50 K/cumm Imm gran abs 0.06 0.00 - 0.10 K/cumm [facility] Lymphocyte abs 1.98 0.80 - 3.30 K/cumm [facility] Monocyte abs 0.72 0.20 - 0.80 K/cumm [facility] Eosinophil abs 0.47 0.00 - 0.50 K/cumm [facility] Basophil abs 0.04 0.00 - 0.10 K/cumm [facility] Neutrophil pct 67.9 % [facility] Comment: Interpretive Data Percent cell count reference ranges are not reported, since discordance with absolute values may lead to misinterpretation of CBC data. Current Interpretive Data was last revised on 2017. Imm gran pct 0.6 % [facility] Comment: Interpretive Data Percent cell count reference ranges are not reported, since discordance with absolute values may lead to misinterpretation of CBC data. Current Interpretive Data was last revised on 2017. Lymphocyte pct 19.4 % [facility] Comment: Interpretive Data Percent cell count reference ranges are not reported, since discordance with absolute values may lead to misinterpretation of CBC data. Current Interpretive Data was last revised on 2017. Monocyte pct 7.1 % [facility] Comment: Interpretive Data Percent cell count reference ranges are not reported, since discordance with absolute values may lead to misinterpretation of CBC data. Current Interpretive Data was last revised on 2017. Eosinophil pct 4.6 % [facility] Comment: Interpretive Data Percent cell count reference ranges are not reported, since discordance with absolute values may lead to misinterpretation of CBC data. Current Interpretive Data was last revised on 2017. Basophil pct 0.4 % [facility] Comment: Interpretive Data Percent cell count reference ranges are not reported, since discordance with absolute values may lead to misinterpretation of CBC data. Current Interpretive Data was last revised on 2017. Blood 04/06/2025 5:03 AM CDT 04/06/2025 5:32 AM CDT us Andreia Hamilton NP LAB BLOOD ORDERABLES Final Result [facility] Department [place] [address] * (ABNORMAL) CBC with auto differential (04/06/2025 5:03 AM CDT) WBC 10.95(H) 3.80 - 9.90 K/cumm Hgb 7.0(L) 11.9 - 15.5 g/dL [facility] Hct 23.1(L) 35.6 - 45.5 % [facility] Plt 339 150 - 400 K/cumm [facility] MPV 9.5 9.1 - 12.3 fL [facility] RBC 2.95(L) 3.90 - 5.20 M/cumm [facility] MCV 78.3(L) 81.3 - 96.4 fL [facility] MCH 23.7(L) 27.1 - 33.3 pg [facility] MCHC 30.3(L) 32.3 - 35.7 g/dL [facility] RDW CV 19.6(H) 11.1 - 14.9 % [facility] RDW SD 54.8(H) 35.7 - 48.1 fL [facility] NRBC abs 0.00 0.00 - 0.01 K/cumm [facility] Blood 04/06/2025 5:03 AM CDT 04/06/2025 5:32 AM CDT us Andreia Hamilton NP LAB BLOOD ORDERABLES Final Result [facility] [place] [address] * (ABNORMAL) CBC without differential (04/06/2025 5:03 AM CDT) WBC 10.95(H) 3.80 - 9.90 K/cumm Hgb 7.0(L) 11.9 - 15.5 g/dL [facility] Hct 23.1(L) 35.6 - 45.5 % [facility] Plt 339 150 - 400 K/cumm [facility] MPV 9.5 9.1 - 12.3 fL [facility] RBC 2.95(L) 3.90 - 5.20 M/cumm [facility] MCV 78.3(L) 81.3 - 96.4 fL [facility] MCH 23.7(L) 27.1 - 33.3 pg [facility] MCHC 30.3(L) 32.3 - 35.7 g/dL [facility] RDW CV 19.6(H) 11.1 - 14.9 % [facility] RDW SD 54.8(H) 35.7 - 48.1 fL [facility] NRBC abs 0.00 0.00 - 0.01 K/cumm [facility] Blood 04/06/2025 5:03 AM CDT 04/06/2025 5:28 AM CDT us Wilder Butterfield MD LAB BLOOD ORDERABLES Final Resul t [facility] [place] [address] * (ABNORMAL) Hepatic function panel (04/06/2025 5:03 AM CDT) Bilirubin, total 0.3 0.1 - 1.2 mg/dL Bilirubin, direct <0.2 0.1 - 0.3 mg/dL [facility] Comment:Reviewed Protein, pl 6.2(L) 6.5 - 8.5 g/dL [facility] Albumin 3.3(L) 3.5 - 5.0 g/dL [facility] Alk phos 108 40 - 130 Units/L [facility] ALT 10 7 - 45 Units/L [facility] AST 26 10 - 45 Units/L [facility] Blood 04/06/2025 5:03 AM CDT 04/06/2025 5:28 AM CDT us Andreia Hamilton NP LAB BLOOD ORDERABLES Final Result [facility] Department [place] [address] * Basic metabolic panel (04/06/2025 5:03 AM CDT) Sodium 141 135 - 145 mmol/L Potassium, pl 4.0 3.3 - 4.9 mmol/L [facility] Chloride 104 97 - 110 mmol/L [facility] CO2 29 22 - 32 mmol/L [facility] Anion gap 8 2 - 15 mmol/L [facility] BUN 23 6 - 25 mg/dL [facility] Creatinine 0.67 0.60 - 1.10 mg/dL [facility] Glucose 105 70 - 199 mg/dL [facility] Comment: Interpretive Data Fasting glucose >/= 126 mg/dl is diagnostic for diabetes. Fasting is defined as no caloric intake for at least 8 hours. Fasting glucose between 100 mg/dl to 125 mg/dl is diagnostic of prediabetes. In a patient with classic symptoms of hyperglycemia or hyperglycemic crisis, a random glucose >/= 200 mg/dl is diagnostic for diabetes. In the absence of unequivocal hyperglycemia, results should be confirmed by repeat testing. The classification and Diagnosis of Diabetes Diabetes Care 2021; 46: S19-S40. Current interpretive data was last revised 2022. Calcium 9.0 8.5 - 10.3 mg/dL [facility] Blood 04/06/2025 5:03 AM CDT 04/06/2025 5:28 AM CDT Wilder Butterfield MD LAB BLOOD ORDERABLES Final Resul t Performing Organization Address [facility] de Phone Number [facility] Department [place] [address] * eGFR (04/05/2025 5:46 AM CDT) eGFR >90 >=60 mL/min/1. 73 m2 Comment: Interpretive Data Reference Interval Normal >/= 90 mL/min/1.73m2 Mildly decreased* 60 - 89 mL/min/1.73m2 Mildly to moderately decreased 45 - 59 mL/min/1.73m2 Moderately to severely decreased 30 - 44 mL/min/1.73m2 Severely decreased 15 - 29 mL/min/1.73m2 Kidney Failure < 15 mL/min/1.73m2 *Relative to young adult level Estimated glomerular filtration rate is determined by the 2020 CKD-EPI equation recommended by the National Kidney Foundation (A Unifying Approach to GFR Estimation: Recommendations of the NKF-ASK Task Force on Reassessing the Inclusion of Race in Diagnosing Kidney Disease, JASN 2020). The CKD-EPI equation should not be used for patients with unstable renal function and has not been validated in children and those over 70. Current interpretive data was last reviewed 2021. Blood 04/05/2025 5:46 AM CDT 04/05/2025 6:01 AM CDT Wilder Butterfield MD LAB BLOOD ORDERABLES Final Resul t Performing Organization Address [facility] Co de Phone Number [facility] [place] [address] * (ABNORMAL) CBC without differential (04/05/2025 5:46 AM CDT) WBC 10.39(H) 3.80 - 9.90 K/cumm Hgb 7.6(L) 11.9 - 15.5 g/dL [facility] Hct 24.6(L) 35.6 - 45.5 % [facility] Plt 359 150 - 400 K/cumm [facility] MPV 9.3 9.1 - 12.3 fL [facility] RBC 3.20(L) 3.90 - 5.20 M/cumm [facility] MCV 76.9(L) 81.3 - 96.4 fL [facility] MCH 23.8(L) 27.1 - 33.3 pg [facility] MCHC 30.9(L) 32.3 - 35.7 g/dL [facility] RDW CV 19.1(H) 11.1 - 14.9 % [facility] RDW SD 51.7(H) 35.7 - 48.1 fL [facility] NRBC abs 0.00 0.00 - 0.01 K/cumm [facility] Blood 04/05/2025 5:46 AM CDT 04/05/2025 6:01 AM CDT us Wilder Butterfield MD LAB BLOOD ORDERABLES Final Resul t [facility] Department [place] [address] * Basic metabolic panel (04/05/2025 5:46 AM CDT) Sodium 141 135 - 145 mmol/L Potassium, pl 3.9 3.3 - 4.9 mmol/L [facility] Chloride 103 97 - 110 mmol/L [facility] CO2 31 22 - 32 mmol/L [facility] Anion gap 7 2 - 15 mmol/L [facility] BUN 21 6 - 25 mg/dL [facility] Creatinine 0.69 0.60 - 1.10 mg/dL [facility] Glucose 104 70 - 199 mg/dL [facility] Comment: Interpretive Data Fasting glucose >/= 126 mg/dl is diagnostic for diabetes. Fasting is defined as no caloric intake for at least 8 hours. Fasting glucose between 100 mg/dl to 125 mg/dl is diagnostic of prediabetes. In a patient with classic symptoms of hyperglycemia or hyperglycemic crisis, a random glucose >/= 200 mg/dl is diagnostic for diabetes. In the absence of unequivocal hyperglycemia, results should be confirmed by repeat testing. The classification and Diagnosis of Diabetes Diabetes Care 2021; 46: S19-S40. Current interpretive data was last revised 2022. Calcium 9.1 8.5 - 10.3 mg/dL [facility] Blood 04/05/2025 5:46 AM CDT 04/05/2025 6:01 AM CDT Wilder Butterfield MD LAB BLOOD ORDERABLES Final Resul t Performing Organization Address City/[facility]/ZIP Co de Phone Number [facility] [place] [address] * Vancomycin level trough Draw trough 30 minutes prior to 4th dose. (04/04/2025 5:28 PM CDT) Pathologist [facility] Vancomycin trough 10.2 10.0 - 20.0 mcg/mL Blood 04/04/2025 5:28 PM CDT 04/04/2025 5:48 PM CDT Narrative [facility] - 04/04/2025 6:37 PM CDT Draw trough 30 minutes prior to 4th dose. Nikolas Reno MD LAB BLOOD ORDERAB LES Final Result Performing Organization Address [facility] Co de Phone Number [facility] [place] [address] * eGFR (04/04/2025 4:19 AM CDT) eGFR 83 >=60 mL/min/1. 73 m2 Comment: Interpretive Data Reference Interval Normal >/= 90 mL/min/1.73m2 Mildly decreased* 60 - 89 mL/min/1.73m2 Mildly to moderately decreased 45 - 59 mL/min/1.73m2 Moderately to severely decreased 30 - 44 mL/min/1.73m2 Severely decreased 15 - 29 mL/min/1.73m2 Kidney Failure < 15 mL/min/1.73m2 *Relative to young adult level Estimated glomerular filtration rate is determined by the 2020 CKD-EPI equation recommended by the National Kidney Foundation (A Unifying Approach to GFR Estimation: Recommendations of the NKF-ASK Task Force on Reassessing the Inclusion of Race in Diagnosing Kidney Disease, JASN 202). The CKD-EPI equation should not be used for patients with unstable renal function and has not been validated in children and those over 70. Current interpretive data was last reviewed 2021. Blood 04/04/2025 4:19 AM CDT 04/04/2025 4:36 AM CDT us Wilder Butterfield MD LAB BLOOD ORDERABLES Final Resul t [facility] Department [place] [address] * (ABNORMAL) CBC without differential (04/04/2025 4:19 AM CDT) WBC 10.04(H) 3.80 - 9.90 K/cumm Hgb 7.6(L) 11.9 - 15.5 g/dL [facility] Hct 24.2(L) 35.6 - 45.5 % [facility] Plt 338 150 - 400 K/cumm [facility] MPV 9.7 9.1 - 12.3 fL [facility] RBC 3.15(L) 3.90 - 5.20 M/cumm [facility] MCV 76.8(L) 81.3 - 96.4 fL [facility] MCH 24.1(L) 27.1 - 33.3 pg [facility] MCHC 31.4(L) 32.3 - 35.7 g/dL [facility] RDW CV 18.2(H) 11.1 - 14.9 % [facility] RDW SD 48.5(H) 35.7 - 48.1 fL [facility] NRBC abs 0.00 0.00 - 0.01 K/cumm [facility] Blood 04/04/2025 4:19 AM CDT 04/04/2025 4:37 AM CDT Wilder Butterfield MD LAB BLOOD ORDERABLES Final Resul t [facility] [place] [address] * (ABNORMAL) Basic metabolic panel (04/04/2025 4:19 AM CDT) Sodium 137 135 - 145 mmol/L Potassium, pl 3.1(L) 3.3 - 4.9 mmol/L [facility] Chloride 100 97 - 110 mmol/L [facility] CO2 32 22 - 32 mmol/L [facility] Anion gap 5 2 - 15 mmol/L [facility] BUN 28(H) 6 - 25 mg/dL [facility] Creatinine 0.77 0.60 - 1.10 mg/dL [facility] Glucose 95 70 - 199 mg/dL [facility] Comment: Interpretive Data Fasting glucose >/= 126 mg/dl is diagnostic for diabetes. Fasting is defined as no caloric intake for at least 8 hours. Fasting glucose between 100 mg/dl to 125 mg/dl is diagnostic of prediabetes. In a patient with classic symptoms of hyperglycemia or hyperglycemic crisis, a random glucose >/= 200 mg/dl is diagnostic for diabetes. In the absence of unequivocal hyperglycemia, results should be confirmed by repeat testing. The classification and Diagnosis of Diabetes Diabetes Care 202; 46: S19-S40. Current interpretive data was last revised 2022. Calcium 9.1 8.5 - 10.3 mg/dL [facility] Blood 04/04/2025 4:19 AM CDT 04/04/2025 4:36 AM CDT Wilder Butterfield MD LAB BLOOD ORDERABLES Final Resul t Performing Organization Address [facility]/ZIP Co de Phone Number [facility] Department [place] [address] * eGFR (04/03/2025 4:48 AM CDT) eGFR 67 >=60 mL/min/1. 73 m2 Comment: Interpretive Data Reference Interval Normal >/= 90 mL/min/1.73m2 Mildly decreased* 60 - 89 mL/min/1.73m2 Mildly to moderately decreased 45 - 59 mL/min/1.73m2 Moderately to severely decreased 30 - 44 mL/min/1.73m2 Severely decreased 15 - 29 mL/min/1.73m2 Kidney Failure < 15 mL/min/1.73m2 *Relative to young adult level Estimated glomerular filtration rate is determined by the 2020 CKD-EPI equation recommended by the National Kidney Foundation (A Unifying Approach to GFR Estimation: Recommendations of the NKF-ASK Task Force on Reassessing the Inclusion of Race in Diagnosing Kidney Disease, JASN 2020). The CKD-EPI equation should not be used for patients with unstable renal function and has not been validated in children and those over 70. Current interpretive data was last reviewed 2021. Blood 04/03/2025 4:48 AM CDT 04/03/2025 5:12 AM CDT us Wilder Butterfield MD LAB BLOOD ORDERABLES Final Resul t [facility] Department [place] [address] * (ABNORMAL) CBC without differential (04/03/2025 4:48 AM CDT) WBC 12.52(H) 3.80 - 9.90 K/cumm Hgb 7.5(L) 11.9 - 15.5 g/dL [facility] Hct 23.8(L) 35.6 - 45.5 % [facility] Plt 304 150 - 400 K/cumm [facility] MPV 9.8 9.1 - 12.3 fL [facility] RBC 3.12(L) 3.90 - 5.20 M/cumm [facility] MCV 76.3(L) 81.3 - 96.4 fL [facility] MCH 24.0(L) 27.1 - 33.3 pg [facility] MCHC 31.5(L) 32.3 - 35.7 g/dL [facility] RDW CV 17.7(H) 11.1 - 14.9 % [facility] RDW SD 48.5(H) 35.7 - 48.1 fL [facility] NRBC abs 0.00 0.00 - 0.01 K/cumm [facility] Blood 04/03/2025 4:48 AM CDT 04/03/2025 5:12 AM CDT us Wilder Butterfield MD LAB BLOOD ORDERABLES Final Resul t [facility] Department [place] [address] * (ABNORMAL) Basic metabolic panel (04/03/2025 4:48 AM CDT) Sodium 137 135 - 145 mmol/L Potassium, pl 2.8(L) 3.3 - 4.9 mmol/L [facility] Chloride 96(L) 97 - 110 mmol/L [facility] CO2 33(H) 22 - 32 mmol/L [facility] Anion gap 8 2 - 15 mmol/L [facility] BUN 27(H) 6 - 25 mg/dL [facility] Creatinine 0.92 0.60 - 1.10 mg/dL [facility] Glucose 118 70 - 199 mg/dL [facility] Comment: Interpretive Data Fasting glucose >/= 126 mg/dl is diagnostic for diabetes. Fasting is defined as no caloric intake for at least 8 hours. Fasting glucose between 100 mg/dl to 125 mg/dl is diagnostic of prediabetes. In a patient with classic symptoms of hyperglycemia or hyperglycemic crisis, a random glucose >/= 200 mg/dl is diagnostic for diabetes. In the absence of unequivocal hyperglycemia, results should be confirmed by repeat testing. The classification and Diagnosis of Diabetes Diabetes Care 202; 46: S19-S40. Current interpretive data was last revised 2022. Calcium 8.7 8.5 - 10.3 mg/dL [facility] Blood 04/03/2025 4:48 AM CDT 04/03/2025 5:12 AM CDT Wilder Butterfield MD LAB BLOOD ORDERABLES Final Resul t Performing Organization Address [facility] Co de Phone Number [facility] [place] [address] * Transfuse RBC (04/03/2025 3:27 AM CDT) Blood Wilder Butterfield MD BLOOD TRANSFUSION ORDERABLES Fin al Result Performing Organization Address [facility] Co de Phone Number [facility] [address] * Prepare RBC: 1 Units (04/02/2025 11:19 PM CDT) Product code [id number] Unit Number [id number] [facility] Product Blood Type BPOS [facility] Dispense Status PRESUMED TRANSFUSED [facility] Blood 04/02/2025 11:1 9 PM CDT 04/02/2025 11:19 PM CDT Narrative [facility] - 04/03/2025 4:01 PM CDT Are special requirements needed? (All products are leukoreduced and CMV- safe)- >No Date required:-[id number] LRRBC # of [id number] Reasons:-Hgb <7 g/dL} Wilder Butterfield MD BLOOD BANK PRODUCT ORDERABLES Fi nal Result Performing Organization Address [facility] Co de Phone Number [facility] Department [place] [address] * eGFR (04/02/2025 10:00 PM CDT) eGFR 64 >=60 mL/min/1. 73 m2 Comment: Interpretive Data Reference Interval Normal >/= 90 mL/min/1.73m2 Mildly decreased* 60 - 89 mL/min/1.73m2 Mildly to moderately decreased 45 - 59 mL/min/1.73m2 Moderately to severely decreased 30 - 44 mL/min/1.73m2 Severely decreased 15 - 29 mL/min/1.73m2 Kidney Failure < 15 mL/min/1.73m2 *Relative to young adult level Estimated glomerular filtration rate is determined by the 2020 CKD-EPI equation recommended by the National Kidney Foundation (A Unifying Approach to GFR Estimation: Recommendations of the NKF-ASK Task Force on Reassessing the Inclusion of Race in Diagnosing Kidney Disease, JASN 202). The CKD-EPI equation should not be used for patients with unstable renal function and has not been validated in children and those over 70. Current interpretive data was last reviewed 2021. Blood 04/02/2025 10:0 0 PM CDT 04/02/2025 10:22 PM CDT us Wilder Butterfield MD LAB BLOOD ORDERABLES Final Resul t [facility] Department [place] [address] * (ABNORMAL) CBC without differential (04/02/2025 10:00 PM CDT) WBC 15.09(H) 3.80 - 9.90 K/cumm Hgb 6.7(L) 11.9 - 15.5 g/dL [facility] Hct 21.7(L) 35.6 - 45.5 % [facility] Plt 342 150 - 400 K/cumm [facility] MPV 10.1 9.1 - 12.3 fL [facility] RBC 2.89(L) 3.90 - 5.20 M/cumm [facility] MCV 75.1(L) 81.3 - 96.4 fL [facility] MCH 23.2(L) 27.1 - 33.3 pg [facility] MCHC 30.9(L) 32.3 - 35.7 g/dL [facility] RDW CV 17.9(H) 11.1 - 14.9 % [facility] RDW SD 48.1 35.7 - 48.1 fL [facility] NRBC abs 0.00 0.00 - 0.01 K/cumm [facility] Blood 04/02/2025 10:0 0 PM CDT 04/02/2025 10:27 PM CDT Wilder Butterfield MD LAB BLOOD ORDERABLES Final Resul t Performing Organization Address City/[facility]/ZIP Co de Phone Number [facility] Department [place] [address] * (ABNORMAL) Basic metabolic panel (04/02/2025 10:00 PM CDT) [facility] Sodium 139 135 - 145 mmol/L Potassium, pl 2.9(L) 3.3 - 4.9 mmol/L [facility] Chloride 96(L) 97 - 110 mmol/L [facility] CO2 31 22 - 32 mmol/L [facility] Anion gap 12 2 - 15 mmol/L [facility] BUN 25 6 - 25 mg/dL [facility] Creatinine 0.96 0.60 - 1.10 mg/dL [facility] Glucose 126 70 - 199 mg/dL [facility] Comment: Interpretive Data Fasting glucose >/= 126 mg/dl is diagnostic for diabetes. Fasting is defined as no caloric intake for at least 8 hours. Fasting glucose between 100 mg/dl to 125 mg/dl is diagnostic of prediabetes. In a patient with classic symptoms of hyperglycemia or hyperglycemic crisis, a random glucose >/= 200 mg/dl is diagnostic for diabetes. In the absence of unequivocal hyperglycemia, results should be confirmed by repeat testing. The classification and Diagnosis of Diabetes Diabetes Care 202; 46: S19-S40. Current interpretive data was last revised 2022. Calcium 8.8 8.5 - 10.3 mg/dL [facility] Blood 04/02/2025 10:0 0 PM CDT 04/02/2025 10:22 PM CDT Wilder Butterfield MD LAB BLOOD ORDERABLES Final Resul t Performing Organization Address [facility] Co de Phone Number [facility] [place] [address] * eGFR (04/02/2025 7:06 AM CDT) Pathologist [facility] eGFR 70 >=60 mL/min/1. 73 m2 Comment: Interpretive Data Reference Interval Normal >/= 90 mL/min/1.73m2 Mildly decreased* 60 - 89 mL/min/1.73m2 Mildly to moderately decreased 45 - 59 mL/min/1.73m2 Moderately to severely decreased 30 - 44 mL/min/1.73m2 Severely decreased 15 - 29 mL/min/1.73m2 Kidney Failure < 15 mL/min/1.73m2 *Relative to young adult level Estimated glomerular filtration rate is determined by the 2020 CKD-EPI equation recommended by the National Kidney Foundation (A Unifying Approach to GFR Estimation: Recommendations of the NKF-ASK Task Force on Reassessing the Inclusion of Race in Diagnosing Kidney Disease, JASN 2020). The CKD-EPI equation should not be used for patients with unstable renal function and has not been validated in children and those over 70. Current interpretive data was last reviewed 2021. Blood 04/02/2025 7:06 AM CDT 04/02/2025 7:22 AM CDT us Jonny Moyer MD LAB BLOOD ORDERABLES Final Re sult [facility] Department [place] [address] * (ABNORMAL) CBC without differential (04/02/2025 7:06 AM CDT) [facility] WBC 16.17(H) 3.80 - 9.90 K/cumm Hgb 6.7(L) 11.9 - 15.5 g/dL [facility] Hct 21.6(L) 35.6 - 45.5 % [facility] Plt 310 150 - 400 K/cumm [facility] MPV 9.7 9.1 - 12.3 fL [facility] RBC 2.87(L) 3.90 - 5.20 M/cumm [facility] MCV 75.3(L) 81.3 - 96.4 fL [facility] MCH 23.3(L) 27.1 - 33.3 pg [facility] MCHC 31.0(L) 32.3 - 35.7 g/dL [facility] RDW CV 17.4(H) 11.1 - 14.9 % [facility] RDW SD 47.0 35.7 - 48.1 fL [facility] NRBC abs 0.00 0.00 - 0.01 K/cumm [facility] Blood 04/02/2025 7:06 AM CDT 04/02/2025 7:22 AM CDT us Jonny Moyer MD LAB BLOOD ORDERABLES Final Re sult [facility] [place] [address] * (ABNORMAL) Basic metabolic panel (04/02/2025 7:06 AM CDT) Sodium 135 135 - 145 mmol/L Potassium, pl 3.5 3.3 - 4.9 mmol/L [facility] Chloride 95(L) 97 - 110 mmol/L [facility] CO2 34(H) 22 - 32 mmol/L [facility] Anion gap 6 2 - 15 mmol/L [facility] BUN 21 6 - 25 mg/dL [facility] Creatinine 0.89 0.60 - 1.10 mg/dL [facility] Glucose 138 70 - 199 mg/dL [facility] Comment: Interpretive Data Fasting glucose >/= 126 mg/dl is diagnostic for diabetes. Fasting is defined as no caloric intake for at least 8 hours. Fasting glucose between 100 mg/dl to 125 mg/dl is diagnostic of prediabetes. In a patient with classic symptoms of hyperglycemia or hyperglycemic crisis, a random glucose >/= 200 mg/dl is diagnostic for diabetes. In the absence of unequivocal hyperglycemia, results should be confirmed by repeat testing. The classification and Diagnosis of Diabetes Diabetes Care 2021; 46: S19-S40. Current interpretive data was last revised 2022. Calcium 8.6 8.5 - 10.3 mg/dL [facility] Blood 04/02/2025 7:06 AM CDT 04/02/2025 7:22 AM CDT us Jonny Moyer MD LAB BLOOD ORDERABLES Final Re sult Performing Organization Address [facility] Co de Phone Number [facility] [place] [address] * eGFR (03/31/2025 10:24 PM CDT) eGFR 60 >=60 mL/min/1. 73 m2 Comment: Interpretive Data Reference Interval Normal >/= 90 mL/min/1.73m2 Mildly decreased* 60 - 89 mL/min/1.73m2 Mildly to moderately decreased 45 - 59 mL/min/1.73m2 Moderately to severely decreased 30 - 44 mL/min/1.73m2 Severely decreased 15 - 29 mL/min/1.73m2 Kidney Failure < 15 mL/min/1.73m2 *Relative to young adult level Estimated glomerular filtration rate is determined by the 2020 CKD-EPI equation recommended by the National Kidney Foundation (A Unifying Approach to GFR Estimation: Recommendations of the NKF-ASK Task Force on Reassessing the Inclusion of Race in Diagnosing Kidney Disease, JASN 2020). The CKD-EPI equation should not be used for patients with unstable renal function and has not been validated in children and those over 70. Current interpretive data was last reviewed 2021. Blood 03/31/2025 10:2 4 PM CDT 03/31/2025 11:20 PM CDT us Wilder Butterfield MD LAB BLOOD ORDERABLES Final Resul t Performing Organization Address [facility]/ZIP Co de Phone Number [facility] [place] [address] * (ABNORMAL) CBC without differential (03/31/2025 10:24 PM CDT) WBC 18.25(H) 3.80 - 9.90 K/cumm Hgb 8.6(L) 11.9 - 15.5 g/dL [facility] Hct 27.8(L) 35.6 - 45.5 % [facility] Plt 363 150 - 400 K/cumm [facility] MPV 10.0 9.1 - 12.3 fL [facility] RBC 3.65(L) 3.90 - 5.20 M/cumm [facility] MCV 76.2(L) 81.3 - 96.4 fL [facility] MCH 23.6(L) 27.1 - 33.3 pg [facility] MCHC 30.9(L) 32.3 - 35.7 g/dL [facility] RDW CV 17.3(H) 11.1 - 14.9 % [facility] RDW SD 48.3(H) 35.7 - 48.1 fL [facility] NRBC abs 0.00 0.00 - 0.01 K/cumm [facility] Blood 03/31/2025 10:2 4 PM CDT 03/31/2025 11:20 PM CDT us Wilder Butterfield MD LAB BLOOD ORDERABLES Final Resul t [facility] [place] [address] * Basic metabolic panel (03/31/2025 10:24 PM CDT) Pathologist [facility] Sodium 136 135 - 145 mmol/L Potassium, pl 4.3 3.3 - 4.9 mmol/L [facility] Chloride 97 97 - 110 mmol/L [facility] CO2 32 22 - 32 mmol/L [facility] Anion gap 7 2 - 15 mmol/L [facility] BUN 19 6 - 25 mg/dL [facility] Creatinine 1.01 0.60 - 1.10 mg/dL [facility] Glucose 134 70 - 199 mg/dL [facility] Comment: Interpretive Data Fasting glucose >/= 126 mg/dl is diagnostic for diabetes. Fasting is defined as no caloric intake for at least 8 hours. Fasting glucose between 100 mg/dl to 125 mg/dl is diagnostic of prediabetes. In a patient with classic symptoms of hyperglycemia or hyperglycemic crisis, a random glucose >/= 200 mg/dl is diagnostic for diabetes. In the absence of unequivocal hyperglycemia, results should be confirmed by repeat testing. The classification and Diagnosis of Diabetes Diabetes Care 2021; 46: S19-S40. Current interpretive data was last revised 2022. Calcium 8.7 8.5 - 10.3 mg/dL [facility] Blood 03/31/2025 10:2 4 PM CDT 03/31/2025 11:20 PM CDT us Wilder Butterfield MD LAB BLOOD ORDERABLES Final Resul t [facility] [place] [address] * XR Knee Right 1 or 2 View (03/31/2025 5:16 PM CDT) Anatomical Region Laterality Modality Lower Extremities, Knee Right Computed Radiography 04/01/2025 6:28 AM CDT Impressions 04/01/2025 6:28 AM CDT 1. Likely interval revision and exchange of the articulating antibiotic cement spacer and dowels with placement of surgical drain and antibiotic beads with unchanged right knee arthroplasty explantation Electronically signed by: Derek Jefferson MD, PHD Narrative 04/01/2025 6:28 AM CDT EXAMINATION: Right knee one or 2 views HISTORY: Right knee explantation with periprosthetic infection FINDINGS: 2 portable radiographs right knee are compared to prior radiographs from 02/27/2025. Again noted are changes of right knee arthroplasty explantation and likely interval revision and exchange of the articulating antibiotic cement spacer and dowels with placement of surgical drain and antibiotic beads. Soft tissue swelling and intra-articular and deep soft tissue gas are noted. A leg immobilizer is in place. No acute fractures are present. Procedure Note Derek Jefferson MD PhD - 04/01/2025 EXAMINATION: Right knee one or 2 views HISTORY: Right knee explantation with periprosthetic infection FINDINGS: 2 portable radiographs right knee are compared to prior radiographs from 02/27/2025. Again noted are changes of right knee arthroplasty explantation and likely interval revision and exchange of the articulating antibiotic cement spacer and dowels with placement of surgical drain and antibiotic beads. Soft tissue swelling and intra-articular and deep soft tissue gas are noted. A leg immobilizer is in place. No acute fractures are present. IMPRESSION: 1. Likely interval revision and exchange of the articulating antibiotic cement spacer and dowels with placement of surgical drain and antibiotic beads with unchanged right knee arthroplasty explantation Electronically signed by: Derek Jefferson MD, PHD Wilder Butterfield MD IMG XR PROCEDURES Final Result * Potassium, whole blood (03/31/2025 4:24 PM CDT) Potassium, bld 3.5 3.3 - 4.9 mmol/L Blood 03/31/2025 4:24 PM CDT 03/31/2025 4:29 PM CDT us Jeison Rao MD LAB BLOOD ORDERABLES Final Result [facility] [place] [address] * eGFR (03/31/2025 4:24 PM CDT) eGFR 77 >=60 mL/min/1. 73 m2 Comment: Interpretive Data Reference Interval Normal >/= 90 mL/min/1.73m2 Mildly decreased* 60 - 89 mL/min/1.73m2 Mildly to moderately decreased 45 - 59 mL/min/1.73m2 Moderately to severely decreased 30 - 44 mL/min/1.73m2 Severely decreased 15 - 29 mL/min/1.73m2 Kidney Failure < 15 mL/min/1.73m2 *Relative to young adult level Estimated glomerular filtration rate is determined by the 2020 CKD-EPI equation recommended by the National Kidney Foundation (A Unifying Approach to GFR Estimation: Recommendations of the NKF-ASK Task Force on Reassessing the Inclusion of Race in Diagnosing Kidney Disease, JASN 2020). The CKD-EPI equation should not be used for patients with unstable renal function and has not been validated in children and those over 70. Current interpretive data was last reviewed 2021. Blood 03/31/2025 4:24 PM CDT 03/31/2025 4:36 PM CDT Wilder Butterfield MD LAB BLOOD ORDERABLES Final Resul t Performing Organization Address [facility] de Phone Number [facility] [place] [address] * Protime-INR (03/31/2025 4:24 PM CDT) PT 12.4 10.2 - 13.5 sec INR 1.10 0.90 - 1.20 [facility] Comment: Interpretive data Oral anticoagulant therapeutic ranges: Venous thromboembolism prophylaxis or treatment: 2.0-3.0 CARDIOLOGY Standard range: 2.0-3.0 High-intensity range: 2.5-3.5 Refer to indication-specific guidelines for appropriate target ranges for prosthetic heart valve replacement. Current interpretive data was last revised on 2019. Blood 03/31/2025 4:24 PM CDT 03/31/2025 4:43 PM CDT Narrative [facility] - 03/31/2025 4:49 PM CDT Baseline prior to apixaban initiation. Wilder Butterfield MD LAB BLOOD ORDERABLES Final Resul t Performing Organization Address [facility] de Phone Number [facility] [place] [address] * (ABNORMAL) CBC without differential (03/31/2025 4:24 PM CDT) WBC 17.33(H) 3.80 - 9.90 K/cumm Hgb 9.4(L) 11.9 - 15.5 g/dL [facility] Hct 30.7(L) 35.6 - 45.5 % [facility] Plt 396 150 - 400 K/cumm [facility] MPV 9.6 9.1 - 12.3 fL [facility] RBC 4.07 3.90 - 5.20 M/cumm [facility] MCV 75.4(L) 81.3 - 96.4 fL [facility] MCH 23.1(L) 27.1 - 33.3 pg [facility] MCHC 30.6(L) 32.3 - 35.7 g/dL [facility] RDW CV 17.6(H) 11.1 - 14.9 % [facility] RDW SD 47.8 35.7 - 48.1 fL [facility] NRBC abs 0.00 0.00 - 0.01 K/cumm [facility] Blood 03/31/2025 4:24 PM CDT 03/31/2025 4:38 PM CDT Narrative [facility] - 03/31/2025 4:49 PM CDT Baseline prior to apixaban initiation. Wilder Butterfield MD LAB BLOOD ORDERABLES Final Resul t Performing Organization Address City/[facility]/ZIP Co de Phone Number [facility] [place] [address] * Creatinine (03/31/2025 4:24 PM CDT) Creatinine 0.82 0.60 - 1.10 mg/dL Blood 03/31/2025 4:24 PM CDT 03/31/2025 4:36 PM CDT Narrative [facility] - 03/31/2025 5:07 PM CDT Baseline prior to apixaban initiation. Wilder Butterfield MD LAB BLOOD ORDERABLES Final Resul t [facility] [place] [address] * (ABNORMAL) Hepatic function panel (03/31/2025 4:24 PM CDT) Bilirubin, total 0.6 0.1 - 1.2 mg/dL Bilirubin, direct 0.2 0.1 - 0.3 mg/dL [facility] Protein, pl 6.4(L) 6.5 - 8.5 g/dL [facility] Albumin 3.3(L) 3.5 - 5.0 g/dL [facility] Alk phos 138(H) 40 - 130 Units/L [facility] ALT 12 7 - 45 Units/L [facility] AST 24 10 - 45 Units/L [facility] Blood 03/31/2025 4:24 PM CDT 03/31/2025 4:36 PM CDT [facility]ative [facility] 03/31/[facility] 5:07 PM CDT Baseline prior to apixaban initiation. Wiledr Butterfield MD LAB BLOOD ORDERABLES Final Resul t Performing Organization Address City/[facility]/ZIP Co de Phone Number [facility] [place] [address] * Microorganism detection by PCR/Sequencing Tissue Knee, right (03/31/2025 2:58 PM CDT) Report Final Report: For additional result information, see attached scanned report. Tissue (Knee, right) 03/31/2025 2:58 PM CDT 04/01/2025 1:01 PM CDT Narrative [facility] - 04/07/2025 2:03 PM CDT Test: Broad Range PCR to [facility] for Bacterial and Fungal Sequencing Specimen: Tissue Body Site: Right Knee Wilder Butterfield MD LAB MICROBIOLOGY - GENERAL ORDER VARGAS Final Result Performing Organization Address City/[facility]/ZIP Co de Phone Number [facility] [place] [address] * Tissue aerobic and anaerobic culture and gram stain Tissue Knee, right (03/31/2025 2:58 PM CDT) Direct Specimen Exam Stain: Abundant polymorphonuclear leukocytes seen. No organisms seen. Report Final Report: No growth [facility] Tissue (Knee, right) 03/31/2025 2:58 PM CDT 03/31/2025 5:12 PM CDT Narrative [facility] - 04/05/2025 2:34 PM CDT Right knee 5 Specimen collected in the operating room. Testing performed by [facility] ([phone]) Specimens submitted from normally sterile body sites will have all bacterial morphotypes identified. Specimens that contain grossly mixed kylie and/or are from body sites that are not normally sterile will be examined for Staphylococcus aureus, Pseudomonas aeruginosa, beta-hemolytic strep, vancomycin-resistant Enterococcus, Bacteroides, Parabacteroides, Clostridium perfringens and fungus. If any of these are isolated, the organism will be reported. Current interpretive data was last revised on 2019. Wilder Butterfield MD LAB MICROBIOLOGY - GENERAL ORDER VARGAS Final Result [facility] Department [place] [address] * Tissue aerobic and anaerobic culture and gram stain Tissue Knee, right (03/31/2025 2:58 PM CDT) Direct Specimen Exam Stain: No polymorphonuclear leukocytes seen. No organisms seen. Report Final Report: No growth [facility] Tissue (Knee, right) 03/31/2025 2:58 PM CDT 03/31/2025 5:23 PM CDT Narrative [facility] - 04/05/2025 2:32 PM CDT Right knee 4 Specimen collected in the operating room. Testing performed by [facility] ([phone]) Specimens submitted from normally sterile body sites will have all bacterial morphotypes identified. Specimens that contain grossly mixed kylie and/or are from body sites that are not normally sterile will be examined for Staphylococcus aureus, Pseudomonas aeruginosa, beta-hemolytic strep, vancomycin-resistant Enterococcus, Bacteroides, Parabacteroides, Clostridium perfringens and fungus. If any of these are isolated, the organism will be reported. Current interpretive data was last revised on 2019. Wilder Butterfield MD LAB MICROBIOLOGY - GENERAL ORDER VARGAS Final Result Performing Organization Address [facility] de Phone Number [place] [address] * Tissue aerobic and anaerobic culture and gram stain Tissue Knee, right (03/31/2025 2:58 PM CDT) Direct Specimen Exam Stain: Rare polymorphonuclear leukocytes seen. No organisms seen. Report Final Report: No growth [facility] Tissue (Knee, right) 03/31/2025 2:58 PM CDT 03/31/2025 5:21 PM CDT Narrative [facility] - 04/05/2025 2:33 PM CDT Right knee 3 Specimen collected in the operating room. Testing performed by [facility] ([phone]) Specimens submitted from normally sterile body sites will have all bacterial morphotypes identified. Specimens that contain grossly mixed kylie and/or are from body sites that are not normally sterile will be examined for Staphylococcus aureus, Pseudomonas aeruginosa, beta-hemolytic strep, vancomycin-resistant Enterococcus, Bacteroides, Parabacteroides, Clostridium perfringens and fungus. If any of these are isolated, the organism will be reported. Current interpretive data was last revised on 2019. Wilder Butterfield MD LAB MICROBIOLOGY - GENERAL ORDER VARGAS Final Result Performing Organization Address [facility] de Phone Number [facility] [place] [address] * Tissue aerobic and anaerobic culture and gram stain Tissue Knee, right (03/31/2025 2:58 PM CDT) Direct Specimen Exam Stain: No polymorphonuclear leukocytes seen. No organisms seen. Report Final Report: No growth [facility] Tissue (Knee, right) 03/31/2025 2:58 PM CDT 03/31/2025 5:15 PM CDT Narrative [facility] - 04/05/2025 2:33 PM CDT Right knee 2 Specimen collected in the operating room. Testing performed by [facility] ([phone]) Specimens submitted from normally sterile body sites will have all bacterial morphotypes identified. Specimens that contain grossly mixed kylie and/or are from body sites that are not normally sterile will be examined for Staphylococcus aureus, Pseudomonas aeruginosa, beta-hemolytic strep, vancomycin-resistant Enterococcus, Bacteroides, Parabacteroides, Clostridium perfringens and fungus. If any of these are isolated, the organism will be reported. Current interpretive data was last revised on 2019. Wilder Butterfield MD LAB MICROBIOLOGY - GENERAL ORDER VARGAS Final Result Performing Organization Address City/[facility] Co de Phone Number [facility] Department [place] [address] * Tissue aerobic and anaerobic culture and gram stain Tissue Knee, right (03/31/2025 2:58 PM CDT) Direct Specimen Exam Stain: Rare polymorphonuclear leukocytes seen. No organisms seen. Report Final Report: No growth [facility] Tissue (Knee, right) 03/31/2025 2:58 PM CDT 03/31/2025 5:13 PM CDT Narrative [facility] - 04/05/2025 2:33 PM CDT Right knee 1 Specimen collected in the operating room. Testing performed by [facility] ([phone]) Specimens submitted from normally sterile body sites will have all bacterial morphotypes identified. Specimens that contain grossly mixed kylie and/or are from body sites that are not normally sterile will be examined for Staphylococcus aureus, Pseudomonas aeruginosa, beta-hemolytic strep, vancomycin-resistant Enterococcus, Bacteroides, Parabacteroides, Clostridium perfringens and fungus. If any of these are isolated, the organism will be reported. Current interpretive data was last revised on 2019. Wilder Butterfield MD LAB MICROBIOLOGY - GENERAL ORDER VARGAS Final Result Performing Organization Address City/[facility]/ZIP Co de Phone Number [facility] [place] [address] * Mycology (fungal) culture Tissue Knee, right (03/31/2025 2:58 PM CDT) Report Final Report: No growth of fungus Tissue (Knee, right) 03/31/2025 2:58 PM CDT 03/31/2025 5:12 PM CDT Narrative [facility] - 04/28/2025 7:46 AM CDT Right knee 5 Specimen collected in the operating room. Testing performed by [facility] ([phone]). Wilder Butterfield MD LAB MICROBIOLOGY - GENERAL ORDER VARGAS Final Result Performing Organization Address City/[facility]/Z[place] [address] * Mycology (fungal) culture Tissue Knee, right (03/31/2025 2:58 PM CDT) Report Final Report: No growth of fungus Tissue (Knee, right) 03/31/2025 2:58 PM CDT 03/31/2025 5:23 PM CDT Narrative [facility] 04/28/2025 7:45 AM CDT Right knee 4 Specimen collected in the operating room. Testing performed by [facility] ([phone]). Wilder Butterfield MD LAB MICROBIOLOGY - GENERAL ORDER VARGAS [place] [address] * Mycology (fungal) culture Tissue Knee, right (03/31/2025 2:58 PM CDT) Report Final Report: No growth of fungus Tissue (Knee, right) 03/31/2025 2:58 PM CDT 03/31/2025 5:21 PM CDT Narrative [facility] 04/28/2025 7:45 AM CDT Right knee 3 Specimen collected in the operating room. Testing performed by [facility] ([phone]). Wilder Butterfield MD LAB MICROBIOLOGY - GENERAL ORDER VARGAS Final Result [facility] [place] [address] * Mycology (fungal) culture Tissue Knee, right (03/31/2025 2:58 PM CDT) Report Final Report: No growth of fungus Tissue (Knee, right) 03/31/2025 2:58 PM CDT 03/31/2025 5:16 PM CDT Narrative [facility] 04/28/2025 7:46 AM CDT Right knee 2 Specimen collected in the operating room. Testing performed by [facility] ([phone]). us Wilder Butterfield MD LAB MICROBIOLOGY - GENERAL ORDER VARGAS Final Result Performing Organization Address City/[facility]/ZIP Co de Phone Number [facility] Department [place] [address] * Mycology (fungal) culture Tissue Knee, right (03/31/2025 2:58 PM CDT) Report Final Report: No growth of fungus Tissue (Knee, right) 03/31/2025 2:58 PM CDT 03/31/2025 5:13 PM CDT Narrative [facility] 04/28/2025 7:46 AM CDT Right knee 1 Specimen collected in the operating room. Testing performed by [facility] ([phone]). us Wilder Butterfield MD LAB MICROBIOLOGY - GENERAL ORDER VARGAS Final Result [facility] [place] [address] * Mycobacteriology (AFB) culture Tissue Knee, right (03/31/2025 2:58 PM CDT) Report Final Report: No growth of acid-fast bacilli Tissue (Knee, right) 03/31/2025 2:58 PM CDT 03/31/2025 5:12 PM CDT Narrative [facility] - 06/01/2025 8:02 AM PAINTER MIRROR Right knee 5 Specimen collected in the operating room. Testing performed by [facility] ([phone]). us Wilder Butterfield MD LAB MICROBIOLOGY - GENERAL ORDER VARGAS Final Result Performing Organization Address [facility] [place] [address] * Mycobacteriology (AFB) culture Tissue Knee, right (03/31/2025 2:58 PM CDT) Report Final Report: No growth of acid-fast bacilli Tissue (Knee, right) 03/31/2025 2:58 PM CDT 03/31/2025 5:23 PM CDT Narrative [facility] 06/01/2025 8:02 AM PAINTER MIRROR Right knee 4 Specimen collected in the operating room. Testing performed by [facility] ([phone]). us Wilder Butterfield MD LAB MICROBIOLOGY - GENERAL ORDER VARGAS Final Result Performing Organization Address City/[facility] [place] [address] * Mycobacteriology (AFB) culture Tissue Knee, right (03/31/2025 2:58 PM CDT) Report Final Report: No growth of acid-fast bacilli Tissue (Knee, right) 03/31/2025 2:58 PM CDT 03/31/2025 5:21 PM CDT Narrative [facility] - 06/01/2025 8:02 AM PAINTER MIRROR Right knee 3 Specimen collected in the operating room. Testing performed by [facility] ([phone]). Wilder Butterfield MD LAB MICROBIOLOGY - GENERAL ORDER VARGAS Final Result Performing Organization Address [facility] de Phone Number [facility] [place] [address] * Mycobacteriology (AFB) culture Tissue Knee, right (03/31/2025 2:58 PM CDT) Report Final Report: No growth of acid-fast bacilli Tissue (Knee, right) 03/31/2025 2:58 PM CDT 03/31/2025 5:16 PM CDT Narrative [facility] 06/01/2025 8:02 AM PAINTER MIRROR Right knee 2 Specimen collected in the operating room. Testing performed by [facility] ([phone]). Wilder Butterfield MD LAB MICROBIOLOGY - GENERAL ORDER VARGAS Final Result Performing Organization Address [facility] de Phone Number [facility] [place] [address] * Mycobacteriology (AFB) culture Tissue Knee, right (03/31/2025 2:58 PM CDT) Report Final Report: No growth of acid-fast bacilli Tissue (Knee, right) 03/31/2025 2:58 PM CDT 03/31/2025 5:13 PM CDT Narrative [facility] - 06/01/2025 8:02 AM PAINTER MIRROR Right knee 1 Specimen collected in the operating room. Testing performed by [facility] ([phone]). us Wilder Butterfield MD LAB MICROBIOLOGY - GENERAL ORDER VARGAS Final Result Performing Organization Address City/[facility]/ZIP Co de Phone Number [facility] Department [place] [address] * Transfuse RBC (03/31/2025 2:48 PM CDT) Blood us Jeison Rao MD BLOOD TRANSFUSION ORDERABL ES Edited Result - Final Performing Organization Address [facility] Co de Phone Number [facility] Department [place] [address] * Airway (03/31/2025 2:01 PM CDT) Narrative Jeison Rao MD - 03/31/2025 2:01 PM CDT Jeison Rao MD 03/31/2025 2:02 PM Airway Patient location: OR Urgency: elective Indications for airway management: anesthesia Difficult airway: no Staff: Supervising provider: Mary Prescott MD Placed by: Resident: Jeison Rao MD Emergent airway documentation: Risks and benefits discussed: yes Consent obtained: yes Consent given by: patient Airway prep: Preoxygenated: yes Patient position: sniffing Mask difficulty assessment: 1 - vent by mask Spontaneous ventilation during airway: absent Sedation level during airway: GA Final airway details: Final airway type: endotracheal airway Tube type: ETT ETT size: 3.0 mm Technique used for successful ETT placement: video laryngoscopy Blade type: Roula Video blade type: Ba Blade size: 3 Cormack-Lehane (video): grade IIa - partial view of glottis Placement verified by: auscultation and CO2 detection Airway secured with: silk tape Number of attempts: 1 us Jeison Rao MD ANESTHESIA ORDERABLES Razia l Result * (ABNORMAL) POC Blood Gas and Chemistries, Arterial - (03/31/2025 12:51 PM CDT) Na, POC 136 135 - 145 mmol/L K POC 2.8(L) 3.3 - 4.9 mmol/L [facility] Comment: Interpretive Data Not all point of care methods assess for hemolysis. Confirm with instrument and retest K+ if not consistent with clinical signs and symptoms. Current Interpretive Data was last revised on 2023. Glucose, POC 115 70 - 199 mg/dL [facility] Hct, POC 33.0(L) 36.3 - 45.3 % [facility] Total Hb, POC 10.9(L) 11.9 - 15.5 g/dL [facility] Blood 03/31/2025 12:5 1 PM CDT 03/31/2025 12:51 PM CDT Wilder Butterfield MD LAB POCT ORDERABLES - DEVICE Fin al Result Performing Organization Address [facility] Co de Phone Number [facility] [place] [address] * Type and screen (03/31/2025 12:43 PM CDT) Pathologist [facility] ABO Rh B Positive Danyell, indirect Negative [facility] Blood 03/31/2025 12:4 3 PM CDT 03/31/2025 12:54 PM CDT Narrative [facility] - 03/31/2025 1:41 PM CDT Has the patient had Daratumumab or Isatuximab in the past 6 months?->Unknown Jeison Rao MD LAB BLOOD BANK TEST ORDERA BLES Final Result [facility] [place] [address] * Prepare RBC: 1 Units (03/31/2025 12:30 PM CDT) Product code [id number] Unit Number [id number] [facility] Product Blood Type BPOS [facility] Dispense Status PRESUMED TRANSFUSED [facility] Blood 03/31/2025 12:3 0 PM CDT 03/31/2025 12:29 PM CDT Narrative [facility] - 04/01/2025 4:01 AM CDT Specify Procedure:->knee I\T\D with spacer Are special requirements needed? (All products are leukoreduced and CMV- safe)- >No Date required:-[id number] LRRBC # of [id number] Reasons:-Hold for procedure (specify procedure)} us Jeison Rao MD BLOOD BANK PRODUCT ORDERAB LES Final Result [facility] [place] [address] * US Guided Aspiration or Injection of Major Joint (03/18/2025 11:23 AM CDT) Anatomical Region Laterality Modality Entire body N/A X-Ray Angiograph y 03/18/2025 11:3 4 AM CDT Impressions 03/18/2025 11:52 AM CDT 1. Right knee joint aspiration under ultrasound guidance. 6 mL serosanguinous fluid was aspirated and sent for cell count, crystal evaluation, Gram stain, and culture. Insufficient aspirate was obtained for Synovasure. Dictated by: Ovidio Henry MD The radiology attending physician has personally reviewed this study, and had reviewed and/or edited this written report and agrees with it. Electronically signed by: Vadim Gurrola M.D. Narrative 03/18/2025 11:52 AM CDT EXAMINATION: Right knee joint aspiration under ultrasound guidance HISTORY: Right knee explant with concern for periprosthetic joint infection ATTENDING PRESENCE: Dr. Vadim Gurrola M.D., the attending radiologist, was present from the beginning to the end of the procedure. SEDATION: The patient did not require conscious sedation for the procedure. TECHNIQUE: The risks, benefits and alternatives were discussed and informed consent was obtained. Prior to beginning the procedure, Wins[place] Protocol was performed to confirm the patient's identity and the planned procedure. Sterile barriers used during the procedure included cap, mask, hand hygiene, sterile gloves, and sterile drape. Chloraprep was used for cutaneous antisepsis. The patient was placed supine on the procedure table. The right knee joint was localized with ultrasound guidance. Local anesthesia was achieved with subcutaneous injection of 1% lidocaine 2 mL. An 18-gauge needle was then introduced into the joint under imaging guidance. 6 mL of thin pink-tinged fluid was aspirated. The needle was removed. The skin was cleansed with hydrogen peroxide, and a bandage was placed. Complication: None Type: None ESTIMATED BLOOD LOSS: None CONDITION: Stable condition. DISCHARGED TO: Home FINDINGS: Initial sonographic images demonstrate a thin suprapatellar right knee effusion. Imaging confirm appropriate position of the needle tip. 6 mL of thin pink-tinged fluid was aspirated. Procedure Note Vadim Gurrola MD - 03/18/2025 EXAMINATION: Right knee joint aspiration under ultrasound guidance HISTORY: Right knee explant with concern for periprosthetic joint infection ATTENDING PRESENCE: Dr. Vadim Gurrola M.D., the attending radiologist, was present from the beginning to the end of the procedure. SEDATION: The patient did not require conscious sedation for the procedure. TECHNIQUE: The risks, benefits and alternatives were discussed and informed consent was obtained. Prior to beginning the procedure, Wins[place] Protocol was performed to confirm the patient's identity and the planned procedure. Sterile barriers used during the procedure included cap, mask, hand hygiene, sterile gloves, and sterile drape. Chloraprep was used for cutaneous antisepsis. The patient was placed supine on the procedure table. The right knee joint was localized with ultrasound guidance. Local anesthesia was achieved with subcutaneous injection of 1% lidocaine 2 mL. An 18-gauge needle was then introduced into the joint under imaging guidance. 6 mL of thin pink-tinged fluid was aspirated. The needle was removed. The skin was cleansed with hydrogen peroxide, and a bandage was placed. Complication: None Type: None ESTIMATED BLOOD LOSS: None CONDITION: Stable condition. DISCHARGED TO: Home FINDINGS: Initial sonographic images demonstrate a thin suprapatellar right knee effusion. Imaging confirm appropriate position of the needle tip. 6 mL of thin pink-tinged fluid was aspirated. IMPRESSION: 1. Right knee joint aspiration under ultrasound guidance. 6 mL serosanguinous fluid was aspirated and sent for cell count, crystal evaluation, Gram stain, and culture. Insufficient aspirate was obtained for Synovasure. Dictated by: Ovidio Henry MD The radiology attending physician has personally reviewed this study, and had reviewed and/or edited this written report and agrees with it. Electronically signed by: Vadim Gurrola M.D. us Wilder Butterfield MD IMG US PROCEDURES Final Result * Crystal Analysis, Body Fluid (03/18/2025 11:22 AM CDT) Specimen type, fld Synovial Comment:Testing performed by : [facility], [address] [place] [address]., [phone] Crystals Not Present Not Present [facility] Comment:Testing performed by : [facility], [address] [place] [address]., [phone] Fluid 03/18/2025 11:2 2 AM CDT 03/18/2025 12:34 PM CDT Narrative [facility] - 03/18/2025 2:57 PM CDT Specify:->right knee us Wilder Butterfield MD LAB BODY FLUIDS AND STOOLS ORDER VARGAS Final Result [facility] [address] [facility]. [place] [address] * Cell Differential, Body Fluid (03/18/2025 11:22 AM CDT) Total cells diffed 100 % Comment: Interpretive Data Unless otherwise specified, the reference range and other method performance specifications have not been established for CSF/Body Fluid tests. The test results should be integrated into the clinical context for interpretation. Current interpretive data was last revised on 2019. Neutrophils, fld 31 % [facility] Lymphs, fld 24 % [facility] Monocyte, fld 44 % [facility] Eosinophils, fld 1 % [facility] Specimen type, fld Synovial [facility] Fluid 03/18/2025 11:2 2 AM CDT 03/18/2025 11:26 AM CDT Wilder Butterfield MD LAB BODY FLUIDS AND STOOLS ORDER VARGAS Final Result Performing Organization Address [facility] Co de Phone Number [facility] [address] [address] [facility]. [facility] [place] [address] * Cell count w/rflx diff, body fluid (03/18/2025 11:22 AM CDT) Specimen type, fld Synovial Color, fld Red [facility] Clarity, fld Turbid [facility] Nucleated cells, fld 385 /cumm [facility] Comment: Interpretive Data Unless otherwise specified, the reference range and other method performance specifications have not been established for CSF/Body Fluid tests. The test results should be integrated into the clinical context for interpretation. Current interpretive data was last revised on 2019. RBC, fld 65,000 /cumm [facility] Fluid 03/18/2025 11:2 2 AM CDT 03/18/2025 11:26 AM CDT Narrative [facility] - 03/18/2025 1:23 PM CDT Specify:->right knee Wilder Butterfield MD LAB BODY FLUIDS AND STOOLS ORDER VARGAS Final Result Performing Organization Address [facility] Co de Phone Number [facility] [address] [address] [facility]. [place] [address] * Mycology (fungal) culture Synovial fluid Knee, right (03/18/2025 11:22 AM CDT) Report Final Report: No fungus isolated Comment:Testing performed by : [facility], [facility] [facility], [place]., [address] Synovial fluid (Knee, right) 03/18/2025 11:22 AM CDT 03/18/2025 2:01 PM CDT Narrative WENDY LYLE - 04/16/2025 1:00 PM CDT Mycology cultures are held for 4 weeks. Larisa Garcia RN LAB MICROBIOLOGY - GENERAL ORDERABLES Final Result Performing Organization Address [facility] Co de Phone Number WENDY RODRIGUEZWCH [phone] [employer]. [facility] [place] [address] * Aerobic and anaerobic culture and gram stain Synovial fluid Knee, right (03/18/2025 11:22 AM CDT) Direct Specimen Exam Stain: No polymorphonuclear leukocytes seen. No organisms seen. Comment:Testing performed by : [facility], [address] [place] [address]., [id number] Report Final Report: No growth WENDY LYLE Comment:Testing performed by : [facility], [address] [place] [address]., [id number] Synovial fluid (Knee, right) 03/18/2025 11:22 AM CDT 03/18/2025 1:33 PM CDT Wilder Butterfield MD LAB MICROBIOLOGY - GENERAL ORDER VARGAS Final Result Performing Organization Address [facility] Co de Phone Number WENDY RODRIGUEZWCH [phone] [employer] [address] * (ABNORMAL) Erythrocyte sedimentation rate (03/18/2025 10:13 AM CDT) Erythrocyte sedimentation rate 45(H) 1 - 30 mm/hr Blood 03/18/2025 10:1 3 AM CDT 03/18/2025 10:43 AM CDT Wilder Butterfield MD LAB BLOOD ORDERABLES Final Resul t Performing Organization Address [facility] Co de Phone Number WENDY BJWCH [phone] [employer]. [facility] [place] [address] * (ABNORMAL) CRP (acute phase) (03/18/2025 10:13 AM CDT) CRP 33.4(H) <=10.0 mg/L Blood 03/18/2025 10:1 3 AM CDT 03/18/2025 10:43 AM CDT us Wilder Butterfield MD LAB BLOOD ORDERABLES Final Resul t WENDY BJWCH [id number] [facility]. [place] [address] from Last 3 Months Insurance [facility] MED[facility] Address: [address] [address] [place] [address] [facility] MED[facility] Address: [facility] [address] [place] [address] Advance Directives For more information, please contact: [phone] * Full Code (Latest Code Status on File) Date Activated Date Inactivated Comments 03/31/2025 8:35 PM 04/10/2025 10:53 PM * Full Code Date Activated Date Inactivated Comments 02/17/2025 5:29 PM 02/19/2025 6:38 PM * Full Code Date Activated Date Inactivated Comments 12/30/2024 6:55 PM 01/07/2025 7:47 PM Care Teams Medical Authorization Specialist Relationship Specialty Start Date End Date Fabricio Paige MD PCP - General 02/06/17
== END 2025-06-17 07:33 | disposition home or self-care (01) ==
PROVIDERS: PCP Internal Medicine; Visit Provider Internal Medicine
DX: R60.0 Localized edema (principal)
CPT/HCPCS: 93970